=== PATIENT | female | born 1950 | race Caucasian/White ===

== ENCOUNTER 2020-05-21 09:11 | Outpatient (CLI) | payer MEDICARE, OTHER, SELFPAY ==
--- NOTE | ~2020-05-21 | MM_ITS ---
EXAMINATION: MM diagnostic garcía BI w butch HISTORY: Breast pain TECHNIQUE: Additional 3-D tomosynthesis images of the breasts were performed and synthetic 2-D images were generated. CAD analysis was submitted and interpreted. COMPARISON: None FINDINGS: Breast composed of scattered areas of fibroglandular density. There are no suspicious zoila s, calcifications or architectural distortion in either breast to suggest malignancy. IMPRESSION: 1. No mammographic evidence for malignancy in either breast. 2. Routine yearly screening mammogram and regular clinical breast examination are recommended. BI-RADS Category 1: Negative Reviewed, dictated and finalized at location A. IMPRESSION: 1. No mammographic evidence for malignancy in either breast. 2. Routine yearly screening mammogram and regular clinical breast examination a re recommended. BI-RADS Category 1: Negative
== END 2020-05-21 09:12 | disposition home or self-care (01) ==
LOC: CHSIMG 09:14
PROVIDERS: PCP Internal Medicine; Visit Provider Internal Medicine
DX: N64.4 Mastodynia (principal); N63.0 Unspecified lump in unspecified breast
CPT/HCPCS: 77062; 77066; G0279

== ENCOUNTER 2020-09-04 08:55 | Outpatient (CLI) | payer MEDICARE, OTHER, SELFPAY ==
[2020-09-04 09:08] VITALS: BP 123/70; PULSE 68; RESP 16; TEMP 36.2; O2SAT 96
[2020-09-04] MEDS: ZOLEDRONIC ACID 5 MG/100 ML 100 ML 400 MG IVPB (09:24)
--- NOTE | 2020-09-04 09:55 | PC.NURSE ---
Patient here for yearly IV Reclast infusion. Information on Reclast given. Patient has no concerns. Reclast infusion administered. Tolerated well. Safe exit of hospital.
== END 2020-09-04 08:56 | disposition home or self-care (01) ==
LOC: CHSTREATRM 08:57
PROVIDERS: PCP Internal Medicine; Visit Provider Internal Medicine
DX: M81.0 Age-related osteoporosis without current pathological fracture (principal)
CPT/HCPCS: 96365; J3489

== ENCOUNTER 2021-04-09 12:54 | Outpatient (CLI) | payer MEDICARE, OTHER, SELFPAY ==
--- NOTE | ~2021-04-09 | DEXA_ITS ---
Bone Density Report Name: Laurent Wall Age: 70 Sex: Female Ethnicity: White Date of : 1950 Indication: postmenopausal; screening for osteoporosis; height loss; prior fracture; cancer; hysterectomy; Referring Provider: Olivier Diaz Study: Bone densitometry was performed. Exam Date: April 09, 2021 Accession number: [id number] Bone Density: Region BMD T-score Z-score Classification AP Spine(L1-L4) 0.848 -1.8 0.4 Osteopenia Femoral Neck (Left) 0.677 -1.5 0.4 Osteopenia Total Hip (Left) 0.748 -1.6 0.0 Osteopenia Femoral Neck (Right) 0.650 -1.8 0.1 Osteopenia Total Hip (Right) 0.756 -1.5 0.1 Osteopenia Femoral Neck Mean 0.664 -1.7 0.3 Osteopenia Total Hip Mean 0.752 -1.6 0.1 Osteopenia World Health Organization criteria for BMD impression classify patients as: Normal (T-score at or above -1.0), Osteopenia (T-score between -1.0 and -2.5), or Osteoporosis (T-score at or below -2.5). 10-year Fracture Risk: FRAX not reported because: Treated for osteoporosis Clinical Information Provided by Patient: Has had a low trauma fracture Is being treated for osteoporosis Has used the following medications: Reclast (i.e. zoledronate), Vitamin D Has the following medical conditions: Cancer, Hysterectomy, COPD Patient maximum height was 64 Menopause Age: 37 No regular weight bearing exercise Does not regularly consume dairy products Drinks caffeinated beverages Onset of menses at age 10 Number of children 2 Impression: The patient has low bone mass, based on the Total Spine T-score. The patient has risk factors, including: previous fracture. Discussion: It is important to ask patients whether they are taking their medications and to encourage continued and appropriate compliance with their osteoporosis therapies to reduce fracture risk. It is also important to review their risk factors and encourage appropriate calcium and vitamin D intakes, exercise, fall prevention and other lifestyle measures. Follow-Up: Consider a repeat BMD and Vertebral Fracture Assessment (VFA) exam in 2 years or sooner if medically necessary, to reassess this patient's status. Reported by: Dr. Jesus Anna on 04/18/2021 5:02:00 PM. Reviewed, dictated and finalized at location Melvin RIVERA
== END 2021-04-09 12:55 | disposition home or self-care (01) ==
LOC: CHSIMG 12:55
PROVIDERS: PCP Internal Medicine; Visit Provider Internal Medicine
DX: M81.0 Age-related osteoporosis without current pathological fracture (principal)
CPT/HCPCS: 77080

== ENCOUNTER 2021-05-22 08:15 | Outpatient (CLI) | payer MEDICARE, OTHER, SELFPAY ==
--- NOTE | ~2021-05-22 | MM_ITS ---
EXAMINATION: MM screening garcaí BI w butch HISTORY: Screening TECHNIQUE: Craniocaudal and mediolateral oblique 3-D tomosynthesis images were obtained and synthetic 2-D images were generated. CAD analysis was submitted and interpreted. COMPARISON: Comparison to multiple prior studies sequentially, with oldest reviewed study dated 05/21. BREAST PARENCHYMAL COMPOSITION: The breasts are almost entirely fatty. FINDINGS: There is no evidence of suspicious mass, calcification, or architectural distortion to sugg est malignancy in either breast. There has been no suspicious interval change. IMPRESSION: 1. No mammographic evidence of malignancy. 2. Recommend routine screening mammography in one year. BI-RADS Category 1: Negative Reviewed, dictated and finalized at location A.
== END 2021-05-22 08:16 | disposition home or self-care (01) ==
LOC: CHSIMG 08:16
PROVIDERS: PCP Internal Medicine; Visit Provider Internal Medicine
DX: Z12.31 Encounter for screening mammogram for malignant neoplasm of breast (principal)
CPT/HCPCS: 77063; 77067

== ENCOUNTER 2021-06-27 10:53 | Outpatient (CLI) | payer MEDICARE, OTHER, SELFPAY ==
--- NOTE | ~2021-06-27 | XR_ITS ---
XR ankle LT min 3V DATE: 06/27/2021 11:37 INDICATION: Fall. Left ankle injury, pain TECHNIQUE: 4 views COMPARISON: None FINDINGS: A linear oblique in particular fracture of the base of the fifth metatarsal bone is noted. There is mild lateral soft tissue swelling of the ankle. Mild distal Achilles tendon calcification. No fracture or dislocation of the ankle or disruption of the ankle mortise is detected. IMPRESSION: Fracture of the base of the fifth metatarsal bone Reviewed, dictated and finalized at location B.
--- NOTE | ~2021-06-27 | XR_ITS ---
EXAMINATION: XR hand RT min 3V DATE: 06/27/2021 11:37 INDICATION: Right hand pain TECHNIQUE: Posteroanterior, lateral, and oblique views of the right hand were obtained. COMPARISON: None. FINDINGS: There is no fracture, dislocation, or subluxation. Mild osteoarthritis is noted at the firs t carpometacarpal joint as well as in all interphalangeal joints. The soft tissues are unremarkable. IMPRESSION: 1. No acute osseous abnormality. Reviewed, dictated and finalized at location A.
--- NOTE | ~2021-06-27 | XR_ITS ---
EXAMINATION: XR wrist RT min 3V INDICATION: Right wrist pain TECHNIQUE: Four views of the right wrist are obtained. COMPARISON: None available FINDINGS: There is no fracture, dislocation, or subluxation. There is mild osteoarthritis at the firs t carpometacarpal joint. The soft tissues are unremarkable. IMPRESSION: 1. No acute osseous abnormality. Reviewed, dictated and finalized at location A.
--- NOTE | ~2021-06-27 | XR_ITS ---
XR foot LT min 3V DATE: 06/27/2021 11:38 INDICATION: Fall. Left foot pain. TECHNIQUE: 4 views COMPARISON: None FINDINGS: There is a nondisplaced linear intra-articular fracture of the base of the fifth metatarsal bone. There is hallux valgus and bunion deformity. There is osteoarthritis at the first metatarsophalangeal joint. Mild distal Achilles tendon calcification. IMPRESSION: Acute linear nondisplaced intra-articular fracture of the base of the fifth metatarsal alec ne Hallux valgus and bunion deformity Mild osteoarthritis at the first metatarsophalangeal joint Distal Achilles tendon calcification Reviewed, dictated and finalized at location B. IMPRESSION: Acute linear nondisplaced intra-articular fracture of the base of t he fifth metatarsal bone Hallux valgus and bunion deformity Mild osteoarthritis at the first metatarsophalangeal joint Distal Achilles tendon calcification
== END 2021-06-27 10:54 | disposition home or self-care (01) ==
PROVIDERS: PCP Internal Medicine; Visit Provider Internal Medicine
DX: S69.91XA Unspecified injury of right wrist, hand and finger(s), initial encounter (principal); S99.922A Unspecified injury of left foot, initial encounter
CPT/HCPCS: 73110; 73130; 73610; 73630

== ENCOUNTER 2021-07-07 15:53 | Outpatient (CLI) | payer MEDICARE, OTHER, SELFPAY ==
--- NOTE | ~2021-07-07 | XR_ITS ---
XR ribs RT 2V DATE: 07/07/2021 16:32 INDICATION: Right rib pain after fall one week ago. History of lung cancer. TECHNIQUE: 3 views of right ribs COMPARISON: 02/09/2019 PA and lateral chest FINDINGS: There is an approximately 2 cortical width displaced fracture of the posterior right fifth rib which appears recent. No other rib fracture is evident. There is right apical capping but no apparent right pulmonary infil trate or consolidation, pleural effusion or pneumothorax. There is suggestion of several mild fracture deformities of uncertain age of the thoracic spine. Diffuse osteopenia. IMPRESSION: Mildly displaced posterior right fifth recent rib fracture Several fracture deformities of undetermined age of the thoracic spine are suggested Reviewed, dictated and finalized at location A. IMPRESSION: Mildly displaced posterior right fifth recent rib fracture Several fracture deformities of undetermined age of the thoracic spine are sugg rosario
== END 2021-07-07 15:54 | disposition home or self-care (01) ==
LOC: CHSIMG 15:56
PROVIDERS: PCP Internal Medicine; Visit Provider Nurse Practitioner Family
DX: R07.81 Pleurodynia (principal); S22.39XA Fracture of one rib, unspecified side, initial encounter for closed fracture
CPT/HCPCS: 71100

== ENCOUNTER 2021-07-08 14:31 | Outpatient (CLI) | payer MEDICARE, OTHER, SELFPAY ==
--- NOTE | ~2021-07-08 | XR_ITS ---
XR thoracic spine 3V DATE: 07/08/2021 14:57 INDICATION: Thoracic spine fracture TECHNIQUE: AP, lateral, swimmer views COMPARISON: thoracic spine and CT thorax FINDINGS: There is diffuse osteopenia. There are mild to moderate anterior wedge compression fracture deformities at T4-5, T5, T6 and T8, no t present on 02/25/2016. The thoracic pedicles appear intact. No paraspinal soft tissue thickening. Diminished right apical soft tissue density compared to 02/25/2016. IMPRESSION: Mild to moderate anterior wedge compression fracture deformities of T5, T6 and T8, new si nce 02/25/2016 Reviewed, dictated and finalized at location A. IMPRESSION: Mild to moderate anterior wedge compression fracture deformities of T5, T6 and T8, new since 02/25/2016
== END 2021-07-08 14:32 | disposition home or self-care (01) ==
LOC: CHSIMG 14:34
PROVIDERS: PCP Internal Medicine; Visit Provider Internal Medicine
DX: S22.009D Unspecified fracture of unspecified thoracic vertebra, subsequent encounter for fracture with routine healing (principal)
CPT/HCPCS: 72072

== ENCOUNTER 2021-07-30 12:37 | Outpatient (CLI) | payer MEDICARE, OTHER, SELFPAY ==
--- NOTE | ~2021-07-30 | XR_ITS ---
EXAMINATION: XR foot LT min 3V DATE: 07/30/2021 12:56 INDICATION: Fifth metatarsal fracture follow-up TECHNIQUE: Dorsoplantar, lateral, and 2 oblique views of the left foot were obtained. COMPARISON: 06/27/2021 FINDINGS: Again seen is an oblique intra-articular fracture at the lateral base of the fifth metatars al. Alignment is unchanged. Minimal calcified callus has developed at the fracture site. No additiona l fracture is identified. There is mild to moderate osteoarthritis of multiple interphalangeal joints . Hallux valgus is noted. IMPRESSION: 1. Fracture at the lateral base of the fifth metatarsal with some early healing. Reviewed, dictated and finalized at location B. IMPRESSION: 1. Fracture at the lateral base of the fifth metatarsal with some early healing .
== END 2021-07-30 12:38 | disposition home or self-care (01) ==
LOC: CHSIMG 12:39
PROVIDERS: PCP Internal Medicine; Visit Provider Internal Medicine
DX: S92.352D Displaced fracture of fifth metatarsal bone, left foot, subsequent encounter for fracture with routine healing (principal)
CPT/HCPCS: 73630

== ENCOUNTER 2021-10-21 12:46 | Outpatient (CLI) | payer MEDICARE, OTHER, SELFPAY ==
[2021-10-21 12:59] VITALS: BP 130/70; PULSE 78; RESP 14; TEMP 36.5; O2SAT 97; BMI 29.9
[2021-10-21] MEDS: ZOLEDRONIC ACID 5 MG/100 ML 100 ML 400 MG IVPB (13:00)
--- NOTE | 2021-10-21 13:11 | PC.NURSE ---
Patient here for yearly IV Reclast infusion. Education on medication given. No concerns voiced. IV Reclast administered. SEE MAR. Tolerated well. Safe exit of hospital.
== END 2021-10-21 12:47 | disposition home or self-care (01) ==
LOC: CHSTREATRM 12:48
PROVIDERS: PCP Internal Medicine; Visit Provider Internal Medicine
DX: M81.0 Age-related osteoporosis without current pathological fracture (principal)
CPT/HCPCS: 96365; J3489

== ENCOUNTER 2021-11-25 09:19 | Outpatient (CLI) | payer MEDICARE, SELFPAY ==
[2021-11-25 12:40] LABS: SARS-CoV-2 Ag Negative (Negative)
[2021-11-25 12:41] LABS: Influenza Control Valid (Valid)
== END 2021-11-25 09:20 | disposition home or self-care (01) ==
LOC: CHSLAB 09:23
PROVIDERS: PCP Internal Medicine; Visit Provider Internal Medicine
DX: J06.9 Acute upper respiratory infection, unspecified (principal); Z20.822 Contact with and (suspected) exposure to COVID-19
CPT/HCPCS: 87081; 87426; 87804; 87880; C9803

== ENCOUNTER 2022-01-02 20:34 | Emergency (ER) | payer MEDICARE, OTHER, SELFPAY ==
[2022-01-02 21:23] VITALS: BP 152/98; PULSE 64; RESP 18; TEMP 36.6; O2SAT 96
--- NOTE | 2022-01-02 22:01 | ED.GENADULT ---
HPI - General Adult General Chief complaint: Unspecified Stated complaint: gi tube is coming out Time Seen by Provider: 01/02/22 22:02 History of Present Illness HPI narrative: 71-year-old female patient is here with the G-tube coming out this evening. Patient has had G-tube for 8 months on account of Having narrowing of the esophagus from his radiation for lung cancer.. She seems to use it only for medications at this time however she states that she is going to start taking the medications crushed in liquids and is able to swallow. She denies any abdominal pain. she states that she does take liquids and the pureed food. She has had no difficulty swallowing. Patient offers no other Related Data Home Medications Medication Instructions Recorded Confirmed cholecalciferol (vitamin D3) 25 1,000 unit PO DAILY 09/25/19 10/21/21 mcg (1,000 unit) capsule escitalopram oxalate 10 mg tablet 10 mg PO DAILY 09/25/19 10/21/21 famotidine 40 mg tablet 40 mg PO DAILY 09/25/19 10/21/21 inhalational spacing device #1 each 09/25/19 10/21/21 levothyroxine 88 mcg tablet 88 mcg PO DAILY 09/25/19 10/21/21 lorazepam 1 mg tablet 1 mg PO DAILY PRN 09/25/19 10/21/21 ondansetron HCl 8 mg tablet 8 mg PO Q12H 09/25/19 10/21/21 tramadol 50 mg tablet 50 mg PO Q6H PRN 09/25/19 10/21/21 acetaminophen 500 mg tablet 500 mg PO Q4H PRN 09/26/19 10/21/21 cetirizine 10 mg capsule 10 mg PO DAILY cap 09/25/20 10/21/21 Allergies Allergy/AdvReac Type Severity Reaction Status Date / Time Penicillins Allergy Unknown rash Verified 03/25/21 09:16 Review of Systems Review of Systems: All systems reviewed & are unremarkable except as noted in HPI and below PMFSH Past Medical History Medical History Cholecystectomy planned History of lung cancer Surgical History Surgical History H/O: hysterectomy Family History Family History Father Hypertension Cerebrovascular accident Malignant neoplasm of prostate, Onset Age: 84 Family history of congestive heart failure Mother Family history of osteoarthritis Family history of coronary artery disease Social History Social History Smoking packs per day: 1 Smoking cigarettes per day: 20.0 Years smoked: 35 Smoking pack-years: 35.00 Smoking status: Former smoker Exam Const: General: cooperative, healthy appearing, comfortable, no acute distress, well developed, alert, awake and Physically active HENMT: Head: normal to inspection Ears: hearing grossly normal bilaterally General nose exam: Normal external nose present Face and sinus: normal facial exam Mouth: Yes Normal oral and palatal mucosa present Eyes: General: appearance normal, both eyes and all related structures Neck: Neck: normal visual inspection and full ROM Chest: Chest palpation & inspection: normal inspection of the chest Resp: Effort & Inspection: normal respiratory effort and able to speak in complete sentences Cardio: Rate: regular rate GI: Inspection: normal to inspection GI Palp: No abdominal tenderness Other: Patient has a G-tube in the left upper quadrant area which is partially out. Skin: General skin exam: normal color and no rashes or lesions noted Neuro: General: patient oriented x3, gait normal and moves all extremities Speech: normal speech Extrem: General: normal to inspection Psych: Appearance: grossly normal Mental Status: mental status grossly normal Course Course Emergency Course: The G-tube was pulled out and the balloon is completely torn. It the patient does not want the G-tube back in. She states that she is about to have it removed and she is going to try take the medications crushed and juice. The wound has been closed with a dressing. The patient is advised to follow-up with her pr
== END 2022-01-02 22:40 | disposition home or self-care (01) ==
PROVIDERS: Emergency Provider Emergency Medicine; PCP Internal Medicine
DX: Z93.4 Other artificial openings of gastrointestinal tract status (principal); Z85.118 Personal history of other malignant neoplasm of bronchus and lung; Z87.891 Personal history of nicotine dependence
CPT/HCPCS: 99283

== ENCOUNTER 2022-05-10 18:10 | Emergency (ER) | payer MEDICARE, OTHER, SELFPAY ==
--- NOTE | ~2022-05-10 | CT_ITS ---
EXAMINATION: CT diagnostic chest wo con DATE: 05/10/2022 19:19 INDICATION: FB esophagus. HX of Lung cancer TECHNIQUE: Computed tomography (CT) of the chest was performed without intravenous contrast. Automate d exposure control and iterative reconstruction technique were employed. The dose-length product was 271.80 mGy-cm. COMPARISON: CT soft tissue neck, same date. FINDINGS: CHEST: Thoracic aorta: Mild ectasia with arch calcifications.. Lung parenchyma and airways: 3 mm left upper lobe pulmonary nodule. Multiple calcified granulomas. Em physematous change. Mixed density posterior right apical mass, possibly pleural based, with both calc ific and fluid density. Right apical volume loss and scarring. Thoracic inlet, axillae and chest wall: No thyroid or soft tissue mass. No axillary lymphadenopathy. Mediastinum: No mass or lymphadenopathy. The upper esophageal foreign bodies in the prior study are n o longer seen. Small hiatal hernia. Heart and pericardium: Normal heart size. No pericardial effusion. Coronary artery calcifications: Moderate. Pleura: No effusion or mass, except as noted above. Upper abdomen: No significant finding. Thoracic bones: Multifocal lytic areas of potential erosions along the right side of T1-T5 with simil ar changes in the corresponding posterior medial ribs. Mild anterior wedge deformity and endplate def ormities at T3-T6. IMPRESSION: The upper esophageal foreign bodies described in the prior report are no longer present. 3 mm left up per lobe pulmonary nodule, if the patient is low risk for lung cancer, no follow-up is needed. If the patient is high risk (i.e., history of smoking or asbestos or radiation exposure), follow-up noncont rast low-dose chest CT is recommended at 12 months. Right posterior apical pleural mass and fluid co llection with adjacent lytic osseous changes and pulmonary parenchymal scarring/volume loss, possibly representing posttherapeutic and or post radiation changes. Recurrent disease not excluded. Reviewed, dictated and finalized at location K. IMPRESSION: The upper esophageal foreign bodies described in the prior report are no longer present. 3 mm left upper lobe pulmonary nodule, if the patient is low risk for lung cancer, no follow-up is needed. If the patient is high risk (i.e., histor y of smoking or asbestos or radiation exposure), follow-up noncontrast low-dose chest CT is recommended at 12 months. Right posterior apical pleural mass and fluid collection with adjacent lytic osseous changes and pulmonary parenchymal scarring/volume loss, possibly representing posttherapeutic and or post radiat ion changes. Recurrent disease not excluded.
--- NOTE | ~2022-05-10 | CT_ITS ---
CORRECTED REPORT order change 05/11/22 [facility] [place] EXAMINATION: CT soft tissue neck wo con DATE: 05/10/2022 19:09 INDICATION: Esophageal foreign body. TECHNIQUE: Computed tomography (CT) of the neck was performed without intravenous contrast. Automated exposure control and iterative reconstruction technique were employed. The dose-length product was 470.74 mGy-cm. COMPARISON: None FINDINGS: Motion limited examination. The thyroid gland is poorly visualized. The submandibular are poorly visualized, parotid glands are symmetric. The mid anterior neck is obscured by motion artifact, no definite lymphadenopathy in the visualized soft tissues. Aortic arch calcifications. Irregular areas of soft tissue debris within the patulous upper esophagus. Heparin airways appear by motion. Bilateral lens replacements. Visualized sinuses and mastoid air cells are well aerated. Mixed density right apical mass, with erosion into adjacent upper ribs and thoracic vertebral bodies. There is cervical spondylosis. IMPRESSION: Esophageal foreign body, likely representing ingested food. Right apical lung or pleural mass with adjacent rib and thoracic vertebral body erosion. Please refer to the report on the concurrent CT chest for additional detail. Reviewed, dictated and finalized at location K. MTDD IMPRESSION: Esophageal foreign body, likely representing ingested food. Right apical lung o r pleural mass with adjacent rib and thoracic vertebral body erosion. Please re maureen to the report on the concurrent CT chest for additional detail.
--- NOTE | ~2022-05-10 | CT_ITS ---
EXAMINATION: CT diagnostic chest wo con DATE: 05/10/2022 21:32 INDICATION: FB esophagus, resolved? Patient reportedly still feels something stuck in her throat. TECHNIQUE: Computed tomography (CT) of the chest was performed without intravenous contrast. Automate d exposure control and iterative reconstruction technique were employed. The dose-length product was 180.66 mGy-cm. COMPARISON: CT chest, same date. FINDINGS: Esophagus remains free of foreign bodies. No significant wall thickening. No mediastinal air. Small h iatal hernia. Stable right apical mass and adjacent lytic osseous changes. Stable left pulmonary nodu le. IMPRESSION: No esophageal foreign body. No significant interval change. Prior recommendation for pulmonary nodule follow-up is unchanged. Reviewed, dictated and finalized at location K. IMPRESSION: No esophageal foreign body. No significant interval change. Prior recommendatio n for pulmonary nodule follow-up is unchanged.
[2022-05-10 18:15] VITALS: BP 167/89; PULSE 91; RESP 20; TEMP 36.6; O2SAT 97
--- NOTE | 2022-05-10 18:22 | ECG_ITS ---
Measurements Intervals [place] Rate: 83 P: 72 NH: 164 QRS: 44 QRSD: 89 T: 138 QT: 381 QTc: 449 Interpretive Statements SINUS RHYTHM WITH OCCASIONAL SUPRAVENTRICULAR PREMATURE COMPLEXES BASELINE ARTIFACT POSSIBLE LEFT ATRIAL ENLARGEMENT [-0.1mV P-WAVE IN V1/V2] LEFT VENTRICULAR HYPERTROPHY AND ST-T CHANGE [VOLTAGE CRITERIA PLUS ST/T ABNORMALITY] ABNORMAL ECG NO PREVIOUS ECG AVAILABLE FOR COMPARISON Electronically Signed On 05-11-2022 14:27:04 CDT by Lisandro Blanton M.D.
[2022-05-10] MEDS: SODIUM CHLORIDE 0.9% IV 500 ML 999 ML IV CONT (19:23)
[2022-05-10 19:27] LABS: Basophils Absolute Auto 0.08 K/mm3 (0.00-0.10); Basophils Percent Auto 1.2 % (0.0-1.0); Eosinophils Percent Auto 1.4 % (1.0-6.0); Hematocrit 44.8 % (35.0-42.0); Hemoglobin 15.5 g/dL (11.7-13.8); Immature Granulocyte Absolute 0.02 K/mm3 (0.00-0.00); Immature Granulocyte Percent A 0.3 % (0.0-0.0); Lymphocytes Absolute Auto 1.43 K/mm3 (1.10-4.50); Lymphocytes Percent Auto 20.7 % (18.0-42.0); Mean Corpuscular HGB Conc 34.6 g/dL (32.0-36.0); Mean Corpuscular Hemoglobin 30.6 pg (27.0-31.0); Mean Corpuscular Volume 88.5 fL (78.0-102.0); Mean Platelet Volume 10.5 fl (9.2-11.8); Monocytes Absolute Auto 0.71 K/mm3 (0.10-0.90); Monocytes Percent Auto 10.3 % (2.0-11.0); Neutrophils Absolute Auto 4.6 K/mm3 (1.7-7.2); Neutrophils Percent Auto 66.1 % (50.0-70.0); Platelet Count Result 313 K/mm3 (150-420); Red Blood Count 5.06 M/mm3 (4.20-5.40); Red Cell Distribution Width 12.9 % (11.6-14.4); White Blood Count 6.9 K/mm3 (4.8-10.8)
[2022-05-10] MEDS: GLUCAGON FOR INJ 1 MG VIAL IV PUSH ×2 (19:29→20:43)
[2022-05-10] MEDS: ONDANSETRON INJ 4 MG/2 ML VIAL IV PUSH ×2 (19:31→20:45)
[2022-05-10] MEDS: PANTOPRAZOLE SODIUM IV 40 MG VIAL IV PUSH (19:32)
[2022-05-10 19:39] LABS: Glucose Point of Care 97 mg/dl (65-105)
[2022-05-10 19:46] LABS: Alanine Aminotransferase 23 U/L (14-59); Albumin Level 4.2 g/dL (3.4-5.0); Alkaline Phosphatase 53 U/L (46-116); Anion Gap 10 mmol/L (8-16); Aspartate Amino Transferase 23 U/L (15-37); Bilirubin,Total 0.7 mg/dL (0.00-1.00); Blood Urea Nitrogen 11 mg/dL (7-18); Calcium 9.4 mg/dL (8.5-10.1); Carbon Dioxide 24 mmol/L (21-32); Chloride 103 mmol/L (98-108); Estimated CRCL calculation 32 ml/min; Estimated Glomerular Filt Rate 36; Glucose 112 mg/dL (70-99); Osmolality Calculated 284 mOsm/kg (285-295); Potassium 3.7 mmol/L (3.5-5.1); Sodium 137 mmol/L (136-145); Total Protein 7.2 g/dL (6.4-8.2); Troponin I 55.6 ng/L (0.00-60.4)
--- NOTE | 2022-05-10 19:56 | PC.NURSE ---
ERP asked RN to speak to GI for possible transfer. Pt requested [facility]. 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 Pt states she has had an incident in the past with a nut stuck in her esophagus. Pt states she was seen and treated at [facility]. RN called [facility] transfer line.
[2022-05-10 20:16] VITALS: BP 153/72; PULSE 83; RESP 16; O2SAT 94
[2022-05-10 21:45] VITALS: BP 145/80; PULSE 76; RESP 18; O2SAT 97
--- NOTE | 2022-05-10 22:21 | ED.GENADULT ---
HPI - General Adult General Chief complaint: Unspecified Stated complaint: choking Time Seen by Provider: 05/10/22 18:14 Source: patient, family and RN notes reviewed Mode of arrival: ambulatory Limitations: no limitations History of Present Illness MD complaint: unable to swallow food x this PM. Onset (ago): hour(s) (1) Location: chest Severity: mild Relieving factors: none Exacerbating factors: none Associated symptoms: cough Treatments prior to arrival: none Related Data Home Medications Medication Instructions Recorded Confirmed cholecalciferol (vitamin D3) 25 1,000 unit PO DAILY 09/25/19 05/10/22 mcg (1,000 unit) capsule escitalopram oxalate 10 mg tablet 10 mg PO DAILY 09/25/19 05/10/22 famotidine 40 mg tablet 40 mg PO DAILY 09/25/19 05/10/22 inhalational spacing device #1 ea 09/25/19 05/10/22 ([employer]amber [facility] spacer) levothyroxine 88 mcg tablet 88 mcg PO DAILY 09/25/19 05/10/22 (Synthroid) lorazepam 1 mg tablet 1 mg PO DAILY PRN Anxiety 09/25/19 05/10/22 ondansetron HCl 8 mg tablet 8 mg PO Q12H 09/25/19 05/10/22 tramadol 50 mg tablet 50 mg PO Q6H PRN Pain 09/25/19 05/10/22 acetaminophen 500 mg tablet 500 mg PO Q4H PRN Pain 09/26/19 05/10/22 (Tylenol Extra Strength) cetirizine 10 mg capsule (Zyrtec) 10 mg PO DAILY 09/25/20 05/10/22 Allergies Allergy/AdvReac Type Severity Reaction Status Date / Time Penicillins Allergy Unknown rash Verified 05/10/22 18:44 Review of Systems Review of Systems: All systems reviewed & are unremarkable except as noted in HPI and below Constitutional: Constitutional: Reports no additional constitutional complaints Eyes: Eyes: Reports no additional eye complaints ENT: Reports system reviewed and no additional complaints, except as documented Cardiovascular: Cardiovascular: Reports no additional cardiovascular complaints Respiratory: Respiratory: Reports no additional respiratory complaints Gastrointestinal: Gastrointestinal: Reports no additional gastrointestinal complaints Genitourinary: Genitourinary: Reports no additional female genitourinary complaints Musculoskeletal: Musculoskeletal: Reports no additional musculoskeletal complaints Integumentary/Breasts: Skin/Breast: Reports system reviewed and no additional complaints, except as docu Neurologic: Reports system reviewed and no additional complaints, except as documented Psychiatric: Psychiatric: Reports no additional psychiatric complaints Endocrine: Endocrine: Reports no additional endocrine complaints Hematologic/Lymphatic: Hematologic/Lymphatic: Reports no additional hematologic/lymphatic complaints Allergic/Immunologic: Allergic/Immunologic: Reports no additional allergic/immunologic complaints PMFSH Past Medical History Medical History Cholecystectomy planned FB esophagus History of lung cancer Surgical History Surgical History H/O: hysterectomy Family History Family History Father Hypertension Cerebrovascular accident Malignant neoplasm of prostate, Onset Age: 84 Family history of congestive heart failure Mother Family history of osteoarthritis Family history of coronary artery disease Social History Social History Smoking packs per day: 1 Smoking cigarettes per day: 20.0 Years smoked: 35 Smoking pack-years: 35.00 Smoking status: Former smoker Exam Const: General: healthy appearing and no acute distress Nutritional Appearance: well nourished Orientation/consciousness: patient oriented x3 Limitations: no limitations HENMT: Head: normal to inspection Ears: external ears normal, TM's normal bilaterally and EAC's normal General nose exam: Normal external nose present and Normal nares present Face and sinus: normal facial exam and sin
[2022-05-10 22:36] VITALS: BP 157/73; PULSE 76; RESP 16; O2SAT 97
== END 2022-05-10 22:42 | disposition home or self-care (01) ==
PROVIDERS: Emergency Provider Emergency Medicine; PCP Internal Medicine
DX: K22.9 Disease of esophagus, unspecified (principal); Z85.118 Personal history of other malignant neoplasm of bronchus and lung; Z87.891 Personal history of nicotine dependence; Z79.899 Other long term (current) drug therapy
CPT/HCPCS: 36415; 70490; 71250; 80053; 82948; 84484; 85025; 93005; 96374; 96375; 96376; 99284; C9113; J1610; J2405; J7040

== ENCOUNTER 2022-05-26 11:47 | Outpatient (CLI) | payer MEDICARE, OTHER, SELFPAY | END 2022-05-26 11:48 | disposition home or self-care (01) | LOC: CHSIMG 11:52 | PROVIDERS: PCP Internal Medicine; Visit Provider Internal Medicine | DX: G45.9 Transient cerebral ischemic attack, unspecified (principal); C34.90 Malignant neoplasm of unspecified part of unspecified bronchus or lung | CPT/HCPCS: 93005 ==

== ENCOUNTER 2022-05-27 08:49 | Outpatient (CLI) | payer MEDICARE, OTHER, SELFPAY ==
--- NOTE | ~2022-05-27 | US_ITS ---
EXAMINATION: US carotid duplex BI DATE: 05/27/2022 09:29 INDICATION: TIA. Garbled speech. TECHNIQUE: Grayscale, color Doppler, and pulsed Doppler images of the cervical carotid arteries were obtained. The degree of vessel stenosis is placed in one of the following categories: normal, <50%, 5 0-69%, >=70% but less than near-occlusion, near-occlusion, or total occlusion. Note that percent sten osis relative to normal distal artery lumen diameter is indirectly measured from velocity measurement s as described by Raheel, et al. Radiology 2003; 229:340-346. Notes: Normal: Peak systolic velocity <125 centimeters/sec and no plaque <50%. Peak systolic velocity <125 ( EDV <40; ICA/CCA PSV ratio <2.0; used these factors only a tandem lesions or low cardiac output or co ntralateral disease) 50-69 %: PSV 125-230 (EDV 40-100; ratio 2-4) >= 70% but less than near occlusion: PSV greater than 230 (EDV > 100; ratio> 4.0) Near Occlusion: PSV that is variable; markedly narrowed lumen Occlusion: Absent flow on color/spectral Doppler and no lumen on hicks scale. COMPARISON: None. FINDINGS: RIGHT: The right common carotid artery (CCA) peak systolic velocity (PSV) is 50 cm/s. The right internal car otid artery (ICA) PSV is 40 cm/s. The right ICA end-diastolic velocity (EDV) is 9 cm/s. The right ICA /CCA PSV ratio is 0.8. The external carotid artery (ECA) PSV is 67 cm/s. No demonstrable flow in the right vertebral artery. LEFT: The left CCA PSV is 50 cm/s. The left ICA PSV is 92 cm/s. The left ICA EDV is 17 cm/s. The left ICA/C CA PSV ratio is 1.9. The ECA PSV is 76 cm/s. There is antegrade flow in the left vertebral artery. IMPRESSION: 1. Less than 50% stenosis in the right internal carotid artery by sonographic criteria. 2. Less than 50% stenosis in the left internal carotid artery by sonographic criteria. 3: No flow identified in the right vertebral artery, possibly occluded. Reviewed, dictated and finalized at location A. IMPRESSION: 1. Less than 50% stenosis in the right internal carotid artery by sonographic c riteria. 2. Less than 50% stenosis in the left internal carotid artery by sonographic cr iteria. 3: No flow identified in the right vertebral artery, possibly occluded.
== END 2022-05-27 08:50 | disposition home or self-care (01) ==
LOC: CHSIMG 08:51
PROVIDERS: PCP Internal Medicine; Visit Provider Internal Medicine
DX: G45.9 Transient cerebral ischemic attack, unspecified (principal); C34.90 Malignant neoplasm of unspecified part of unspecified bronchus or lung
CPT/HCPCS: 93880

== ENCOUNTER 2022-06-02 09:00 | Outpatient (CLI) | payer MEDICARE, OTHER, SELFPAY ==
--- NOTE | ~2022-06-02 | MR_ITS ---
EXAMINATION: MR brain/brain stem w con DATE: 06/02/2022 11:07 INDICATION: Transient ischemic episode. Lung cancer. TECHNIQUE: Magnetic resonance imaging (MRI) of the brain and brainstem was performed without and with 17 mL Multihance intravenous contrast. Sequences included sagittal and axial T1-weighted SE, axial d iffusion-weighted FS SE, axial T2*-weighted GRE, axial 3D SWAN, axial T2-weighted FLAIR, and axial T2 -weighted FSE. Postcontrast axial and coronal T1-weighted SE was obtained. Apparent diffusion coeffic ient (ADC) maps were created. COMPARISON: None. FINDINGS: There are no areas of restricted diffusion to suggest acute infarction. No intracranial hemorrhage or abnormal intracranial mass lesion. Prominent scattered of nonspecific increased T2-weighted signal i ntensity in the cerebral white matter, predominantly involving the deep and periventricular white mat ter. There are no intraparenchymal signal abnormalities seen on the other pulse sequences. The ventri cles are symmetric and normal in size. There are no abnormal extra-axial fluid collections. Flow void s are seen in the cerebral arteries on the T2-weighted sequences consistent with their expected paten cy. Changes of bilateral intraocular lens replacement. Mild mucoperiosteal thickening the bilateral e thmoid sinuses. Visualized orbits and soft tissues are unremarkable. There are no areas of abnormal e nhancement on the post contrast images. IMPRESSION: 1. No acute intracranial process or abnormally enhancing brain lesions. 2. Extensive nonspecific periventricular predominant white matter T2 hyperintensity likely sequela of chronic small vessel ischemic disease. Reviewed, dictated and finalized at location B. IMPRESSION: 1. No acute intracranial process or abnormally enhancing brain lesions. 2. Extensive nonspecific periventricular predominant white matter T2 hyperinten sity likely sequela of chronic small vessel ischemic disease.
== END 2022-06-02 09:01 | disposition home or self-care (01) ==
LOC: CHSIMG 09:02
PROVIDERS: PCP Internal Medicine; Visit Provider Internal Medicine
DX: G45.9 Transient cerebral ischemic attack, unspecified (principal); C34.90 Malignant neoplasm of unspecified part of unspecified bronchus or lung
CPT/HCPCS: 99199; 70552; A9577

== ENCOUNTER 2022-06-09 18:15 | Emergency (ER) | payer MEDICARE, OTHER, SELFPAY ==
--- NOTE | ~2022-06-09 | CT_ITS ---
EXAMINATION: CT brain wo con DATE: 06/09/2022 18:37 INDICATION: slurred speech . TECHNIQUE: Computed tomography (CT) of the head was performed without intravenous contrast. The mA wa s adjusted according to patient size. Iterative reconstruction technique was employed. The dose-lengt h product was 605.33 mGy-cm. COMPARISON: None FINDINGS: No acute intracranial hemorrhage or extra-axial fluid collection. No hydrocephalus, mass, or herniation. No acute ischemic infarct. Unremarkable dural venous sinus attenuation. No acute osseous abnormality. The aerated spaces are clear. Moderate atrophy and severe chronic white matter change. Atherosclerotic intracranial calcification. Bilateral lens replacements. IMPRESSION: No acute intracranial process. Reviewed, dictated and finalized at location K.
[2022-06-09 18:26] VITALS: BP 164/83; PULSE 76; RESP 18; TEMP 36.7; O2SAT 100
--- NOTE | 2022-06-09 18:26 | ECG_ITS ---
Measurements Intervals [place] Rate: 74 P: 77 CO: 152 QRS: 47 QRSD: 86 T: 136 QT: 390 QTc: 433 Interpretive Statements SINUS RHYTHM EARLY PRECORDIAL R/S TRANSITION LEFT VENTRICULAR HYPERTROPHY AND ST-T CHANGE ST-T WAVE ABNORMALITY IN ANTEROLAT/HIGH LAT LEADS- CONSIDER ISCHEMIA BASELINE ARTIFACT- I, II, III, AVR, AVL, AVF, V1-V6 ABNORMAL ECG Electronically Signed On 06-09-2022 19:35:31 CDT by Joe Holt D.O.
--- NOTE | 2022-06-09 18:27 | ED.NEUROSD ---
HPI - Neuro Symptoms/Deficit General Chief Complaint: Neuro Symptoms/Deficit Stated Complaint: facial drooping, slurred speech History of Present Illness HPI Narrative: Pt presents today with episode of slurred speech and left sided facial droop which started at 1800 and now has resolved (1815). Pt denies MORILLO or any other deficits and feels fine now. Pt has apparently had several similar episodes in past and has had an extensive work up for TIA's including carotid dopplers and a recent MRI of her brain. Pt is on daily aspirin and has a follow up with her PCP tomorrow. Related Data Home Medications Medication Instructions Recorded Confirmed cholecalciferol (vitamin D3) 25 1,000 unit PO DAILY 09/25/19 05/10/22 mcg (1,000 unit) capsule escitalopram oxalate 10 mg tablet 10 mg PO DAILY 09/25/19 05/10/22 famotidine 40 mg tablet 40 mg PO DAILY 09/25/19 05/10/22 inhalational spacing device #1 ea 09/25/19 05/10/22 (OptiChamber Suzanne [facility] spacer) levothyroxine 88 mcg tablet 88 mcg PO DAILY 09/25/19 05/10/22 (Synthroid) lorazepam 1 mg tablet 1 mg PO DAILY PRN Anxiety 09/25/19 05/10/22 ondansetron HCl 8 mg tablet 8 mg PO Q12H 09/25/19 05/10/22 tramadol 50 mg tablet 50 mg PO Q6H PRN Pain 09/25/19 05/10/22 acetaminophen 500 mg tablet 500 mg PO Q4H PRN Pain 09/26/19 05/10/22 (Tylenol Extra Strength) cetirizine 10 mg capsule (Zyrtec) 10 mg PO DAILY 09/25/20 05/10/22 Allergies Allergy/AdvReac Type Severity Reaction Status Date / Time Penicillins Allergy Unknown rash Verified 06/09/22 18:44 Review of Systems Review of Systems: All systems reviewed & are unremarkable except as noted in HPI and below PMFSH Past Medical History Medical History Cholecystectomy planned FB esophagus History of lung cancer Surgical History Surgical History H/O: hysterectomy Family History Family History Father Hypertension Cerebrovascular accident Malignant neoplasm of prostate, Onset Age: 84 Family history of congestive heart failure Mother Family history of osteoarthritis Family history of coronary artery disease Social History Social History Smoking packs per day: 1 Smoking cigarettes per day: 20.0 Years smoked: 35 Smoking pack-years: 35.00 Smoking status: Former smoker Exam Const: General: healthy appearing Nutritional Appearance: well nourished Orientation/consciousness: patient oriented x3 Limitations: no limitations HENMT: Head: normal to inspection Mouth: Yes Normal oral and palatal mucosa present Teeth and gingiva: abnormal tooth and associated gingiva (edentulous) Eyes: Conjunctivae: conjunctivae normal Pupils: Equal, round and reactive pupils present EOM: EOMs intact bilaterally Direct Ophthalmoscopy: no photophobia Neck: Neck: normal visual inspection Resp: Effort & Inspection: normal respiratory effort Auscultation: clear to auscultation bilaterally Cardio: Rate: regular rate Rhythm: regular rhythm GI: GI Palp: Yes Soft to palpation Auscultation: normal bowel sounds Skin: General skin exam: normal color Rashes: no rashes Wounds: no wounds Neuro: General: patient oriented x3, moves all extremities, no focal motor deficits and CN's II-XI intact bilaterally Cranial nerves: Yes Nystagmus not present Speech: normal speech Extrem: General: normal to inspection and no clubbing, cyanosis or edema Psych: Mental Status: mental status grossly normal Affect: normal affect Attitude: cooperative Course Course Emergency Course: pt remained asymptomatic throught the rest of her stay. d/w dr cabrera who will see her tomorrow to continue the work up. Pt already had MRI and carotid dopplers which were not conclusive. Pt on daily asa so already being treated Vital Signs Princess
[2022-06-09 18:32] LABS: Basophils Absolute Auto 0.07 K/mm3 (0.00-0.10); Eosinophils Absolute Auto 0.15 K/mm3 (0.02-0.50); Eosinophils Percent Auto 2.2 % (1.0-6.0); Hematocrit 44.5 % (35.0-42.0); Hemoglobin 14.8 g/dL (11.7-13.8); Immature Granulocyte Absolute 0.01 K/mm3 (0.00-0.00); Immature Granulocyte Percent A 0.1 % (0.0-0.0); Lymphocytes Absolute Auto 1.55 K/mm3 (1.10-4.50); Lymphocytes Percent Auto 22.8 % (18.0-42.0); Mean Corpuscular HGB Conc 33.3 g/dL (32.0-36.0); Mean Corpuscular Hemoglobin 30.6 pg (27.0-31.0); Mean Corpuscular Volume 91.9 fL (78.0-102.0); Mean Platelet Volume 10.5 fl (9.2-11.8); Monocytes Absolute Auto 0.42 K/mm3 (0.10-0.90); Monocytes Percent Auto 6.2 % (2.0-11.0); Neutrophils Absolute Auto 4.6 K/mm3 (1.7-7.2); Neutrophils Percent Auto 67.7 % (50.0-70.0); Platelet Count Result 309 K/mm3 (150-420); Red Blood Count 4.84 M/mm3 (4.20-5.40); Red Cell Distribution Width 13.2 % (11.6-14.4); White Blood Count 6.8 K/mm3 (4.8-10.8)
[2022-06-09 18:42] LABS: Partial Thromboplastin Time 27.5 SEC (23.90-30.70); Prothrombin Time 11.2 Seconds (9.50-12.10)
[2022-06-09 18:46] LABS: Alanine Aminotransferase 23 U/L (14-59); Albumin Level 3.9 g/dL (3.4-5.0); Alkaline Phosphatase 57 U/L (46-116); Anion Gap 9 mmol/L (8-16); Aspartate Amino Transferase 16 U/L (15-37); Bilirubin,Total 0.3 mg/dL (0.00-1.00); Blood Urea Nitrogen 10 mg/dL (7-18); Calcium 9.2 mg/dL (8.5-10.1); Carbon Dioxide 28 mmol/L (21-32); Chloride 106 mmol/L (98-108); Estimated Glomerular Filt Rate 37; Glucose 123 mg/dL (70-99); Osmolality Calculated 296 mOsm/kg (285-295); Potassium 3.9 mmol/L (3.5-5.1); Sodium 143 mmol/L (136-145); Total Protein 6.9 g/dL (6.4-8.2); Troponin I 21.6 ng/L (0.00-60.4)
[2022-06-09 19:17] VITALS: BP 126/97; PULSE 89; RESP 18; O2SAT 97
== END 2022-06-09 19:25 | disposition home or self-care (01) ==
PROVIDERS: Emergency Provider Emergency Medicine; PCP Internal Medicine
DX: G45.9 Transient cerebral ischemic attack, unspecified (principal); Z85.118 Personal history of other malignant neoplasm of bronchus and lung; Z87.891 Personal history of nicotine dependence; Z79.899 Other long term (current) drug therapy
CPT/HCPCS: 36415; 70450; 80053; 82948; 84484; 85025; 85610; 85730; 93005; 96374; 96375; 99284; J1200; J1885; J2765; J2930; J7040

== ENCOUNTER 2022-06-09 23:12 | Emergency (ER) | payer MEDICARE, OTHER, SELFPAY ==
[2022-06-09 23:12] VITALS: BP 123/81; PULSE 77; RESP 18; TEMP 36.6; O2SAT 95
--- NOTE | 2022-06-09 23:24 | ED.HA ---
HPI - Headache General Chief Complaint: Headache Stated Complaint: head ache History of Present Illness HPI Narrative: Pt seen here earlier today after having 15 minute episode of slurred speech and left sided facial droop which resolved. Head CT and work up; negative. Pt had another episode of slurred speech which lasted 5 minutes tonight and resolved and then she developed a right frontal MORILLO. Pt had not had a MORILLO with prior episodes. The neuro symptoms are resolved but the mild MORILLO remains with some nausea. Related Data Home Medications Medication Instructions Recorded Confirmed cholecalciferol (vitamin D3) 25 1,000 unit PO DAILY 09/25/19 06/09/22 mcg (1,000 unit) capsule escitalopram oxalate 10 mg tablet 10 mg PO DAILY 09/25/19 06/09/22 famotidine 40 mg tablet 40 mg PO DAILY 09/25/19 06/09/22 inhalational spacing device #1 ea 09/25/19 06/09/22 (OptiChamber Suzanne [facility] spacer) levothyroxine 88 mcg tablet 88 mcg PO DAILY 09/25/19 06/09/22 (Synthroid) lorazepam 1 mg tablet 1 mg PO DAILY PRN Anxiety 09/25/19 06/09/22 ondansetron HCl 8 mg tablet 8 mg PO Q12H 09/25/19 06/09/22 tramadol 50 mg tablet 50 mg PO Q6H PRN Pain 09/25/19 06/09/22 acetaminophen 500 mg tablet 500 mg PO Q4H PRN Pain 09/26/19 06/09/22 (Tylenol Extra Strength) cetirizine 10 mg capsule (Zyrtec) 10 mg PO DAILY 09/25/20 06/09/22 Adult Low Dose Aspirin 81 mg PO DIRECTED 06/09/22 06/09/22 Allergies Allergy/AdvReac Type Severity Reaction Status Date / Time Penicillins Allergy Unknown rash Verified 06/09/22 23:14 Review of Systems Review of Systems: All systems reviewed & are unremarkable except as noted in HPI and below PMFSH Past Medical History Medical History Cholecystectomy planned FB esophagus History of lung cancer Surgical History Surgical History H/O: hysterectomy Family History Family History Father Hypertension Cerebrovascular accident Malignant neoplasm of prostate, Onset Age: 84 Family history of congestive heart failure Mother Family history of osteoarthritis Family history of coronary artery disease Social History Social History Smoking packs per day: 1 Smoking cigarettes per day: 20.0 Years smoked: 35 Smoking pack-years: 35.00 Smoking status: Former smoker Exam Const: General: healthy appearing Nutritional Appearance: well nourished Orientation/consciousness: patient oriented x3 Limitations: no limitations HENMT: Head: normal to inspection Eyes: Pupils: Equal, round and reactive pupils present EOM: EOMs intact bilaterally Neck: Neck: no meningeal signs Resp: Effort & Inspection: normal respiratory effort Auscultation: clear to auscultation bilaterally Cardio: Rate: regular rate Rhythm: regular rhythm GI: GI Palp: Yes Soft to palpation Auscultation: normal bowel sounds Skin: General skin exam: normal color Rashes: no rashes Neuro: General: patient oriented x3, moves all extremities, no focal motor deficits and CN's II-XI intact bilaterally Cranial nerves: Yes Nystagmus not present Speech: normal speech Extrem: General: normal to inspection and no clubbing, cyanosis or edema Psych: Mental Status: mental status grossly normal Affect: normal affect Attitude: cooperative Course Course Emergency Course: headache resolving and pt feels better wants to go home and sleep Vital Signs Vital signs: Vital Signs Temperature 98 F 06/09/22 23:12 Pulse Rate 77 06/09/22 23:12 Respiratory Rate 18 06/09/22 23:12 Blood Pressure 123/81 06/09/22 23:12 Pulse Oximetry 95 06/09/22 23:12 Oxygen Delivery Room Air 06/09/22 23:12 Temperature 98 F 06/09/22 23:12 Pulse Rate 77 06/09/22 23:12 Respiratory Rate 18 06/09/22 23:12 Blood Pressure
[2022-06-09] MEDS: SODIUM CHLORIDE 0.9% IV 500 ML 999 ML IV CONT (23:38)
[2022-06-09] MEDS: diphenhydrAMINE HCl INJ 50 MG/ML VIAL 25 MG IV PUSH (23:39)
[2022-06-09] MEDS: KETOROLAC 15 MG/ML VIAL (*BKC) IV PUSH (23:42)
[2022-06-09] MEDS: METOCLOPRAMIDE HCL INJ 10 MG/2 ML VIAL IV PUSH (23:45)
[2022-06-09] MEDS: methylPREDNISolone SOD SUCC 125 MG VIAL IV PUSH (23:47)
[2022-06-10 00:15] VITALS: BP 124/87; PULSE 73; RESP 14; O2SAT 98
== END 2022-06-10 00:20 | disposition home or self-care (01) ==
PROVIDERS: Emergency Provider Emergency Medicine; PCP Internal Medicine
DX: G43.109 Migraine with aura, not intractable, without status migrainosus (principal); F17.200 Nicotine dependence, unspecified, uncomplicated
CPT/HCPCS: 96374; 96375; 99284; J1200; J1885; J2765; J2930; J7040

== ENCOUNTER 2022-06-15 07:36 | Outpatient (CLI) | payer MEDICARE, OTHER, SELFPAY ==
--- NOTE | ~2022-06-15 | MM_ITS ---
EXAMINATION: MM screening garcía BI w butch HISTORY: Screening TECHNIQUE: Craniocaudal and mediolateral oblique 3-D tomosynthesis images were obtained and synthetic 2-D images were generated. CAD analysis was submitted and interpreted. COMPARISON: 05/22/2021, 05/21/2020 bilateral mammogram examinations BREAST PARENCHYMAL COMPOSITION: There are scattered areas of fibroglandular density. FINDINGS: Right breast: New 7 mm circumscribed low-density opacity with halo sign situated anteriorly in the outer mid right breast, likely benign. Diagnostic right mammogram with compression views and right breast ultrasound examination are recommended.. New microcalcifications are noted over a wide area in the posterior mid to lower outer right breast o n outer most images, possibly on the skin.. Diagnostic right mammographic magnification views are rec ommended following thorough cleansing of the skin.. Left breast: Similar but fewer and less widely distributed microcalcifications are noted at the lower outer left b reast. Diagnostic left mammogram with magnification views after thorough cleansing the skin is recomm ended. IMPRESSION: 1. Bilateral microcalcifications, possibly at the skin; bilateral magnification views are recommended after thorough cleansing the skin 2. New 7 mm circumscribed opacity with halo sign in anterior outer mid right breast, likely benign. T argeted ultrasound is recommended. BI-RADS Category 0: Incomplete: Needs additional imaging evaluation. Reviewed, dictated and finalized at location A. IMPRESSION: 1. Bilateral microcalcifications, possibly at the skin; bilateral magnification views are recommended after thorough cleansing the skin 2. New 7 mm circumscribed opacity with halo sign in anterior outer mid right br east, likely benign. Targeted ultrasound is recommended. BI-RADS Category 0: Incomplete: Needs additional imaging evaluation.
== END 2022-06-15 07:37 | disposition home or self-care (01) ==
LOC: CHSIMG 07:39
PROVIDERS: PCP Internal Medicine; Visit Provider Internal Medicine
DX: Z12.31 Encounter for screening mammogram for malignant neoplasm of breast (principal)
CPT/HCPCS: 77063; 77067

== ENCOUNTER 2022-06-25 08:34 | Outpatient (CLI) | payer MEDICARE, OTHER, SELFPAY | END 2022-06-25 08:35 | disposition home or self-care (01) | LOC: CHSIMG 08:37 | PROVIDERS: PCP Internal Medicine; Visit Provider Internal Medicine | DX: R92.8 Other abnormal and inconclusive findings on diagnostic imaging of breast (principal); Z53.8 Procedure and treatment not carried out for other reasons | CPT/HCPCS: 99199 ==

== ENCOUNTER 2022-10-23 19:35 | Emergency (ER) | payer MEDICARE, OTHER, SELFPAY ==
--- NOTE | ~2022-10-23 | CT_ITS ---
EXAMINATION: CT soft tissue neck chest wo DATE: 10/23/2022 22:39 INDICATION: Foreign body in the esophagus. Follow-up from previous examination the same day. TECHNIQUE: Computed tomography (CT) of the neck and chest was performed without intravenous contrast. The dose-length product was 807.69 mGy-cm. Automated exposure control and iterative reconstruction t echnique were employed. COMPARISON: CT dated 10/23/2022 at 8:06 PM. FINDINGS: The soft tissue material in the upper esophagus is not identified on the current study. The re is mild thickening of this region of the esophagus which may relate to localized esophagitis. No e vidence for perforation. No peristaltic fluid or air. The remainder of the study of the neck an d chest are unchanged. IMPRESSION: 1. Interval passage of soft tissue material in the upper esophagus. Residual mild thickening of the e sophagus in this region, suspicious for focal esophagitis. No evidence for perforation. Otherwise, un changed CT neck and chest compared with recent examination dated 10/23/2022 at 8:06 PM. Reviewed, dictated and finalized at location A. EL CENTERER IMPRESSION: 1. Interval passage of soft tissue material in the upper esophagus. Residual mi ld thickening of the esophagus in this region, suspicious for focal esophagitis . No evidence for perforation. Otherwise, unchanged CT neck and chest compared with recent examination dated 10/23/2022 at 8:06 PM.
--- NOTE | ~2022-10-23 | CT_ITS ---
EXAMINATION: CT soft tissue neck chest wo DATE: 10/23/2022 20:12 INDICATION: Foreign body in the esophagus TECHNIQUE: Computed tomography (CT) of the neck and chest was performed without intravenous contrast. The dose-length product was 725.95 mGy-cm. Automated exposure control and iterative reconstruction technique were employed. COMPARISON: None FINDINGS: There is soft tissue material in the upper esophagus, suspicious for impacted food bolus. A irway is intact. Epiglottis and trachea are unremarkable. No retropharyngeal fluid. Parapharyngeal sp aces are symmetric. No significant esophageal wall thickening. No cervical lymphadenopathy. There is right apical mass with associated coarse calcifications. The trachea is displaced to the rig ht, consistent with volume loss on the right. These findings are not significantly changed compared w ith 05/10/2022. There are emphysematous changes. There is an 8 mm nodule in the right lower lobe just above the diaphragm. There is right lower lobe atelectasis/scarring. There is atherosclerosis of the aorta and coronary arteries. Calcified granuloma of the spleen. No si gnificant pleural or pericardial effusion. There are multiple wedge compression fractures of the thor acic spine which appear stable. No acute bone or joint abnormality. There is atherosclerosis. Small h iatal hernia. IMPRESSION: 1. Abnormal soft tissue material in the upper esophagus, suspicious for impacted food bolus. 2: Abnormal right apical pleural based soft tissue containing coarse associated internal calcificatio ns and air bronchograms. This may represent treated malignancy post radiation therapy. Clinically cor relate. No significant change to appearance of the soft tissues since prior examination. 3: Right lower lobe nodule just above the diaphragm measuring 8 mm. This does not appear significantl y changed from prior examination. Recommend follow-up CT chest in 6 months. 4.: Chronic wedge compression deformities of T4-T6, unchanged from prior examination. Reviewed, dictated and finalized at location A. FACTURING TECHNICIAN IMPRESSION: 1. Abnormal soft tissue material in the upper esophagus, suspicious for impacte d food bolus. 2: Abnormal right apical pleural based soft tissue containing coarse associated internal calcifications and air bronchograms. This may represent treated malig kisha post radiation therapy. Clinically correlate. No significant change to ap pearance of the soft tissues since prior examination. 3: Right lower lobe nodule just above the diaphragm measuring 8 mm. This does n ot appear significantly changed from prior examination. Recommend follow-up CT chest in 6 months. 4.: Chronic wedge compression deformities of T4-T6, unchanged from prior examin ation.
[2022-10-23 19:43] VITALS: BP 126/90; PULSE 100; RESP 16; TEMP 37; O2SAT 95
[2022-10-23 20:01] LABS: Basophils Absolute Auto 0.09 K/mm3 (0.00-0.10); Basophils Percent Auto 1.3 % (0.0-1.0); Eosinophils Absolute Auto 0.26 K/mm3 (0.02-0.50); Eosinophils Percent Auto 3.6 % (1.0-6.0); Hemoglobin 14.4 g/dL (11.7-13.8); Immature Granulocyte Absolute 0.03 K/mm3 (0.00-0.00); Immature Granulocyte Percent A 0.4 % (0.0-0.0); Lymphocytes Absolute Auto 1.44 K/mm3 (1.10-4.50); Mean Corpuscular HGB Conc 33.5 g/dL (32.0-36.0); Mean Corpuscular Hemoglobin 30.5 pg (27.0-31.0); Mean Corpuscular Volume 91.1 fL (78.0-102.0); Mean Platelet Volume 9.7 fl (9.2-11.8); Monocytes Percent Auto 8.3 % (2.0-11.0); Neutrophils Absolute Auto 4.8 K/mm3 (1.7-7.2); Neutrophils Percent Auto 66.4 % (50.0-70.0); Platelet Count Result 317 K/mm3 (150-420); Red Blood Count 4.72 M/mm3 (4.20-5.40); Red Cell Distribution Width 12.9 % (11.6-14.4); White Blood Count 7.2 K/mm3 (4.8-10.8)
[2022-10-23 20:16] LABS: Alanine Aminotransferase 17 U/L (14-59); Albumin Level 3.7 g/dL (3.4-5.0); Alkaline Phosphatase 60 U/L (46-116); Anion Gap 8 mmol/L (8-16); Aspartate Amino Transferase 17 U/L (15-37); Bilirubin,Total 0.3 mg/dL (0.00-1.00); Blood Urea Nitrogen 12 mg/dL (7-18); Carbon Dioxide 30 mmol/L (21-32); Chloride 103 mmol/L (98-108); Estimated CRCL calculation 28 ml/min; Estimated Glomerular Filt Rate 30; Glucose 100 mg/dL (70-99); Osmolality Calculated 291 mOsm/kg (285-295); Potassium 4.3 mmol/L (3.5-5.1); Sodium 141 mmol/L (136-145); Total Protein 7.3 g/dL (6.4-8.2)
[2022-10-23] MEDS: SODIUM CHLORIDE 0.9% IV 500 ML 999 ML IV CONT (20:25)
[2022-10-23] MEDS: GLUCAGON FOR INJ 1 MG VIAL IV PUSH (20:26)
[2022-10-23] MEDS: PANTOPRAZOLE SODIUM IV 40 MG VIAL IV PUSH (20:26)
[2022-10-23] MEDS: ONDANSETRON INJ 4 MG/2 ML VIAL IV PUSH (20:26)
[2022-10-23] MEDS: GLUCAGON FOR INJ 1 MG VIAL (21:26)
[2022-10-23 22:13] LABS: Influenza A QL RT-PCR Negative (Negative); Influenza B QL RT-PCR Negative (Negative); SARS-CoV-2 RNA PCR Negative (Negative)
--- NOTE | 2022-10-23 23:06 | ED.GENADULT ---
HPI - General Adult General Chief complaint: Unspecified Stated complaint: possibly something stuck in esophagus Time Seen by Provider: 10/23/22 19:39 Source: patient, family and RN notes reviewed Limitations: no limitations History of Present Illness MD complaint: food bolus in esophagus. prior similar episodes which usually resolve wi Onset (ago): hour(s) (2) Location: neck and chest Radiation: non-radiation Severity: mild Pain Consistency: other (pain-free) Relieving factors: none Exacerbating factors: none Associated symptoms: denies other symptoms Treatments prior to arrival: none Related Data Home Medications Medication Instructions Recorded Confirmed cholecalciferol (vitamin D3) 25 1,000 unit PO DAILY 09/25/19 10/23/22 mcg (1,000 unit) capsule escitalopram oxalate 10 mg tablet 10 mg PO DAILY 09/25/19 10/23/22 famotidine 40 mg tablet 40 mg PO DAILY 09/25/19 10/23/22 inhalational spacing device #1 ea 09/25/19 10/23/22 (Staceypaladin [employer] Suzanne [facility] spacer) levothyroxine 88 mcg tablet 88 mcg PO DAILY 09/25/19 10/23/22 (Synthroid) lorazepam 1 mg tablet 1 mg PO DAILY PRN Anxiety 09/25/19 10/23/22 ondansetron HCl 8 mg tablet 8 mg PO Q12H 09/25/19 10/23/22 tramadol 50 mg tablet 50 mg PO Q6H PRN Pain 09/25/19 10/23/22 acetaminophen 500 mg tablet 500 mg PO Q4H PRN Pain 09/26/19 10/23/22 (Tylenol Extra Strength) cetirizine 10 mg capsule (Zyrtec) 10 mg PO DAILY 09/25/20 10/23/22 Adult Low Dose Aspirin 81 mg PO DIRECTED 06/09/22 10/23/22 Allergies Allergy/AdvReac Type Severity Reaction Status Date / Time Penicillins Allergy Unknown rash Verified 06/09/22 23:14 Review of Systems Review of Systems: All systems reviewed & are unremarkable except as noted in HPI and below Constitutional: Constitutional: Reports no additional constitutional complaints Eyes: Eyes: Reports no additional eye complaints ENT: Reports system reviewed and no additional complaints, except as documented Cardiovascular: Cardiovascular: Reports no additional cardiovascular complaints Respiratory: Respiratory: Reports no additional respiratory complaints Gastrointestinal: Gastrointestinal: Reports no additional gastrointestinal complaints Genitourinary: Genitourinary: Reports no additional female genitourinary complaints Musculoskeletal: Musculoskeletal: Reports no additional musculoskeletal complaints Integumentary/Breasts: Skin/Breast: Reports system reviewed and no additional complaints, except as docu Neurologic: Reports system reviewed and no additional complaints, except as documented Psychiatric: Psychiatric: Reports no additional psychiatric complaints Endocrine: Endocrine: Reports no additional endocrine complaints Hematologic/Lymphatic: Hematologic/Lymphatic: Reports no additional hematologic/lymphatic complaints Allergic/Immunologic: Allergic/Immunologic: Reports no additional allergic/immunologic complaints PMFSH Past Medical History Medical History Cholecystectomy planned FB esophagus History of lung cancer Surgical History Surgical History H/O: hysterectomy Family History Family History Father Hypertension Cerebrovascular accident Malignant neoplasm of prostate, Onset Age: 84 Family history of congestive heart failure Mother Family history of osteoarthritis Family history of coronary artery disease Social History Social History Smoking packs per day: 1 Smoking cigarettes per day: 20.0 Years smoked: 35 Smoking pack-years: 35.00 Smoking status: Former smoker Exam Const: General: healthy appearing, no acute distress and well nourished Nutritional Appearance: well nourished Orientation/consciousness: patient oriented x3 Limitations: no limitations HENMT: Head
[2022-10-23 23:16] VITALS: BP 128/90; PULSE 88; RESP 20; TEMP 37.2; O2SAT 100
== END 2022-10-23 23:21 | disposition home or self-care (01) ==
PROVIDERS: Emergency Provider Emergency Medicine; PCP Internal Medicine
DX: T18.108A Unspecified foreign body in esophagus causing other injury, initial encounter (principal); Z20.822 Contact with and (suspected) exposure to COVID-19; Z85.118 Personal history of other malignant neoplasm of bronchus and lung; Z87.891 Personal history of nicotine dependence
CPT/HCPCS: 36415; 70490; 71250; 80053; 85025; 87636; 96361; 96374; 96375; 99284; C9113; J1610; J2405; J7040

== ENCOUNTER 2023-01-12 08:50 | Outpatient (CLI) | payer MEDICARE, OTHER, SELFPAY ==
--- NOTE | ~2023-01-12 | MM_ITS ---
EXAMINATION: MM diagnostic garcía BI w butch HISTORY: Abnormal 06/15/2022 screening mammogram with microcalcifications overlying both breasts (poss ible artifacts on the skin) and new 7 mm circumscribed low-density opacity with halo sign in anterior outer mid right breast TECHNIQUE: Additional 3-D tomosynthesis images of both breasts were performed and synthetic 2-D image s were generated. CAD analysis was submitted and interpreted. COMPARISON: 06/15/2022 bilateral screening mammogram BREAST PARENCHYMAL COMPOSITION: There are scattered areas of fibroglandular density. FINDINGS: The great majority of the previously reported microcalcifications overlying the breasts are no longer present, consistent with suspected foreign bodies on the skin; the patient reportedly had used Desitin. The previously reported 7 mm circumscribed low density opacity with halo sign anteriorly in the outer mid right breast is due to benign fat necrosis. IMPRESSION: 1. Benign findings 2. Routine mammographic screening is recommended BI-RADS Category 2: Benign finding(s). Reviewed, dictated and finalized at location A. LLETIZER OPERATOR
== END 2023-01-12 08:51 | disposition home or self-care (01) ==
LOC: CHSIMG 08:53
PROVIDERS: PCP Internal Medicine; Visit Provider Internal Medicine
DX: R92.8 Other abnormal and inconclusive findings on diagnostic imaging of breast (principal)
CPT/HCPCS: 77062; 77066; G0279

== ENCOUNTER 2023-03-03 15:46 | Emergency (ER) | payer MEDICARE, OTHER, SELFPAY ==
--- NOTE | ~2023-03-03 | CT_ITS ---
EXAMINATION: CT soft tissue neck chest wo DATE: 03/03/2023 17:17 INDICATION: Foreign body sensation TECHNIQUE: Computed tomography (CT) of the neck and chest was performed without intravenous contrast. Automated exposure control and iterative reconstruction technique were employed. The dose-length pro duct was 1531.61 mGy-cm. COMPARISON: 10/23/2022 FINDINGS: NECK: The thyroid gland is atrophied or possibly surgically absent. The submandibular and parotid glands are symmetric. There is no cervical lymphadenopathy. There are no soft tissue masses identified. 15 mm irregular density in the cervical esophagus. The airway is unremarkable. Parapharyngeal and p re-glottic fat planes are preserved. Bilateral lens replacements. Visualized sinuses and mastoid a ir cells are well aerated. There is cervical spondylosis. CHEST: Thoracic aorta: No significant dilation. Moderate arch calcification. Lung parenchyma and airways: Chronic right upper lobe mass/scarring and calcification. Emphysematous change. Stable 8mm right lower lobe nodule. Thoracic inlet, axillae and chest wall: No thyroid or soft tissue mass. No axillary lymphadenopathy. Mediastinum: Small hiatal hernia. No mass or lymphadenopathy. Heart and pericardium: Normal heart size. Mitral calcification. No pericardial effusion. Coronary artery calcifications: Moderate. Pleura: No effusion or mass. Upper abdomen: No significant finding. Thoracic bones: No acute osseous finding in the chest. Chronic right upper rib fractures IMPRESSION: 15 mm impacted food bolus in the cervical esophagus, roughly at the level of T1. Stable right apical mass/postradiation change. Stable right lower lobe pulmonary nodule. Prior recommendation for six-mon th follow-up is unchanged. Reviewed, dictated and finalized at location K. IMPRESSION: 15 mm impacted food bolus in the cervical esophagus, roughly at the level of T1 . Stable right apical mass/postradiation change. Stable right lower lobe pulmon patricia nodule. Prior recommendation for six-month follow-up is unchanged.
[2023-03-03 15:55] VITALS: BP 117/66; PULSE 786; RESP 18; TEMP 36.2; O2SAT 97
--- NOTE | 2023-03-03 16:01 | ED.GENADULT ---
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 She was seen here twice last year, 2021, on May 10, 2022 and October 23, 2022 for foreign body in the esophagus, both times resolved after 2 doses of glucagon 1 mg each, as well as Zofran Protonix and fluid. She had a CT scan most recently in October 2022 that revealed the foreign body bolus impaction in the esophagus. This resolved spontaneously. She was able to drink following that. Usually, the fluid is chopped finely for her so that she can swallow it without much difficulty. She ate rib meat last night. She thought she had sliced it in fine pieces but she suddenly felt a food impaction in the upper esophagus/lower neck region since last night. She is able to swallow her own saliva. She is unable to swallow much water because most of that will come back up. Unable to eat solids since that time. No abdominal pain. No pain in the chest. No fevers or chills. No URI symptoms. No sore throat. No UTI symptoms. No other complaints. No nausea vomiting. Related Data Home Medications Medication Instructions Recorded Confirmed cholecalciferol (vitamin D3) 25 1,000 unit PO DAILY 09/25/19 03/03/23 mcg (1,000 unit) capsule escitalopram oxalate 10 mg tablet 10 mg PO DAILY 09/25/19 03/03/23 famotidine 40 mg tablet 40 mg PO BID 09/25/19 03/03/23 inhalational spacing device #1 ea 09/25/19 10/23/22 ([place] Suzanne [facility] spacer) levothyroxine 88 mcg tablet 88 mcg PO DAILY 09/25/19 03/03/23 (Synthroid) lorazepam 1 mg tablet 1 mg PO BID PRN Anxiety 09/25/19 03/03/23 ondansetron HCl 8 mg tablet 4 mg PO TID 09/25/19 03/03/23 tramadol 50 mg tablet 50 mg PO Q6H PRN Pain 09/25/19 03/03/23 acetaminophen 500 mg tablet 500 mg PO TID PRN Pain 09/26/19 03/03/23 (Tylenol Extra Strength) cetirizine 10 mg capsule (Zyrtec) 10 mg PO DAILY 09/25/20 03/03/23 Adult Low Dose Aspirin 81 mg PO DIRECTED 06/09/22 03/03/23 nadolol 20 mg tablet 20 mg PO DAILY 03/03/23 03/03/23 pantoprazole 40 mg tablet,delayed 40 mg PO DAILY 03/03/23 03/03/23 release Allergies Allergy/AdvReac Type Severity Reaction Status Date / Time Penicillins Allergy Unknown rash Verified 03/03/23 16:09 Review of Systems Review of Systems: All systems reviewed & are unremarkable except as noted in HPI and below Constitutional: Constitutional: Reports as per HPI, Reports no additional constitutional complaints, Denies chills, Denies excessive sweating, Denies fatigue, Denies fever(s), Denies headache(s) and Denies weakness Eyes: Eyes: Reports as per HPI, Reports no additional eye complaints, Denies change in vision and Denies photophobia ENT: Reports system reviewed and no additional complaints, except as documented, Reports as per HPI, Reports dysphagia, Denies vertigo, Denies dizziness, Denies headache(s), Denies lip swelling, Denies nasal congestion, Denies sore throat, Denies throat swelling and Denies tongue swelling Cardiovascular: Cardiovascular: Reports as per HPI, Reports no additional cardiovascular complaints, Denies chest pain, Denies syncope, Denies rapid heart rate and Denies dyspnea Respiratory: Respiratory: Reports as per HPI, Reports no additional respiratory complaints, Denies chest congestion, Denies cough, Denies dyspnea and Denies wheezing Gastrointestinal: Gastrointestinal: Reports as per HPI, Reports no additional gastrointestinal complaints, Denies abdominal pain, Denies constipation, Denies dysphagia, Denies diarrhea, Denies nausea and Denies vomiting Genitourinary: Genitourinary: Reports as per HPI, Denies hematuria, Denies urinary frequency,
[2023-03-03 16:37] LABS: Basophils Absolute Auto 0.09 K/mm3 (0.00-0.10); Basophils Percent Auto 1.3 % (0.0-1.0); Eosinophils Absolute Auto 0.25 K/mm3 (0.02-0.50); Eosinophils Percent Auto 3.7 % (1.0-6.0); Hematocrit 43.9 % (35.0-42.0); Hemoglobin 14.8 g/dL (11.7-13.8); Immature Granulocyte Absolute 0.01 K/mm3 (0.00-0.00); Immature Granulocyte Percent A 0.1 % (0.0-0.0); Lymphocytes Absolute Auto 1.73 K/mm3 (1.10-4.50); Lymphocytes Percent Auto 25.5 % (18.0-42.0); Mean Corpuscular HGB Conc 33.7 g/dL (32.0-36.0); Mean Corpuscular Hemoglobin 30.8 pg (27.0-31.0); Mean Corpuscular Volume 91.5 fL (78.0-102.0); Mean Platelet Volume 10.1 fl (9.2-11.8); Monocytes Absolute Auto 0.48 K/mm3 (0.10-0.90); Monocytes Percent Auto 7.1 % (2.0-11.0); Neutrophils Absolute Auto 4.2 K/mm3 (1.7-7.2); Neutrophils Percent Auto 62.3 % (50.0-70.0); Platelet Count Result 313 K/mm3 (150-420); Red Cell Distribution Width 12.8 % (11.6-14.4); White Blood Count 6.8 K/mm3 (4.8-10.8)
[2023-03-03] MEDS: SODIUM CHLORIDE 0.9% IV 1,000 ML 999 ML IV CONT (16:39)
[2023-03-03] MEDS: GLUCAGON FOR INJ 1 MG VIAL 2 MG IV PUSH ×2 (16:41→19:03)
[2023-03-03] MEDS: ONDANSETRON INJ 4 MG/2 ML VIAL IV PUSH ×2 (16:43→19:11)
[2023-03-03] MEDS: PANTOPRAZOLE SODIUM IV 40 MG VIAL IV PUSH (16:44)
[2023-03-03 16:52] LABS: Alanine Aminotransferase 25 U/L (14-59); Albumin Level 3.7 g/dL (3.4-5.0); Alkaline Phosphatase 57 U/L (46-116); Anion Gap 9 mmol/L (8-16); Aspartate Amino Transferase 20 U/L (15-37); Bilirubin,Total 0.5 mg/dL (0.00-1.00); Blood Urea Nitrogen 13 mg/dL (7-18); Calcium 9.2 mg/dL (8.5-10.1); Carbon Dioxide 29 mmol/L (21-32); Chloride 104 mmol/L (98-108); Estimated Glomerular Filt Rate 33; Glucose 137 mg/dL (70-99); Osmolality Calculated 296 mOsm/kg (285-295); Potassium 3.9 mmol/L (3.5-5.1); Sodium 142 mmol/L (136-145); Total Protein 7.1 g/dL (6.4-8.2)
[2023-03-03 17:01] LABS: Strep Group A RT-PCR NOT DETECTED (Negative)
[2023-03-03 18:25] VITALS: BP 133/82; PULSE 65; RESP 16; TEMP 36.3; O2SAT 99
--- NOTE | 2023-03-03 18:56 | PC.NURSE ---
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 PT REPORTS SHE HAS HAD ALL OF HER GI PROCEDURES COMPLETED AT [facility]. [facility] CALL CENTER NOTIFIED AT THIS TIME.
[2023-03-03 19:41] LABS: Influenza A QL RT-PCR Negative (Negative); Influenza B QL RT-PCR Negative (Negative); RSV RNA, RT-PCR Negative (Negative); SARS-CoV-2 RNA PCR Negative (Negative)
--- NOTE | 2023-03-03 20:08 | PC.NURSE ---
Pt speaking with Dr. Barnett at the doctor's station regarding her plan of care tonight. Pt stating that it is her 's birthday and they are ready to be discharged home. Pt stating that she is feeling okay to be discharged home and plans to follow up with GI at [facility] tomorrow morning. Dr. Barnett offering to repeat her CT scan here tonight to see if the bolus has moved at all. After discussing pros and cons of second CT, pt declines to have the second CT done and states that she will just follow up with GI tomorrow and request that they repeat the scan for her then. Pt able to handle her secretions well and small sips of water without difficulty. CT report and disc provided to patient at time of discharge.
[2023-03-03 20:20] VITALS: BP 113/74; PULSE 75; RESP 18; TEMP 37; O2SAT 100
--- NOTE | 2023-03-03 20:38 | PC.NURSE ---
Dr. Ferrell called back to speak with Dr. Barnett. He states that they would be able to admit the patient tonight for a scope at 0730 in the AM. Pt has already been discharged at the time of his return call. This RN called the patient back to inform her of her options, but pt did not answer. Message left on her voicemail to let her know about Dr. Barnett's discussion with GI as well as her options at this time. Call back number provided. MD jean
--- NOTE | 2023-03-03 21:13 | PC.NURSE ---
Follow up call to pt. Spoke with Jose E, pt who states that they received our message regarding transfer to [facility] for admission and procedure in the AM. Pt still declining at this time and states that she will go to their ED in the AM if needed.
== END 2023-03-03 20:31 | disposition home or self-care (01) ==
PROVIDERS: Emergency Provider Emergency Medicine; PCP Internal Medicine
DX: K22.2 Esophageal obstruction (principal); Z79.82 Long term (current) use of aspirin; Z87.891 Personal history of nicotine dependence; Z85.118 Personal history of other malignant neoplasm of bronchus and lung; Z20.822 Contact with and (suspected) exposure to COVID-19
CPT/HCPCS: 36415; 70490; 71250; 80053; 85025; 87637; 87651; 96361; 96374; 96375; 96376; 99284; C9113; J1610; J2405; J7030

== ENCOUNTER 2023-05-24 12:10 | Outpatient (CLI) | payer MEDICARE, OTHER, SELFPAY ==
--- NOTE | ~2023-05-24 | XR_ITS ---
Cervical Spine: AP, lateral, open-mouth views Clinical History: Pain Findings: The normal lordotic curve is maintained. The vertebral bodies and posterior elements appea r intact. There is mild degenerative disc change at C5-C6 and C6-C7. There is moderate facet arthropa thy at C3-C4 and C4-C5.. Pre-vertebral soft tissues are unremarkable. Impression: Mild degenerative spondylosis, as above. Reviewed, dictated and finalized at location M. Impression: Mild degenerative spondylosis, as above.
--- NOTE | ~2023-05-24 | XR_ITS ---
Thoracic spine: Clinical Indication: Back pain AP and lateral views were performed. COMPARISON: 07/08/2021 There are mild compression deformities of T6, T7, and T9. Possible additional mild compression deform ity of T11. There is normal alignment of the vertebrae. The intervertebral disc spaces appear normal . Paravertebral soft tissues appear normal. Impression: Multiple chronic appearing compression deformities of the thoracic spine, as detailed above Reviewed, dictated and finalized at location M. Impression: Multiple chronic appearing compression deformities of the thoracic spine, as de tailed above
== END 2023-05-24 12:11 | disposition home or self-care (01) ==
LOC: CHSIMG 12:12
PROVIDERS: PCP Internal Medicine; Visit Provider Nurse Practitioner Family
DX: M54.2 Cervicalgia (principal); M54.50 Low back pain, unspecified; M43.06 Spondylolysis, lumbar region; M53.84 Other specified dorsopathies, thoracic region
CPT/HCPCS: 72040; 72072

== ENCOUNTER 2023-05-26 12:20 | Outpatient (CLI) | payer MEDICARE, OTHER, SELFPAY ==
--- NOTE | ~2023-05-26 | US_ITS ---
EXAMINATION: US thyroid DATE: 05/26/2023 12:39 INDICATION: Neck swelling. TECHNIQUE: Multiple ultrasound images of the thyroid were obtained. COMPARISON: Neck CT 03/03/2023 FINDINGS: The right thyroid lobe measures 1.0 x 1.0 x 0.7 cm. The left thyroid lobe measures 2.0 x 1.0 x 1.0 c m. There is normal echotexture and echogenicity throughout the thyroid gland. No discrete nodules id entified. Normal vascular flow is present. IMPRESSION: 1. Small thyroid. Reviewed, dictated and finalized at location A. IMPRESSION: 1. Small thyroid.
== END 2023-05-26 12:21 | disposition home or self-care (01) ==
LOC: CHSIMG 12:21
PROVIDERS: PCP Internal Medicine; Visit Provider Nurse Practitioner Family
DX: M54.2 Cervicalgia (principal); M54.50 Low back pain, unspecified
CPT/HCPCS: 76536

== ENCOUNTER 2023-06-23 21:41 | Emergency (ER) | payer MEDICARE, OTHER, SELFPAY ==
--- NOTE | ~2023-06-23 | CT_ITS ---
Clinical Indication: Foreign body in esophagus CT Scan of the Neck and Chest without Contrast: Technique: Contiguous sections were acquired throughout the chest, abdomen, and pelvis without IV con trast administration. Dose reduction technique was used on this scan by utilizing automated exposure control and iterative reconstruction technique. The dose-length product (DLP) was 1217.22 mGy-cm. COMPARISON: 03/03/2023 and 10/23/2022 Findings: Paranasal sinuses and mastoid air cells are clear. No orbital abnormality seen. Parapharyng eal fat preserved bilaterally. Parotid and submandibular glands are symmetric, though relatively atro phic bilaterally. No cervical lymphadenopathy or soft tissue mass identified. No abnormal fluid colle ction seen in the neck. There is no evidence of any significant mediastinal, hilar or axillary lymphadenopathy. Calcified med iastinal and hilar lymph nodes are present. There are atherosclerotic calcifications of the aorta and coronary arteries. No pericardial effusion. There is stable right apical bronchiectatic change and consolidation, likely representing a combinati on of chronic atelectasis and postradiation change. Moderate emphysema present. Scattered calcified p ulmonary granulomas are present. There is possible focal impacted food bolus in the esophagus at the level of T3-T4, with fluid within the esophagus just superior to this level (series 6 images [id number]). Visualized upper abdomen is unremarkable. Stable mild loss of height of T4, T5, and T6. Stable chroni c fractures of the right first and fifth ribs. Impression: Suspected small food bolus in the upper thoracic esophagus, approximately the level of T3-T4, with fl uid focally distending the esophagus just above this level. Prior exams show apparent repeated impact ion of fluid boluses in this region, suggesting possible underlying esophageal stricture, possibly re lated to prior radiation therapy. Stable postradiation changes in the right lung apex region. Moderate emphysema. Stable mild loss of height of T4, T5, and T6. Reviewed, dictated and finalized at location M. Impression: Suspected small food bolus in the upper thoracic esophagus, approximately the l evel of T3-T4, with fluid focally distending the esophagus just above this leve l. Prior exams show apparent repeated impaction of fluid boluses in this region , suggesting possible underlying esophageal stricture, possibly related to prio r radiation therapy. Stable postradiation changes in the right lung apex region. Moderate emphysema. Stable mild loss of height of T4, T5, and T6.
--- NOTE | 2023-06-23 21:48 | ED.GENADULT ---
HPI - General Adult General Chief complaint: Unspecified Stated complaint: Something stuck in her throat Source: patient Mode of arrival: ambulatory Limitations: no limitations History of Present Illness HPI narrative: 72-year-old female, ex-smoker with a history of anxiety /depression, GERD, seizure disorder, lung cancer status post chemo and RT in 2017, nonhealing G-tube site, hypothyroidism, COPD, right upper lobe and right lower lobe nodule with diastolic dysfunction, recurrent foreign body obstruction secondary to esophageal stricture secondary to RT with a history of esophageal dilatation presents to the ER with -- food stuck in her esophagus. Unable to swallow solids or liquids. In the past he was treated with IV glucagon. Patient was eating meat and pickle when this happened at 6 PM. No change in voice. Onset (ago): hour(s) ( Symptoms started 2 hours ago) Severity: moderate Relieving factors: none Exacerbating factors: none Associated symptoms: denies other symptoms Treatments prior to arrival: none Related Data Home Medications Medication Instructions Recorded Confirmed cholecalciferol (vitamin D3) 25 1,000 unit PO DAILY 09/25/19 06/23/23 mcg (1,000 unit) capsule escitalopram oxalate 10 mg tablet 10 mg PO DAILY 09/25/19 06/23/23 famotidine 40 mg tablet 40 mg PO BID 09/25/19 06/23/23 inhalational spacing device #1 ea 09/25/19 06/23/23 ([place] Suzanne [facility] spacer) levothyroxine 88 mcg tablet 88 mcg PO DAILY 09/25/19 06/23/23 (Synthroid) lorazepam 1 mg tablet 1 mg PO BID PRN Anxiety 09/25/19 06/23/23 ondansetron HCl 8 mg tablet 4 mg PO TID 09/25/19 06/23/23 acetaminophen 500 mg tablet 500 mg PO TID PRN Pain 09/26/19 06/23/23 (Tylenol Extra Strength) cetirizine 10 mg capsule (Zyrtec) 10 mg PO DAILY 09/25/20 06/23/23 Adult Low Dose Aspirin 81 mg PO DIRECTED 06/09/22 06/23/23 nadolol 20 mg tablet 20 mg PO DAILY 03/03/23 06/23/23 pantoprazole 40 mg tablet,delayed 40 mg PO DAILY 03/03/23 06/23/23 release Allergies Allergy/AdvReac Type Severity Reaction Status Date / Time Penicillins Allergy Unknown rash Verified 04/16/23 10:13 Review of Systems Constitutional: Constitutional: Reports as per HPI and Reports no additional constitutional complaints Eyes: Eyes: Reports as per HPI and Reports no additional eye complaints ENT: Reports system reviewed and no additional complaints, except as documented and Reports as per HPI Cardiovascular: Cardiovascular: Reports as per HPI and Reports no additional cardiovascular complaints Respiratory: Respiratory: Reports as per HPI and Reports no additional respiratory complaints Gastrointestinal: Gastrointestinal: Reports as per HPI and Reports no additional gastrointestinal complaints Comments: foreign body in the esophagus with inability to swallow solids and liquids. Genitourinary: Genitourinary: Reports no additional female genitourinary complaints and Reports as per HPI Musculoskeletal: Musculoskeletal: Reports no additional musculoskeletal complaints and Reports as per HPI Integumentary/Breasts: Skin/Breast: Reports system reviewed and no additional complaints, except as docu and Reports as per HPI Comments: Nonhealing epigastric gastric cutaneous fistula Neurologic: Reports system reviewed and no additional complaints, except as documented and Reports as per HPI Psychiatric: Psychiatric: Reports no additional psychiatric complaints and Reports as per HPI Endocrine: Endocrine: Reports no additional endocrine complaints and Reports as per HPI Hematologic/Lymphatic: Hematologic/Lymphatic: Reports no additional hematologic/lymphatic complaints and Reports as per HPI Allergic/Immunologic: Allergic/Immunologic: Reports no additional allergic/immunologic complaints and Reports as per HPI [facility] Past Medical History Medical History Anxiety Depression FB esophagus GERD (gastroesopha
[2023-06-23 21:49] VITALS: BP 140/90; PULSE 80; RESP 20; TEMP 36.6; O2SAT 96
[2023-06-23] MEDS: GLUCAGON FOR INJ 1 MG VIAL IV PUSH (22:04)
[2023-06-23] MEDS: GLUCAGON FOR INJ 1 MG VIAL IM (22:48)
[2023-06-23 22:50] VITALS: PULSE 85
[2023-06-23] MEDS: NITROGLYCERIN SL 0.4 MG TABLET SUBLINGUAL (22:50)
[2023-06-23 23:15] VITALS: BP 136/80; PULSE 78; RESP 20; O2SAT 96
[2023-06-23 23:36] VITALS: BP 132/66; PULSE 82; RESP 20; O2SAT 96
[2023-06-23 23:37] VITALS: PULSE 78
[2023-06-24] MEDS: HYOSCYAMINE SULFATE 0.125 MG TABLET SUBLINGUAL (00:04)
[2023-06-24 00:24] VITALS: BP 132/80; PULSE 70; RESP 20; O2SAT 98
[2023-06-24] MEDS: LACTATED RINGERS 500 ML 999 ML IV CONT (01:16)
[2023-06-24 01:24] VITALS: BP 128/80; PULSE 78; RESP 18; O2SAT 98
[2023-06-24 02:24] VITALS: BP 135/85; PULSE 80; RESP 20; TEMP 36.6; O2SAT 95
[2023-06-24 03:08] LABS: Basophils Percent Auto 0.8 % (0.0-1.0); Eosinophils Percent Auto 0.8 % (1.0-6.0); Hematocrit 44.1 % (35.0-42.0); Hemoglobin 14.7 g/dL (11.7-13.8); Immature Granulocyte Absolute 0.05 K/mm3 (0.00-0.00); Immature Granulocyte Percent A 0.4 % (0.0-0.0); Lymphocytes Absolute Auto 1.99 K/mm3 (1.10-4.50); Mean Corpuscular HGB Conc 33.3 g/dL (32.0-36.0); Mean Corpuscular Hemoglobin 31.1 pg (27.0-31.0); Mean Corpuscular Volume 93.2 fL (78.0-102.0); Mean Platelet Volume 10.1 fl (9.2-11.8); Monocytes Absolute Auto 0.81 K/mm3 (0.10-0.90); Monocytes Percent Auto 6.5 % (2.0-11.0); Neutrophils Absolute Auto 9.4 K/mm3 (1.7-7.2); Neutrophils Percent Auto 75.5 % (50.0-70.0); Platelet Count Result 311 K/mm3 (150-420); Red Blood Count 4.73 M/mm3 (4.20-5.40); Red Cell Distribution Width 12.5 % (11.6-14.4); White Blood Count 12.4 K/mm3 (4.8-10.8)
[2023-06-24 03:22] LABS: Partial Thromboplastin Time 26.8 SEC (23.90-30.70); Prothrombin Time 11.4 Seconds (9.50-12.10)
[2023-06-24 03:25] LABS: Alanine Aminotransferase 33 U/L (14-59); Albumin Level 3.9 g/dL (3.4-5.0); Alkaline Phosphatase 52 U/L (46-116); Anion Gap 10 mmol/L (8-16); Aspartate Amino Transferase 22 U/L (15-37); Bilirubin,Total 0.5 mg/dL (0.00-1.00); Blood Urea Nitrogen 21 mg/dL (7-18); Calcium 9.7 mg/dL (8.5-10.1); Carbon Dioxide 29 mmol/L (21-32); Chloride 104 mmol/L (98-108); Estimated CRCL calculation 37 ml/min; Estimated Glomerular Filt Rate 42; Glucose 99 mg/dL (70-99); Osmolality Calculated 299 mOsm/kg (285-295); Potassium 4.1 mmol/L (3.5-5.1); Sodium 143 mmol/L (136-145); Total Protein 7.2 g/dL (6.4-8.2); Troponin I 15.1 ng/L (0.00-60.4)
[2023-06-24 03:34] VITALS: BP 128/88; PULSE 88; RESP 18; O2SAT 95
[2023-06-24] MEDS: ONDANSETRON INJ 4 MG/2 ML VIAL IV PUSH (03:55)
[2023-06-24] MEDS: LACTATED RINGERS 500 ML 50 ML IV CONT (03:55)
[2023-06-24] MEDS: MORPHINE SULFATE (*CRX) 2 MG/ML INJ 1 MG IV PUSH (03:56)
[2023-06-24 04:31] VITALS: BP 132/89; PULSE 78; RESP 18; TEMP 37; O2SAT 96
== END 2023-06-24 04:34 | disposition short-term general hospital (02) ==
PROVIDERS: Emergency Provider Internal Medicine Critical Care Medicine; PCP Internal Medicine
DX: T18.128A Food in esophagus causing other injury, initial encounter (principal); K22.2 Esophageal obstruction; F41.9 Anxiety disorder, unspecified; F32.A Depression, unspecified; E03.9 Hypothyroidism, unspecified; J44.9 Chronic obstructive pulmonary disease, unspecified; Z87.891 Personal history of nicotine dependence; Z90.49 Acquired absence of other specified parts of digestive tract; Z79.899 Other long term (current) drug therapy; Z86.73 Personal history of transient ischemic attack (TIA), and cerebral infarction without residual deficits; Z85.118 Personal history of other malignant neoplasm of bronchus and lung
CPT/HCPCS: 36415; 70490; 71250; 80053; 84484; 85025; 85610; 85730; 96361; 96372; 96374; 96375; 99285; A9270; J1610; J2270; J2405; J7120

== ENCOUNTER 2023-07-01 09:33 | Outpatient (CLI) | payer MEDICARE, OTHER, SELFPAY ==
[2023-07-01] MEDS: ZOLEDRONIC ACID 5 MG/100 ML 100 ML 400 MG IVPB (09:40)
[2023-07-01 09:48] VITALS: BMI 27.0
[2023-07-01 09:49] VITALS: BP 146/80; PULSE 72; RESP 16; TEMP 36.3; O2SAT 97
--- NOTE | 2023-07-01 09:55 | PC.NURSE ---
Here for yearly IV Reclast infusion. Education given. No concerns voiced. IV Reclast administered. SEE MAR. Tolerated well. Safe exit of hospital with /ambulatory.
== END 2023-07-01 09:34 | disposition home or self-care (01) ==
LOC: CHSTREATRM 09:37
PROVIDERS: PCP Internal Medicine; Visit Provider Internal Medicine
DX: M81.0 Age-related osteoporosis without current pathological fracture (principal)
CPT/HCPCS: 96374; J3489

== ENCOUNTER 2023-08-25 15:05 | Outpatient (CLI) | payer MEDICARE, OTHER, SELFPAY ==
--- NOTE | ~2023-08-25 | XR_ITS ---
XR shoulder RT min 2V DATE: 08/25/2023 15:41 INDICATION: Right shoulder and neck pain after a fall TECHNIQUE: 4 views COMPARISON: None FINDINGS: Diffuse osteopenia. Mild upper thoracic levoscoliosis and fracture deformity of T5, undetermined age. Mild degenerative change of the right acromioclavicular joint. No fracture or dislocation, periosteal reaction or bone destruction or abnormal soft tissue calcifica tion of the right shoulder. Apparently recent minimally displaced posterior right second rib fracture. Probable old posterolateral right fifth rib fracture deformity. IMPRESSION: No fracture or dislocation of right shoulder Apparently recent posterior right second rib minimally displaced fracture Likely old posterolateral right fifth rib fracture deformity T5 fracture of uncertain age Osteopenia Reviewed, dictated and finalized at location B.
--- NOTE | ~2023-08-25 | XR_ITS ---
XR_[id number]_CR DATE: 08/25/2023 15:41 INDICATION: Neck and right shoulder pain following a fall TECHNIQUE: AP, open-mouth, lateral, swimmer views COMPARISON: 05/24/2023 cervical spine FINDINGS: Diffuse osteopenia. There is straightening of the cervical spine. C1 and C2 are normally aligned and the odontoid process is intact. There is slight anterolisthesis at C2-3, stable since 05/24/2023. There is mild loss of interspace heig ht at C2-3, also stable. There is mild loss of interspace height at C5-6. No cervical spine fracture or dislocation or locked facet or prevertebral soft tissue swelling is det ected. Mild levoscoliosis of the upper thoracic spine. Moderate loss of height and anterior wedging at T5 vertebral body; there is limited evaluation of the upper thoracic spine on this cervical spine examination.. IMPRESSION: Osteopenia Straightening of the cervical spine. Mild to moderate cervical spondylosis Mild levoscoliosis of upper thoracic spine Compression fracture deformity involving at least T5 Reviewed, dictated and finalized at Location A. Reviewed, dictated and finalized at location B.
== END 2023-08-25 15:06 | disposition home or self-care (01) ==
LOC: CHSIMG 15:08
PROVIDERS: PCP Internal Medicine; Visit Provider Internal Medicine
DX: S49.91XA Unspecified injury of right shoulder and upper arm, initial encounter (principal); S22.31XA Fracture of one rib, right side, initial encounter for closed fracture; M85.89 Other specified disorders of bone density and structure, multiple sites; S22.059A Unspecified fracture of T5-T6 vertebra, initial encounter for closed fracture; M53.82 Other specified dorsopathies, cervical region; M43.02 Spondylolysis, cervical region; M41.84 Other forms of scoliosis, thoracic region
CPT/HCPCS: 72040; 73030

== ENCOUNTER 2023-09-01 02:52 | Day surgery (SDC) | payer MEDICARE, OTHER, SELFPAY ==
[2023-08-20 15:49] VITALS: BMI 29.9
--- NOTE | 2023-08-31 16:56 | PM.HPGS ---
History of Present Illness History of Present Illness Consent: Risks, benefits, and alternatives have been discussed and questions answered. Patient agrees to proceed with procedure. Chief complaint: neoplasm screening Narrative: Laurent Wall is a 72 year old female who was referred for colon cancer screening. She had several polyps removed about 17 years ago Review of Systems Review of Systems: All systems reviewed & are unremarkable except as noted in HPI and below PMFSH Past Medical History Medical History Anxiety Depression FB esophagus GERD (gastroesophageal reflux disease) History of lung cancer Seizure Stroke Thyroid disease Surgical History Surgical History Cholecystectomy planned H/O: hysterectomy History of carpal tunnel surgery Hx of tubal ligation Family History Family History Father Hypertension Cerebrovascular accident Malignant neoplasm of prostate, Onset Age: 84 Family history of congestive heart failure Mother Family history of osteoarthritis Family history of coronary artery disease Social History Social History Smoking packs per day: 1 Smoking cigarettes per day: 20.0 Years smoked: 35 Smoking pack-years: 35.00 Smoking status: Former smoker Tobacco type: cigarettes Second hand tobacco smoke exposure: Yes Smoking end date: 11/22/15 Alcohol intake: current Alcohol use details: rare occasional Substance use: never Substance use type: does not use Living arrangements: with family Spiritual care concerns: No Meds Home Medications and Allergies Home Medications Medication Instructions Recorded Confirmed Type cholecalciferol (vitamin D3) 25 1,000 unit PO DAILY 09/25/19 09/01/23 History mcg (1,000 unit) capsule escitalopram oxalate 10 mg tablet 10 mg PO DAILY 09/25/19 09/01/23 History famotidine 40 mg tablet 40 mg PO BID 09/25/19 09/01/23 History inhalational spacing device #1 ea 09/25/19 09/01/23 History (Jany Palacios [facility] spacer) levothyroxine 88 mcg tablet 88 mcg PO DAILY 09/25/19 09/01/23 History (Synthroid) lorazepam 1 mg tablet 1 mg PO BID PRN Anxiety 09/25/19 09/01/23 History ondansetron HCl 8 mg tablet 4 mg PO TID 09/25/19 09/01/23 History acetaminophen 500 mg tablet 500 mg PO TID PRN Pain 09/26/19 09/01/23 History (Tylenol Extra Strength) cetirizine 10 mg capsule (Zyrtec) 10 mg PO DAILY 09/25/20 09/01/23 History Adult Low Dose Aspirin 81 mg PO DIRECTED 06/09/22 09/01/23 History nadolol 20 mg tablet 20 mg PO DAILY 03/03/23 09/01/23 History pantoprazole 40 mg tablet,delayed 40 mg PO DAILY 03/03/23 09/01/23 History release umeclidinium 62.5 mcg-vilanterol 1 inh inhalation DAILY 1 month #60 05/20/23 09/01/23 Rx 25 mcg/actuation powdr for ea inhalation (Anoro Ellipta) tramadol 50 mg tablet 50 mg PO Q6H PRN Pain 06/30/23 09/01/23 History albuterol sulfate 90 mcg/actuation See Rx Instructions .Route 08/13/23 09/01/23 Rx aerosol inhaler .COMPLEX ##8.5 Allergies Allergy/AdvReac Type Severity Reaction Status Date / Time Penicillins Allergy Unknown rash Verified 09/01/23 10:47 Exam Resp: Auscultation: clear to auscultation bilaterally Cardio: Rate: regular rate Rhythm: regular rhythm GI: GI Palp: Yes Soft to palpation and No Tenderness to palpation present (GI) Assessment and Plan Assessment and plan (1) Colon cancer screening: Code(s): Z12.11 - Encounter for screening for malignant neoplasm of colon Status: Acute Assessment and Plan: who is referred for colon cancer screening.
[2023-09-01 10:50] VITALS: BP 125/56; PULSE 66; RESP 16; TEMP 36.4; O2SAT 97; BMI 29.3
[2023-09-01] MEDS: LACTATED RINGERS 1,000 ML 150 ML IV CONT (11:08)
--- NOTE | 2023-09-01 11:40 | WPDANESEPPF ---
Anes - Initial Pre Proc Eval Procedure: Operation Date: 09/01/23 12:30 Proposed Procedures p Screening Colonoscopy - Jae Bennett MD Date/Time: 09/01/23 11:40 Surgeon: Jae Bennett MD Pre Op Diagnosis: neoplasm screening Patient Data Age: 72 Gender: F Height: 1.63 m Weight: 77.5 kg Last Vital Signs Temp 97.6 F 09/01/23 10:50 Pulse 66 09/01/23 10:50 Resp 16 09/01/23 10:50 BP 125/56 L 09/01/23 10:50 Pulse Ox 97 09/01/23 10:50 O2 Del Method Room Air 09/01/23 10:50 Allergies Allergy/AdvReac Type Severity Reaction Status Date / Time Penicillins Allergy Unknown rash Verified 09/01/23 10:47 Home Medications Medication Instructions Recorded Confirmed Type cholecalciferol (vitamin D3) 25 1,000 unit PO DAILY 09/25/19 09/01/23 History mcg (1,000 unit) capsule escitalopram oxalate 10 mg tablet 10 mg PO DAILY 09/25/19 09/01/23 History famotidine 40 mg tablet 40 mg PO BID 09/25/19 09/01/23 History inhalational spacing device #1 ea 09/25/19 09/01/23 History (Jany Palacios [facility] spacer) levothyroxine 88 mcg tablet 88 mcg PO DAILY 09/25/19 09/01/23 History (Synthroid) lorazepam 1 mg tablet 1 mg PO BID PRN Anxiety 09/25/19 09/01/23 History ondansetron HCl 8 mg tablet 4 mg PO TID 09/25/19 09/01/23 History acetaminophen 500 mg tablet 500 mg PO TID PRN Pain 09/26/19 09/01/23 History (Tylenol Extra Strength) cetirizine 10 mg capsule (Zyrtec) 10 mg PO DAILY 09/25/20 09/01/23 History Adult Low Dose Aspirin 81 mg PO DIRECTED 06/09/22 09/01/23 History nadolol 20 mg tablet 20 mg PO DAILY 03/03/23 09/01/23 History pantoprazole 40 mg tablet,delayed 40 mg PO DAILY 03/03/23 09/01/23 History release umeclidinium 62.5 mcg-vilanterol 1 inh inhalation DAILY 1 month #60 06/29/23 10/11/23 Rx 25 mcg/actuation powdr for ea inhalation (Anoro Ellipta) tramadol 50 mg tablet 50 mg PO Q6H PRN Pain 06/30/23 09/01/23 History albuterol sulfate 90 mcg/actuation See Rx Instructions .Route 08/13/23 09/01/23 Rx aerosol inhaler .COMPLEX ##8.5 Patient hx anesthesia problems: none Family hx anesthesia problems: none Results Review: All pre-operative results and documents have been reviewed as part of the pre-operative evaluation. [facility] Past Medical History Medical History Anxiety Depression FB esophagus GERD (gastroesophageal reflux disease) History of lung cancer Seizure Stroke Thyroid disease Surgical History Surgical History Cholecystectomy planned H/O: hysterectomy History of carpal tunnel surgery Hx of tubal ligation Family History Family History Father Hypertension Cerebrovascular accident Malignant neoplasm of prostate, Onset Age: 84 Family history of congestive heart failure Mother Family history of osteoarthritis Family history of coronary artery disease Social History Social History Smoking packs per day: 1 Smoking cigarettes per day: 20.0 Years smoked: 35 Smoking pack-years: 35.00 Smoking status: Former smoker Tobacco type: cigarettes Second hand tobacco smoke exposure: Yes Smoking end date: 11/22/15 Alcohol intake: current Alcohol use details: rare occasional Substance use: never Substance use type: does not use Living arrangements: with family Spiritual care concerns: No Anes - Eval Final PreProcedure Day of Procedure 09/01/23 11:40 Patient weight: obese Heart: regular rate and rhythm Lungs: clear to auscultation Airway: Mallampati scale class II Neurological: alert and oriented Last oral intake: >/= 8 hours ASA classification: III Emergent: no Anesthetic plan: proceed Anesthesia type and monitoring: general GIVS and standard monitoring Results Review: All pre-operative results and documents
[2023-09-01 12:50] VITALS: BP 130/66; PULSE 75; RESP 16; O2SAT 100
[2023-09-01 13:00] VITALS: BP 135/70; PULSE 75; RESP 16; O2SAT 100
[2023-09-01 13:10] VITALS: BP 156/68; PULSE 72; RESP 18; O2SAT 100
== END 2023-09-01 13:29 | disposition home or self-care (01) ==
PROVIDERS: PCP Internal Medicine; Visit Provider Internal Medicine Gastroenterology
PROC: 0DJD8ZZ Inspection of Lower Intestinal Tract, Via Natural or Artificial Opening Endoscopic (ICD-10-PCS; CPT 45378; principal; 2023-09-01 12:30)
DX: Z12.11 Encounter for screening for malignant neoplasm of colon (principal); K57.30 Diverticulosis of large intestine without perforation or abscess without bleeding; K64.8 Other hemorrhoids; K21.9 Gastro-esophageal reflux disease without esophagitis; F41.9 Anxiety disorder, unspecified; F32.A Depression, unspecified; E07.9 Disorder of thyroid, unspecified; Z85.118 Personal history of other malignant neoplasm of bronchus and lung; Z86.73 Personal history of transient ischemic attack (TIA), and cerebral infarction without residual deficits; Z80.42 Family history of malignant neoplasm of prostate; Z87.891 Personal history of nicotine dependence; Z79.891 Long term (current) use of opiate analgesic; Z79.51 Long term (current) use of inhaled steroids; Z79.82 Long term (current) use of aspirin; E66.9 Obesity, unspecified; Z68.29 Body mass index [BMI] 29.0-29.9, adult
CPT/HCPCS: G0121; J2704; J7120

== ENCOUNTER 2023-09-09 08:48 | Outpatient (CLI) | payer MEDICARE, OTHER, SELFPAY ==
--- NOTE | ~2023-09-09 | MR_ITS ---
MRI of the thoracic spine Clinical History: T5 fracture Technique: Axial T2-weighted and gradient images, and sagittal T1-weighted, T2-weighted, and STIR diana ges were acquired. Findings: There is moderate compression deformity of T5, mild compression deformities of T4, T6, and T8. Possible minimal marrow edema at T5 versus inhomogeneous fat saturation. No other significant bon e marrow signal abnormality identified. No significant disc bulge or herniation evident at any thoracic level. No spinal canal stenosis or co rd compression evident in the thoracic spine. No abnormal signal seen in the spinal cord. Paravertebral soft tissues are unremarkable. Impression: Compression fractures of T4, T5, T6, and T8, as detailed above. T5 fracture may be subacute. Remainin g fractures are probably chronic. Reviewed, dictated and finalized at [facility]. Impression: Compression fractures of T4, T5, T6, and T8, as detailed above. T5 fracture may be subacute. Remaining fractures are probably chronic.
== END 2023-09-09 08:49 | disposition home or self-care (01) ==
LOC: CHSIMG 08:49
PROVIDERS: PCP Internal Medicine; Visit Provider Internal Medicine
DX: M48.54XA Collapsed vertebra, not elsewhere classified, thoracic region, initial encounter for fracture (principal)
CPT/HCPCS: 72146

== ENCOUNTER 2024-02-03 13:52 | Outpatient (CLI) | payer MEDICARE, OTHER, SELFPAY ==
--- NOTE | ~2024-02-03 | MM_ITS ---
EXAMINATION: MM screening garcía BI w butch HISTORY: Screening mammogram TECHNIQUE: Craniocaudal and mediolateral oblique 3-D tomosynthesis images were obtained and synthetic 2-D images were generated. CAD analysis was submitted and interpreted. COMPARISON: January 12, 2023 diagnostic bilateral mammogram 06/15/2022, 05/22/2021 bilateral screening mammogram examinations BREAST PARENCHYMAL COMPOSITION: There are scattered areas of fibroglandular density. FINDINGS: There is an area of fat necrosis in the anterior outer mid to upper right breast. Occasiona l bilateral benign calcifications. There is no evidence of suspicious mass, calcification, or archite ctural distortion to suggest malignancy in either breast. There has been no suspicious interval pope e. IMPRESSION: 1. No mammographic evidence of malignancy. 2. Recommend routine screening mammography in one year. BI-RADS Category 2: Benign finding(s). Reviewed, dictated and finalized at location A.
== END 2024-02-03 13:53 | disposition home or self-care (01) ==
LOC: CHSIMG 13:55
PROVIDERS: PCP Internal Medicine; Visit Provider Internal Medicine
DX: Z12.31 Encounter for screening mammogram for malignant neoplasm of breast (principal)
CPT/HCPCS: 77063; 77067

== ENCOUNTER 2024-02-04 09:18 | Outpatient (CLI) | payer MEDICARE, OTHER, SELFPAY ==
--- NOTE | ~2024-02-04 | XR_ITS ---
NAME: Laurent Wall DATE OF : 46 EXAMINATION: XR chest 2V DATE: 02/04/2024 at 9:38 AM INDICATION: Lung cancer. TECHNIQUE: Frontal and lateral views of the chest were obtained. COMPARISON: Chest 2 views 02/09/2019 FINDINGS: There is chronic scarring at right lung apex with volume loss. There are airspace opacities in anterior segment right upper lobe. Calcified right lung nodules and calcified right hilar lymph n odes are consistent with old granulomatous disease. No pleural effusion or pneumothorax. The heart si ze is normal. IMPRESSION: 1. New airspace opacities in anterior segment right upper lobe, consistent with atelectasis/scarring versus pneumonia. 2. Chronic scarring at right lung apex. Reviewed, dictated and finalized at location A.
== END 2024-02-04 09:19 | disposition home or self-care (01) ==
PROVIDERS: PCP Internal Medicine; Visit Provider Internal Medicine
DX: R91.8 Other nonspecific abnormal finding of lung field (principal); R07.9 Chest pain, unspecified; Z85.118 Personal history of other malignant neoplasm of bronchus and lung
CPT/HCPCS: 71046

== ENCOUNTER 2024-03-02 09:08 | Outpatient (CLI) | payer MEDICARE, OTHER, SELFPAY ==
--- NOTE | ~2024-03-02 | CT_ITS ---
EXAMINATION:CT diagnostic chest w con DATE: 03/02/2024 10:38 INDICATION: Right lung squamous cell carcinoma. Cough. TECHNIQUE: Computed tomography (CT) of the chest was performed with 75 mL Omnipaque 350 intravenous c ontrast. Automated exposure control and iterative reconstruction technique were employed. The dose-le ngth product (DLP) was 195.72 mGy-cm. COMPARISON: None currently available. FINDINGS: There is moderate emphysema. There is mild atelectasis bilaterally. Calcified bilateral diego g nodules and calcified hilar lymph nodes are consistent with old granulomatous disease. There are ai rspace opacities with volume loss, bronchiectasis, and air bronchograms involving right upper lobe an d superior segment right lower lobe, consistent with radiation fibrosis. There is a 10 mm nodule in r ight lower lobe. There are a few right upper lobe nodules measuring up to 6 mm. There is a 3 mm nodul e in right lower lobe. No pleural effusion. The heart size is normal. No pericardial effusion. There is a small sliding hiatal hernia. Calcifications in the spleen are consistent with old granulomatous disease. There are is volume loss of multiple right-sided ribs, consistent with radiation osteitis. T here are old pathologic fractures of right first and fifth ribs and right T3 and T4 transverse proces ses. There are chronic compression fractures of T4, T5, T6, and T8. IMPRESSION: 1. Radiation fibrosis involving right upper lobe and superior segment right lower lobe. 2. Pulmonary nodules measuring up to 10 mm suspicious for metastatic disease. Comparison with prior C Ts is not currently possible due to failure of the PACS. 3. Moderate emphysema. Reviewed, dictated and finalized at location A. IMPRESSION: 1. Radiation fibrosis involving right upper lobe and superior segment right low er lobe. 2. Pulmonary nodules measuring up to 10 mm suspicious for metastatic disease. C omparison with prior CTs is not currently possible due to failure of the PACS. 3. Moderate emphysema.
[2024-03-02 10:03] LABS: Estimated Glomerular Filt Rate 50
== END 2024-03-02 09:09 | disposition home or self-care (01) ==
LOC: CHSIMG 09:11
PROVIDERS: PCP Internal Medicine; Visit Provider Internal Medicine
DX: C34.91 Malignant neoplasm of unspecified part of right bronchus or lung (principal); R91.8 Other nonspecific abnormal finding of lung field; J43.9 Emphysema, unspecified; Z92.21 Personal history of antineoplastic chemotherapy
CPT/HCPCS: 71260; Q9967

== ENCOUNTER 2024-06-19 07:29 | Emergency (ER) | payer MEDICARE, OTHER, SELFPAY ==
[2024-06-19] VITALS (8 sets, daily range): BP systolic 120–172; BP diastolic 62–72; PULSE 61–74; RESP 16; TEMP 37.1; O2SAT 96–100
--- NOTE | 2024-06-19 08:16 | ED.GENADULT ---
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 This is having her quite frequently. She was eating and struck the left side she now has foreign body sensation. She she does not have any nausea vomiting chest pain or difficulty breathing. Related Data Home Medications Medication Instructions Recorded Confirmed cholecalciferol (vitamin D3) 25 1,000 unit PO DAILY 09/25/19 09/01/23 mcg (1,000 unit) capsule escitalopram oxalate 10 mg tablet 10 mg PO DAILY 09/25/19 09/01/23 famotidine 40 mg tablet 40 mg PO BID 09/25/19 09/01/23 inhalational spacing device #1 ea 09/25/19 09/01/23 ([employer] [facility] spacer) levothyroxine 88 mcg tablet 88 mcg PO DAILY 09/25/19 09/01/23 (Synthroid) lorazepam 1 mg tablet 1 mg PO BID PRN Anxiety 09/25/19 09/01/23 ondansetron HCl 8 mg tablet 4 mg PO TID 09/25/19 09/01/23 acetaminophen 500 mg tablet 500 mg PO TID PRN Pain 09/26/19 09/01/23 (Tylenol Extra Strength) cetirizine 10 mg capsule (Zyrtec) 10 mg PO DAILY 09/25/20 09/01/23 Adult Low Dose Aspirin 81 mg PO DIRECTED 06/09/22 09/01/23 nadolol 20 mg tablet 20 mg PO DAILY 03/03/23 09/01/23 pantoprazole 40 mg tablet,delayed 40 mg PO DAILY 03/03/23 09/01/23 release tramadol 50 mg tablet 50 mg PO Q6H PRN Pain 06/30/23 09/01/23 Allergies Allergy/AdvReac Type Severity Reaction Status Date / Time Penicillins Allergy Unknown rash Verified 09/01/23 10:47 [facility] Past Medical History Medical History Anxiety Depression FB esophagus GERD (gastroesophageal reflux disease) History of lung cancer Seizure Stroke Thyroid disease Surgical History Surgical History Cholecystectomy planned H/O: hysterectomy History of carpal tunnel surgery Hx of tubal ligation Family History Family History Father Hypertension Cerebrovascular accident Malignant neoplasm of prostate, Onset Age: 84 Family history of congestive heart failure Mother Family history of osteoarthritis Family history of coronary artery disease Social History Social History Smoking packs per day: 1 Smoking cigarettes per day: 20.0 Years smoked: 35 Smoking pack-years: 35.00 Smoking status: Former smoker Tobacco type: cigarettes Second hand tobacco smoke exposure: Yes Smoking end date: 11/22/15 Alcohol intake: current Alcohol use details: rare occasional Substance use: never Substance use type: does not use Living arrangements: with family Spiritual care concerns: No Exam Narrative: APPEARANCE: No apparent distress. Head: atraumatic. EYES: EOMI, NOSE: Atraumatic NECK: Trachea midline RESPIRATORY: No increased rate of breathing CARDIOVASCULAR: RRR, ABDOMINAL: Non-distended MUSCULOSKELETAl: No obvious deformities NEURO: Alert. Moving 4/4 extremities SKIN:: Warm, dry. Normal color PSYCHIATRIC: Normal affect Course Vital Signs Vital signs: Vital Signs Temperature 98.8 F 06/19/24 07:35 Pulse Rate 61 06/19/24 07:35 Respiratory Rate 16 06/19/24 07:35 Blood Pressure 172/72 H 06/19/24 07:35 Pulse Oximetry 100 06/19/24 07:35 Oxygen Delivery Room Air 06/19/24 07:35 Temperature 98.8 F 06/19/24 07:35 Pulse Rate 61 06/19/24 07:35 Respiratory Rate 16 06/19/24 07:35 Blood Pressure 172/72 H 06/19/24 07:35 Pulse Oximetry 100 06/19/24 07:35 Oxygen Delivery Room Air 06/19/24 07:35 Medical Decision Making MDM Narrative Medical decision making narrative: -Course: 73-year-old female with known esophageal stenosis and probable food impactio
== END 2024-06-19 08:30 | disposition home or self-care (01) ==
PROVIDERS: Emergency Provider Emergency Medicine; PCP Internal Medicine
DX: T18.128A Food in esophagus causing other injury, initial encounter (principal); F41.9 Anxiety disorder, unspecified; F32.A Depression, unspecified; K21.9 Gastro-esophageal reflux disease without esophagitis; Z85.118 Personal history of other malignant neoplasm of bronchus and lung; G40.909 Epilepsy, unspecified, not intractable, without status epilepticus; Z86.73 Personal history of transient ischemic attack (TIA), and cerebral infarction without residual deficits; W44.F3XA Food entering into or through a natural orifice, initial encounter
CPT/HCPCS: 99281

== ENCOUNTER 2024-06-20 09:39 | Outpatient (CLI) | payer MEDICARE, OTHER, SELFPAY ==
--- NOTE | ~2024-06-20 | CT_ITS ---
CT Scan of the Chest without Contrast: Clinical Indication: Lung cancer Technique: Contiguous sections were acquired throughout the chest without intravenous contrast. Dose reduction technique was used on this scan by utilizing automated exposure control and iterative recon struction technique. The dose-length product (DLP) was 156.91 mGy-cm. COMPARISON: 03/02/2024 Findings: There is no evidence of any significant mediastinal, hilar or axillary lymphadenopathy. Coronary josr ry calcifications are present. Calcified mediastinal lymph nodes are present. There is no evidence of pleural or pericardial effusion. Stable posterior right apical consolidation with calcifications and traction bronchiectasis is stable in appearance from prior exam. Mild to moderate emphysema noted. Stable 9 mm right basilar pulmonary nodule (axial image 89) disease. Focal subcentimeter peripheral left upper lobe nodules are present, likely infectious/inflammatory (axial image 58). Images through the upper abdomen reveal no abnormalities. Stable compression fractures of T5, T6, T7, and T9 are present. Chronic right rib fracture deformities are present. Impression: Stable posterior right upper lobe consolidation with calcifications and traction bronchiectasis, like ly post radiation change and/or treated disease. Stable 9 mm right basilar pulmonary nodule. New focal peripheral left upper lobe subcentimeter nodules, likely infectious/inflammatory. Stable compression fractures in the thoracic spine, as above. Reviewed, dictated and finalized at location . Impression: Stable posterior right upper lobe consolidation with calcifications and tractio n bronchiectasis, likely post radiation change and/or treated disease. Stable 9 mm right basilar pulmonary nodule. New focal peripheral left upper lobe subcentimeter nodules, likely infectious/i nflammatory. Stable compression fractures in the thoracic spine, as above.
== END 2024-06-20 09:40 | disposition home or self-care (01) ==
LOC: CHSIMG 09:41
PROVIDERS: PCP Internal Medicine; Visit Provider Nurse Practitioner Family
DX: R91.8 Other nonspecific abnormal finding of lung field (principal); M48.54XA Collapsed vertebra, not elsewhere classified, thoracic region, initial encounter for fracture
CPT/HCPCS: 71250

== ENCOUNTER 2024-06-30 14:28 | Outpatient (CLI) | payer MEDICARE, OTHER, SELFPAY ==
--- NOTE | ~2024-06-30 | CT_ITS ---
EXAMINATION: CT soft tissue neck w con DATE: 06/30/2024 15:15 INDICATION: Thyroid nodule. Foreign body sensation. TECHNIQUE: Computed tomography (CT) of the neck was performed with 75 mL Omnipaque-350 intravenous co ntrast. Automated exposure control and iterative reconstruction technique were employed. The dose-tommy gth product was 414.07 mGy-cm. COMPARISON: Neck CT 06/24/2023 FINDINGS: There are airspace opacities in right lung upper lobe with volume loss and varicose bronchi ectasis, consistent with radiation fibrosis. Calcified right lung nodules and calcified right hilar a nd mediastinal lymph nodes are consistent with old granulomatous disease. There is mild emphysema. Th e thyroid is small. There are no pathologically enlarged lymph nodes. There is plaque in the proximal internal carotid arteries with less than 50% stenosis relative to normal distal artery lumen diamete rs. The mastoid air cells are normal. There is chronic periosteal reaction of the right first-fifth r ibs, consistent with radiation osteitis. There are chronic pathologic fractures of right first, secon d, and fourth ribs. There is mild cervical spondylosis. IMPRESSION: 1. No abnormal neck mass or lymphadenopathy. 2. Radiation fibrosis in right lung upper lobe. Reviewed, dictated and finalized at location A.
[2024-06-30 14:58] LABS: Estimated Glomerular Filt Rate 46
== END 2024-06-30 14:29 | disposition home or self-care (01) ==
LOC: CHSIMG 14:31
PROVIDERS: PCP Internal Medicine; Visit Provider Nurse Practitioner Family
DX: R09.A2 Foreign body sensation, throat (principal); J70.1 Chronic and other pulmonary manifestations due to radiation
CPT/HCPCS: 70491; Q9967

== ENCOUNTER 2024-07-13 14:35 | Outpatient (CLI) | payer MEDICARE, OTHER, SELFPAY ==
--- NOTE | ~2024-07-13 | DEXA_ITS ---
Bone Density Report Name: ALVAREZ PATHAK Age: 73 Sex: Female Ethnicity: White Date of : 1950 Indication: osteopenia; monitoring treatment; prior fracture; cancer; hysterectomy; Referring Provider: Olivier Diaz Study: Bone densitometry was performed. Exam Date: July 13, 2024 Accession number: [id number] Bone Density: Region BMD T-score Z-score Classification AP Spine(L1-L4) 0.886 -1.5 1.0 Osteopenia Femoral Neck (Left) 0.705 -1.3 0.8 Osteopenia Total Hip (Left) 0.802 -1.1 0.7 Osteopenia Femoral Neck (Right) 0.664 -1.7 0.4 Osteopenia Total Hip (Right) 0.762 -1.5 0.3 Osteopenia Femoral Neck Mean 0.684 -1.5 0.6 Osteopenia Total Hip Mean 0.782 -1.3 0.5 Osteopenia World Health Organization criteria for BMD impression classify patients as: Normal (T-score at or above -1.0), Osteopenia (T-score between -1.0 and -2.5), or Osteoporosis (T-score at or below -2.5). 10-year Fracture Risk: FRAX not reported because: Treated for osteoporosis Previous Exams: Region Exam Age BMD T-score BMD Change BMD Change Date g/cm2 vs Baseline vs Previous AP Spine (L1-L4) 07/13/2024 73 0.886 -1.5 0.038 (4.5%)# 0.038 (4.5%)# 04/09/2021 70 0.848 -1.8 Total Hip(Left) 07/13/2024 73 0.802 -1.1 0.054 (7.2%)# 0.054 (7.2%)# 04/09/2021 70 0.748 -1.6 Total Hip(Right) 07/13/2024 73 0.762 -1.5 0.006 (0.8%)# 0.006 (0.8%)# 04/09/2021 70 0.756 -1.5 *Denotes significance at 95% confidence level, LSC for AP Spine = 0.022 g/cm2, LSC for Total Hip = 0.027 g/cm2 # Denotes dissimilar scan types or analysis methods Clinical Information Provided by Patient: Has had a low trauma fracture Is being treated for osteoporosis Has used the following medications: Reclast (i.e. zoledronate), Vitamin D Has the following medical conditions: Cancer, Hysterectomy, COPD Patient maximum height was 65 Menopause Age: 37 No regular weight bearing exercise Does not regularly consume dairy products Drinks caffeinated beverages Onset of menses at age 10 Number of children 2 Impression: The patient has low bone mass, based on the Right Femoral Neck T-score. The patient has risk factors, including: previous fracture. No significant bone loss was observed. Discussion: PATIENT UNDER TREATMENT WITH NO SIGNIFICANT BMD LOSS SINCE LAST EXAM. In an untreated patient, BMD typically declines with age. A lack of decline or gain is usually a sign that emily
--- NOTE | ~2024-07-13 | XR_ITS ---
EXAMINATION: XR hip BI wo pelvis DATE: 07/13/2024 14:57 INDICATION: Bilateral hip pain. TECHNIQUE: 2 views of right hip and 2 views of left hip were obtained. COMPARISON: None. FINDINGS: Bone alignment is normal. No fracture. There is mild right hip osteoarthritis. Left hip elieser nt space is normal. IMPRESSION: 1. Mild right hip osteoarthritis. Reviewed, dictated and finalized at location A.
--- NOTE | ~2024-07-13 | XR_ITS ---
XR lumbar spine 2-3V 07/13/2024 14:57 Indication: Bilateral hip and low back pain Procedure: 2 views lumbar spine Comparison: No prior studies for comparison. Findings: There is disc narrowing at L3-4 through L5-S1. There is grade 1 degenerative spondylolisthe sis at L3-4. There is multilevel facet hypertrophy. No acute fracture or traumatic malalignment. There is atherosc lerosis of the aorta. Impression: 1: Moderate lumbar spondylosis. Reviewed, dictated and finalized at location B. Impression: 1: Moderate lumbar spondylosis.
== END 2024-07-13 14:36 | disposition home or self-care (01) ==
LOC: CHSIMG 14:38
PROVIDERS: PCP Internal Medicine; Visit Provider Internal Medicine
DX: M54.50 Low back pain, unspecified (principal); M25.552 Pain in left hip; M25.551 Pain in right hip; M16.11 Unilateral primary osteoarthritis, right hip; M43.06 Spondylolysis, lumbar region; Z78.0 Asymptomatic menopausal state; M85.89 Other specified disorders of bone density and structure, multiple sites
CPT/HCPCS: 72100; 73521; 77080

== ENCOUNTER 2024-10-28 17:06 | Emergency (ER) | payer MEDICARE, OTHER, SELFPAY ==
--- NOTE | ~2024-10-28 | CT_ITS ---
EXAMINATION: CT brain wo con DATE: 10/28/2024 17:32 INDICATION: Headache. TECHNIQUE: Computed tomography (CT) of the head was performed without intravenous contrast. The mA wa s adjusted according to patient size. Iterative reconstruction technique was employed. The dose-lengt h product was 529.67 mGy-cm. COMPARISON: Head CT 06/09/2022 FINDINGS: There are scattered areas of low attenuation in the cerebral white matter. There is no intr acranial hemorrhage, acute infarction, or abnormal intracranial mass lesion. The ventricles are michael l in size. There are likely changes of ocular lens replacement surgeries. There is mucosal thickening in the paranasal sinuses. The mastoid air cells are normal. IMPRESSION: 1. Stable extensive nonspecific cerebral white matter disease, which likely represents chronic small vessel ischemic disease. Reviewed, dictated and finalized at location A. T IRONWORKER IMPRESSION: 1. Stable extensive nonspecific cerebral white matter disease, which likely rep resents chronic small vessel ischemic disease.
[2024-10-28 17:09] VITALS: BP 153/60; PULSE 103; RESP 21; TEMP 37.2; O2SAT 100
[2024-10-28 17:44] LABS: Basophils Absolute Auto 0.04 K/mm3 (0.00-0.10); Basophils Percent Auto 0.3 % (0.0-1.0); Hematocrit 43.9 % (35.0-42.0); Hemoglobin 14.9 g/dL (11.7-13.8); Immature Granulocyte Absolute 0.06 K/mm3 (0.00-0.00); Immature Granulocyte Percent A 0.5 % (0.0-0.0); Lymphocytes Absolute Auto 1.42 K/mm3 (1.10-4.50); Lymphocytes Percent Auto 11.8 % (18.0-42.0); Mean Corpuscular HGB Conc 33.9 g/dL (32-36); Mean Corpuscular Hemoglobin 31.6 pg (27.0-31.0); Mean Platelet Volume 9.5 fl (9.2-11.8); Monocytes Absolute Auto 0.47 K/mm3 (0.10-0.90); Monocytes Percent Auto 3.9 % (2.0-11.0); Neutrophils Absolute Auto 10.03 K/mm3 (1.70-7.20); Neutrophils Percent Auto 83.5 % (50.0-70.0); Platelet Count Result 424 K/mm3 (150-420); Red Blood Count 4.72 M/mm3 (4.20-5.40); Red Cell Distribution Width 13.1 % (11.6-14.4)
[2024-10-28 17:45] LABS: Add Urine Microscopic? YES; Appearance Urine Clear (Clear); Bilirubin Urine Negative (Negative); Blood Urine Negative (Negative); Color Urine Light Yellow (Yellow); Glucose Urine UA Negative (Negative); Ketones Urine Negative (Negative); Leukocyte Esterase Ur Trace LEU/UL (Negative); Nitrate Urine Negative (Negative); Protein Urine Negative (Negative); Urobilinogen Urine 0.2 mg/dL (0.2-1.0)
[2024-10-28 17:54] LABS: Amorphous Sediment Urine Few; Squamous Epithelial Cell Urine Occasional /hpf (Few)
[2024-10-28 18:07] LABS: Alanine Aminotransferase 20 U/L (14-59); Alkaline Phosphatase 49 U/L (46-116); Anion Gap 9 mmol/L (4-12); Aspartate Amino Transferase 18 U/L (15-37); Bilirubin,Total 0.5 mg/dL (0.00-1.00); Blood Urea Nitrogen 23 mg/dL (7-18); Calcium 9.6 mg/dL (8.5-10.1); Carbon Dioxide 29 mmol/L (21-32); Chloride 101 mmol/L (98-108); Estimated CRCL calculation 36 ml/min; Estimated Glomerular Filt Rate 43; Glucose 125 mg/dL (70-99); Osmolality Calculated 292 mOsm/kg (285-295); Potassium 4.5 mmol/L (3.5-5.1); Sodium 139 mmol/L (136-145); Thyroid Stimulating Hormone 0.51 uIU/mL (0.36-3.74); Total Protein 7.7 g/dL (6.4-8.2)
[2024-10-28 18:43] VITALS: BP 148/77; PULSE 89; RESP 20; TEMP 36.7; O2SAT 97
--- NOTE | 2024-10-28 18:51 | ED.HA ---
HPI - Headache General Chief Complaint: Headache Stated Complaint: ALTERED MENTAL STATUS CHANGES Source: patient and family Mode of arrival: ambulatory Limitations: no limitations History of Present Illness HPI Narrative: This is a 73-year-old female who presents with some headache frontal location with no history of migraines does have some sinus tenderness with palpation in the frontal sinus and maxillary sinus with palpation, with a postnasal drip, patient's family was concerned about some mild confusion patient appears to be alert oriented answers questions appropriately with no neurological deficits. There is no fever chills no chest pain no shortness of breath no nausea or vomiting. MD elicited complaint: headache Onset (ago): day(s) Onset description: gradually Location: frontal Severity: mild Quality & Timing: aching and dull Related Data Home Medications Medication Instructions Recorded Confirmed cholecalciferol (vitamin D3) 25 1,000 unit PO DAILY 09/25/19 10/28/24 mcg (1,000 unit) capsule escitalopram oxalate 10 mg tablet 10 mg PO DAILY 09/25/19 10/28/24 inhalational spacing device #1 ea 09/25/19 10/28/24 ([facility] spacer) lorazepam 1 mg tablet 1 mg PO BID PRN Anxiety 09/25/19 10/28/24 ondansetron HCl 8 mg tablet 4 mg PO TID 09/25/19 10/28/24 acetaminophen 500 mg tablet 500 mg PO TID PRN Pain 09/26/19 10/28/24 (Tylenol Extra Strength) Adult Low Dose Aspirin 81 mg PO HS 06/09/22 10/28/24 nadolol 20 mg tablet 20 mg PO DAILY 03/03/23 10/28/24 pantoprazole 40 mg tablet,delayed 40 mg PO DAILY 03/03/23 10/28/24 release tramadol 50 mg tablet 50 mg PO Q6H PRN Pain 06/30/23 10/28/24 amitriptyline 25 mg tablet 25 mg PO QHS 06/26/24 10/28/24 melatonin 10 mg capsule 10 mg PO QHS 06/26/24 10/28/24 montelukast 10 mg tablet 10 mg PO DAILY 06/26/24 10/28/24 duloxetine 20 mg capsule,delayed 20 mg PO DAILY 07/07/24 10/28/24 release levothyroxine 100 mcg tablet 100 mcg PO DAILY 07/07/24 10/28/24 mecobalamin (vitamin B12) 500 mcg 5,000 mcg PO DAILY 07/07/24 10/28/24 chewable tablet Prevagen 1 tab-cap PO DAILY 10/28/24 10/28/24 Stool Softner 1 tab-cap PO DAILY 10/28/24 10/28/24 Allergies Allergy/AdvReac Type Severity Reaction Status Date / Time Penicillins Allergy Unknown rash Verified 07/07/24 09:49 Review of Systems Review of Systems: All systems reviewed & are unremarkable except as noted in HPI and below PMFSH Past Medical History Medical History Anxiety Depression FB esophagus GERD (gastroesophageal reflux disease) History of lung cancer Seizure Stroke Thyroid disease Surgical History Surgical History Cholecystectomy planned H/O: hysterectomy History of carpal tunnel surgery Hx of tubal ligation Family History Family History Father Hypertension Cerebrovascular accident Malignant neoplasm of prostate, Onset Age: 84 Family history of congestive heart failure Mother Family history of osteoarthritis Family history of coronary artery disease Social History Social History Smoking packs per day: 1 Smoking cigarettes per day: 20.0 Years smoked: 35 Smoking pack-years: 35.00 Smoking status: Former smoker Tobacco type: cigarettes Second hand tobacco smoke exposure: Yes Smoking end date: 11/22/15 Alcohol intake: current Alcohol use details: rare occasional Substance use: never Substance use type: does not use Living arrangements: with family Spiritual care concerns: No Exam Const: General: healthy appearing and no acute distress Nutritional Appearance: well nourished Orientation/consciousness: patient oriented x3 HENMT: Other: Frontal and maxillary sinus tenderness with palpation Eyes: Conjunctivae: conjunctivae normal Neck: Neck: normal visual inspection, no lymphadenopathy and no meningeal signs Chest: Chest palpation & inspection: normal inspection of the chest Resp: Effort & Inspection: normal respiratory effort Auscultation: clear to auscultation bilaterally Cardio: Rate: regular rate Rhythm: regular rhythm GI: GI Palp: Yes Soft to palpation Auscultation: normal bowel sounds : General: Yes bladder normal to palpation Back/Spine/Pelvis: Back: no CVA tenderness Skin: General skin exam: normal color Rashes: no rashes Neuro: General: patient oriented x3 and moves all extremities Extrem: General: normal to inspection and no clubbing, cyanosis or edema Course Course Emergency Course: patient with mildly elevated white blood cell count and UA positive for urinary tract infection, with a headache, CT scan performed and reviewed. Vital Signs Vital signs: Vital Signs Temperature 37.2 C 10/28/24 17:09 Pulse Rate 103 H 10/28/24 17:09 Respiratory Rate 21 H 10/28/24 17:09 Blood Pressure 153/60 H 10/28/24 17:09 Pulse Oximetry 100 10/28/24 17:09 Oxygen Delivery Room Air 10/28/24 17:09 Temperature 36.7 C 10/28/24 20:02 Pulse Rate 79 10/28/24 20:02 Respiratory Rate 16 10/28/24 20:02 Blood Pressure 137/60 10/28/24 20:02 Pulse Oximetry 97 10/28/24 20:02 Oxygen Delivery Room Air 10/28/24 20:02 MDM - Headache Lab Data 10/28/24 17:36 10/28/24 17:36 Labs: Lab Results 10/28/24 Range/Units 17:36 WBC 12.0 H (4.8-10.8) K/mm3 RBC 4.72 (4.20-5.40) M/mm3 Hgb 14.9 H (11.7-13.8) g/dL Hct 43.9 H (35.0-42.0) % MCV 93.0 (78.0-102.0) fL MCH 31.6 H (27.0-31.0) pg MCHC 33.9 (32-36) g/dL RDW 13.1 (11.6-14.4) % Plt Count 424 H (150-420) K/mm3 MPV 9.5 (9.2-11.8) fl Immature Gran % (Auto) 0.5 H (0.0-0.0) % Neut % (Auto) 83.5 H (50.0-70.0) % Lymph % (Auto) 11.8 L (18.0-42.0) % [place] % (Auto) 3.9 (2.0-11.0) % Eos % (Auto) 0.0 L (1.0-6.0) % Baso % (Auto) 0.3 (0.0-1.0) % Lymph # (Auto) 1.42 (1.10-4.50) K/mm3 [place] # (Auto) 0.47 (0.10-0.90) K/mm3 Eos # (Auto) 0.00 L (0.02-0.50) K/mm3 Baso # (Auto) 0.04 (0.00-0.10) K/mm3 Abs Immat Gran (auto) 0.06 H (0.00-0.00) K/mm3 Absolute Neuts (auto) 10.03 H (1.70-7.20) K/mm3 Absolute Nucleated RBC 0.00 (0.00-0.00) K/mm3 Nucleated RBC % 0.0 (0-0.0) % Sodium 139 (136-145) mmol/L Potassium 4.5 (3.5-5.1) mmol/L Chloride 101 (98-108) mmol/L Carbon Dioxide 29 (21-32) mmol/L Anion Gap 9 (4-12) mmol/L BUN 23 H (7-18) mg/dL Creatinine 1.23 H (0.55-1.02) mg/dL Estim Creat Clear Calc 36 ml/min Estimated GFR 43 L (59 - ) Glucose 125 H (70-99) mg/dL Calculated Osmolality 292 (285-295) mOsm/kg Calcium 9.6 (8.5-10.1) mg/dL Total Bilirubin 0.5 (0.00-1.00) mg/dL AST 18 (15-37) U/L ALT 20 (14-59) U/L Alkaline Phosphatase 49 (46-116) U/L Total Protein 7.7 (6.4-8.2) g/dL Albumin 4.0 (3.4-5.0) g/dL TSH 0.51 (0.36-3.74) uIU/mL Urine Color Light yellow (Yellow) Urine Appearance Clear (Clear) Urine pH 6.0 (5.0-8.0) Ur Specific Bloomer 1.010 (1.010-1.020) Urine Protein Negative (Negative) Urine Glucose (UA) Negative (Negative) Urine Ketones Negative (Negative) Ur Blood (Man) Negative (Negative) Urine Nitrate Negative (Negative) Urine Bilirubin Negative (Negative) Urine Urobilinogen 0.2 (0.2-1.0) mg/dL Leukocyte Esterase Rfl Trace H (Negative) TASHI/UL Ur Squamous Epith Cells Occasional (Few) /hpf Amorphous Sediment Few H (None) Critical Care Time Critical Care Time Critical Care Time: No Discharge Plan Discharge Clinical Impression: UTI (urinary tract infection), Sinusitis Patient Disposition: Home, Self-Care Condition: Stable Instructions: Antibiotic Form, Urinary Tract Infection in Women (ED), Sinusitis (ED), Acute Headache (ED) Additional Instructions: advised to take medication as prescribed and follow up with primary within a week further evaluation and treatment. Prescriptions: New nitrofurantoin monohyd/m-cryst [Macrobid] 100 mg capsule 100 mg PO Q12H 7 Days Qty: 14 0RF Rx Instructions: must administer with a meal/food naproxen 500 mg tablet 500 mg PO BID PRN (Reason: pain) Qty: 14 0RF Flonase Sensimist 27.5 mcg/actuation spray,suspension 2 spray intranasal DAILY 7 Days Qty: 5.9 0RF Rx Instructions: into each nostril No Action nadolol 20 mg tablet 20 mg PO DAILY pantoprazole 40 mg tablet,delayed release (DR/EC) 40 mg PO DAILY Prevagen 1 tab-cap PO DAILY Stool Softner 1 tab-cap PO DAILY Adult Low Dose Aspirin 81 mg PO HS levothyroxine 100 mcg tablet 100 mcg PO DAILY duloxetine 20 mg capsule,delayed release(DR/EC) 20 mg PO DAILY mecobalamin (vitamin B12) 500 mcg tablet,chewable 5,000 mcg PO DAILY tramadol 50 mg tablet 50 mg PO Q6H PRN (Reason: Pain) amitriptyline 25 mg tablet 25 mg PO QHS montelukast 10 mg tablet 10 mg PO DAILY melatonin 10 mg capsule 10 mg PO QHS (DME) Jany Palacios [facility] Spacer See Rx Instructions .ROUTE .MEDSUPPLY Qty: 1 Rx Instructions: As directed cholecalciferol (vitamin D3) 1,000 unit capsule 1,000 unit PO DAILY ondansetron HCl 8 mg tablet 4 mg PO TID lorazepam 1 mg tablet 1 mg PO BID PRN (Reason: Anxiety) escitalopram oxalate 10 mg tablet 10 mg PO DAILY acetaminophen [Tylenol Extra Strength] 500 mg tablet 500 mg PO TID PRN (Reason: Pain) Anoro Ellipta 62.5-25 mcg/actuation blister with device 1 inh INHALATION DAILY 30 Days Qty: 60 11RF Follow-up/Referrals: Olivier Diaz MD [Primary Care Provider] - Time of Disposition: 19:58
[2024-10-28] MEDS: KETOROLAC 30 MG/ML VIAL (*BKC) IM (18:52)
[2024-10-28] MEDS: cefTRIAXone 1 GM, LIDOCAINE HCL 1% LOCAL INJ 2.1 ML IM (19:13)
[2024-10-28 20:02] VITALS: BP 137/60; PULSE 79; RESP 16; TEMP 36.7; O2SAT 97
== END 2024-10-28 20:02 | disposition home or self-care (01) ==
PROVIDERS: Emergency Provider Emergency Medicine; PCP Internal Medicine
DX: N39.0 Urinary tract infection, site not specified (principal); J32.9 Chronic sinusitis, unspecified; Z79.899 Other long term (current) drug therapy; Z85.118 Personal history of other malignant neoplasm of bronchus and lung; Z87.891 Personal history of nicotine dependence
CPT/HCPCS: 36415; 70450; 80053; 81001; 84443; 85025; 96372; 99284; J0696; J1885; J2003

== ENCOUNTER 2024-12-05 13:16 | Outpatient (CLI) | payer MEDICARE, OTHER, SELFPAY ==
--- NOTE | ~2024-12-05 | CT_ITS ---
Clinical indication:Personal history of lung cancer. COMPARISON:Examination was compared with multiple prior studies, performed most recently on 06/30/2024 and dating back to 05/10/2022 TECHNIQUE: Multiple contiguous axial images of the chest were performed without the administration of intravenous contrast. FINDINGS: LUNG: Redemonstration of right apical (likely) a scar with multiple calcifications oriented parallel to the mediastinum, suggesting radiation change. This appearance is morphologically similar to previous examinations. Redemonstration of a right lower lobe spiculated nodule measuring 7.5 x 10 mm, axial series, image 89 (compared with 7.3 x 9.2 mm, axial series, image 89). Given changes in positioning and technique, th is nodule is unchanged. Redemonstration of a 3 mm nodule within the superior segment of the left lower lobe, unchanged from p rior (axial series, image 50 versus image 43 on most recent examination). No additional pulmonary nodules are identified. Multiple calcified nodules are noted, consistent with prior granulomatous disease. MEDIASTINUM:No morphologically suspicious or pathologically enlarged lymph nodes within the mediastin um or bilateral axilla. HEART:The heart is of normal size, without pericardial effusion. SOFT TISSUES OF THE CHEST: Unremarkable. BONES OF THE CHEST: No acute fracture. No lytic or blastic lesions. Degenerative disease is noted, unchanged. VISUALIZED PORTION OF THE UPPER ABDOMEN: Small hiatal hernia. Punctate calcifications identified within the splenic parenchyma, suggesting prior granulomatous dise ase. IMPRESSION: Stable CT examination of the chest, demonstrating posttreatment change in the right upper lobe, as we ll as multiple stable pulmonary nodules, as detailed above. Reviewed, dictated and finalized at location A. A SALES CONSULTANT IMPRESSION: Stable CT examination of the chest, demonstrating posttreatment change in the r ight upper lobe, as well as multiple stable pulmonary nodules, as detailed abov kahlil.
== END 2024-12-05 13:17 | disposition home or self-care (01) ==
LOC: CHSIMG 13:18
PROVIDERS: PCP Internal Medicine; Visit Provider Nurse Practitioner Family
DX: R91.8 Other nonspecific abnormal finding of lung field (principal)
CPT/HCPCS: 71250

== ENCOUNTER 2025-02-03 13:00 | Emergency (ER) | payer MEDICARE, OTHER, SELFPAY ==
--- NOTE | ~2025-02-03 | XR_ITS ---
EXAMINATION: XR chest 1V Exam Date/Time: 02/03/2025 14:12 CDT HISTORY: food stuck on the esophagus Comparison: 02/04/2024 at 9:38 AM. RESULT: Lines, tubes, and devices: None. Lungs and pleura: No focal consolidation, pleural effusion, or pneumothorax. Chronic opacification a nd volume loss in the right upper lobe with right hilar retraction. Cardiomediastinal silhouette: Stable. Granulomatous calcifications. Other: No acute osseous or upper abdominal finding. IMPRESSION: No acute cardiopulmonary process. Reviewed, dictated and finalized at location K.
--- OUTSIDE RECORDS SUMMARY | 2025-02-03 13:03 | XMS_ITS | Referral Summary ---
Author Organization [facility] Address [address] [place] [address] Care Team Providers Care Shipping Clerk Crating Name Role Phone Olivier Diaz MD Primary Care Provider [phone] David White MD Unavailable [phone] Aury Bach MD Unavailable [phone] Jessica Tobias MD Unavailable [phone] Dayne Stoddard MD Unavailable [phone] Allergies Active Allergy Reactions Criticality Noted Date Comments Penicillins Hives,Itching Medium 03/30/2016 Medications levothyroxine (SYNTHROID, LEVOTHROID) 88 mcg tablet Take 1 tablet (88 mcg total) by mouth clinical trial leader before breakfast Active ondansetron ODT (ZOFRAN-ODT) 4 mg disintegrating tablet Take 1 tablet (4 mg total) by mouth 3 (three) times a day 5 9 Active albuterol HFA (PROVENTIL HFA,VENTOLIN HFA,PROAIR HFA) 90 mcg/actuation inhaler Inhale 1-2 puffs every 4 (four) hours as needed for wheezing Active umeclidinium-vilan terol (ANORO ELLIPTA) 62.5-25 mcg/actuation blister with device Inhale 1 puff daily Active LORazepam (ATIVAN) 1 mg tablet Take 1 tablet (1 mg total) by mouth daily as needed for anxiety Active acetaminophen (TYLENOL) 500 mg tablet Take 1 tablet (500 mg total) by mouth 3 (three) times a day Active cholecalciferol (VITAMIN D-3) 1000 unit tablet Take 1 tablet (1,000 Units total) by mouth daily Active cetirizine (ZyrTEC) 10 mg tablet Take 1 tablet (10 mg total) by mouth daily Active pantoprazole DR (PROTONIX) 40 mg EC tablet Take 1 tablet (40 mg total) by mouth daily 0 Active amitriptyline (ELAVIL) 25 mg tablet Take 1 tablet (25 mg total) by mouth nightly at bedtime. 3 Active aspirin 81 mg enteric coated tablet Take 1 tablet (81 mg total) by mouth daily Active escitalopram (LEXAPRO) 10 mg tablet Take 1 tablet (10 mg total) by mouth daily Active famotidine (PEPCID) 20 mg tablet Take 1 tablet (20 mg total) by mouth 2 (two) times a day Active fluticasone propionate (FLONASE) 50 mcg/actuation nasal spray Administer 1 spray into each nostril daily as needed for rhinitis or allergies Active traMADoL (ULTRAM) 50 mg tablet Take 1 tablet (50 mg total) by mouth every 8 (eight) hours as needed for pain Active nadoloL (CORGARD) 20 mg tablet Take 1 tablet (20 mg total) by mouth daily Active Active Problems Problem Noted Date Diagnosed Date Esophageal obstruction due to food impaction Impacted foreign body in esophagus 05/31/2024 Stenosis of esophagus 06/24/2023 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 Foreign body in esophagus 11/30/2019 Overview (11/30/2019): Added automatically from request for surgery [id number] Age-related osteoporosis wit hout current pathological fracture 12/12/2018 Right shoulder pain 12/12/2018 Squamous cell carcinoma of right lung 03/26/2016 Hypothyroidism 02/20/2014 Overview (02/26/2017): HYPOTHYROIDISM NOS Non-toxic multinodular goiter 08/26/2011 Overview (02/24/2017): NONTOX MULTINODUL GOITER 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 Overview (02/26/2017): CHR LYMPHOCYT THYROIDIT Gastrostomy tube obstruction Immunizations Immunization Administration Dates Next Due Influenza, Quadrivalent, Hig h Dose, Preservative Free, Intrr 08/29/2020 Pfizer SARS-CoV-2 Monovalent Vaccination (12+ Yrs) PURPLE 07/31/2021,01/17/2021,12/27/2020 Pneumococcal Conjugate PCV 13 08/22/2019 Pneumococcal Polysaccharide PPV23 08/29/2020 Social History Tobacco Use Types Packs/Day Years Used Date Smoking Tobacco: Former Cigarettes Smokeless Tobacco: Never Tobacco Cessation:Counseling Given: Not Answered Alcohol Use Standard Drinks/Week Comments No 0 (1 standard drink = 0.6 oz pur e alcohol) AUDIT-C Answer Date Recorded Q1: How often do you have a drink containing alcohol? Never 06/19/2024 Q2: How many drinks containi ng alcohol do you have on a typical day when you are drinking? Patient does not drink Q3: How often do you have si x or more drinks on one occasion? Never 06/19/2024 Personal Safety Answer Date Recorded Have you ever been in or are you currently in a harmful physical or emotional relationship or is someone making you feel afraid or unsafe? 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 Gender Identity Not on file Sexual Orientation Not on file Last Filed Vital Signs Vital Sign Reading Time Taken Comments Blood Pressure 134/75 06/19/2024 12:50 PM CDT Pulse 74 06/19/2024 12:50 PM CDT Temperature 36.6 C (97.8 F) 06/19/2024 11:38 AM CDT Respiratory Rate 25 06/19/2024 12:50 PM CDT Oxygen Saturation 95% 06/19/2024 12:50 PM CDT Inhaled Oxygen Concentration - - Weight 78.9 kg (174 lb) 06/19/2024 9:20 AM CDT Height 162.6 cm (5' 4 ) 05/31/2024 10:46 AM CDT Body Mass Index 29.87 05/31/2024 10:46 AM CDT Plan of Treatment Not on file Insurance [employer] MEDICARE MEDICARE [employer] MEDICARE COMMERCIAL GENERIC PHYSICIANS [facility] [place] Advance Directives For more information, please contact: [phone] * Full Code (Latest Code Status on File) Date Activated Date Inactivated Comments 06/24/2023 10:54 AM 06/24/2023 7:17 PM * Full Code Date Activated Date Inactivated Comments 01/18/2020 8:08 AM 01/18/2020 1:18 PM * Full Code Date Activated Date Inactivated Comments 12/22/2019 8:28 AM 12/22/2019 2:51 PM * Full Code Date Activated Date Inactivated Comments 02/08/2018 11:19 PM 02/09/2018 2:40 PM Care Teams Shipping Clerk Crating Relationship Specialty Start Date End Date Olivier Diaz MD PCP - General 01/11/17 David White MD [address] [place] [address] Medical Oncologist/Mirror Polisher Medical Oncology 01/10/21 Aury Bach MD [address] [facility] [address] [place], [place] [id number] Referring Physician Critical Care Med 03/23/22 Jessica Tobias MD [address] [place] [address] Consulting Physician Surgery 04/22/23 Dayne Stoddard MD [address] [facility] [place] [phone] [place] [address] Surgeon Colon and Rectal Surgery 06/15/23
--- OUTSIDE RECORDS SUMMARY | 2025-02-03 13:03 | XMS_ITS | Clinical Summary ---
Author Organization [facility] Address [address] [place] [address] Care Team Providers Care Jv Baseball Coach Name Role Phone Olivier Diaz MD Primary Care Provider [phone] David White MD Unavailable [phone] Aury Bach MD Unavailable [phone] Jessica Tobias MD Unavailable [phone] Dayne Stoddard MD Unavailable [phone] Allergies Active Allergy Reactions Criticality Noted Date Comments Penicillins Hives,Itching Medium 03/30/2016 Medications levothyroxine (SYNTHROID, LEVOTHROID) 88 mcg tablet Take 1 tablet (88 mcg total) by mouth dredge deckhand before breakfast Active ondansetron ODT (ZOFRAN-ODT) 4 [...] (11/30/2019): Added automatically from request for surgery [id number] Age-related osteoporosis wit hout current pathological fracture [...] PCV 13 08/22/2019 Pneumococcal Polysaccharide PPV23 08/29/2020 Surgical History Surgery Date Site/Laterality Comments CHOLECYSTECTOMY 11/22/1977 - 11/21/1978 Cholecystectomy HYSTERECTOMY 11/22/2006 - 11/21/2007 Hysterectomy OTHER SURGICAL HISTORY 11/22/2010 - 11/21/2011 right hand carpal tunnel surgery US GUIDED LUNG BIOPSY 03/18/2016 N/A US GUIDED LUNG BIOPSY 02/28/2016 N/A PORT PLACEMENT CHEST >5 YEARS 10/27/2016 N/A PORT REMOVAL 10/16/2016 N/A NG TUBE PLACEMENT 09/24/2016 N/A IR G TUBE PLACEMENT PERCUTANEOUS 09/16/2016 N/A ENTERIC TUBE INJECTION 02/09/2018 N/A CHANGE G TUBE 08/11/2018 N/A CHANGE G TUBE 04/25/2019 N/A CHANGE G TUBE 09/14/2019 N/A TONSILLECTOMY APPENDECTOMY PORT REMOVAL 01/18/2020 N/A CHANGE G TUBE 04/17/2020 N/A CHANGE G TUBE 01/15/2021 N/A Medical History Medical History Date Comments Anxiety disorder Anxiety Hyperlipidemia Hyperlipidemia Hx Other Medical osteopenia Esophageal stricture Lung cancer (HCC) Lung cancer (HCC) COPD (chronic obstructive pulmonary disease) (HC C) Thyroid disease Arthritis Seizures (HCC) Depression PONV (postoperative nausea and vomiting) Family History Medical History Relation Name Comments Other Daughter thyroid; Relation Name Status Comments Daughter Social History Tobacco Use Types Packs/Day Years [...] on file 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 Gender Identity Not on file Sexual Orientation Not on file Obstetrics History Last Filed Vital Signs Vital Sign Reading [...] 05/31/2024 10:46 AM CDT Plan of Treatment Health Maintenance Due Date Last Done Comments Depression Screening 1950 Hepatitis C Screening 1950 Osteoporosis Screening-Bone Density Scan 1948 DTaP/Tdap/Td Vaccine (1 - Tdap) 1959 Hepatitis B Screening 1966 Zoster Vaccine (1 of 2) 1998 Well Visit 65+ 2013 Covid-19 Vaccine (4 - 2023-2 5 season) 2024 07/31/2021, 01/17/2021, 12/27/2020 Influenza Vaccine (#1) 2024 08/29/2020 Fall Risk Assessment 06/19/2025 06/19/2024 Breast Cancer Screening-Mammogram Discontinued 019 Pneumococcal vaccine 65+ Completed 08/29/2020, 1011/2018 Insurance [employer] MEDICARE MEDICARE [employer] MEDICARE COMMERCIAL GENER[employer] Advance Directives For more information, please contact: [phone] * Full Code (Latest Code Status on File) Date Activated Date Inactivated Comments 06/24/2023 10:54 AM 06/24/2023 7:17 PM * Full Code Date Activated Date Inactivated Comments 01/18/2020 8:08 AM 01/18/2020 1:18 PM * Full Code Date Activated Date Inactivated Comments 12/22/2019 8:28 AM 12/22/2019 2:51 PM * Full Code Date Activated Date Inactivated Comments 02/08/2018 11:19 PM 02/09/2018 2:40 PM Care Teams Jv Baseball Coach Relationship Specialty Start Date End Date Olivier Diaz MD PCP - General 01/11/17 David White MD [address] [place] [address] Medical Oncologist/Wholesale Account Manager Medical Oncology 01/10/21 Aury Bach MD [address] [place] [address] Referring Physician Critical Care Med 03/23/22 Jessica Tobias MD [address] [place], [place] [id number] Consulting Physician Surgery 04/22/23 Dayne Stoddard MD [address] [facility] [phone] [place] [address] Surgeon Colon and Rectal Surgery 06/15/23
--- OUTSIDE RECORDS SUMMARY | 2025-02-03 13:03 | XMS_ITS | Encounter Summary ---
Author Organization [facility] Healthcare Address [address] [place] [address] Care Team Providers Care Farm Reporter Name Role Phone Olivier Diaz MD Primary Care Provider [phone] David White MD Unavailable [phone] Aury Bach MD Unavailable [phone] Jessica Tobias MD Unavailable [phone] Dayne Stoddard MD Unavailable [phone] Encounter Details Date Type Department Care Team (Late st Contact Info) Description 01/15/2021 Telephone [facility] - Interventional Radiology [address] [place] [address] Ines Rose RN Social History Tobacco Use Types Packs/Day Years Used Date Smoking Tobacco: Former Cigarettes Smokeless Tobacco: Never Alcohol Use Standard Drinks/Week Comments No 0 (1 standard drink = 0.6 oz pur e alcohol) Comments No Sex and Gender Information Value Date Recorded Sex Assigned at Not on file Legal Sex Female 12:42 AM L D RN Gender Identity Not on file Sexual Orientation Not on file documented as of this encounter Plan of Treatment Not on file documented as of this encounter Visit Diagnoses Not on filedocumented in this encounter Care Teams Farm Reporter Relationship Specialty Start Date End Date Olivier Diaz MD PCP - General 01/11/17 David White MD [address] [place] [address] Medical Oncologist/Loan Examiner Medical Oncology 01/10/21 Aury Bach MD [address] [place], [place] [address] Referring Physician Critical Care Med 03/23/22 Jessica Tobias MD [address] [place] [address] Consulting Physician Surgery 04/22/23 Dayne Stoddard MD [address] [facility] [phone] [place] [address] Surgeon Colon and Rectal Surgery 06/15/23 documented as of this encounter
--- OUTSIDE RECORDS SUMMARY | 2025-02-03 13:04 | XMS_ITS | Clinical Summary ---
Author Organization [facility] Address [address] [place] [address] Care Team Providers Care Tailman Name Role Phone Olivier Diaz MD Primary Care Provider [phone] Allergies Active Allergy Reactions Criticality Noted Date Comments Penicillins Hives,Itching Medium 03/30/2016 Medications albuterol sulfate HFA 108 (90 Base) MCG/ACT inhaler Inhale 1-2 puffs into the lungs. Active cetirizine (ZYRTEC) 10 MG tablet Take 10 mg by mouth daily. Active vitamin D3, cholecalciferol, 1000 UNIT Tab tablet Take 1,000 Units by mouth daily. Active escitalopram (LEXAPRO) 10 MG tablet Take 10 mg by mouth daily. 2 Active famotidine (PEPCID) 20 MG tablet Take 20 mg by mouth 2 (two) times daily. 2 Active levothyroxine (SYNTHROID) 88 MCG tablet Take 88 mcg by mouth daily. Active LORazepam (ATIVAN) 1 MG tablet Take 1 mg by mouth 2 (two) times a day. 2 Active ondansetron (ZOFRAN-ODT) 4 MG disintegrating tablet Take 4 mg by mouth 3 (three) times a day. 1 Active pantoprazole EC (PROTONIX) 40 MG tablet Take 40 mg by mouth daily. 2 Active traMADol (ULTRAM) 50 MG tablet Take 50 mg by mouth 2 (two) times daily as needed. 2 Active verapamil (CALAN) 40 MG tablet Take 40 mg by mouth 3 (three) times a day. 2 Active umeclidinium-vilan terol (ANORO ELLIPTA) 62.5-25 MCG/INH inhaler Inhale 1 puff into the lungs daily. Active acetaminophen (TYLENOL) 500 MG tablet Take 500 mg by mouth 3 (three) times daily. Active prochlorperazine (COMPAZINE) 10 MG tablet Take 10 mg by mouth every 6 (six) hours as needed. Active ketoconazole (NIZORAL) 2 % cream Apply 1 Tube topically 2 (two) times daily. APPLY TO AFFECTED AREA 2 Active ondansetron (ZOFRAN) 4 MG tablet Take 4 mg by mouth 3 (three) times daily as needed. 2 Active Social History Tobacco Use Types Packs/Day Years Used Date Smoking Tobacco: Former Smokeless Tobacco: Never Tobacco Cessation:Counseling Given: No Alcohol Use Standard Drinks/Week Comments Not Currently 0 (1 standard drink = 0.6 oz pur e alcohol) PHQ-2 Answer Date Recorded PHQ-2 Score - If the patient scores above 3, please move on to questions 3-9 0 07/08/2022 Comments Unknown Sex and Gender Information Value Date Recorded Sex Assigned at Not on file Legal Sex Female 7:09 PM CDT Gender Identity Not on file Sexual Orientation Not on file Last Filed Vital Signs Vital Sign Reading Time Taken Comments Blood Pressure 118/72 07/08/2022 2:33 PM CDT Pulse 73 07/08/2022 2:33 PM CDT Temperature - - Respiratory Rate - - Oxygen Saturation 95% 07/08/2022 2:33 PM CDT Inhaled Oxygen Concentration - - Weight 78 kg (172 lb) 07/08/2022 2:33 PM CDT Height 162.6 cm (5' 4 ) 07/08/2022 2:33 PM CDT Body Mass Index 29.52 07/08/2022 2:33 PM CDT Plan of Treatment Health Maintenance Due Date Last Done Comments Hepatitis C 1966 DTaP, Tdap and Td Vaccines ( 1 - Tdap) 1967 Zoster Vaccines (1 of 2) 1998 Annual Medicare Wellness Visit 2013 Dexa Scan (General) 2013 RSV Immunization or 60+ Years (1 - 1-dose 75+ series) 2023 COVID-19 Vaccine (2023-2 5 season) 2024 07/31/2021, 01/17/2021, 12/27/2020 Influenza Adult (#1) 2024 Pneumococcal Vaccine: 65+ Years Completed 08/29/2020, 08/22/2019 Meningococcal B Vaccine Aged Out No l onger eligible based on patient's age to complete this topic Meningococcal Vaccine Aged Out No judith dorita eligible based on patient's age to complete this topic RSV Immunizations Under 20 Months Aged Out No longer eligible b ased on patient's age to complete this topic Insurance MEDICARE [employer] Care Teams Tailman Relationship Specialty Start Date End Date Olivier Diaz MD [address] [place] [id number] PCP - General INTERNAL MEDICINE 05/11/19
--- OUTSIDE RECORDS SUMMARY | 2025-02-03 13:04 | XMS_ITS ---
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 Foreign body in esophagus 11/30/2019 Overview (11/30/2019): Added automatically from request for surgery [id number] Age-related osteoporosis wit hout current pathological fracture 12/12/2018 Right shoulder pain 12/12/2018 Squamous cell carcinoma of right lung 03/26/2016 Hypothyroidism 02/20/2014 Overview (02/26/2017): HYPOTHYROIDISM NOS Non-toxic multinodular goiter 08/26/2011 Overview (02/24/2017): NONTOX MULTINODUL GOITER 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 Past Treatment and Therapy Plans No past plan information found. Lifetime Dose Tracking * Chemical Lifetime Dose Automatic Entry Manual Entr y Fluoro Time 8.6 minutes 8.6 minutes 0 minutes Air kerma at the reference point (Ka,r) 42 mGy 4 2 mGy 0 mGy DLP 8,758 mGycm 8,758 mGycm 0 mGycm
--- OUTSIDE RECORDS SUMMARY | 2025-02-03 13:04 | XMS_ITS | Continuity of Care Document ---
Author Organization [facility] Address [address] [place] [address] Phone Care Team Providers Care Devops Consultant Name Role Phone Angel Sow MD Unavailable Unavailable Advance Directives Directive Yes / No Effective Date File Name No Information Encounters Encounter Description Practice Location Reason(s) For Visit Diagnoses Date Provider Providers Copied on Encounter [facility], [address], [place], [place], [id number], [place] tel:[phone] [facility] Dysphagia, unspecified type Magi Ortiz. [address], [address], [place], [address], [place]. tel:[phone] Family History Family Member Type Diagnosis Age At Onset No Information Payers Payer name Insurance type Covered libertarian ID Authoriza tion(s) No Information Social History Type Description Quantity Date Captured Comments Sex Female Smoking Status No Information Chief Complaint And Reason For Visit No Information Reason For Referral Reason For Referral No Information History Of Present Illness Encounter Date Complaint History Of Prese nt Illness No Information Functional Status Date Functional Assessmen t No Information Instructions Date Instruction Additional Infor mation No Information Assessments Type Assessment Date No Information Patient Care Teams Name Effective Dates (start - stop) Status Members No Information
--- OUTSIDE RECORDS SUMMARY | 2025-02-03 13:04 | XMS_ITS | Encounter Summary ---
Author Organization [facility] Healthcare Address [address] [place] [address] Care Team Providers Care Shipfitters Supervisor Name Role Phone Olivier Diaz MD Primary Care Provider [phone] David White MD Unavailable [phone] Aury Bach MD Unavailable [phone] Jessica Tobias MD Unavailable [phone] Dayne Stoddard MD Unavailable [phone] Encounter Details Date Type Department Care Team (Late st Contact Info) Description 09/13/2019 Telephone [facility] - Interventional Radiology [address] [place] [address] Danielle Ferguson RN Social History Tobacco Use Types Packs/Day Years Used Date Smoking Tobacco: Former Cigarettes Smokeless Tobacco: Never Alcohol Use Standard Drinks/Week Comments No 0 (1 standard drink = 0.6 oz pur e alcohol) Comments Unknown Sex and Gender Information Value Date Recorded Sex Assigned at Not on file 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 Female 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 Gender Identity Not on file Sexual Orientation Not on file documented as of this encounter Plan of Treatment Not on file documented as of this encounter Visit Diagnoses Not on filedocumented in this encounter Care Teams Shipfitters Supervisor Relationship Specialty Start Date End Date Olivier Diaz MD PCP - General 01/11/17 David White MD [address] [place] [address] Medical Oncologist/Pododermatologist Medical Oncology 01/10/21 Aury Bach MD [address] [place] [address] Referring Physician Critical Care Med 03/23/22 Jessica Tobias MD [address] [place] [address] Consulting Physician Surgery 04/22/23 Dayne Stoddard MD [address] [facility] [phone] [place] [address] Surgeon Colon and Rectal Surgery 06/15/23 documented as of this encounter
[2025-02-03 13:21] VITALS: BP 146/69; PULSE 66; RESP 20; TEMP 36.6; O2SAT 96
[2025-02-03 15:17] VITALS: BP 130/74; PULSE 64; RESP 16; O2SAT 100
--- OUTSIDE RECORDS SUMMARY | 2025-02-03 16:09 | XMS_ITS | Continuity of Care Document ---
Author Organization [facility] Address [address] [place] [address] Phone Care Team Providers Care Compound Specialist Name Role Phone Angel Sow MD Unavailable Unavailable Advance Directives Directive Yes / No Effective Date File Name No Information Encounters Encounter Description Practice Location Reason(s) For Visit Diagnoses Date Provider Providers Copied on Encounter [facility], [address], [place], [place], [id number], [place] tel:[phone] [facility] Dysphagia, unspecified type Magi Ortiz. [address], [address], [place], [address], [place]. tel:[phone] Family History Family Member Type Diagnosis Age At Onset No Information Payers Payer name Insurance type Covered constitution party ID Authoriza tion(s) No Information Social History [...]
--- OUTSIDE RECORDS SUMMARY | 2025-02-03 16:09 | XMS_ITS ---
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
--- OUTSIDE RECORDS SUMMARY | 2025-02-03 16:09 | XMS_ITS | Encounter Summary ---
Author Organization [facility] Healthcare Address [address] [place] [address] Care Team Providers Care School Photographs Detailer Name Role Phone Olivier Diaz MD Primary Care Provider [phone] David White MD Unavailable [phone] Aury Bahc MD Unavailable [phone] Jessica Tobias MD Unavailable [phone] Dayne Stoddard MD Unavailable [phone] Encounter Details Date Type Department Care Team (Late st Contact Info) Description 09/13/2019 Telephone [facility] - Interventional Radiology [address] [place] [address] Danielle Ferguson RN Social History Tobacco Use Types Packs/Day Years Used Date Smoking Tobacco: Former Cigarettes Smokeless Tobacco: Never Alcohol Use Standard Drinks/Week Comments No 0 (1 standard drink = 0.6 oz pur e alcohol) Comments Unknown Sex and Gender Information Value Date Recorded Sex Assigned at Not on file Legal Sex Female 12:42 AM 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 Gender Identity Not on file Sexual Orientation Not on file documented as of this encounter Plan of Treatment Not on file documented as of this encounter Visit Diagnoses Not on filedocumented in this encounter Care Teams School Photographs Detailer Relationship Specialty Start Date End Date Olivier Diaz MD PCP - General 01/11/17 David White MD [address] [place] [address] Medical Oncologist/Vulcan Crewmember Medical Oncology 01/10/21 Aury Bach MD [address] [place] [address] Referring Physician Critical Care Med 03/23/22 Jessica Tobias MD [address] [place] [address] Consulting Physician Surgery 04/22/23 Dayne Stoddard MD [address] [facility] [phone] [place] [address] Surgeon Colon and Rectal Surgery 06/15/23 documented as of this encounter
--- OUTSIDE RECORDS SUMMARY | 2025-02-03 16:09 | XMS_ITS | Referral Summary ---
Author Organization [facility] Address [address] [place] [address] Care Team Providers Care Business Office Representative Name Role Phone Olivier Diaz MD Primary Care Provider [phone] David White MD Unavailable [phone] Aury Bach MD Unavailable [phone] Jessica Tobias MD Unavailable [phone] Dayne Stoddard MD Unavailable [phone] Allergies Active Allergy Reactions Criticality Noted Date Comments Penicillins Hives,Itching Medium 03/30/2016 Medications levothyroxine (SYNTHROID, LEVOTHROID) 88 mcg tablet Take 1 tablet (88 mcg total) by mouth director of strategic sourcing before breakfast Active ondansetron ODT (ZOFRAN-ODT) 4 [...] (11/30/2019): Added automatically from request for surgery [id number] Age-related osteoporosis wit hout current pathological fracture [...] on file Legal Sex Female 12:42 AM 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 ASBESTOS SHINGLE Gender Identity Not on file Sexual Orientation [...] LIFE INS [place] MEDICARE [employer] [facility] [place] Advance Directives For more information, please contact: [phone] * Full Code (Latest Code Status on File) Date Activated Date Inactivated Comments 06/24/2023 10:54 AM 06/24/2023 7:17 PM * Full Code Date Activated Date Inactivated Comments 01/18/2020 8:08 AM 01/18/2020 1:18 PM * Full Code Date Activated Date Inactivated Comments 12/22/2019 8:28 AM 12/22/2019 2:51 PM * Full Code Date Activated Date Inactivated Comments 02/08/2018 11:19 PM 02/09/2018 2:40 PM Care Teams Business Office Representative Relationship Specialty Start Date End Date Olivier Diaz MD PCP - General 01/11/17 David White MD [address] [place] [address] Medical Oncologist/Heat And Frost Insulator Medical Oncology 01/10/21 Aury Bach MD [address] [facility] [address] [place], [place] [address] Referring Physician Critical Care Med 03/23/22 Jessica Tobias MD [address] [place] [address] Consulting Physician Surgery 04/22/23 Dayne Stoddard MD [address] [facility] [phone] [place] [address] Surgeon Colon and Rectal Surgery 06/15/23
--- OUTSIDE RECORDS SUMMARY | 2025-02-03 16:09 | XMS_ITS | Encounter Summary ---
Author Organization [facility] Healthcare Address [address] [place] [address] Care Team Providers Care Salad Maker Name Role Phone Olivier Diaz MD Primary Care Provider [phone] David White MD Unavailable Aury Bach MD Unavailable [phone] Jessica Tobias MD Unavailable [phone] Dayne Stoddard MD Unavailable [phone] Encounter Details Date Type Department Care Team (Late st Contact Info) Description 01/15/2021 Telephone [facility] - Interventional Radiology [address] [place] [address] Ines Rose RN Social History Tobacco Use Types Packs/Day Years Used Date Smoking Tobacco: Former Cigarettes Smokeless Tobacco: Never Alcohol Use Standard Drinks/Week Comments No 0 (1 standard drink = 0.6 oz pur e alcohol) Comments No Sex and Gender Information Value Date Recorded Sex Assigned at Not on file Legal Sex Female 12:42 AM ASSESSMENT COUNSELOR Gender Identity Not on file Sexual Orientation Not on file documented as of this encounter Plan of Treatment Not on file documented as of this encounter Visit Diagnoses Not on filedocumented in this encounter Care Teams Salad Maker Relationship Specialty Start Date End Date Olivier Diaz MD PCP - General 01/11/17 David White MD [address] [place] [address] Medical Oncologist/Lace Roller Medical Oncology 01/10/21 Aury Bach MD [address] [place], [place] [address] Referring Physician Critical Care Med 03/23/22 Jessica Tobias MD [address] [place] [address] Consulting Physician Surgery 04/22/23 Dayne Stoddard MD [address] [facility] [phone] [place] [address] Surgeon Colon and Rectal Surgery 06/15/23 documented as of this encounter
--- OUTSIDE RECORDS SUMMARY | 2025-02-03 16:09 | XMS_ITS | Clinical Summary ---
Author Organization [facility] Address [address] [place] [address] Care Team Providers Care Tutor Name Role Phone Olivier Diaz MD Primary Care Provider [phone] David White MD Unavailable [phone] Aury Bach MD Unavailable [phone] Jessica Tobias MD Unavailable [phone] Dayne Stoddard MD Unavailable [phone] Allergies Active Allergy Reactions Criticality Noted Date Comments Penicillins Hives,Itching Medium 03/30/2016 Medications levothyroxine (SYNTHROID, LEVOTHROID) 88 mcg tablet Take 1 tablet (88 mcg total) by mouth pulmonary specialist before breakfast Active ondansetron ODT (ZOFRAN-ODT) 4 [...] (11/30/2019): Added automatically from request for surgery [id number] Age-related osteoporosis wit hout current pathological fracture [...] on file Legal Sex Female 12:42 AM 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 Gender Identity Not on file Sexual Orientation [...] Advance Directives For more information, please contact: [phone] * Full Code (Latest Code Status on File) Date Activated Date Inactivated Comments 06/24/2023 10:54 AM 06/24/2023 7:17 PM * Full Code Date Activated Date Inactivated Comments 01/18/2020 8:08 AM 01/18/2020 1:18 PM * Full Code Date Activated Date Inactivated Comments 12/22/2019 8:28 AM 12/22/2019 2:51 PM * Full Code Date Activated Date Inactivated Comments 02/08/2018 11:19 PM 02/09/2018 2:40 PM Care Teams Tutor Relationship Specialty Start Date End Date Olivier Diaz MD PCP - General 01/11/17 David White MD [address] [place] [address] Medical Oncologist/Post Exchange Manager Medical Oncology 01/10/21 Aury Bach MD [address] [place] [address] Referring Physician Critical Care Med 03/23/22 Jessica Tobias MD [address] [place], [place] [address] Consulting Physician Surgery 04/22/23 Dayne Stoddard MD [address] [facility] [phone] [place] [address] Surgeon Colon and Rectal Surgery 06/15/23
--- OUTSIDE RECORDS SUMMARY | 2025-02-03 16:09 | XMS_ITS | Clinical Summary ---
Author Organization [facility] Address [address] [place] [address] Care Team Providers Care Machine Specialist Name Role Phone Olivier Diaz MD Primary Care Provider [phone] Allergies Active Allergy Reactions Criticality Noted Date [...] topic Insurance [employer] Care Teams Machine Specialist Relationship Specialty Start Date End Date Olivier Diaz MD [address] [place] [id number] PCP - General INTERNAL MEDICINE 05/11/19
--- NOTE | 2025-02-03 16:36 | ED.GENADULT ---
HPI - General Adult General Chief complaint: Recheck/Abnormal Lab/Rx Stated complaint: ?CHICKEN IN THROAT. ABLE TO SWALLOW LIQUIDS HX CA Time Seen by Provider: 02/03/25 15:59 History of Present Illness HPI narrative: 74-year-old female presents to emergency department for evaluation for concern for esophageal obstruction. Patient does have history esophageal cancer and has had issues with strictures and food obstructions previously patient's most recent food of traction was September of 2024. Patient did go to [facility] and was scoped at that time. Patient typically follows with Dr. Garcia, last night patient was eating a piece of chicken and felt that she got obstructed, patient was able to vomit up some of the food but patient still has a globus sensation in her throat. Patient is able to swallow her secretions, drink liquids and is able to take her medications. Related Data Home Medications ?Medication ?Instructions ?Recorded ?Confirmed ?Last Taken ?Type cholecalciferol (vitamin D3) 25 1,000 unit PO DAILY 09/25/19 12/28/24 Unknown History mcg (1,000 unit) capsule escitalopram oxalate 10 mg tablet 10 mg PO DAILY 09/25/19 12/28/24 Unknown History inhalational spacing device #1 ea 09/25/19 12/28/24 Unknown History (Jany Palacios [facility] spacer) lorazepam 1 mg tablet 1 mg PO BID PRN Anxiety 09/25/19 12/28/24 08/31/23 09:00 History ondansetron HCl 8 mg tablet 4 mg PO TID 09/25/19 12/28/24 Unknown History acetaminophen 500 mg tablet 500 mg PO TID PRN Pain 09/26/19 12/28/24 Unknown History (Tylenol Extra Strength) Adult Low Dose Aspirin 81 mg PO HS 06/09/22 12/28/24 Unknown History nadolol 20 mg tablet 20 mg PO DAILY 03/03/23 12/28/24 09/01/23 09:00 History pantoprazole 40 mg tablet,delayed 40 mg PO DAILY 03/03/23 12/28/24 Unknown History release tramadol 50 mg tablet 50 mg PO Q6H PRN Pain 06/30/23 12/28/24 09/01/23 09:00 History amitriptyline 25 mg tablet 25 mg PO QHS 06/26/24 12/28/24 Unknown History melatonin 10 mg capsule 10 mg PO QHS 06/26/24 12/28/24 Unknown History montelukast 10 mg tablet 10 mg PO DAILY 06/26/24 12/28/24 Unknown History duloxetine 20 mg capsule,delayed 20 mg PO DAILY 07/07/24 12/28/24 Unknown History release levothyroxine 100 mcg tablet 100 mcg PO DAILY 07/07/24 12/28/24 Unknown History mecobalamin (vitamin B12) 500 mcg 5,000 mcg PO DAILY 07/07/24 12/28/24 Unknown History chewable tablet Prevagen 1 tab-cap PO DAILY 10/28/24 12/28/24 Unknown History Stool Softner 1 tab-cap PO DAILY 10/28/24 12/28/24 Unknown History Allergies Allergy/AdvReac Type Severity Reaction Status Date / Time Penicillins Allergy Unknown rash Verified 02/03/25 13:02 Review of Systems Review of Systems: All systems reviewed & are unremarkable except as noted in HPI and below PMFSH Past Medical History Medical History GERD (gastroesophageal reflux disease) Seizure Stroke Thyroid disease Anxiety Depression FB esophagus History of lung cancer Surgical History Surgical History History of carpal tunnel surgery Hx of tubal ligation Cholecystectomy planned H/O: hysterectomy Family History Family History Father Hypertension Cerebrovascular accident Malignant neoplasm of prostate, Onset Age: 84 Family history of congestive heart failure Mother Family history of osteoarthritis Family history of coronary artery disease Social History Social History Smoking packs per day: 1 Smoking cigarettes per day: 20.0 Years smoked: 35 Smoking pack-years: 35.00 Smoking status: Former smoker Tobacco type: cigarettes Second hand tobacco smoke exposure: Yes Smoking end date: 11/22/15 Alcohol intake: current Alcohol use details: rare occasional Substance use: never Substance use type: does not use Living arrangements: with family Spiritual care concerns: No Exam Narrative: APPEARANCE: Well appearing, no pain, no distress, well-nourished. HEAD: normocephalic, atraumatic. EYES: PERRLA/EOMI, conjunctivae clear. NOSE: Normal no drainage EARS:TMS clear with good light reflex. THROAT: Pharynx clear, no exudate. NECK: Supple. No adenopathy, no masses. RESPIRATORY: Airway patent, respirations nonlabored. Clear to auscultation bilaterally, no rales, rhonchi, wheezing. CARDIOVASCULAR: Regular rate and rhythm without murmurs rubs or gallops. ABDOMINAL: Soft, nontender, nondistended, normal bowel sounds MUSCULOSKELETAL: Moves all extremities. Strength/ROM intact, No edema, No calf tenderness. NEURO: Alert. Cranial nerves II through XII intact. Good gait. Good coordination SKIN: Warm, dry. Normal Color Course Vital Signs Vital signs: Vital Signs Temperature 97.9 F 02/03/25 13:21 Pulse Rate 66 02/03/25 13:21 Respiratory Rate 20 02/03/25 13:21 Blood Pressure 146/69 H 02/03/25 13:21 Pulse Oximetry 96 02/03/25 13:21 Temperature 97.9 F 02/03/25 13:21 Pulse Rate 64 02/03/25 15:17 Respiratory Rate 16 02/03/25 15:17 Blood Pressure 130/74 02/03/25 15:17 Pulse Oximetry 100 02/03/25 15:17 Medical Decision Making MDM Narrative Medical decision making narrative: 74-year-old female presents emergency department for evaluation for some difficulty swallowing. Patient was able to swallow her own secretions and was able to drink water without difficulty. Patient was eager for discharge home. Differential Diagnosis Differential Diagnosis: Fluid bolus, globus sensation, esophagitis, esophageal stricture Vital Signs Vital Signs: Vital Signs Temperature 97.9 F 02/03/25 13:21 Pulse Rate 66 02/03/25 13:21 Respiratory Rate 20 02/03/25 13:21 Blood Pressure 146/69 H 02/03/25 13:21 Pulse Oximetry 96 02/03/25 13:21 Temperature 97.9 F 02/03/25 13:21 Pulse Rate 64 02/03/25 15:17 Respiratory Rate 16 02/03/25 15:17 Blood Pressure 130/74 02/03/25 15:17 Pulse Oximetry 100 02/03/25 15:17 Discharge Plan Discharge Clinical Impression: Globus sensation Patient Disposition: Home, Self-Care Condition: Stable Instructions: Antibiotic Form Additional Instructions: Have close follow-up with GI. Follow a soft diet. If you are unable to handle your secretions, follow a soft diet or unable to take your medications then please call or return to the emergency department. Patient Language: Kazakh Prescriptions: No Action nadolol 20 mg tablet 20 mg PO DAILY pantoprazole 40 mg tablet,delayed release (DR/EC) 40 mg PO DAILY Prevagen 1 tab-cap PO DAILY Stool Softner 1 tab-cap PO DAILY naproxen 500 mg tablet 500 mg PO BID PRN (Reason: pain) Qty: 14 0RF Flonase Sensimist 27.5 mcg/actuation spray,suspension 2 spray intranasal DAILY 7 Days Qty: 5.9 0RF Rx Instructions: into each nostril Adult Low Dose Aspirin 81 mg PO HS levothyroxine 100 mcg tablet 100 mcg PO DAILY duloxetine 20 mg capsule,delayed release(DR/EC) 20 mg PO DAILY mecobalamin (vitamin B12) 500 mcg tablet,chewable 5,000 mcg PO DAILY tramadol 50 mg tablet 50 mg PO Q6H PRN (Reason: Pain) amitriptyline 25 mg tablet 25 mg PO QHS montelukast 10 mg tablet 10 mg PO DAILY melatonin 10 mg capsule 10 mg PO QHS (DME) [facility] Spacer See Rx Instructions .ROUTE .MEDSUPPLY Qty: 1 Rx Instructions: As directed cholecalciferol (vitamin D3) 1,000 unit capsule 1,000 unit PO DAILY ondansetron HCl 8 mg tablet 4 mg PO TID lorazepam 1 mg tablet 1 mg PO BID PRN (Reason: Anxiety) escitalopram oxalate 10 mg tablet 10 mg PO DAILY acetaminophen [Tylenol Extra Strength] 500 mg tablet 500 mg PO TID PRN (Reason: Pain) Anoro Ellipta 62.5-25 mcg/actuation blister with device 1 inh INHALATION DAILY 30 Days Qty: 60 11RF Follow-up/Referrals: Olivier Diaz MD [Primary Care Provider] -
--- NOTE | 2025-02-03 17:47 | PC.NURSE ---
Pt. states she is ready to leave and does not want another set of VS. She will follow up with pcp on wednesday.
== END 2025-02-03 17:49 | disposition home or self-care (01) ==
PROVIDERS: Emergency Provider Emergency Medicine; PCP Internal Medicine
DX: R09.A2 Foreign body sensation, throat (principal); K21.9 Gastro-esophageal reflux disease without esophagitis; E07.9 Disorder of thyroid, unspecified; F41.9 Anxiety disorder, unspecified; F32.A Depression, unspecified; Z85.118 Personal history of other malignant neoplasm of bronchus and lung; Z85.01 Personal history of malignant neoplasm of esophagus; Z86.73 Personal history of transient ischemic attack (TIA), and cerebral infarction without residual deficits; Z87.891 Personal history of nicotine dependence; Z90.710 Acquired absence of both cervix and uterus; Z90.49 Acquired absence of other specified parts of digestive tract; Z79.899 Other long term (current) drug therapy
CPT/HCPCS: 71045; 99283; A9270

== ENCOUNTER 2025-02-05 09:40 | Day surgery (SDC) | payer MEDICARE, OTHER, SELFPAY ==
[2025-02-05] VITALS (11 sets, daily range): BP systolic 107–170; BP diastolic 45–91; PULSE 62–80; RESP 16–24; TEMP 36.3–36.6; O2SAT 98–100
--- NOTE | ~2025-02-05 | CT_ITS ---
CT soft tissue neck w con Ordering provider: Carol Alcala APRN History: 74 years Female with . feel like something stuck in my throat x-ray don . Comparison: Technique: CT soft tissues neck was performed with contrast. . Automated exposure control and iterat klever reconstruction technique were employed. The dose-length product was 483.21 mGy-cm. 75 mL Omnipaqu e 350 was given IV. Findings: Artifacts are seen LOWER HEAD: The visualized brain parenchyma, optic globes/orbits and mastoids are normal. Left sphe noid sinus disease. SALIVARY GLANDS: Normal. THYROID: Normal. SUPRAHYOID DEEP SPACES: Normal. CAROTID ARTERIES: Normal. JUGULAR VEINS: Normal. TONSILS: Soft tissue density in the area of the left appendix is noted clinical evaluation advised. ORAL CAVITY: normal as visualized. PHARYNX, LARYNX AND TRACHEA: Patent and normal. No prevertebral soft tissue swelling. Distended dilated esophagus with fluid residual is about the lower esophagus with possible soft tissu e density in the lower esophagus. Further evaluation with esophagoscopy is advised. SUPERFICIAL SOFT TISSUES: Normal. No lymphadenopathy or neck mass. THORACIC INLET/VISUALIZED UPPER CHEST: Atelectasis versus pneumonia in the right upper lobe. Underlyi ng mass cannot be excluded. Further evaluation advised. Calcifications are seen in this soft tissue d ensity. SKELETAL: Healing fracture is seen in the right fifth rib. Age appropriate degenerative changes. IMPRESSION: 1. Dilated esophagus with possible soft tissue density in the lower esophagus. Further evaluation wi th endoscopy is advised. 2. Right upper lobe atelectasis versus pneumonia versus a mass. Pleural thickening also cannot be ex cluded. Further evaluation advised. 3. Possible soft tissue density in the area of the left tonsil measuring 1.5 x 2.8 cm.. Clinical debbie luation advised. 4. Healing fracture in the right fifth.. 5. Left sphenoid sinus disease. Reviewed, dictated and finalized at location A. IMPRESSION: 1. Dilated esophagus with possible soft tissue density in the lower esophagus. Further evaluation with endoscopy is advised. 2. Right upper lobe atelectasis versus pneumonia versus a mass. Pleural thicke fredo also cannot be excluded. Further evaluation advised. 3. Possible soft tissue density in the area of the left tonsil measuring 1.5 x 2.8 cm.. Clinical evaluation advised. 4. Healing fracture in the right fifth.. 5. Left sphenoid sinus disease.
--- OUTSIDE RECORDS SUMMARY | 2025-02-05 10:46 | XMS_ITS | Clinical Summary ---
Author Organization [facility] Address [address] [place] [address] Care Team Providers Care Embedded Case Manager Name Role Phone Olivier Diaz MD Primary Care Provider [phone] Allergies Active Allergy Reactions Criticality Noted Date [...] topic Insurance [employer] Care Teams Embedded Case Manager Relationship Specialty Start Date End Date Olivier Diaz MD [address] [place] [id number] PCP - General INTERNAL MEDICINE 05/11/19
--- OUTSIDE RECORDS SUMMARY | 2025-02-05 10:46 | XMS_ITS ---
Author Organization 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
--- OUTSIDE RECORDS SUMMARY | 2025-02-05 10:46 | XMS_ITS | Referral Summary ---
Author Organization [facility] Address [address] [place] [address] Care Team Providers Care Data Entry Email Processor Name Role Phone Olivier Diaz MD Primary Care Provider [phone] David White MD Unavailable [phone] Aury Bach MD Unavailable [phone] Jessica Tobias MD Unavailable [phone] Dayne Stoddard MD Unavailable [phone] Allergies Active Allergy Reactions Criticality Noted Date Comments Penicillins Hives,Itching Medium 03/30/2016 Medications levothyroxine (SYNTHROID, LEVOTHROID) 88 mcg tablet Take 1 tablet (88 mcg total) by mouth director social welfare before breakfast Active ondansetron ODT (ZOFRAN-ODT) 4 [...] (11/30/2019): Added automatically from request for surgery [id number] Age-related osteoporosis wit hout current pathological fracture [...] on file 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 Gender Identity Not on file Sexual Orientation [...] LIFE INS [employer] MEDICARE [employer] [facility] INS [place] Advance Directives For more information, please contact: [phone] * Full Code (Latest Code Status on File) Date Activated Date Inactivated Comments 06/24/2023 10:54 AM 06/24/2023 7:17 PM * Full Code Date Activated Date Inactivated Comments 01/18/2020 8:08 AM 01/18/2020 1:18 PM * Full Code Date Activated Date Inactivated Comments 12/22/2019 8:28 AM 12/22/2019 2:51 PM * Full Code Date Activated Date Inactivated Comments 02/08/2018 11:19 PM 02/09/2018 2:40 PM Care Teams Data Entry Email Processor Relationship Specialty Start Date End Date Olivier Diaz MD PCP - General 01/11/17 David White MD [address] [place] [address] Medical Oncologist/Property Officer Medical Oncology 01/10/21 Aury Bach MD [address] [facility] [address] [place], [place] [id number] Referring Physician Critical Care Med 03/23/22 Jessica Tobias MD [address] [place] [address] Consulting Physician Surgery 04/22/23 Dayne Stoddard MD [address] [facility] [place] [phone] [place] [address] Surgeon Colon and Rectal Surgery 06/15/23
--- OUTSIDE RECORDS SUMMARY | 2025-02-05 10:46 | XMS_ITS | Clinical Summary ---
Author Organization [facility] Address [address] [place] [address] Care Team Providers Care Bladder Changer Name Role Phone Olivier Diaz MD Primary Care Provider [phone] David White MD Unavailable [phone] Aury Bach MD Unavailable [phone] Jessica Tobias MD Unavailable [phone] Dayne Stoddard MD Unavailable [phone] Allergies Active Allergy Reactions Criticality Noted Date Comments Penicillins Hives,Itching Medium 03/30/2016 Medications levothyroxine (SYNTHROID, LEVOTHROID) 88 mcg tablet Take 1 tablet (88 mcg total) by mouth seat coverer before breakfast Active ondansetron ODT (ZOFRAN-ODT) 4 [...] (11/30/2019): Added automatically from request for surgery [id number] Age-related osteoporosis wit hout current pathological fracture [...] on file 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 Gender Identity Not on file Sexual Orientation [...] Advance Directives For more information, please contact: [phone] * Full Code (Latest Code Status on File) Date Activated Date Inactivated Comments 06/24/2023 10:54 AM 06/24/2023 7:17 PM * Full Code Date Activated Date Inactivated Comments 01/18/2020 8:08 AM 01/18/2020 1:18 PM * Full Code Date Activated Date Inactivated Comments 12/22/2019 8:28 AM 12/22/2019 2:51 PM * Full Code Date Activated Date Inactivated Comments 02/08/2018 11:19 PM 02/09/2018 2:40 PM Care Teams Bladder Changer Relationship Specialty Start Date End Date Olivier Diaz MD PCP - General 01/11/17 David White MD [address] [place] [address] Medical Oncologist/Neurological Surgeon Medical Oncology 01/10/21 Aury Bach MD [address] [place] [address] Referring Physician Critical Care Med 03/23/22 Jessica Tobias MD [address] [place], [place] [id number] Consulting Physician Surgery 04/22/23 Dayne Stoddard MD [address] [facility] [phone] [place] [address] Surgeon Colon and Rectal Surgery 06/15/23
--- OUTSIDE RECORDS SUMMARY | 2025-02-05 10:46 | XMS_ITS | Continuity of Care Document ---
Author Organization [facility] Address [address] [place] [address] Phone Care Team Providers Care Forge Heater Name Role Phone Angel Sow MD Unavailable Unavailable Advance Directives Directive Yes / No Effective Date File Name No Information Encounters Encounter Description Practice Location Reason(s) For Visit Diagnoses Date Provider Providers Copied on Encounter [facility], [address], [place], [place], [id number], [place] tel:[phone] [facility] Dysphagia, unspecified type Magi Ortiz. [address], [address], [place], [address], [place]. tel:[phone] Family History Family Member Type Diagnosis Age [...]
--- OUTSIDE RECORDS SUMMARY | 2025-02-05 10:46 | XMS_ITS | Encounter Summary ---
Author Organization [facility] Address [address] [place] [address] Care Team Providers Care Machine Grinder Name Role Phone Olivier Diaz MD Primary Care Provider [phone] David White MD Unavailable Aury Bach MD Unavailable [phone] Jessica Tobias MD Unavailable [phone] Dayne Stoddard MD Unavailable [phone] Encounter Details Date Type Department Care Team (Late st Contact Info) Description 09/13/2019 Telephone [facility] - Interventional Radiology [address] [place] [address] Danielle Ferguson RN Social History Tobacco Use Types Packs/Day Years Used Date Smoking Tobacco: Former Cigarettes Smokeless Tobacco: Never Alcohol Use Standard Drinks/Week Comments No 0 (1 standard drink = 0.6 oz pur e alcohol) Comments Unknown Sex and Gender Information Value Date Recorded Sex Assigned at Not on file 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 Gender Identity Not on file Sexual Orientation Not on file documented as of this encounter Plan of Treatment Not on file documented as of this encounter Visit Diagnoses Not on filedocumented in this encounter Care Teams Machine Grinder Relationship Specialty Start Date End Date Olivier Diaz MD PCP - General 01/11/17 David White MD [address] [place] [address] Medical Oncologist/Sweatband Maker Medical Oncology 01/10/21 Aury Bach MD [address] [place] [address] Referring Physician Critical Care Med 03/23/22 Jessica Tobias MD [address] [place] [address] Consulting Physician Surgery 04/22/23 Dayne Stoddard MD [address] [facility] [phone] [place] [address] Surgeon Colon and Rectal Surgery 06/15/23 documented as of this encounter
--- OUTSIDE RECORDS SUMMARY | 2025-02-05 10:46 | XMS_ITS | Encounter Summary ---
Author Organization [facility] Healthcare Address [address] [place] [address] Care Team Providers Care Facility Supervisor Name Role Phone Olivier Diaz MD Primary Care Provider [phone] David White MD Unavailable Aury Bach MD Unavailable [phone] Jessica Tobias MD Unavailable [phone] Dayne Stoddard MD Unavailable [phone] Encounter Details Date Type Department Care Team (Late st Contact Info) Description 01/15/2021 Telephone [facility] - Interventional Radiology [address] [place] [address] Ines Rose RN Social History Tobacco Use Types Packs/Day Years Used Date Smoking Tobacco: Former Cigarettes Smokeless Tobacco: Never Alcohol Use Standard Drinks/Week Comments No 0 (1 standard drink = 0.6 oz pur e alcohol) Comments No Sex and Gender Information Value Date Recorded Sex Assigned at Not on file 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 Gender Identity Not on file Sexual Orientation Not on file documented as of this encounter Plan of Treatment Not on file documented as of this encounter Visit Diagnoses Not on filedocumented in this encounter Care Teams Facility Supervisor Relationship Specialty Start Date End Date Olivier Diaz MD PCP - General 01/11/17 David White MD [address] [place] [address] Medical Oncologist/Director Blood Bank Medical Oncology 01/10/21 Aury Bach MD [address] [place], [place] [address] Referring Physician Critical Care Med 03/23/22 Jessica Tobias MD [address] [place] [address] Consulting Physician Surgery 04/22/23 Dayne Stoddard MD [address] [facility] [phone] [place] [address] Surgeon Colon and Rectal Surgery 06/15/23 documented as of this encounter
--- NOTE | 2025-02-05 13:20 | ED_ITS ---
HPI - General Adult General Chief complaint: Unspecified <Carol Alcala APRN - Last Filed: 02/05/25 13:23> Stated complaint: difficulty swallowing <Carol Alcala APRN - Last Filed: 02/05/25 13:23> Time Seen by Provider: 02/05/25 13:05 <Carol Alcala APRN - Last Filed: 02/05/25 13:23> Focused HPI: Patient is a 74-year-old female who presents to the ER with a food bolus. She reports this happened on Wednesday, 2 days ago. Patient came in to this ER for evaluation. She also reports she went to [facility] for evaluation where they performed an x-ray. Patient reports the pain in her throat has intensified since Wednesday. She believes a piece of chicken stuck in her throat. Patient denies any true melena, wheezing, stridor. She endorses a ?gurgling sound when she is drinking liquids. Patient verses a history of arthritis and lung cancer. GENERAL: Well-appearing, well-nourished, and in no acute distress. HEAD: Normocephalic, atraumatic. CHEST: Clear to auscultation. ?No respiratory distress. HEART: Regular rate and rhythm.? NEURO: ?Alert and oriented x3. Patient screened in triage and initial orders placed.? ?Additional care and disposition to be based upon?diagnostic testing and treatment. <Carol Alcala APRN - Last Filed: 02/05/25 13:23> History of Present Illness HPI narrative: 74-year-old female presents to the emergency department for concern of a food bolus. Patient states she did have an episode of chicken that she thinks was obstructing but patient was able to throw up some check in and has been able to handle her secretions pain <Freddy Arriaza MD - Last Filed: 02/05/25 21:52> Related Data Home medications: Home Medications ?Medication ?Instructions ?Recorded ?Confirmed ?Last Taken ?Type cholecalciferol (vitamin D3) 25 1,000 unit PO DAILY 09/25/19 12/28/24 Unknown History mcg (1,000 unit) capsule escitalopram oxalate 10 mg tablet 10 mg PO DAILY 09/25/19 12/28/24 Unknown History inhalational spacing device #1 ea 09/25/19 12/28/24 Unknown History (Staceyhamber Suzanne [facility] spacer) lorazepam 1 mg tablet 1 mg PO BID PRN Anxiety 09/25/19 12/28/24 08/31/23 09:00 History ondansetron HCl 8 mg tablet 4 mg PO TID 09/25/19 12/28/24 Unknown History acetaminophen 500 mg tablet 500 mg PO TID PRN Pain 09/26/19 12/28/24 Unknown History (Tylenol Extra Strength) Adult Low Dose Aspirin 81 mg PO HS 06/09/22 12/28/24 Unknown History nadolol 20 mg tablet 20 mg PO DAILY 03/03/23 12/28/24 09/01/23 09:00 History pantoprazole 40 mg tablet,delayed 40 mg PO DAILY 03/03/23 12/28/24 Unknown History release tramadol 50 mg tablet 50 mg PO Q6H PRN Pain 06/30/23 12/28/24 09/01/23 09:00 History amitriptyline 25 mg tablet 25 mg PO QHS 06/26/24 12/28/24 Unknown History melatonin 10 mg capsule 10 mg PO QHS 06/26/24 12/28/24 Unknown History montelukast 10 mg tablet 10 mg PO DAILY 06/26/24 12/28/24 Unknown History duloxetine 20 mg capsule,delayed 20 mg PO DAILY 07/07/24 12/28/24 Unknown History release levothyroxine 100 mcg tablet 100 mcg PO DAILY 07/07/24 12/28/24 Unknown History mecobalamin (vitamin B12) 500 mcg 5,000 mcg PO DAILY 07/07/24 12/28/24 Unknown History chewable tablet Prevagen 1 tab-cap PO DAILY 10/28/24 12/28/24 Unknown History Stool Softner 1 tab-cap PO DAILY 10/28/24 12/28/24 Unknown History <Carol Alcala APRN - Last Filed: 02/05/25 13:23> Allergies/adverse reactions: Allergies Allergy/AdvReac Type Severity Reaction Status Date / Time Penicillins Allergy Unknown rash Verified 02/05/25 17:43 <Carol Alcala APRN - Last Filed: 02/05/25 13:23> Review of Systems 2 Review of Systems: All systems reviewed & are unremarkable except as noted in HPI and below <Freddy Arriaza MD - Last Filed: 02/05/25 21:52> [facility] Past Medical History Medical History: Medical History GERD (gastroesophageal reflux disease) Seizure Stroke Thyroid disease Anxiety Depression FB esophagus History of lung cancer <Carol Alcala APRN - Last Filed: 02/05/25 13:23> Surgical History Surgical History: Surgical History History of carpal tunnel surgery Hx of tubal ligation Cholecystectomy planned H/O: hysterectomy <Carol Alcala APRN - Last Filed: 02/05/25 13:23> Family History Family History: Family History Father Hypertension Cerebrovascular accident Malignant neoplasm of prostate, Onset Age: 84 Family history of congestive heart failure Mother Family history of osteoarthritis Family history of coronary artery disease <Carol Alclaa APRN - Last Filed: 02/05/25 13:23> Social History Social History: Social History Smoking packs per day: 1 Smoking cigarettes per day: 20.0 Years smoked: 35 Smoking pack-years: 35.00 Smoking status: Former smoker Tobacco type: cigarettes Second hand tobacco smoke exposure: Yes Smoking end date: 11/22/15 Alcohol intake: current Alcohol use details: rare occasional Substance use: never Substance use type: does not use Living arrangements: with family Spiritual care concerns: No <Carol Alcala APRN - Last Filed: 02/05/25 13:23> Exam 2 Narrative: APPEARANCE: Difficulty swallowing HEAD: normocephalic, atraumatic. EYES: PERRLA/EOMI, conjunctivae clear. NOSE: Normal no drainage EARS:TMS clear with good light reflex. THROAT: Pharynx clear, no exudate. NECK: Supple. No adenopathy, no masses. RESPIRATORY: Airway patent, respirations nonlabored. Clear to auscultation bilaterally, no rales, rhonchi, wheezing. CARDIOVASCULAR: Regular rate and rhythm without murmurs rubs or gallops. ABDOMINAL: Soft, nontender, nondistended, normal bowel sounds MUSCULOSKELETAL: Moves all extremities. Strength/ROM intact, No edema, No calf tenderness. NEURO: Alert. Cranial nerves II through XII intact. Good gait. Good coordination SKIN: Warm, dry. Normal Color <Freddy Arriaza MD - Last Filed: 02/05/25 21:52> Course Vital Signs Vital signs: Vital Signs Temperature 97.9 F 02/05/25 10:11 Pulse Rate 73 02/05/25 10:11 Respiratory Rate 20 02/05/25 10:11 Blood Pressure 107/86 02/05/25 10:11 Pulse Oximetry 98 02/05/25 10:11 Temperature 97.6 F 02/05/25 18:18 Pulse Rate 62 02/05/25 19:08 Respiratory Rate 20 02/05/25 19:08 Blood Pressure 146/58 H 02/05/25 19:08 Pulse Oximetry 100 02/05/25 19:08 Oxygen Delivery Room Air 02/05/25 19:08 Oxygen Flow Rate 6 02/05/25 18:18 <Carol Alcala, FORTUNE TELLER - Last Filed: 02/05/25 13:23> Vital Signs Temperature 97.9 F 02/05/25 10:11 Pulse Rate 73 02/05/25 10:11 Respiratory Rate 20 02/05/25 10:11 Blood Pressure 107/86 02/05/25 10:11 Pulse Oximetry 98 02/05/25 10:11 Temperature 97.6 F 02/05/25 18:18 Pulse Rate 62 02/05/25 19:08 Respiratory Rate 20 02/05/25 19:08 Blood Pressure 146/58 H 02/05/25 19:08 Pulse Oximetry 100 02/05/25 19:08 Oxygen Delivery Room Air 02/05/25 19:08 Oxygen Flow Rate 6 02/05/25 18:18 <Freddy Arriaza MD - Last Filed: 02/05/25 21:52> Medical Decision Making MDM Narrative Medical decision making narrative: 74-year-old female history of esophageal stricture secondary to radiation therapy present to the emergency department for evaluation for worsening difficulty swallowing. Case was discussed with GI and patient will be scoped emergently. Patient was treated with 1 mg of IM glucagon. Patient family were updated on the plan for scoping. <Freddy Arriaza MD - Last Filed: 02/05/25 21:52> Differential Diagnosis Differential Diagnosis: Esophageal stricture, radiation stricture, tubal <Freddy Arriaza MD - Last Filed: 02/05/25 21:52> Vital Signs Vital Signs: Vital Signs Temperature 97.9 F 02/05/25 10:11 Pulse Rate 73 02/05/25 10:11 Respiratory Rate 20 02/05/25 10:11 Blood Pressure 107/86 02/05/25 10:11 Pulse Oximetry 98 02/05/25 10:11 Temperature 97.6 F 02/05/25 18:18 Pulse Rate 62 02/05/25 19:08 Respiratory Rate 20 02/05/25 19:08 Blood Pressure 146/58 H 02/05/25 19:08 Pulse Oximetry 100 02/05/25 19:08 Oxygen Delivery Room Air 02/05/25 19:08 Oxygen Flow Rate 6 02/05/25 18:18 <Carol Alcala FORTUNE TELLER - Last Filed: 02/05/25 13:23> Vital Signs Temperature 97.9 F 02/05/25 10:11 Pulse Rate 73 02/05/25 10:11 Respiratory Rate 20 02/05/25 10:11 Blood Pressure 107/86 02/05/25 10:11 Pulse Oximetry 98 02/05/25 10:11 Temperature 97.6 F 02/05/25 18:18 Pulse Rate 62 02/05/25 19:08 Respiratory Rate 20 02/05/25 19:08 Blood Pressure 146/58 H 02/05/25 19:08 Pulse Oximetry 100 02/05/25 19:08 Oxygen Delivery Room Air 02/05/25 19:08 Oxygen Flow Rate 6 02/05/25 18:18 <Freddy Arriaza MD - Last Filed: 02/05/25 21:52> Lab Data Result diagrams: 02/05/25 15:04 02/05/25 15:04 <Carol Alcala APRN - Last Filed: 02/05/25 13:23> Labs: Lab Results 02/05/25 Range/Units 15:04 WBC 9.0 (4.5-10.0) K/mm3 RBC 4.96 (4.2-5.4) M/mm3 Hgb 15.2 H (12.0-15.0) g/dL Hct 45.2 (37.0-47.0) % MCV 91.1 (80-100) fl MCH 30.6 (26-34) pg MCHC 33.6 (32-36) g/dl RDW 12.8 (11.5-14.5) % Plt Count 353 (150-375) k/mm3 MPV 10.1 (7.4-10.4) fl Immature Gran % (Auto) 0.2 (0-0.5) % Neut % (Auto) 67.2 (45.5-73.1) % Lymph % (Auto) 22.3 (18.3-44.2) % [place] % (Auto) 8.1 (2.6-8.5) % Eos % (Auto) 1.4 (0-4.4) % Baso % (Auto) 0.8 (0.2-1.2) % Lymph # (Auto) 2.01 (0.9-3.2) K/mm3 [place] # (Auto) 0.7 H (0.1-0.6) K/mm3 Eos # (Auto) 0.1 (0-0.3) K/mm3 Baso # (Auto) 0.1 (0.0-0.1) K/mm3 Abs Immat Gran (auto) 0.02 (0.00-0.031) K/mm3 Absolute Neuts (auto) 6.1 (1.3-6.7) K/mm3 Absolute Nucleated RBC 0.000 (0.0-0.012) K/mm3 Nucleated RBC % 0.0 (0.0-0.2) % Sodium 140 (137-145) mmol/L Potassium 4.5 (3.4-5.0) mmol/L Chloride 104 (98-107) mmol/L Carbon Dioxide 24 (22-30) mmol/L Anion Gap 12 (4-12) mmol/L BUN 22 H (7-17) mg/dL Creatinine 1.29 H (0.7-1.0) mg/dL Estim Creat Clear Calc 33 ml/min Estimated GFR 40 L (59 - ) Glucose 98 (65-110) mg/dL Calcium 9.8 (8.4-10.2) mg/dL Total Bilirubin 0.7 (0.2-1.3) mg/dL AST 35 (14-36) U/L ALT 22 (6-35) U/L Alkaline Phosphatase 50 (38-126) U/L Total Protein 8.0 (6.3-8.2) g/dL Albumin 4.9 (3.5-5.1) g/dL <Caroljennifer Alcala, FORTUNE TELLER - Last Filed: 02/05/25 13:23> Lab Results 02/05/25 Range/Units 15:04 WBC 9.0 (4.5-10.0) K/mm3 RBC 4.96 (4.2-5.4) M/mm3 Hgb 15.2 H (12.0-15.0) g/dL Hct 45.2 (37.0-47.0) % MCV 91.1 (80-100) fl MCH 30.6 (26-34) pg MCHC 33.6 (32-36) g/dl RDW 12.8 (11.5-14.5) % Plt Count 353 (150-375) k/mm3 MPV 10.1 (7.4-10.4) fl Immature Gran % (Auto) 0.2 (0-0.5) % Neut % (Auto) 67.2 (45.5-73.1) % Lymph % (Auto) 22.3 (18.3-44.2) % [place] % (Auto) 8.1 (2.6-8.5) % Eos % (Auto) 1.4 (0-4.4) % Baso % (Auto) 0.8 (0.2-1.2) % Lymph # (Auto) 2.01 (0.9-3.2) K/mm3 [place] # (Auto) 0.7 H (0.1-0.6) K/mm3 Eos # (Auto) 0.1 (0-0.3) K/mm3 Baso # (Auto) 0.1 (0.0-0.1) K/mm3 Abs Immat Gran (auto) 0.02 (0.00-0.031) K/mm3 Absolute Neuts (auto) 6.1 (1.3-6.7) K/mm3 Absolute Nucleated RBC 0.000 (0.0-0.012) K/mm3 Nucleated RBC % 0.0 (0.0-0.2) % Sodium 140 (137-145) mmol/L Potassium 4.5 (3.4-5.0) mmol/L Chloride 104 (98-107) mmol/L Carbon Dioxide 24 (22-30) mmol/L Anion Gap 12 (4-12) mmol/L BUN 22 H (7-17) mg/dL Creatinine 1.29 H (0.7-1.0) mg/dL Estim Creat Clear Calc 33 ml/min Estimated GFR 40 L (59 - ) Glucose 98 (65-110) mg/dL Calcium 9.8 (8.4-10.2) mg/dL Total Bilirubin 0.7 (0.2-1.3) mg/dL AST 35 (14-36) U/L ALT 22 (6-35) U/L Alkaline Phosphatase 50 (38-126) U/L Total Protein 8.0 (6.3-8.2) g/dL Albumin 4.9 (3.5-5.1) g/dL <Freddy Arriaza MD - Last Filed: 02/05/25 21:52> Discharge Plan Discharge Clinical Impression: Food impaction of esophagus <Carol Alcala APRN - Last Filed: 02/05/25 13:23> Patient Disposition: Still a Patient <Carol Alcala APRN - Last Filed: 02/05/25 13:23> Condition: Stable <Carol Alcala APRN - Last Filed: 02/05/25 13:23>
[2025-02-05 15:13] LABS: Basophils Absolute Auto 0.1 K/mm3 (0.0-0.1); Basophils Percent Auto 0.8 % (0.2-1.2); Eosinophils Absolute Auto 0.1 K/mm3 (0-0.3); Eosinophils Percent Auto 1.4 % (0-4.4); Hematocrit 45.2 % (37.0-47.0); Hemoglobin 15.2 g/dL (12.0-15.0); Immature Granulocyte Absolute 0.02 K/mm3 (0.00-0.031); Immature Granulocyte Percent A 0.2 % (0-0.5); Lymphocytes Absolute Auto 2.01 K/mm3 (0.9-3.2); Lymphocytes Percent Auto 22.3 % (18.3-44.2); Mean Corpuscular HGB Conc 33.6 g/dl (32-36); Mean Corpuscular Hemoglobin 30.6 pg (26-34); Mean Corpuscular Volume 91.1 fl (80-100); Mean Platelet Volume 10.1 fl (7.4-10.4); Monocytes Absolute Auto 0.7 K/mm3 (0.1-0.6); Monocytes Percent Auto 8.1 % (2.6-8.5); Neutrophils Absolute Auto 6.1 K/mm3 (1.3-6.7); Neutrophils Percent Auto 67.2 % (45.5-73.1); Platelet Count Result 353 k/mm3 (150-375); Red Blood Count 4.96 M/mm3 (4.2-5.4); Red Cell Distribution Width 12.8 % (11.5-14.5)
[2025-02-05 15:25] LABS: Alanine Aminotransferase 22 U/L (6-35); Albumin Level 4.9 g/dL (3.5-5.1); Alkaline Phosphatase 50 U/L (38-126); Anion Gap 12 mmol/L (4-12); Aspartate Amino Transferase 35 U/L (14-36); Bilirubin,Total 0.7 mg/dL (0.2-1.3); Blood Urea Nitrogen 22 mg/dL (7-17); Calcium 9.8 mg/dL (8.4-10.2); Carbon Dioxide 24 mmol/L (22-30); Chloride 104 mmol/L (98-107); Estimated CRCL calculation 33 ml/min; Estimated Glomerular Filt Rate 40; Glucose 98 mg/dL (65-110); Potassium 4.5 mmol/L (3.4-5.0); Sodium 140 mmol/L (137-145)
--- OUTSIDE RECORDS SUMMARY | 2025-02-05 15:57 | XMS_ITS | Clinical Summary ---
Author Organization [facility] Address [address] [place] [address] Care Team Providers Care Railroad Police Officer Name Role Phone Olivier Diaz MD Primary Care Provider [phone] David White MD Unavailable [phone] Aury Bach MD Unavailable [phone] Jessica Tobias MD Unavailable [phone] Dayne Stoddard MD Unavailable [phone] Allergies Active Allergy Reactions Criticality Noted Date Comments Penicillins Hives,Itching Medium 03/30/2016 Medications levothyroxine (SYNTHROID, LEVOTHROID) 88 mcg tablet Take 1 tablet (88 mcg total) by mouth plain clothes police officer before breakfast Active ondansetron ODT (ZOFRAN-ODT) 4 [...] (11/30/2019): Added automatically from request for surgery [id number] Age-related osteoporosis wit hout current pathological fracture [...] on file Legal Sex Female 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 Gender Identity Not on file Sexual Orientation [...] Advance Directives For more information, please contact: [phone] * Full Code (Latest Code Status on File) Date Activated Date Inactivated Comments 06/24/2023 10:54 AM 06/24/2023 7:17 PM * Full Code Date Activated Date Inactivated Comments 01/18/2020 8:08 AM 01/18/2020 1:18 PM * Full Code Date Activated Date Inactivated Comments 12/22/2019 8:28 AM 12/22/2019 2:51 PM * Full Code Date Activated Date Inactivated Comments 02/08/2018 11:19 PM 02/09/2018 2:40 PM Care Teams Railroad Police Officer Relationship Specialty Start Date End Date Olivier Diaz MD PCP - General 01/11/17 David White MD [address] [place] [address] Medical Oncologist/Adhesive Bandage Machine Operator Medical Oncology 01/10/21 Aury Bach MD [address] [place] [address] Referring Physician Critical Care Med 03/23/22 Jessica Tobias MD [address] [place], [place] [address] Consulting Physician Surgery 04/22/23 Dayne Stoddard MD [address] [facility] [id number] [place] [address] Surgeon Colon and Rectal Surgery 06/15/23
--- OUTSIDE RECORDS SUMMARY | 2025-02-05 15:57 | XMS_ITS | Referral Summary ---
Author Organization [facility] Address [address] [place] [address] Care Team Providers Care Supervisor Steel Division Name Role Phone Olivier Diaz MD Primary Care Provider [phone] David White MD Unavailable [phone] Aury Bach MD Unavailable [phone] Jessica Tobias MD Unavailable [phone] Dayne Stoddard MD Unavailable [phone] Allergies Active Allergy Reactions Criticality Noted Date Comments Penicillins Hives,Itching Medium 03/30/2016 Medications levothyroxine (SYNTHROID, LEVOTHROID) 88 mcg tablet Take 1 tablet (88 mcg total) by mouth financial risk manager before breakfast Active ondansetron ODT (ZOFRAN-ODT) 4 [...] (11/30/2019): Added automatically from request for surgery [id number] Age-related osteoporosis wit hout current pathological fracture [...] on file Legal Sex Female 12:42 AM K [employer] SCHO[employer] PRINCIPAL Gender Identity Not on file Sexual Orientation [...] [employer] MEDICARE [employer] [facility] [place] Advance Directives For more information, please contact: [phone] * Full Code (Latest Code Status on File) Date Activated Date Inactivated Comments 06/24/2023 10:54 AM 06/24/2023 7:17 PM * Full Code Date Activated Date Inactivated Comments 01/18/2020 8:08 AM 01/18/2020 1:18 PM * Full Code Date Activated Date Inactivated Comments 12/22/2019 8:28 AM 12/22/2019 2:51 PM * Full Code Date Activated Date Inactivated Comments 02/08/2018 11:19 PM 02/09/2018 2:40 PM Care Teams Supervisor Steel Division Relationship Specialty Start Date End Date Olivier Diaz MD PCP - General 01/11/17 David White MD [address] [place] [address] Medical Oncologist/Truck Body Builder Medical Oncology 01/10/21 Aury Bach MD [address] [facility] [address] [place], [place] [id number] Referring Physician Critical Care Med 03/23/22 Jessica Tobias MD [address] [place] [address] Consulting Physician Surgery 04/22/23 Dayne Stoddard MD [address] [facility] [id number] [place] [address] Surgeon Colon and Rectal Surgery 06/15/23
--- OUTSIDE RECORDS SUMMARY | 2025-02-05 15:57 | XMS_ITS ---
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
--- OUTSIDE RECORDS SUMMARY | 2025-02-05 15:57 | XMS_ITS | Encounter Summary ---
Author Organization [facility] Healthcare Address [address] [place] [address] Care Team Providers Care Fry Cook Name Role Phone Olivier Diaz MD Primary Care Provider [phone] David White MD Unavailable [phone] Aury Bach MD Unavailable [phone] Jessica Tobias MD Unavailable [phone] Dayne Stoddard MD Unavailable [phone] Encounter Details Date Type Department Care Team (Late st Contact Info) Description 01/15/2021 Telephone [facility] - Interventional Radiology [address] [place] [address] Ines Rose RN Social History Tobacco Use Types Packs/Day Years Used Date Smoking Tobacco: Former Cigarettes Smokeless Tobacco: Never Alcohol Use Standard Drinks/Week Comments No 0 (1 standard drink = 0.6 oz pur e alcohol) Comments No Sex and Gender Information Value Date Recorded Sex Assigned at Not on file Legal Sex Female 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 INTERVENTIONAL TECHNOLOGIST Gender Identity Not on file Sexual Orientation Not on file documented as of this encounter Plan of Treatment Not on file documented as of this encounter Visit Diagnoses Not on filedocumented in this encounter Care Teams Fry Cook Relationship Specialty Start Date End Date Olivier Diaz MD PCP - General 01/11/17 David White MD [address] [place] [address] Medical Oncologist/Deli/Bakery Associate Medical Oncology 01/10/21 Aury Bach MD [address] [place], [place] [address] Referring Physician Critical Care Med 03/23/22 Jessica Tobias MD [address] [place] [address] Consulting Physician Surgery 04/22/23 Dayne Stoddard MD [address] [facility] [place] [phone] [place] [address] Surgeon Colon and Rectal Surgery 06/15/23 documented as of this encounter
--- OUTSIDE RECORDS SUMMARY | 2025-02-05 15:57 | XMS_ITS | Continuity of Care Document ---
Author Organization [facility] Address [address] [place] [address] Phone Care Team Providers Care Condominium Association Manager Name Role Phone Angel Sow MD Unavailable Unavailable Advance Directives Directive Yes / No Effective Date File Name No Information Encounters Encounter Description Practice Location Reason(s) For Visit Diagnoses Date Provider Providers Copied on Encounter [facility], [address], [place], [place], [id number], [place] tel:[phone] [facility] Dysphagia, unspecified type Magi Ortiz. [address], [place], [address], [place]. tel:[phone] Family History Family Member Type Diagnosis Age At Onset No Information Payers Payer name Insurance type Covered republican ID Authoriza tion(s) No Information Social History [...]
--- OUTSIDE RECORDS SUMMARY | 2025-02-05 15:57 | XMS_ITS | Encounter Summary ---
Author Organization [facility] Healthcare Address [address] [place] [address] Care Team Providers Care Dean Of Chapel Name Role Phone Olivier Diaz MD Primary Care Provider [phone] David White MD Unavailable Aury Bach MD Unavailable [phone] Jessica Tobias MD Unavailable [phone] Dayne Stoddard MD Unavailable [phone] Encounter Details Date Type Department Care Team (Late st Contact Info) Description 09/13/2019 Telephone [facility] - Interventional Radiology [address] [place] [address] Danielle Ferguson RN Social History Tobacco Use Types Packs/Day Years Used Date Smoking Tobacco: Former Cigarettes Smokeless Tobacco: Never Alcohol Use Standard Drinks/Week Comments No 0 (1 standard drink = 0.6 oz pur e alcohol) Comments Unknown Sex and Gender Information Value Date Recorded Sex Assigned at Not on file Legal 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 Female 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 Gender Identity Not on file Sexual Orientation Not on file documented as of this encounter Plan of Treatment Not on file documented as of this encounter Visit Diagnoses Not on filedocumented in this encounter Care Teams Dean Of Chapel Relationship Specialty Start Date End Date Olivier Diaz MD PCP - General 01/11/17 David White MD [address] [place] [address] Medical Oncologist/Spa Host Medical Oncology 01/10/21 Aury Bach MD [address] [place] [address] Referring Physician Critical Care Med 03/23/22 Jessica Tobias MD [address] [place] [address] Consulting Physician Surgery 04/22/23 Dayne Stoddard MD [address] [facility] [id number] [place] [address] Surgeon Colon and Rectal Surgery 06/15/23 documented as of this encounter
--- OUTSIDE RECORDS SUMMARY | 2025-02-05 15:57 | XMS_ITS | Clinical Summary ---
Author Organization [facility] Address [address] [place] [address] Care Team Providers Care Microarray Operations Vice President Name Role Phone Olivier Diaz MD Primary Care Provider [phone] Allergies Active Allergy Reactions Criticality Noted Date [...] topic Insurance MEDICARE [employer] Care Teams Microarray Operations Vice President Relationship Specialty Start Date End Date Olivier Diaz MD [address] [place] [id number] PCP - General INTERNAL MEDICINE 05/11/19
[2025-02-05] MEDS: GLUCAGON FOR INJ 1 MG VIAL IV PUSH (16:42)
--- NOTE | 2025-02-05 17:07 | PC.NURSE ---
Patient ambulated to the restroom with steady gate
--- NOTE | 2025-02-05 17:27 | WPDANESEPPF ---
Anes - Initial Pre Proc Eval Procedure: Operation Date: 02/05/25 17:30 Proposed Procedures p Esophagogastroduodenoscopy - Levi Conti MD Date/Time: 02/05/25 17:27 Surgeon: Levi Conti MD Pre Op Diagnosis: difficulty swallowing Patient Data Age: 74 Gender: F Height: 1.63 m Weight: 77 kg Last Vital Signs Temp 36.6 C 02/05/25 12:19 Pulse 80 02/05/25 17:00 Resp 18 02/05/25 17:00 BP 170/70 H 02/05/25 17:00 Pulse Ox 100 02/05/25 17:00 Allergies Allergy/AdvReac Type Severity Reaction Status Date / Time Penicillins Allergy Unknown rash Verified 02/05/25 17:43 Home Medications ?Medication ?Instructions ?Recorded ?Confirmed ?Type cholecalciferol (vitamin D3) 25 1,000 unit PO DAILY 09/25/19 12/28/24 History mcg (1,000 unit) capsule escitalopram oxalate 10 mg tablet 10 mg PO DAILY 09/25/19 12/28/24 History inhalational spacing device #1 ea 09/25/19 12/28/24 History (OptiChamber [facility] spacer) lorazepam 1 mg tablet 1 mg PO BID PRN Anxiety 09/25/19 12/28/24 History ondansetron HCl 8 mg tablet 4 mg PO TID 09/25/19 12/28/24 History acetaminophen 500 mg tablet 500 mg PO TID PRN Pain 09/26/19 12/28/24 History (Tylenol Extra Strength) Adult Low Dose Aspirin 81 mg PO HS 06/09/22 12/28/24 History nadolol 20 mg tablet 20 mg PO DAILY 03/03/23 12/28/24 History pantoprazole 40 mg tablet,delayed 40 mg PO DAILY 03/03/23 12/28/24 History release tramadol 50 mg tablet 50 mg PO Q6H PRN Pain 06/30/23 12/28/24 History amitriptyline 25 mg tablet 25 mg PO QHS 06/26/24 12/28/24 History melatonin 10 mg capsule 10 mg PO QHS 06/26/24 12/28/24 History montelukast 10 mg tablet 10 mg PO DAILY 06/26/24 12/28/24 History duloxetine 20 mg capsule,delayed 20 mg PO DAILY 07/07/24 12/28/24 History release levothyroxine 100 mcg tablet 100 mcg PO DAILY 07/07/24 12/28/24 History mecobalamin (vitamin B12) 500 mcg 5,000 mcg PO DAILY 07/07/24 12/28/24 History chewable tablet umeclidinium 62.5 mcg-vilanterol 1 inh inhalation DAILY 1 month #60 08/28/24 12/28/24 Rx 25 mcg/actuation powdr for ea inhalation (Anoro Ellipta) Prevagen 1 tab-cap PO DAILY 10/28/24 12/28/24 History Stool Softner 1 tab-cap PO DAILY 10/28/24 12/28/24 History fluticasone furoate 27.5 2 spray intranasal DAILY 7 days 10/28/24 12/28/24 Rx mcg/actuation nasal #5.9 mL spray,suspension (Flonase Sensimist) naproxen 500 mg tablet 500 mg PO BID PRN pain #14 tabs 10/28/24 12/28/24 Rx Laboratory Tests 02/05/25 15:04 WBC 9.0 K/mm3 (4.5-10.0) RBC 4.96 M/mm3 (4.2-5.4) Hgb 15.2 H g/dL (12.0-15.0) Hct 45.2 % (37.0-47.0) MCV 91.1 fl (80-100) MCH 30.6 pg (26-34) MCHC 33.6 g/dl (32-36) RDW 12.8 % (11.5-14.5) Plt Count 353 k/mm3 (150-375) MPV 10.1 fl (7.4-10.4) Immature Gran % (Auto) 0.2 % (0-0.5) Neut % (Auto) 67.2 % (45.5-73.1) Lymph % (Auto) 22.3 % (18.3-44.2) [place] % (Auto) 8.1 % (2.6-8.5) Eos % (Auto) 1.4 % (0-4.4) Baso % (Auto) 0.8 % (0.2-1.2) Lymph # (Auto) 2.01 K/mm3 (0.9-3.2) [place] # (Auto) 0.7 H K/mm3 (0.1-0.6) Eos # (Auto) 0.1 K/mm3 (0-0.3) Baso # (Auto) 0.1 K/mm3 (0.0-0.1) Abs Immat Gran (auto) 0.02 K/mm3 (0.00-0.031) Absolute Neuts (auto) 6.1 K/mm3 (1.3-6.7) Absolute Nucleated RBC 0.000 K/mm3 (0.0-0.012) Nucleated RBC % 0.0 % (0.0-0.2) Sodium 140 mmol/L (137-145) Potassium 4.5 mmol/L (3.4-5.0) Chloride 104 mmol/L (98-107) Carbon Dioxide 24 mmol/L (22-30) Anion Gap 12 mmol/L (4-12) BUN 22 H mg/dL (7-17) Creatinine 1.29 H mg/dL (0.7-1.0) Estim Creat Clear Calc 33 ml/min Estimated GFR 40 L (59 - ) Glucose 98 mg/dL (65-110) Calcium 9.8 mg/dL (8.4-10.2) Total Bilirubin 0.7 mg/dL (0.2-1.3) AST 35 U/L (14-36) ALT 22 U/L (6-35) Alkaline Phosphatase 50 U/L (38-126) Total Protein 8.0 g/dL (6.3-8.2) Albumin 4.9 g/dL (3.5-5.1) Patient hx anesthesia problems: none Family hx anesthesia problems: none Results Review: All pre-operative results and documents have been reviewed as part of the pre-operative evaluation. [facility] Past Medical History Medical History GERD (gastroesophageal reflux disease) Seizure Stroke Thyroid disease Anxiety Depression FB esophagus History of lung cancer Surgical History Surgical History History of carpal tunnel surgery Hx of tubal ligation Cholecystectomy planned H/O: hysterectomy Family History Family History Father Hypertension Cerebrovascular accident Malignant neoplasm of prostate, Onset Age: 84 Family history of congestive heart failure Mother Family history of osteoarthritis Family history of coronary artery disease Social History Social History Smoking packs per day: 1 Smoking cigarettes per day: 20.0 Years smoked: 35 Smoking pack-years: 35.00 Smoking status: Former smoker Tobacco type: cigarettes Second hand tobacco smoke exposure: Yes Smoking end date: 11/22/15 Alcohol intake: current Alcohol use details: rare occasional Substance use: never Substance use type: does not use Living arrangements: with family Spiritual care concerns: No Anes - Eval Final PreProcedure Day of Procedure 02/05/25 17:27 Patient weight: overweight Heart: regular rate and rhythm Lungs: clear to auscultation Airway: Mallampati scale class 1 Neurological: alert and oriented Last oral intake: >/= 8 hours ASA classification: III Emergent: yes Anesthetic plan: proceed Anesthesia type and monitoring: general ETT and standard monitoring Results Review: All pre-operative results and documents have been reviewed as part of the pre-operative evaluation. Informed Consent: The patient's anesthetic plan and its attendant risks and benefits were discussed with the patient/family/POA. Questions were solicited and answers provided to the satisfaction of the patient/family/POA.
[2025-02-05] MEDS: LACTATED RINGERS 1,000 ML 150 ML IV CONT (17:50)
--- NOTE | 2025-02-05 17:56 | P.HP_ITS ---
History of Present Illness History of Present Illness Consent: Risks, benefits, and alternatives have been discussed and questions answered. Patient agrees to proceed with procedure. Chief complaint: difficulty swallowing Narrative: Laurent Wall is a 74 year old female here with unable to eat anymore after had chicken for dinner on Wednesday. she had XRT due to lung cancer and known history of food bolus. CT scan showed possible food bolus. Review of Systems Review of Systems: All systems reviewed & are unremarkable except as noted in HPI and below PMFSH Past Medical History Medical History GERD (gastroesophageal reflux disease) Seizure Stroke Thyroid disease Anxiety Depression FB esophagus History of lung cancer Surgical History Surgical History History of carpal tunnel surgery Hx of tubal ligation Cholecystectomy planned H/O: hysterectomy Family History Family History Father Hypertension Cerebrovascular accident Malignant neoplasm of prostate, Onset Age: 84 Family history of congestive heart failure Mother Family history of osteoarthritis Family history of coronary artery disease Social History Social History Smoking packs per day: 1 Smoking cigarettes per day: 20.0 Years smoked: 35 Smoking pack-years: 35.00 Smoking status: Former smoker Tobacco type: cigarettes Second hand tobacco smoke exposure: Yes Smoking end date: 11/22/15 Alcohol intake: current Alcohol use details: rare occasional Substance use: never Substance use type: does not use Living arrangements: with family Spiritual care concerns: No Meds Home Medications and Allergies Home Medications ?Medication ?Instructions ?Recorded ?Confirmed ?Type cholecalciferol (vitamin D3) 25 1,000 unit PO DAILY 09/25/19 12/28/24 History mcg (1,000 unit) capsule escitalopram oxalate 10 mg tablet 10 mg PO DAILY 09/25/19 12/28/24 History inhalational spacing device #1 ea 09/25/19 12/28/24 History ([facility] spacer) lorazepam 1 mg tablet 1 mg PO BID PRN Anxiety 09/25/19 12/28/24 History ondansetron HCl 8 mg tablet 4 mg PO TID 09/25/19 12/28/24 History acetaminophen 500 mg tablet 500 mg PO TID PRN Pain 09/26/19 12/28/24 History (Tylenol Extra Strength) Adult Low Dose Aspirin 81 mg PO HS 06/09/22 12/28/24 History nadolol 20 mg tablet 20 mg PO DAILY 03/03/23 12/28/24 History pantoprazole 40 mg tablet,delayed 40 mg PO DAILY 03/03/23 12/28/24 History release tramadol 50 mg tablet 50 mg PO Q6H PRN Pain 06/30/23 12/28/24 History amitriptyline 25 mg tablet 25 mg PO QHS 06/26/24 12/28/24 History melatonin 10 mg capsule 10 mg PO QHS 06/26/24 12/28/24 History montelukast 10 mg tablet 10 mg PO DAILY 06/26/24 12/28/24 History duloxetine 20 mg capsule,delayed 20 mg PO DAILY 07/07/24 12/28/24 History release levothyroxine 100 mcg tablet 100 mcg PO DAILY 07/07/24 12/28/24 History mecobalamin (vitamin B12) 500 mcg 5,000 mcg PO DAILY 07/07/24 12/28/24 History chewable tablet umeclidinium 62.5 mcg-vilanterol 1 inh inhalation DAILY 1 month #60 08/28/24 12/28/24 Rx 25 mcg/actuation powdr for ea inhalation (Anoro Ellipta) Prevagen 1 tab-cap PO DAILY 10/28/24 12/28/24 History Stool Softner 1 tab-cap PO DAILY 10/28/24 12/28/24 History fluticasone furoate 27.5 2 spray intranasal DAILY 7 days 10/28/24 12/28/24 Rx mcg/actuation nasal #5.9 mL spray,suspension (Flonase Sensimist) naproxen 500 mg tablet 500 mg PO BID PRN pain #14 tabs 10/28/24 12/28/24 Rx Allergies Allergy/AdvReac Type Severity Reaction Status Date / Time Penicillins Allergy Unknown rash Verified 02/05/25 17:43 Vital Signs Vital Signs - 24 hr 02/05/25 10:11 02/05/25 12:19 02/05/25 15:06 Temperature 97.9 F 97.8 F Pulse Rate 73 71 69 Respiratory Rate 20 18 17 Blood Pressure 107/86 135/62 145/67 H Pulse Oximetry 98 100 100 Oxygen Delivery 02/05/25 17:00 02/05/25 17:40 Temperature 97.3 F L Pulse Rate 80 74 Respiratory Rate 18 18 Blood Pressure 170/70 H 150/73 H Pulse Oximetry 100 100 Oxygen Delivery Room Air Exam Resp: Auscultation: clear to auscultation bilaterally Cardio: Rate: regular rate Rhythm: regular rhythm GI: GI Palp: Yes Soft to palpation and No Tenderness to palpation present (GI) Assessment and Plan Assessment and plan (1) Esophageal stricture: Code(s): K22.2 - Esophageal obstruction Status: Acute (2) FB esophagus: Code(s): T18.108A - Unspecified foreign body in esophagus causing other injury, initial encounter Status: Acute Assessment and Plan: will do urgent EGD
--- OUTSIDE RECORDS SUMMARY | 2025-02-05 18:56 | XMS_ITS | Clinical Summary ---
Author Organization [facility] Address [address] [place] [address] Care Team Providers Care Glue Mill Operator Name Role Phone Olivier Diaz MD Primary Care Provider [phone] Allergies Active Allergy Reactions Criticality Noted Date [...] topic Insurance MEDICARE [employer] Care Teams Glue Mill Operator Relationship Specialty Start Date End Date Olivier Diaz MD [address] [place] [id number] PCP - General INTERNAL MEDICINE 05/11/19
--- OUTSIDE RECORDS SUMMARY | 2025-02-05 18:56 | XMS_ITS ---
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
--- OUTSIDE RECORDS SUMMARY | 2025-02-05 18:56 | XMS_ITS | Encounter Summary ---
Author Organization [facility] Address [address] [place] [address] Care Team Providers Care Marine Equipment Test Engineer Name Role Phone Olivier Diaz MD Primary Care Provider [phone] David White MD Unavailable [phone] Aury Bach MD Unavailable [phone] Jessica Tobias MD Unavailable [phone] Dayne Stoddard MD Unavailable [phone] Encounter Details Date Type Department Care Team (Late st Contact Info) Description 01/15/2021 Telephone [facility] - Interventional Radiology [address] [place] [address] Ines Rose RN Social History Tobacco Use Types Packs/Day Years Used Date Smoking Tobacco: Former Cigarettes Smokeless Tobacco: Never Alcohol Use Standard Drinks/Week Comments No 0 (1 standard drink = 0.6 oz pur e alcohol) Comments No Sex and Gender Information Value Date Recorded Sex Assigned at Not on file 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 Gender Identity Not on file Sexual Orientation Not on file documented as of this encounter Plan of Treatment Not on file documented as of this encounter Visit Diagnoses Not on filedocumented in this encounter Care Teams Marine Equipment Test Engineer Relationship Specialty Start Date End Date Olivier Diaz MD PCP - General 01/11/17 David White MD [address] [place] [address] Medical Oncologist/Curtain Worker Medical Oncology 01/10/21 Aury Bach MD [address] [place], [place] [id number] Referring Physician Critical Care Med 03/23/22 Jessica Tobias MD [address] [place] [address] Consulting Physician Surgery 04/22/23 Dayne Stoddard MD [address] [facility] [phone] [place] [address] Surgeon Colon and Rectal Surgery 06/15/23 documented as of this encounter
--- OUTSIDE RECORDS SUMMARY | 2025-02-05 18:56 | XMS_ITS | Encounter Summary ---
Author Organization [facility] Address [address] [place] [address] Care Team Providers Care Camera Control Operator Name Role Phone Olivier Diaz MD Primary Care Provider [phone] David White MD Unavailable Aury Bach MD Unavailable [phone] Jessica Tobias MD Unavailable [phone] Dayne Stoddard MD Unavailable [phone] Encounter Details Date Type Department Care Team (Late st Contact Info) Description 09/13/2019 Telephone [facility] - Interventional Radiology [address] [place] [address] Danielle Ferguson RN Social History Tobacco Use Types Packs/Day Years Used Date Smoking Tobacco: Former Cigarettes Smokeless Tobacco: Never Alcohol Use Standard Drinks/Week Comments No 0 (1 standard drink = 0.6 oz pur e alcohol) Comments Unknown Sex and Gender Information Value Date Recorded Sex Assigned at Not on file 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 Gender Identity Not on file Sexual Orientation Not on file documented as of this encounter Plan of Treatment Not on file documented as of this encounter Visit Diagnoses Not on filedocumented in this encounter Care Teams Camera Control Operator Relationship Specialty Start Date End Date Olivier Diaz MD PCP - General 01/11/17 David White MD [address] [place] [address] Medical Oncologist/Policy Analyst Medical Oncology 01/10/21 Aury Bach MD [address] [place] [address] Referring Physician Critical Care Med 03/23/22 Jessica Tobias MD [address] [place] [address] Consulting Physician Surgery 04/22/23 Dayne Stoddard MD [address] [facility] [phone] [place] [address] Surgeon Colon and Rectal Surgery 06/15/23 documented as of this encounter
--- OUTSIDE RECORDS SUMMARY | 2025-02-05 18:56 | XMS_ITS | Continuity of Care Document ---
Author Organization [facility] Address [address] [place] [address] Phone Care Team Providers Care Lace Cutter Name Role Phone Angel Sow MD Unavailable Unavailable Advance Directives Directive Yes / No Effective Date File Name No Information Encounters Encounter Description Practice Location Reason(s) For Visit Diagnoses Date Provider Providers Copied on Encounter [facility], [address], [place], [place], [id number], [place] tel:[phone] [facility] Dysphagia, unspecified type Magi [place]. [address], [address], [place], [address], [place]. tel:[phone] Family History Family Member Type Diagnosis Age At Onset No Information Payers Payer name Insurance type Covered green party ID Authoriza tion(s) No Information Social [...]
--- OUTSIDE RECORDS SUMMARY | 2025-02-05 18:56 | XMS_ITS | Referral Summary ---
Author Organization [facility] Address [address] [place] [address] Care Team Providers Care Ground Defence Officer Name Role Phone Olivier Diaz MD Primary Care Provider [phone] David White MD Unavailable [phone] Aury Bach MD Unavailable [phone] Jessica Tobias MD Unavailable [phone] Dayne Stoddard MD Unavailable [phone] Allergies Active Allergy Reactions Criticality Noted Date Comments Penicillins Hives,Itching Medium 03/30/2016 Medications levothyroxine (SYNTHROID, LEVOTHROID) 88 mcg tablet Take 1 tablet (88 mcg total) by mouth carbonizer before breakfast Active ondansetron ODT (ZOFRAN-ODT) 4 [...] (11/30/2019): Added automatically from request for surgery [id number] Age-related osteoporosis wit hout current pathological fracture [...] on file 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 Gender Identity Not on file Sexual Orientation [...] LIFE INS [place] MEDICARE COMMERCIAL [facility] [facility] INS [place] Advance Directives For more information, please contact: [phone] * Full Code (Latest Code Status on File) Date Activated Date Inactivated Comments 06/24/2023 10:54 AM 06/24/2023 7:17 PM * Full Code Date Activated Date Inactivated Comments 01/18/2020 8:08 AM 01/18/2020 1:18 PM * Full Code Date Activated Date Inactivated Comments 12/22/2019 8:28 AM 12/22/2019 2:51 PM * Full Code Date Activated Date Inactivated Comments 02/08/2018 11:19 PM 02/09/2018 2:40 PM Care Teams Ground Defence Officer Relationship Specialty Start Date End Date Olivier Diaz MD PCP - General 01/11/17 David White MD [address] [place] [address] Medical Oncologist/Homoeopath Medical Oncology 01/10/21 Aury Bach MD [address] [facility] [address] [place], [place] [address] Referring Physician Critical Care Med 03/23/22 Jessica Tobias MD [address] [place] [address] Consulting Physician Surgery 04/22/23 Dayne Stoddard MD [address] [facility] [phone] [place] [address] Surgeon Colon and Rectal Surgery 06/15/23
--- OUTSIDE RECORDS SUMMARY | 2025-02-05 18:56 | XMS_ITS | Clinical Summary ---
Author Organization [facility] Address [address] [place] [address] Care Team Providers Care Contact Assembler Name Role Phone Olivier Diaz MD Primary Care Provider [phone] David White MD Unavailable [phone] Aury Bach MD Unavailable [phone] Jessica Tobias MD Unavailable [phone] Dayne Stoddard MD Unavailable [phone] Allergies Active Allergy Reactions Criticality Noted Date Comments Penicillins Hives,Itching Medium 03/30/2016 Medications levothyroxine (SYNTHROID, LEVOTHROID) 88 mcg tablet Take 1 tablet (88 mcg total) by mouth customer training specialist before breakfast Active ondansetron ODT (ZOFRAN-ODT) [...] (11/30/2019): Added automatically from request for surgery [id number] Age-related osteoporosis wit hout current pathological fracture [...] on file 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 Gender Identity Not on file Sexual Orientation [...] Advance Directives For more information, please contact: [phone] * Full Code (Latest Code Status on File) Date Activated Date Inactivated Comments 06/24/2023 10:54 AM 06/24/2023 7:17 PM * Full Code Date Activated Date Inactivated Comments 01/18/2020 8:08 AM 01/18/2020 1:18 PM * Full Code Date Activated Date Inactivated Comments 12/22/2019 8:28 AM 12/22/2019 2:51 PM * Full Code Date Activated Date Inactivated Comments 02/08/2018 11:19 PM 02/09/2018 2:40 PM Care Teams Contact Assembler Relationship Specialty Start Date End Date Olivier Diaz MD PCP - General 01/11/17 David White MD [address] [place] [address] Medical Oncologist/Cell Feed Department Supervisor Medical Oncology 01/10/21 Aury Bach MD [address] [place] [address] Referring Physician Critical Care Med 03/23/22 Jessica Tobias MD [address] [place], [place] [id number] Consulting Physician Surgery 04/22/23 Dayne Stoddard MD [address] [facility] [phone] [place] [address] Surgeon Colon and Rectal Surgery 06/15/23
== END 2025-02-05 19:16 | disposition home or self-care (01) ==
LOC: ANHED 16:37 → ANHENDO 16:56
PROVIDERS: Registered Nurse; Emergency Provider Emergency Medicine; PCP Internal Medicine; Visit Provider Internal Medicine Gastroenterology
PROC: 0DJ08ZZ Inspection of Upper Intestinal Tract, Via Natural or Artificial Opening Endoscopic (ICD-10-PCS; CPT 43247; principal; 2025-02-05 17:30)
DX: T18.108A Unspecified foreign body in esophagus causing other injury, initial encounter (principal); W44.8XXA Other foreign body entering into or through a natural orifice, initial encounter; K22.2 Esophageal obstruction; K44.9 Diaphragmatic hernia without obstruction or gangrene; K29.70 Gastritis, unspecified, without bleeding; K21.9 Gastro-esophageal reflux disease without esophagitis; R56.9 Unspecified convulsions; F41.9 Anxiety disorder, unspecified; F32.A Depression, unspecified; E07.9 Disorder of thyroid, unspecified; Z79.51 Long term (current) use of inhaled steroids; Z79.891 Long term (current) use of opiate analgesic; Z79.1 Long term (current) use of non-steroidal anti-inflammatories (NSAID); Z98.890 Other specified postprocedural states; Z98.51 Tubal ligation status; Z87.891 Personal history of nicotine dependence; Z85.118 Personal history of other malignant neoplasm of bronchus and lung; Z86.73 Personal history of transient ischemic attack (TIA), and cerebral infarction without residual deficits; Z80.42 Family history of malignant neoplasm of prostate; Z82.49 Family history of ischemic heart disease and other diseases of the circulatory system
CPT/HCPCS: 43247; 43249; 36415; 70491; 80053; 85025; 96374; 99285; C1726; J0330; J1610; J2003; J2405; J2704; J7120; Q9967

== ENCOUNTER 2025-02-07 08:26 | Outpatient (CLI) | payer MEDICARE, OTHER, SELFPAY ==
--- NOTE | ~2025-02-07 | MM_ITS ---
EXAMINATION: MM screening garcía BI w butch HISTORY: Screening TECHNIQUE: Craniocaudal and mediolateral oblique 3-D tomosynthesis images were obtained and synthetic 2-D images were generated. CAD analysis was submitted and interpreted. COMPARISON: Comparison to multiple prior studies sequentially, with oldest reviewed study dated 01/12. BREAST PARENCHYMAL COMPOSITION: Not dense: There are scattered areas of fibroglandular density. FINDINGS: There is a mass in the upper outer quadrant of the right breast anteriorly with similar siz e and increased density. There are are developing surrounding calcifications. The left breast is stab le without evidence for malignancy. IMPRESSION: 1. Altered morphology of mass in the upper outer quadrant of the right breast, anterior third. There are developing surrounding indeterminate calcifications. 2. Additional mammographic views and possible breast ultrasound are recommended. BI-RADS Category 0: Incomplete: Needs additional imaging evaluation. Reviewed, dictated and finalized at location [] IMPRESSION: 1. Altered morphology of mass in the upper outer quadrant of the right breast, anterior third. There are developing surrounding indeterminate calcifications. 2. Additional mammographic views and possible breast ultrasound are recommended . BI-RADS Category 0: Incomplete: Needs additional imaging evaluation.
--- OUTSIDE RECORDS SUMMARY | 2025-02-07 08:50 | XMS_ITS | Continuity of Care Document ---
Author Organization [facility] Address [address] [place] [address] Phone Care Team Providers Care Security Systems Specialist Name Role Phone Angel Sow MD Unavailable Unavailable Advance Directives Directive Yes / No Effective Date File Name No Information Encounters Encounter Description Practice Location Reason(s) For Visit Diagnoses Date Provider Providers Copied on Encounter [facility], [address], [place], [place], [id number], [place] tel:[phone] [facility] Dysphagia, unspecified type Magi Ortiz. [address], [place], [address], [place]. tel:[phone] Family History Family Member Type Diagnosis Age [...]
--- OUTSIDE RECORDS SUMMARY | 2025-02-07 08:51 | XMS_ITS | Clinical Summary ---
Author Organization [facility] Address [address] [place] [address] Care Team Providers Care Lawn Service Supervisor Name Role Phone Olivier Diaz MD Primary Care Provider [phone] Allergies Active Allergy Reactions Criticality Noted Date [...] topic Insurance [employer] Care Teams Lawn Service Supervisor Relationship Specialty Start Date End Date Olivier Diaz MD [address] [place] [id number] PCP - General INTERNAL MEDICINE 05/11/19
--- OUTSIDE RECORDS SUMMARY | 2025-02-07 08:51 | XMS_ITS ---
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
--- OUTSIDE RECORDS SUMMARY | 2025-02-07 08:51 | XMS_ITS | Referral Summary ---
Author Organization [facility] Address [address] [place] [address] Care Team Providers Care Steam Hand Name Role Phone Olivier Diaz MD Primary Care Provider [phone] David White MD Unavailable [phone] Aury Bach MD Unavailable [phone] Jessica Tobias MD Unavailable [phone] Dayne Stoddard MD Unavailable [phone] Allergies Active Allergy Reactions Criticality Noted Date Comments Penicillins Hives,Itching Medium 03/30/2016 Medications levothyroxine (SYNTHROID, LEVOTHROID) 88 mcg tablet Take 1 tablet (88 mcg total) by mouth printed forms proofreader before breakfast Active ondansetron ODT (ZOFRAN-ODT) 4 [...] (11/30/2019): Added automatically from request for surgery [id number] Age-related osteoporosis wit hout current pathological fracture [...] on file 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 Gender Identity Not on file Sexual Orientation [...] [place] MEDICARE COMMER[employer] [facility] [place] Advance Directives For more information, please contact: [phone] * Full Code (Latest Code Status on File) Date Activated Date Inactivated Comments 06/24/2023 10:54 AM 06/24/2023 7:17 PM * Full Code Date Activated Date Inactivated Comments 01/18/2020 8:08 AM 01/18/2020 1:18 PM * Full Code Date Activated Date Inactivated Comments 12/22/2019 8:28 AM 12/22/2019 2:51 PM * Full Code Date Activated Date Inactivated Comments 02/08/2018 11:19 PM 02/09/2018 2:40 PM Care Teams Steam Hand Relationship Specialty Start Date End Date Olivier Diaz MD PCP - General 01/11/17 David White MD [address] [place] [address] Medical Oncologist/Doll Maker Medical Oncology 01/10/21 Aury Bach MD [address] [facility] [address] [place], [place] [address] Referring Physician Critical Care Med 03/23/22 Jessica Tobias MD [address] [place] [address] Consulting Physician Surgery 04/22/23 Dayne Stoddard MD [address] [facility] [phone] [place] [address] Surgeon Colon and Rectal Surgery 06/15/23
--- OUTSIDE RECORDS SUMMARY | 2025-02-07 08:51 | XMS_ITS | Clinical Summary ---
Author Organization [facility] Address [address] [place] [address] Care Team Providers Care Retail Cashier Name Role Phone Olivier Diaz MD Primary Care Provider [phone] David White MD Unavailable [phone] Aury Bach MD Unavailable [phone] Jessica Tobias MD Unavailable [phone] Dayne Stoddard MD Unavailable [phone] Allergies Active Allergy Reactions Criticality Noted Date Comments Penicillins Hives,Itching Medium 03/30/2016 Medications levothyroxine (SYNTHROID, LEVOTHROID) 88 mcg tablet Take 1 tablet (88 mcg total) by mouth train clerk before breakfast Active ondansetron ODT (ZOFRAN-ODT) 4 [...] (11/30/2019): Added automatically from request for surgery [id number] Age-related osteoporosis wit hout current pathological fracture [...] on file 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 Gender Identity Not on file Sexual [...] Advance Directives For more information, please contact: [phone] * Full Code (Latest Code Status on File) Date Activated Date Inactivated Comments 06/24/2023 10:54 AM 06/24/2023 7:17 PM * Full Code Date Activated Date Inactivated Comments 01/18/2020 8:08 AM 01/18/2020 1:18 PM * Full Code Date Activated Date Inactivated Comments 12/22/2019 8:28 AM 12/22/2019 2:51 PM * Full Code Date Activated Date Inactivated Comments 02/08/2018 11:19 PM 02/09/2018 2:40 PM Care Teams Retail Cashier Relationship Specialty Start Date End Date Olivier Diaz MD PCP - General 01/11/17 David White MD [address] [place] [address] Medical Oncologist/Mobile Manager Medical Oncology 01/10/21 Aury Bach MD [address] [place] [address] Referring Physician Critical Care Med 03/23/22 Jessica Tobias MD [address] [place], [place] [address] Consulting Physician Surgery 04/22/23 Dayne Stoddard MD [address] [facility] [phone] [place] [address] Surgeon Colon and Rectal Surgery 06/15/23
--- OUTSIDE RECORDS SUMMARY | 2025-02-07 08:51 | XMS_ITS | Encounter Summary ---
Author Organization [facility] Address [address] [place] [address] Care Team Providers Care Carpenter Rough Name Role Phone Olivier Diaz MD Primary Care Provider [phone] David White MD Unavailable [phone] Aury Bach MD Unavailable [phone] Jessica Tobias MD Unavailable [phone] Dayne Stoddard MD Unavailable [phone] Encounter Details Date Type Department Care Team (Late st Contact Info) Description 09/13/2019 Telephone [facility] - Interventional Radiology [address] [place] [address] Danielle Ferguson RN Social History Tobacco Use Types Packs/Day Years Used Date Smoking Tobacco: Former Cigarettes Smokeless Tobacco: Never Alcohol Use Standard Drinks/Week Comments No 0 (1 standard drink = 0.6 oz pur e alcohol) Comments Unknown Sex and Gender Information Value Date Recorded Sex Assigned at Not on file 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 Gender Identity Not on file Sexual Orientation Not on file documented as of this encounter Plan of Treatment Not on file documented as of this encounter Visit Diagnoses Not on filedocumented in this encounter Care Teams Carpenter Rough Relationship Specialty Start Date End Date Olivier Diaz MD PCP - General 01/11/17 David White MD [address] [place] [address] Medical Oncologist/Lieutenant/Deputy Medical Oncology 01/10/21 Aury Bach MD [address] [place] [address] Referring Physician Critical Care Med 03/23/22 Jessica Tobias MD [address] [place] [address] Consulting Physician Surgery 04/22/23 Dayne Stoddard MD [address] [facility] [phone] [place] [address] Surgeon Colon and Rectal Surgery 06/15/23 documented as of this encounter
--- OUTSIDE RECORDS SUMMARY | 2025-02-07 08:51 | XMS_ITS | Encounter Summary ---
Author Organization [facility] Address [address] [place] [address] Care Team Providers Care Emergency Generator Mechanic Name Role Phone Olivier Diaz MD Primary Care Provider [phone] David White MD Unavailable Aury Bach MD Unavailable [phone] Jessica Tobias MD Unavailable [phone] Dayne Stoddard MD Unavailable [phone] Encounter Details Date Type Department Care Team (Late st Contact Info) Description 01/15/[address] 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 Gender Identity Not on file Sexual Orientation Not on file documented as of this encounter Plan of Treatment Not on file documented as of this encounter Visit Diagnoses Not on filedocumented in this encounter Care Teams Emergency Generator Mechanic Relationship Specialty Start Date End Date Olivier Diaz MD PCP - General 01/11/17 David White MD [address] [place] [address] Medical Oncologist/Line Leader Medical Oncology 01/10/21 Aury Bach MD [address] [place], [place] [address] Referring Physician Critical Care Med 03/23/22 Jessica Tobias MD [address] [place] [address] Consulting Physician Surgery 04/22/23 Dayne Stoddard MD [address] [facility] [phone] [place] [address] Surgeon Colon and Rectal Surgery 06/15/23 documented as of this encounter
== END 2025-02-07 08:27 | disposition home or self-care (01) ==
LOC: CHSIMG 08:28
PROVIDERS: PCP Internal Medicine; Visit Provider Internal Medicine
DX: Z12.31 Encounter for screening mammogram for malignant neoplasm of breast (principal); R92.8 Other abnormal and inconclusive findings on diagnostic imaging of breast
CPT/HCPCS: 77063; 77067

== ENCOUNTER 2025-02-12 09:29 | Outpatient (CLI) | payer MEDICARE, OTHER, SELFPAY ==
--- NOTE | ~2025-02-12 | MMUS_ITS ---
EXAMINATION: MM diagnostic garcía RT w butch, US breast RT limited HISTORY: 74-year-old woman with a personal history of right upper lobe lung cancer diagnosed in 2014 with subsequent chemotherapy and radiation presents for diagnostic evaluation of microcalcifications surrounding an asymmetry within the upper outer quadrant of the anterior third of the right breast se en on screening mammography dated 02/07/2025. TECHNIQUE: Additional 3-D tomosynthesis images of the right breast were performed and synthetic 2-D i mages were generated. Magnification views of the calcifications within the asymmetry within the upper outer quadrant of the right breast was also performed. CAD analysis was submitted and interpreted. High resolution limited right breast ultrasound was performed. COMPARISON: 02/07/2025 and dating back to 05/22/2021 BREAST PARENCHYMAL COMPOSITION: Not Dense. There are scattered areas of fibroglandular density. FINDINGS: MAMMOGRAPHIC FINDINGS: The microcalcifications are well circumscribed, round and benign in morphology. No suspicious microcalcifications are appreciated on magnification views. While mammographically/tomographically this focus appears to represent fat necrosis (likely from thalia ent's radiation treatment) there are multiple spiculations which have developed over the years, rende ring it somewhat suspicious. The remainder of the upper outer quadrant of the right breast demonstrates punctate and bulky calcifi cations, benign in morphology and otherwise stable in appearance. ULTRASOUND: At the 10:00 position of the right breast approximately 3 cm from the nipple is a mostly well-circums cribed focus of decreased echogenicity measuring 11 x 12 x 15 mm, consistent with the finding on mamm ography. This focus demonstrates posterior acoustic shadowing, and is without internal vascularity. Sonographic evaluation of the remainder of the upper outer quadrant of the right breast demonstrates benign fibroglandular elements without a cystic or solid lesion of concern. IMPRESSION: No suspicious microcalcifications detected on magnification view. However, the morphology of this focus has changed, developing multiple spiculations. While spiculatio ns may be present with fat necrosis, the ultrasound appearance is also somewhat suspicious for which ultrasound guided biopsy is suggested. Fat necrosis typically is a diagnosis of exclusion, for which tissue sampling is suggested. The alternative would be to obtain a contrast-enhanced MRI. The patient is significantly claustrophobic, and clinically would likely be unable to lay prone for t he MRI examination. After discussing the benefits and drawbacks of both possibilities with the patient, ultrasound-guided core biopsy is suggested. BI-RADS category 4a, low suspicion for malignancy (greater than 2% but less than 10%) for which tissu e diagnosis is recommended. Reviewed, dictated and finalized at location A. IMPRESSION: No suspicious microcalcifications detected on magnification view. However, the morphology of this focus has changed, developing multiple spiculat ions. While spiculations may be present with fat necrosis, the ultrasound appea josé luis is also somewhat suspicious for which ultrasound guided biopsy is suggest ed. Fat necrosis typically is a diagnosis of exclusion, for which tissue sampling i s suggested. The alternative would be to obtain a contrast-enhanced MRI. The patient is significantly claustrophobic, and clinically would likely be teresa ble to lay prone for the MRI examination. After discussing the benefits and drawbacks of both possibilities with the thalia ent, ultrasound-guided core biopsy is suggested. BI-RADS category 4a, low suspicion for malignancy (greater than 2% but less león n 10%) for which tissue diagnosis is recommended.
--- OUTSIDE RECORDS SUMMARY | 2025-02-12 10:36 | XMS_ITS | Referral Summary ---
Author Organization [facility] Address [address] [place] [address] Care Team Providers Care Quiller Runner Name Role Phone Olivier Diaz MD Primary Care Provider [phone] David White MD Unavailable [phone] Aury Bach MD Unavailable [phone] Jessica Tobias MD Unavailable [phone] Dayne Stoddard MD Unavailable [phone] Allergies Active Allergy Reactions Criticality Noted Date Comments Penicillins Hives,Itching Medium 03/30/2016 Medications levothyroxine (SYNTHROID, LEVOTHROID) 88 mcg tablet Take 1 tablet (88 mcg total) by mouth early head start teacher before breakfast Active ondansetron ODT (ZOFRAN-ODT) 4 [...] (11/30/2019): Added automatically from request for surgery [id number] Age-related osteoporosis wit hout current pathological fracture [...] on file Legal 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 Female 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 Gender Identity Not on file Sexual Orientation [...] LIFE INS [place] MEDICARE [employer]ERCIAL [employer] [facility] INS [place] Advance Directives For more information, please contact: [phone] * Full Code (Latest Code Status on File) Date Activated Date Inactivated Comments 06/24/2023 10:54 AM 06/24/2023 7:17 PM * Full Code Date Activated Date Inactivated Comments 01/18/2020 8:08 AM 01/18/2020 1:18 PM * Full Code Date Activated Date Inactivated Comments 12/22/2019 8:28 AM 12/22/2019 2:51 PM * Full Code Date Activated Date Inactivated Comments 02/08/2018 11:19 PM 02/09/2018 2:40 PM Care Teams Quiller Runner Relationship Specialty Start Date End Date Olivier Diaz MD PCP - General 01/11/17 David White MD [address] [place] [address] Medical Oncologist/Well Digger Medical Oncology 01/10/21 Aury Bach MD [address] [facility] [address] [place], [place] [address] Referring Physician Critical Care Med 03/23/22 Jessica Tobias MD [address] [place] [address] Consulting Physician Surgery 04/22/23 Dayne Stoddard MD [address] [facility] [phone] [place] [address] Surgeon Colon and Rectal Surgery 06/15/23
--- OUTSIDE RECORDS SUMMARY | 2025-02-12 10:36 | XMS_ITS | Encounter Summary ---
Author Organization [facility] Healthcare Address [address] [place] [address] Care Team Providers Care Monitoring Analyst Name Role Phone Olivier Diaz MD Primary Care Provider [phone] David White MD Unavailable Aury Bach MD Unavailable [phone] Jessica Tobias MD Unavailable [phone] Dayne Stoddard MD Unavailable [phone] Encounter Details Date Type Department Care Team (Late st Contact Info) Description 01/15/2021 Telephone [facility] - Interventional Radiology [address] [place] [address] Ines Rose RN Social History Tobacco Use Types Packs/Day Years Used Date Smoking Tobacco: Former Cigarettes Smokeless Tobacco: Never Alcohol Use Standard Drinks/Week Comments No 0 (1 standard drink = 0.6 oz pur e alcohol) Comments No Sex and Gender Information Value Date Recorded Sex Assigned at Not on file 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 Gender Identity Not on file Sexual Orientation Not on file documented as of this encounter Plan of Treatment Not on file documented as of this encounter Visit Diagnoses Not on filedocumented in this encounter Care Teams Monitoring Analyst Relationship Specialty Start Date End Date Olivier Diaz MD PCP - General 01/11/17 David White MD [address] [place] [address] Medical Oncologist/Rn Navigator Medical Oncology 01/10/21 Aury Bach MD [address] [place], [place] [address] Referring Physician Critical Care Med 03/23/22 Jessica Tobias MD [address] [place] [address] Consulting Physician Surgery 04/22/23 Dayne Stoddard MD [address] [facility] [phone] [place] [address] Surgeon Colon and Rectal Surgery 06/15/23 documented as of this encounter
--- OUTSIDE RECORDS SUMMARY | 2025-02-12 10:36 | XMS_ITS | Clinical Summary ---
Author Organization [facility] Address [address] [place] [address] Care Team Providers Care Sports Athletic Trainer Name Role Phone Olivier Diaz MD Primary Care Provider [phone] David White MD Unavailable [phone] Aury Bach MD Unavailable [phone] Jessica Tobias MD Unavailable [phone] Dayne Stoddard MD Unavailable [phone] Allergies Active Allergy Reactions Criticality Noted Date Comments Penicillins Hives,Itching Medium 03/30/2016 Medications levothyroxine (SYNTHROID, LEVOTHROID) 88 mcg tablet Take 1 tablet (88 mcg total) by mouth early childhood aide classroom before breakfast Active ondansetron ODT (ZOFRAN-ODT) 4 [...] (11/30/2019): Added automatically from request for surgery [id number] Age-related osteoporosis wit hout current pathological fracture [...] on file 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 Gender Identity Not on file Sexual Orientation [...] Advance Directives For more information, please contact: [phone] * Full Code (Latest Code Status on File) Date Activated Date Inactivated Comments 06/24/2023 10:54 AM 06/24/2023 7:17 PM * Full Code Date Activated Date Inactivated Comments 01/18/2020 8:08 AM 01/18/2020 1:18 PM * Full Code Date Activated Date Inactivated Comments 12/22/2019 8:28 AM 12/22/2019 2:51 PM * Full Code Date Activated Date Inactivated Comments 02/08/2018 11:19 PM 02/09/2018 2:40 PM Care Teams Sports Athletic Trainer Relationship Specialty Start Date End Date Olivier Diaz MD PCP - General 01/11/17 David White MD [address] [place] [address] Medical Oncologist/Clinical Support Manager Medical Oncology 01/10/21 Aury Bach MD [address] [place] [address] Referring Physician Critical Care Med 03/23/22 Jessica Tobias MD [address] [place], [place] [address] Consulting Physician Surgery 04/22/23 Dayne Stoddard MD [address] [facility] [phone] [place] [address] Surgeon Colon and Rectal Surgery 06/15/23
--- OUTSIDE RECORDS SUMMARY | 2025-02-12 10:36 | XMS_ITS ---
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
--- OUTSIDE RECORDS SUMMARY | 2025-02-12 10:37 | XMS_ITS | Clinical Summary ---
Author Organization [facility] Address [address] [place] [address] Care Team Providers Care Sieve Grader Tender Name Role Phone Olivier Diaz MD Primary Care Provider [phone] Allergies Active Allergy Reactions Criticality Noted Date [...] topic Insurance [employer] Care Teams Sieve Grader Tender Relationship Specialty Start Date End Date Olivier Diaz MD [address] [place] [id number] PCP - General INTERNAL MEDICINE 05/11/19
--- OUTSIDE RECORDS SUMMARY | 2025-02-12 10:37 | XMS_ITS | Encounter Summary ---
Author Organization [facility] Healthcare Address [address] [place] [address] Care Team Providers Care Rolling Machine Tender Name Role Phone Olivier Diaz MD Primary Care Provider [phone] David White MD Unavailable Aury Bach MD Unavailable [phone] Jessica Tobias MD Unavailable [phone] Dayne Stoddard MD Unavailable [phone] Encounter Details Date Type Department Care Team (Late st Contact Info) Description 09/13/2019 Telephone [facility] - Interventional Radiology [address] [place] [address] Danielle Ferguson RN Social History Tobacco Use Types Packs/Day Years Used Date Smoking Tobacco: Former Cigarettes Smokeless Tobacco: Never Alcohol Use Standard Drinks/Week Comments No 0 (1 standard drink = 0.6 oz pur e alcohol) Comments Unknown Sex and Gender Information Value Date Recorded Sex Assigned at Not on file 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 Gender Identity Not on file Sexual Orientation Not on file documented as of this encounter Plan of Treatment Not on file documented as of this encounter Visit Diagnoses Not on filedocumented in this encounter Care Teams Rolling Machine Tender Relationship Specialty Start Date End Date Olivier Diaz MD PCP - General 01/11/17 David White MD [address] [place] [address] Medical Oncologist/Staking Technician Medical Oncology 01/10/21 Aury Bach MD [address] [place] [address] Referring Physician Critical Care Med 03/23/22 Jessica Tobias MD [address] [place] [address] Consulting Physician Surgery 04/22/23 Dayne Stoddard MD [address] [facility] [phone] [place] [address] Surgeon Colon and Rectal Surgery 06/15/23 documented as of this encounter
== END 2025-02-12 09:30 | disposition home or self-care (01) ==
LOC: CHSIMG 09:31
PROVIDERS: PCP Internal Medicine; Visit Provider Internal Medicine
DX: R92.8 Other abnormal and inconclusive findings on diagnostic imaging of breast (principal)
CPT/HCPCS: 76642; 77061; 77065; G0279

== ENCOUNTER 2025-02-18 15:26 | Emergency (ER) | payer MEDICARE, OTHER, SELFPAY ==
--- NOTE | ~2025-02-18 | XR_ITS ---
EXAM: XR shoulder RT min 2V DATE: 02/18/2025 17:15 HISTORY: fall . COMPARISON: 08/25/2023. FINDINGS: Decreased mineralization. No fracture or dislocation. No lytic or blastic lesion. Mild deg enerative change at the AC joint. No erosion or periosteal change. Soft tissues within normal limits. Chronic right apical thickening. Old posterior rib fracture. IMPRESSION: No acute osseous finding in the right shoulder. Reviewed, dictated and finalized at location K.
--- NOTE | ~2025-02-18 | XR_ITS ---
EXAM: XR hip RT min 3V w AP pelvis DATE: 02/18/2025 17:15 HISTORY: fall . COMPARISON: 07/13/2024. FINDINGS: Decreased mineralization. No fracture or dislocation. 5 mm lytic lesion in the ischial tub erosity, the frontal view of the right hip is not available in the comparison study. Joint spaces are maintained. No erosion or periosteal change. Soft tissues within normal limits. IMPRESSION: No acute fracture or dislocation. 5 mm lytic lesion in the ischial tuberosity, correlate for history of multiple myeloma or metastatic disease. Reviewed, dictated and finalized at location K.
--- NOTE | ~2025-02-18 | CT_ITS ---
EXAMINATION: CT brain wo con DATE: 02/18/2025 17:09 INDICATION: CHI, fall . TECHNIQUE: Computed tomography (CT) of the head was performed without intravenous contrast. The mA wa s adjusted according to patient size. Iterative reconstruction technique was employed. The dose-lengt h product was 605.33 mGy-cm. COMPARISON: 10/28/2024. FINDINGS: No acute intracranial hemorrhage or extra-axial fluid collection. No hydrocephalus, mass, or herniation. No acute ischemic infarct. Unremarkable dural venous sinus attenuation. No acute osseous abnormality. Right frontal/orbital soft tissue swelling Partial opacification and expansion of the left sphenoid sinus, with surrounding sclerosis, mucosal t hickening and hyperdense intraluminal material, the remaining aerated spaces are clear. Mild atrophy and moderate chronic white matter change. Atherosclerotic intracranial calcification. Bi lateral lens replacements. IMPRESSION: No acute intracranial process. Chronic left sphenoid sinusitis. Reviewed, dictated and finalized at location K.
[2025-02-18 15:29] VITALS: BP 158/74; PULSE 79; RESP 14; TEMP 36.4; O2SAT 100
[2025-02-18 15:45] VITALS: BP 141/69; PULSE 76; RESP 22; O2SAT 100
[2025-02-18 16:15] VITALS: BP 115/92; PULSE 73; RESP 20; O2SAT 100
--- OUTSIDE RECORDS SUMMARY | 2025-02-18 16:54 | XMS_ITS ---
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
--- OUTSIDE RECORDS SUMMARY | 2025-02-18 16:54 | XMS_ITS | Referral Summary ---
Author Organization [facility] Address [address] [place] [address] Care Team Providers Care Retail Property Manager Name Role Phone Olivier Diaz MD Primary Care Provider [phone] David White MD Unavailable [phone] Aury Bach MD Unavailable [phone] Jessica Tobias MD Unavailable [phone] Dayne Stoddard MD Unavailable [phone] Allergies Active Allergy Reactions Criticality Noted Date Comments Penicillins Hives,Itching Medium 03/30/2016 Medications levothyroxine (SYNTHROID, LEVOTHROID) 88 mcg tablet Take 1 tablet (88 mcg total) by mouth stoneworking sander before breakfast Active ondansetron ODT (ZOFRAN-ODT) 4 [...] (11/30/2019): Added automatically from request for surgery [id number] Age-related osteoporosis wit hout current pathological fracture [...] on file 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 Gender Identity Not on file Sexual [...] LIFE INS [employer] MEDICARE [employer] [facility] INS [place] Advance Directives For more information, please contact: [phone] * Full Code (Latest Code Status on [...] PM 02/09/2018 2:40 PM Care Teams Retail Property Manager Relationship Specialty Start Date End Date Olivier Diaz MD PCP - General 01/11/17 David White MD [address] [place] [address] Medical Oncologist/Teamcenter Solution Architect Medical Oncology 01/10/21 Aury Bach MD [address] [facility] [address] [place], [place] [id number] Referring Physician Critical Care Med 03/23/22 Jessica Tobias MD [address] [place] [address] Consulting Physician Surgery 04/22/23 Dayne Stoddard MD [address] [facility] [place] [id number] [place] [address] Surgeon Colon and Rectal Surgery 06/15/23
--- OUTSIDE RECORDS SUMMARY | 2025-02-18 16:54 | XMS_ITS | Clinical Summary ---
Author Organization [facility] Address [address] [place] [address] Care Team Providers Care Promotional Demonstrator Name Role Phone Olivier Diaz MD Primary Care Provider [phone] David White MD Unavailable [phone] Aury Bach MD Unavailable [phone] Jessica Tobias MD Unavailable [phone] Dayne Stoddard MD Unavailable [phone] Allergies Active Allergy Reactions Criticality Noted Date Comments Penicillins Hives,Itching Medium 03/30/2016 Medications levothyroxine (SYNTHROID, LEVOTHROID) 88 mcg tablet Take 1 tablet (88 mcg total) by mouth precision honer before breakfast Active ondansetron ODT (ZOFRAN-ODT) 4 [...] (11/30/2019): Added automatically from request for surgery [id number] Age-related osteoporosis wit hout current pathological fracture [...] on file 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 Gender Identity Not on file Sexual Orientation [...] Advance Directives For more information, please contact: [phone] * Full Code (Latest Code Status on File) Date Activated Date Inactivated Comments 06/24/2023 10:54 AM 06/24/2023 7:17 PM * Full Code Date Activated Date Inactivated Comments 01/18/2020 8:08 AM 01/18/2020 1:18 PM * Full Code Date Activated Date Inactivated Comments 12/22/2019 8:28 AM 12/22/2019 2:51 PM * Full Code Date Activated Date Inactivated Comments 02/08/2018 11:19 PM 02/09/2018 2:40 PM Care Teams Promotional Demonstrator Relationship Specialty Start Date End Date Olivier Diaz MD PCP - General 01/11/17 David White MD [address] [place] [address] Medical Oncologist/Agronomist Medical Oncology 01/10/21 Aury Bach MD [address] [place] [address] Referring Physician Critical Care Med 03/23/22 Jessica Tobias MD [address] [place], [place] [id number] Consulting Physician Surgery 04/22/23 Dayne Stoddard MD [address] [facility] [place] [phone] [place] [address] Surgeon Colon and Rectal Surgery 06/15/23
--- OUTSIDE RECORDS SUMMARY | 2025-02-18 16:54 | XMS_ITS | Clinical Summary ---
Author Organization [facility] Address [address] [place] [address] Care Team Providers Care Councillor Aboriginal Land Council Name Role Phone Olivier Diaz MD Primary Care Provider [phone] Allergies Active Allergy Reactions Criticality Noted Date [...] topic Insurance MEDICARE [employer] Care Teams Councillor Aboriginal Land Council Relationship Specialty Start Date End Date Olivier Diaz MD [address] [place] [id number] PCP - General INTERNAL MEDICINE 05/11/19
--- OUTSIDE RECORDS SUMMARY | 2025-02-18 16:54 | XMS_ITS | Encounter Summary ---
Author Organization [facility] Healthcare Address [address] [place] [address] Care Team Providers Care Engagement Engineer Name Role Phone Oliveir Diaz MD Primary Care Provider [phone] David White MD Unavailable Aury Bach MD Unavailable [phone] Jessica Tobias MD Unavailable [phone] Dayne Stoddard MD Unavailable [phone] Encounter Details Date Type Department Care Team (Late st Contact Info) Description 09/13/2019 Telephone [facility] - Interventional Radiology [address] [place] [address] Danielle Ferguson RN Social History Tobacco Use Types Packs/Day Years Used Date Smoking Tobacco: Former Cigarettes Smokeless Tobacco: Never Alcohol Use Standard Drinks/Week Comments No 0 (1 standard drink = 0.6 oz pur e alcohol) Comments Unknown Sex and Gender Information Value Date Recorded Sex Assigned at Not on file 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 Gender Identity Not on file Sexual Orientation Not on file documented as of this encounter Plan of Treatment Not on file documented as of this encounter Visit Diagnoses Not on filedocumented in this encounter Care Teams Engagement Engineer Relationship Specialty Start Date End Date Olivier Diaz MD PCP - General 01/11/17 David White MD [address] [place] [address] Medical Oncologist/Python Django Developer Medical Oncology 01/10/21 Aury Bach MD [address] [place] [address] Referring Physician Critical Care Med 03/23/22 Jessica Tobias MD [address] [place] [address] Consulting Physician Surgery 04/22/23 Dayne Stoddard MD [address] [facility] [place] [phone] [place] [address] Surgeon Colon and Rectal Surgery 06/15/23 documented as of this encounter
--- OUTSIDE RECORDS SUMMARY | 2025-02-18 16:54 | XMS_ITS | Encounter Summary ---
Author Organization [facility] Healthcare Address [address] [place] [address] Care Team Providers Care Supervisor Pairing And Inspecting Name Role Phone Olivier Diaz MD Primary Care Provider [phone] David White MD Unavailable Aury Bach MD Unavailable [phone] Jessica Tobias MD Unavailable [phone] Dayne Stoddard MD Unavailable [phone] Encounter Details Date Type Department Care Team (Late st Contact Info) Description 01/15/2021 Telephone 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 Gender Identity Not on file Sexual Orientation Not on file documented as of this encounter Plan of Treatment Not on file documented as of this encounter Visit Diagnoses Not on filedocumented in this encounter Care Teams Supervisor Pairing And Inspecting Relationship Specialty Start Date End Date Olivier Diaz MD PCP - General 01/11/17 David White MD [address] [place] [address] Medical Oncologist/Softball Core Molder Medical Oncology 01/10/21 Aury Bach MD [address] [place], [place] [id number] Referring Physician Critical Care Med 03/23/22 Jessica Tobias MD [address] [place] [address] Consulting Physician Surgery 04/22/23 Dayne Stoddard MD [address] [facility] [place] [phone] [place] [address] Surgeon Colon and Rectal Surgery 06/15/23 documented as of this encounter
[2025-02-18] MEDS: MORPHINE SULFATE (*CRX) 2 MG/ML INJ IV PUSH (16:58)
--- NOTE | 2025-02-18 17:05 | ED_ITS ---
HPI - Fall General Chief Complaint: Fall Stated Complaint: fall Time Seen by Provider: 02/18/25 16:23 History of Present Illness HPI Narrative: 74-year-old female presenting to the emergency department after mechanical fall at home. She states she tripped over something on the ground and fell onto the right side of her body against the linoleum floor. Struck her head and right-sided forearm and hip. Did not lose consciousness. She was otherwise in her normal state of health prior to this. No prodromal symptoms. No loss consciousness, blood thinner use, seizure history. Denies any anticoagulants. She has a history of lung cancer currently in remission as well as globus s ensation with esophageal issues causing her not to tolerate oral intake very well. Denies any nausea vomiting. No chest pain shortness a breath. No abdominal pain, fever, chills. No vision changes or headache presently. She does have a small laceration to the right side of her scalp and a small abrasion to her right forearm. Was able to get up with some assistance and ambulate around the kitchen after the fall according to the family was present at bedside for collateral information. Related Data Home Medications ?Medication ?Instructions ?Recorded ?Confirmed ?Last Taken ?Type cholecalciferol (vitamin D3) 25 1,000 unit PO DAILY 09/25/19 12/28/24 Unknown History mcg (1,000 unit) capsule escitalopram oxalate 10 mg tablet 10 mg PO DAILY 09/25/19 12/28/24 Unknown History inhalational spacing device #1 ea 09/25/19 12/28/24 Unknown History (Jany Palacios [facility] spacer) lorazepam 1 mg tablet 1 mg PO BID PRN Anxiety 09/25/19 12/28/24 08/31/23 09:00 History ondansetron HCl 8 mg tablet 4 mg PO TID 09/25/19 12/28/24 Unknown History acetaminophen 500 mg tablet 500 mg PO TID PRN Pain 09/26/19 12/28/24 Unknown History (Tylenol Extra Strength) Adult Low Dose Aspirin 81 mg PO HS 06/09/22 12/28/24 Unknown History nadolol 20 mg tablet 20 mg PO DAILY 03/03/23 12/28/24 09/01/23 09:00 History pantoprazole 40 mg tablet,delayed 40 mg PO DAILY 03/03/23 12/28/24 Unknown History release tramadol 50 mg tablet 50 mg PO Q6H PRN Pain 06/30/23 12/28/24 09/01/23 09:00 History amitriptyline 25 mg tablet 25 mg PO QHS 06/26/24 12/28/24 Unknown History melatonin 10 mg capsule 10 mg PO QHS 06/26/24 12/28/24 Unknown History montelukast 10 mg tablet 10 mg PO DAILY 06/26/24 12/28/24 Unknown History duloxetine 20 mg capsule,delayed 20 mg PO DAILY 07/07/24 12/28/24 Unknown History release levothyroxine 100 mcg tablet 100 mcg PO DAILY 07/07/24 12/28/24 Unknown History mecobalamin (vitamin B12) 500 mcg 5,000 mcg PO DAILY 07/07/24 12/28/24 Unknown History chewable tablet Prevagen 1 tab-cap PO DAILY 10/28/24 12/28/24 Unknown History Stool Softner 1 tab-cap PO DAILY 10/28/24 12/28/24 Unknown History Allergies Allergy/AdvReac Type Severity Reaction Status Date / Time Penicillins Allergy Unknown rash Verified 02/18/25 15:36 Review of Systems Review of Systems: As reviewed above in [facility] Past Medical History Medical History GERD (gastroesophageal reflux disease) Seizure Stroke Thyroid disease Anxiety Depression FB esophagus History of lung cancer Surgical History Surgical History History of carpal tunnel surgery Hx of tubal ligation Cholecystectomy planned H/O: hysterectomy Family History Family History Father Hypertension Cerebrovascular accident Malignant neoplasm of prostate, Onset Age: 84 Family history of congestive heart failure Mother Family history of osteoarthritis Family history of coronary artery disease Social History Social History Smoking packs per day: 1 Smoking cigarettes per day: 20.0 Years smoked: 35 Smoking pack-years: 35.00 Smoking status: Former smoker Tobacco type: cigarettes Second hand tobacco smoke exposure: Yes Smoking end date: 11/22/15 Alcohol intake: current Alcohol use details: rare occasional Substance use: never Substance use type: does not use Living arrangements: with family Spiritual care concerns: No Exam Narrative: GENERAL: [Well-appearing, well-nourished, and in no acute distress.] HEAD: Normocephalic, right-sided periorbital hematoma, right-sided supraorbital laceration 1.5 cm with some superficial dehiscence. No active bleeding. EYES: [PERRLA and EOMI.] ENT: Nares clear, no rhinorrhea or epistaxis. Mucous membranes moist. NECK: Supple. CHEST: [Clear to auscultation. No respiratory distress.] HEART: [Regular rate and rhythm]. No murmur heard. [Normal peripheral pulses.] ABDOMEN: [Soft, nondistended], [nontender], [No rigidity or guarding] EXTREMITIES: Normal range of motion. [No edema.] Some mild tenderness to palpation around the right hip, no restricted range of motion. Negative straight leg raise. EHL and FHL 5/5, hip flexion extension and knee flexion and extension full range. No midline tenderness, no overlying skin changes to the flank, back or extremity. SKIN: Superficial laceration to the lateral aspect of the right forearm approximately 4 cm in length without any significant depth or bleeding. Superficial periorbital laceration as described above NEURO: [No focal deficits]. Alert and oriented [x3.] PSYCH: [Normal mood and affect.] Course Vital Signs Vital signs: Vital Signs Temperature 36.4 C L 02/18/25 15:29 Pulse Rate 79 02/18/25 15:29 Respiratory Rate 14 02/18/25 15:29 Blood Pressure 158/74 H 02/18/25 15:29 Pulse Oximetry 100 02/18/25 15:29 Oxygen Delivery Room Air 02/18/25 15:29 Temperature 36.4 C L 02/18/25 15:29 Pulse Rate 73 02/18/25 16:15 Respiratory Rate 20 02/18/25 16:15 Blood Pressure 115/92 H 02/18/25 16:15 Pulse Oximetry 100 02/18/25 16:15 Oxygen Delivery Room Air 02/18/25 15:29 Procedures Laceration Laceration 1: Date: 02/18/25 Time: 18:14 Site: face Side (If applicable): right Size (cm): 1.5 Description: linear Depth: simple, single layer Local Anesthetic: none Pre-repair: wound explored and irrigated ====== Skin Level ====== Skin layer closed with: dermabond and steri strips ====== Subcutaneous Layer ====== ====== Muscle Layer ====== ====== Tendon Layer ====== Dressing: good hemostasis was Steri-Strips and Dermabond. non adherent dressing applied Laceration 2: Date: 02/18/25 Time: 18:14 Site: upper extremity Side (If applicable): right Size (cm): 4.0 Description: linear Depth: simple, single layer Local Anesthetic: none Pre-repair: wound explored and irrigated ====== Skin Level ====== Skin layer closed with: dermabond and steri strips ====== Subcutaneous Layer ====== ====== Muscle Layer ====== ====== Tendon Layer ====== Dressing: non adherent dressing applied MDM - Fall MDM Narrative Medical decision making narrative: 74-year-old female past medical history including lung cancer in remission and esophageal issues. She presents to the emergency room with chief complaint of a mechanical fall. She had no prodromal symptoms and tripped over something on the ground. She landed on the right side of her face, elbow scratch something on the way down she landed on her hip as well. Able to ambulate and got up with some assistance. Denies any loss of consciousness or blood thinner use. She has a abrasion to the right lateral aspect of her forearm, supraorbital hematoma and laceration supraorbital E on the right side. Tenderness around the right hip but no shortening or rotation. 2+ dorsalis pedis pulses. Normal vital signs. No loss of consciousness. She is high risk given given her age and closed head injury. CT of the head was obtained as well as x-rays of the shoulder, hip. She was provided morphine for analgesia and re-evaluated frequently. Laceration and abrasions on the arm and forehead appear superficial and can be likely repaired with skin glue. Patient's tetanus is already up-to-date. hip x-ray shows no acute fractures dislocations, there is a 5 mm lytic lesion in the Issue tuberosity that correlates with patient's history of lung cancer with potential metastatic disease. I discussed this finding with the patient and the family and they will call their oncologist and informed of this for follow-up on a short-term basis. Remaining imaging studies showed no acute injuries or fractures. CT head unremarkable. Patient is safe for discharge at this time. Patient comfortable this plan, hemostasis achieved with Dermabond and Steri-Strips. Patient was given wound care instructions and return precautions as well. Medical Records Attestation: I reviewed the patient's medical records. Imaging Data Attestation: I personally reviewed and interpreted this imaging study as fol lows: My impression: Impressions Head CT 02/18/25 17:11 IMPRESSION: No acute intracranial process. Chronic left sphenoid sinusitis. Shoulder X-Ray 02/18/25 17:25 IMPRESSION: No acute osseous finding in the right shoulder. Hip/Pelvis X-Ray 02/18/25 17:27 IMPRESSION: No acute fracture or dislocation. 5 mm lytic lesion in the ischial tuberosity, correlate for history of multiple myeloma or metastatic disease. Discharge Plan Discharge Clinical Impression: Ground-level fall, Laceration of skin of forehead, Laceration of forearm, right, Abnormal x-ray of pelvis Patient Disposition: Home, Self-Care Condition: Stable Instructions: Antibiotic Form, Laceration (ED), Head Injury (ED), Skin Adhesive Care (ED) Additional Instructions: your x-rays do not show any bony injuries or fractures. CT scan without any findings. We have repaired your small lacerations with Dermabond and Steri- Strips as they were very superficial and not deep or bleeding. You do have a small 5 mm spot on your right pelvis/ hip that needs to be followed up with and likely related to your old lung cancer. Call your oncologist to comment upon this and provide recommendations further. No urgent or emergent concerns at this time. follow-up with your regular doctors. Keep the wounds clean and dry for the next 24 hours and then you can gently clean them with soap and water without any vigorous scrubbing. The skin glue will fall off naturally after several days. Patient Language: Honduran Prescriptions: No Action nadolol 20 mg tablet 20 mg PO DAILY pantoprazole 40 mg tablet,delayed release (DR/EC) 40 mg PO DAILY Prevagen 1 tab-cap PO DAILY Stool Softner 1 tab-cap PO DAILY naproxen 500 mg tablet 500 mg PO BID PRN (Reason: pain) Qty: 14 0RF Flonase Sensimist 27.5 mcg/actuation spray,suspension 2 spray intranasal DAILY 7 Days Qty: 5.9 0RF Rx Instructions: into each nostril Adult Low Dose Aspirin 81 mg PO HS levothyroxine 100 mcg tablet 100 mcg PO DAILY duloxetine 20 mg capsule,delayed release(DR/EC) 20 mg PO DAILY mecobalamin (vitamin B12) 500 mcg tablet,chewable 5,000 mcg PO DAILY tramadol 50 mg tablet 50 mg PO Q6H PRN (Reason: Pain) amitriptyline 25 mg tablet 25 mg PO QHS montelukast 10 mg tablet 10 mg PO DAILY melatonin 10 mg capsule 10 mg PO QHS (DME) [facility] Spacer See Rx Instructions .ROUTE .MEDSUPPLY Qty: 1 Rx Instructions: As directed cholecalciferol (vitamin D3) 1,000 unit capsule 1,000 unit PO DAILY ondansetron HCl 8 mg tablet 4 mg PO TID lorazepam 1 mg tablet 1 mg PO BID PRN (Reason: Anxiety) escitalopram oxalate 10 mg tablet 10 mg PO DAILY acetaminophen [Tylenol Extra Strength] 500 mg tablet 500 mg PO TID PRN (Reason: Pain) Anoro Ellipta 62.5-25 mcg/actuation blister with device 1 inh INHALATION DAILY 30 Days Qty: 60 11RF Follow-up/Referrals: Olivier Diaz MD [Primary Care Provider] - Time of Disposition: 18:21
== END 2025-02-18 18:25 | disposition home or self-care (01) ==
PROVIDERS: Emergency Provider Student in an Organized Health Care Education/Training Program; PCP Internal Medicine
DX: S01.81XA Laceration without foreign body of other part of head, initial encounter (principal); S51.811A Laceration without foreign body of right forearm, initial encounter; M89.9 Disorder of bone, unspecified; K21.9 Gastro-esophageal reflux disease without esophagitis; E07.9 Disorder of thyroid, unspecified; F41.9 Anxiety disorder, unspecified; F32.A Depression, unspecified; Z85.118 Personal history of other malignant neoplasm of bronchus and lung; Z86.73 Personal history of transient ischemic attack (TIA), and cerebral infarction without residual deficits; Z87.891 Personal history of nicotine dependence; Z90.710 Acquired absence of both cervix and uterus; Z90.49 Acquired absence of other specified parts of digestive tract; W18.09XA Striking against other object with subsequent fall, initial encounter
CPT/HCPCS: 12002; 12011; 70450; 73030; 73502; 96374; 99284; J2270

== ENCOUNTER 2025-03-07 08:08 | Outpatient (CLI) | payer MEDICARE, OTHER, SELFPAY ==
--- NOTE | ~2025-03-07 | MMUS_ITS ---
MM post biopsy diagnostic RT, US breast biopsy RT w image EXAMINATION: US GUIDED NEEDLE BIOPSY WITH V ALLEGRACOURTNEY ASSISTANCE DATE: 03/07/2025 10:04 CDT INDICATION: Right breast mass seen on prior examination. Ultrasound-guided core biopsy is requested to evaluate for malignancy. BREAST PARENCHYMAL COMPOSITION: Not dense: There are scattered areas of fibroglandular density. TECHNIQUE AND FINDINGS: The risks and potential benefits of the procedure were discussed with the patient, and written inform ed consent was obtained. After sterile preparation of the right breast, 1% lidocaine was utilized fo r local anesthesia. 1% lidocaine with epinephrine was used for deep anesthesia. A 10G vacuum-assisted biopsy gun needle was advanced through to the outer edge of the region of inter est from a lateral approach utilizing sonographic guidance. A total of 4 tissue core samples were ob tained through the lesion. An Inrad tissue marker clip was then placed at the biopsy site. Hemostasi s was achieved. The patient tolerated procedure well and there was no evidence of immediate complication. The patien t was given verbal instructions partly is from the department. Right breast mammograms to document t issue marker clip placement. The tissue samples were submitted to surgical pathology for histologic a nalysis. IMPRESSION: 1. Successful ultrasound-guided vacuum-assisted biopsy of right breast mass with post procedure mamm ogram for marker placement. Please refer to pathology report for histologic analysis. Reviewed, dictated and finalized at location B. IMPRESSION: 1. Successful ultrasound-guided vacuum-assisted biopsy of right breast mass wi th post procedure mammogram for marker placement. Please refer to pathology rep ort for histologic analysis.
--- OUTSIDE RECORDS SUMMARY | 2025-03-07 08:21 | XMS_ITS | Clinical Summary ---
Author Organization [facility] Address [address] [place] [address] Care Team Providers Care Alloy Weigher Name Role Phone Olivier Diaz MD Primary Care Provider [phone] David White MD Unavailable [phone] Aury Bach MD Unavailable [phone] Jessica Tobias MD Unavailable [phone] Dayne Stoddard MD Unavailable [phone] Allergies Active Allergy Reactions Criticality Noted Date Comments Penicillins Hives,Itching Medium 03/30/2016 Medications levothyroxine (SYNTHROID, LEVOTHROID) 88 mcg tablet Take 1 tablet (88 mcg total) by mouth early childhood associate before breakfast Active ondansetron ODT (ZOFRAN-ODT) 4 [...] (11/30/2019): Added automatically from request for surgery [id number] Age-related osteoporosis wit hout current pathological fracture 12/12/2018 Right shoulder pain 12/12/2018 Squamous cell carcinoma of right lung 03/26/2016 Hypothyroidism 02/20/2014 Overview (02/26/2017): HYPOTHYROIDISM NOS Non-toxic multinodular goiter 08/26/2011 Overview (02/24/2017): NONTOX MULTINODUL GOITER 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 Overview (02/26/2017): CHR LYMPHOCYT THYROIDIT Gastrostomy tube obstruction Encounters Date Type Department Care Team Description 02/26/2025 Telephone [facility] Oncology [address] [place] [address] Shauna Farley CMA 02/22/2025 11:25 AM CDT - 02/22/2025 11:59 PM CDT Hospital Encounter [facility] [address] [place] [address] Diagnosis unknown Discharge Disposition: Discharge to home or self care 02/22/2025 11:23 AM CDT - 02/22/2025 11:59 PM CDT Hospital Encounter [facility]) [address] [place] [address] Diagnosis unknown Discharge Disposition: Discharge to home or self care 02/22/2025 11:22 AM CDT - 02/22/2025 11:59 PM CDT Hospital Encounter [facility] [address] [place] [address] Diagnosis unknown Discharge Disposition: Discharge to home or self care 02/20/2025 Telephone [facility] [address] [place] [address] Libia Osuna 02/19/2025 Telephone [facility] [address] [place] [phone] Shauna Farley CMA 02/18/2025 Orders Only [facility] Scanning, Provider 02/05/2025 Orders Only [facility] Scanning, Provider from Last 3 Months Immunizations Immunization Administration Dates Next Due Influenza, [...] on file Legal 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 Gender Identity Not on file Sexual [...] 2023-2 5 season) 2024 07/31/2021, 01/17/2021, 12/27/2020 Fall Risk Assessment 06/19/2025 06/19/2024 Influenza Vaccine (Season Ended) 2025 08/29/20 Breast Cancer Screening-Mammogram Discontinued 019 Pneumococcal vaccine 65+ Completed 08/29/2020, 11/2018 Procedures Procedure Name Priority Date/Time Associated Diagnosis Comments NEURO CT OUTSIDE CONSULT Routine 02/22/2025 11:25 AM CDT Diagnosis unknown NEURO CT OUTSIDE CONSULT Routine 02/22/2025 11:24 AM CDT Diagnosis unknown CT BODY OUTSIDE CONSULT Routine 02/22/2025 11:22 AM CDT Diagnosis unknown SCAN - RADIOLOGY/IMAGING 02/18/2025 SCAN - RADIOLOGY/IMAGING 02/05/2025 from Last 3 Months Results * Neuro CT Outside Consult (02/22/2025 11:25 AM CDT) Anatomical Region Laterality Modality N/A Computed Tomogra phy 02/22/2025 1:00 PM CDT Impressions 02/22/2025 1:00 PM CDT Motion degraded study. Within this limitation, no visualized cervical lymphadenopathy is seen by CT size criteria. Patulous appearing esophagus with layering debris which places the patient at increased risk for aspiration events. The findings and impression are based on the available images, which may not be clearance representative of the entire organ or disease entity. Also note that ultrasound image acquisition is temper mill operator dependent, and that the study was performed outside our facility with no control over image acquisition. In addition, the provided images may or may not represent the [place] source data set and thus may contain changes that may lower the accuracy of this second-opinion interpretation. The findings, conclusions and recommendations within this report do not replace the initial findings, conclusions and recommendations made at the facility where the study was performed based upon the imaging and clinical condition at that time. Comparison with the prior report and clinical history is necessary. Electronically signed by: MD Otilia Alexander 02/22/2025 1:00 PM CDT EXAMINATION: RADIOLOGY CONSULTATION ON OUTSIDE IMAGING STUDY STUDY INITIALLY PERFORMED: 02/05/2025 at [facility]. TYPE OF STUDY: Multiple CT images with intravenous contrast of the neck are provided at the time of this interpretation. TYPE OF CONSULTATION: Consult on outside imaging study with images submitted through the outside imaging sharing service. The protocol was sufficient to address the clinical question. The outside report was not available at the time of the consultation. DATE OF CONSULTATION: 02/22/2025 12:55 PM HISTORY: assess for disease recurrence COMPARISON: 12/05/2024 FINDINGS: Motion degraded study. No abnormal postcontrast enhancement or mass lesion is identified. No cervical lymphadenopathy is seen by CT size criteria. The muscles of the neck are normal. The major arterial vessels of the neck demonstrate normal course and caliber. Fascial planes are preserved and the deep spaces of the neck are normal. The visualized airway is widely patent. The base of the skull and the temporal bones are normal. Limited views of the brain including the cerebellum and brainstem are normal. Bilateral cataract extractions. The visualized portions of the mastoids are normal. The visualized portions of the paranasal sinuses are normal. Unremarkable thyroid gland. Intervertebral disk heights are normal. The spinal canal is normal in caliber. No significant foraminal stenosis is appreciated. Limited examination of the upper thorax demonstrates extensive volume loss, architectural distortion and patchy areas of calcification within the right lung apex dorsally with partially visualized calcified right hilar lymph nodes and extensive bilateral centrilobular/paraseptal emphysema, overall not substantially changed compared to 12/05/[address] There is a markedly dilated, patulous appearing esophagus with layering debris, which places the patient at increased risk for aspiration events. Procedure Note Enrique Meza MD - 02/22/2025 EXAMINATION: RADIOLOGY CONSULTATION ON OUTSIDE IMAGING STUDY STUDY INITIALLY PERFORMED: 02/05/2025 at [facility]. TYPE OF STUDY: Multiple CT images with intravenous contrast of the neck are provided at the time of this interpretation. TYPE OF CONSULTATION: Consult on outside imaging study with images submitted through the outside imaging sharing service. The protocol was sufficient to address the clinical question. The outside report was not available at the time of the consultation. DATE OF CONSULTATION: 02/22/2025 12:55 PM HISTORY: assess for disease recurrence COMPARISON: 12/05/2024 FINDINGS: Motion degraded study. No abnormal postcontrast enhancement or mass lesion is identified. No cervical lymphadenopathy is seen by CT size criteria. The muscles of the neck are normal. The major arterial vessels of the neck demonstrate normal course and caliber. Fascial planes are preserved and the deep spaces of the neck are normal. The visualized airway is widely patent. The base of the skull and the temporal bones are normal. Limited views of the brain including the cerebellum and brainstem are normal. Bilateral cataract extractions. The visualized portions of the mastoids are normal. The visualized portions of the paranasal sinuses are normal. Unremarkable thyroid gland. Intervertebral disk heights are normal. The spinal canal is normal in caliber. No significant foraminal stenosis is appreciated. Limited examination of the upper thorax demonstrates extensive volume loss, architectural distortion and patchy areas of calcification within the right lung apex dorsally with partially visualized calcified right hilar lymph nodes and extensive bilateral centrilobular/paraseptal emphysema, overall not substantially changed compared to 12/05/[address] There is a markedly dilated, patulous appearing esophagus with layering debris, which places the patient at increased risk for aspiration events. IMPRESSION: Motion degraded study. Within this limitation, no visualized cervical lymphadenopathy is seen by CT size criteria. Patulous appearing esophagus with layering debris which places the patient at increased risk for aspiration events. The findings and impression are based on the available images, which may not be clearance representative of the entire organ or disease entity. Also note that ultrasound image acquisition is temper mill operator dependent, and that the study was performed outside our facility with no control over image acquisition. In addition, the provided images may or may not represent the [place] source data set and thus may contain changes that may lower the accuracy of this second-opinion interpretation. The findings, conclusions and recommendations within this report do not replace the initial findings, conclusions and recommendations made at the facility where the study was performed based upon the imaging and clinical condition at that time. Comparison with the prior report and clinical history is necessary. Electronically signed by: Enrique Meza MD us David White MD IMG CT PROCEDURES Final R esult * Neuro CT Outside Consult (02/22/2025 11:24 AM CDT) Anatomical Region Laterality Modality N/A Computed Tomogra phy 02/22/2025 12:4 5 PM CDT Impressions 02/22/2025 12:45 PM CDT No acute intracranial abnormality. No visualized intracranial metastatic disease within the limitations of a noncontrast CT. The findings and impression are based on the available images, which may not be clearance representative of the entire organ or disease entity. Also note that ultrasound image acquisition is temper mill operator dependent, and that the study was performed outside our facility with no control over image acquisition. In addition, the provided images may or may not represent the [place] source data set and thus may contain changes that may lower the accuracy of this second-opinion interpretation. The findings, conclusions and recommendations within this report do not replace the initial findings, conclusions and recommendations made at the facility where the study was performed based upon the imaging and clinical condition at that time. Comparison with the prior report and clinical history is necessary. Electronically signed by: Enrique Meza MD Narrative 02/22/2025 12:45 PM CDT EXAMINATION: RADIOLOGY CONSULTATION ON OUTSIDE IMAGING STUDY STUDY INITIALLY PERFORMED: 02/18/2025 at [facility]. TYPE OF STUDY: Multiple CT images without intravenous contrast of the head are provided at the time of this interpretation. TYPE OF CONSULTATION: Consult on outside imaging study with images submitted through the outside imaging sharing service. The protocol was sufficient to address the clinical question. The outside report was not available at the time of the consultation. DATE OF CONSULTATION: 02/22/2025 12:43 PM HISTORY: assess for disease recurrence COMPARISON: 02/05/2025, 08/04/2021 FINDINGS: There is no acute intracranial hemorrhage. Cerebral volume loss without hydrocephalus. No mass effect or midline shift is present. The hicks-white matter differentiation is normal. Periventricular white matter hypoattenuation may reflect underlying chronic small vessel ischemic changes. Carotid siphon atherosclerotic calcifications are noted. No acute calvarial fracture seen. The visualized portions of the orbits are normal. The visualized portions of the mastoids are normal. The visualized portions of the paranasal sinuses are normal. Procedure Note Enrique Meza MD - 02/22/2025 EXAMINATION: RADIOLOGY CONSULTATION ON OUTSIDE IMAGING STUDY STUDY INITIALLY PERFORMED: 02/18/2025 at [facility]. TYPE OF STUDY: Multiple CT images without intravenous contrast of the head are provided at the time of this interpretation. TYPE OF CONSULTATION: Consult on outside imaging study with images submitted through the outside imaging sharing service. The protocol was sufficient to address the clinical question. The outside report was not available at the time of the consultation. DATE OF CONSULTATION: 02/22/2025 12:43 PM HISTORY: assess for disease recurrence COMPARISON: 02/05/2025, 08/04/2021 FINDINGS: There is no acute intracranial hemorrhage. Cerebral volume loss without hydrocephalus. No mass effect or midline shift is present. The hicks-white matter differentiation is normal. Periventricular white matter hypoattenuation may reflect underlying chronic small vessel ischemic changes. Carotid siphon atherosclerotic calcifications are noted. No acute calvarial fracture seen. The visualized portions of the orbits are normal. The visualized portions of the mastoids are normal. The visualized portions of the paranasal sinuses are normal. IMPRESSION: No acute intracranial abnormality. No visualized intracranial metastatic disease within the limitations of a noncontrast CT. The findings and impression are based on the available images, which may not be clearance representative of the entire organ or disease entity. Also note that ultrasound image acquisition is temper mill operator dependent, and that the study was performed outside our facility with no control over image acquisition. In addition, the provided images may or may not represent the [place] source data set and thus may contain changes that may lower the accuracy of this second-opinion interpretation. The findings, conclusions and recommendations within this report do not replace the initial findings, conclusions and recommendations made at the facility where the study was performed based upon the imaging and clinical condition at that time. Comparison with the prior report and clinical history is necessary. Electronically signed by: Enrique Meza MD us David White MD IMG CT PROCEDURES Final R esult * CT Body Outside Consult (02/22/2025 11:22 AM CDT) Anatomical Region Laterality Modality Body N/A Computed Tomogra phy 02/22/2025 11:4 7 AM CDT Impressions 02/22/2025 11:48 AM CDT Stable posttreatment changes in the right upper lobe with multiple unchanged pulmonary nodules. No evidence of recurrent or metastatic disease in the chest. The findings, conclusions and recommendations within this report do not replace the initial findings, conclusions and recommendations made at the facility where the study was performed based upon the imaging and clinical condition at that time. Comparison with the prior report and clinical history is necessary. The provided images may or may not represent the [place] source data set and thus may contain changes that may lower the accuracy of this second-opinion interpretation. Dictated by: Chidi Stanley M.D. The radiology attending physician has personally reviewed this study, and had reviewed and/or edited this written report and agrees with it. Electronically signed by: Fabiano Espitia M.D. Narrative 02/22/2025 11:48 AM CDT EXAMINATION: RADIOLOGY CONSULTATION ON OUTSIDE IMAGING STUDY STUDY INITIALLY PERFORMED: 12/05/2024 at [facility]. TYPE OF STUDY: Multiple CT images of the chest without contrast are provided at the time of this interpretation. CONTRAST ROUTE: No contrast was administered. The protocol was adequate to address the clinical question. The outside final report was not available at the time of this second opinion interpretation. TYPE OF CONSULTATION: Consult on outside imaging study with images submitted through Outside Image Sharing Service DATE OF CONSULTATION: 02/22/2025 11:26 AM HISTORY: Lung cancer COMPARISON: 06/24/2023. FINDINGS: There is volume loss, architectural distortion, and calcification centered in the posterior apical right upper lobe as well as with calcified nodes in the right hilum, all of which is similar in appearance to 06/24/2023. There is severe centrilobular and paraseptal emphysema. 9 mm right basilar pulmonary nodule on series 2 image 89 is unchanged. A 3 mm right basilar pulmonary nodule on image 95 is unchanged. A 2 mm right middle lobe pulmonary nodule on image 63 is unchanged. A 2 mm left upper lobe pulmonary nodule on image 50 is unchanged. There is no new or enlarging pulmonary nodule. There is no pleural effusion or pneumothorax. Heart size is normal without pericardial effusion. Normal caliber thoracic aorta with moderate to severe calcific atherosclerosis. There are moderate coronary vascular calcifications. There is a small hiatal hernia. The esophagus is decompressed. There is no thoracic lymphadenopathy. Unchanged sclerosis of multiple right posterior ribs and upper thoracic vertebral bodies on the right with areas of ununited pathologic fractures including the 1st and 5th ribs in keeping with post radiation changes. There are unchanged compression fractures of the T4, T5, and T6 vertebral bodies. No new compression fracture. There is no suspicious osseous lesion. Procedure Note Fabiano Espitia MD PhD - 02/22/2025 EXAMINATION: RADIOLOGY CONSULTATION ON OUTSIDE IMAGING STUDY STUDY INITIALLY PERFORMED: 12/05/2024 at [facility]. TYPE OF STUDY: Multiple CT images of the chest without contrast are provided at the time of this interpretation. CONTRAST ROUTE: No contrast was administered. The protocol was adequate to address the clinical question. The outside final report was not available at the time of this second opinion interpretation. TYPE OF CONSULTATION: Consult on outside imaging study with images submitted through Outside Image Sharing Service DATE OF CONSULTATION: 02/22/2025 11:26 AM HISTORY: Lung cancer COMPARISON: 06/24/2023. FINDINGS: There is volume loss, architectural distortion, and calcification centered in the posterior apical right upper lobe as well as with calcified nodes in the right hilum, all of which is similar in appearance to 06/24/2023. There is severe centrilobular and paraseptal emphysema. 9 mm right basilar pulmonary nodule on series 2 image 89 is unchanged. A 3 mm right basilar pulmonary nodule on image 95 is unchanged. A 2 mm right middle lobe pulmonary nodule on image 63 is unchanged. A 2 mm left upper lobe pulmonary nodule on image 50 is unchanged. There is no new or enlarging pulmonary nodule. There is no pleural effusion or pneumothorax. Heart size is normal without pericardial effusion. Normal caliber thoracic aorta with moderate to severe calcific atherosclerosis. There are moderate coronary vascular calcifications. There is a small hiatal hernia. The esophagus is decompressed. There is no thoracic lymphadenopathy. Unchanged sclerosis of multiple right posterior ribs and upper thoracic vertebral bodies on the right with areas of ununited pathologic fractures including the 1st and 5th ribs in keeping with post radiation changes. There are unchanged compression fractures of the T4, T5, and T6 vertebral bodies. No new compression fracture. There is no suspicious osseous lesion. IMPRESSION: Stable posttreatment changes in the right upper lobe with multiple unchanged pulmonary nodules. No evidence of recurrent or metastatic disease in the chest. The findings, conclusions and recommendations within this report do not replace the initial findings, conclusions and recommendations made at the facility where the study was performed based upon the imaging and clinical condition at that time. Comparison with the prior report and clinical history is necessary. The provided images may or may not represent the [place] source data set and thus may contain changes that may lower the accuracy of this second-opinion interpretation. Dictated by: Chidi Stanley M.D. The radiology attending physician has personally reviewed this study, and had reviewed and/or edited this written report and agrees with it. Electronically signed by: Fabiano Espitia M.D. us David White MD IMG CT PROCEDURES Final R esult * SCAN - RADIOLOGY/IMAGING (02/18/2025) Anatomical Region Laterality Modality Other us Provider Scanning Final Result * SCAN - RADIOLOGY/IMAGING (02/05/2025) Anatomical Region Laterality Modality Other us Provider Scanning Final Result from Last 3 Months Insurance [facility] [employer] Member Subscriber Plan / Payer (Ef fective 2013-Present) Name:Laurent Wall Relation to Subscriber:Self Name:Laurent Wall Payer ID:[id number] Group ID:[id number] Type:COMMERCIAL Address: [facility] [address] [place] MEDICARE MEDICARE [facility] [place] Member Subscriber Plan / Payer (Ef fective 2013-Present) Name:LAURENT HANSON Relation to Subscriber:Self Name:Laurent Wall Payer ID:[id number] Group ID:[id number] Type:COMMERCIAL Address: [facility] [address] [place], [place] MEDICARE COMMERCIAL [facility] Advance Directives For more information, please contact: [phone] * Full Code (Latest Code Status on File) Date Activated Date Inactivated Comments 06/24/2023 10:54 AM 06/24/2023 7:17 PM * Full Code Date Activated Date Inactivated Comments 01/18/2020 8:08 AM 01/18/2020 1:18 PM * Full Code Date Activated Date Inactivated Comments 12/22/2019 8:28 AM 12/22/2019 2:51 PM * Full Code Date Activated Date Inactivated Comments 02/08/2018 11:19 PM 02/09/2018 2:40 PM Care Teams Alloy Weigher Relationship Specialty Start Date End Date Olivier Diaz MD PCP - General 01/11/17 David White MD [address] [place] [address] Medical Oncologist/Operations Chief Medical Oncology 01/10/21 Aury Bach MD [address] [place], [place] [id number] Referring Physician Critical Care Med 03/23/22 Jessica Tobias MD [address] [place] [address] Consulting Physician Surgery 04/22/23 Dayne Stoddard MD [address] [facility] [place] [id number] [place] [address] Surgeon Colon and Rectal Surgery 06/15/23
--- OUTSIDE RECORDS SUMMARY | 2025-03-07 08:21 | XMS_ITS | Referral Summary ---
Author Organization [facility] Address [address] [place] [address] Care Team Providers Care Home Health Billing Specialist Name Role Phone Olivier Diaz MD Primary Care Provider David White MD Unavailable [phone] Aury Bach MD Unavailable Jessica Tobias MD Unavailable Dayne Stoddard MD Unavailable [phone] Encounters Date Type Department Care Team Description 02/26/2025 Telephone [facility] [address] [place] [address] Shauna Farley CMA 02/22/2025 11:25 AM CDT - 02/22/2025 11:59 PM CDT Hospital Encounter [facility] [place] [address] Diagnosis unknown Discharge Disposition: Discharge to home or self care 02/22/2025 11:23 AM CDT - 02/22/2025 11:59 PM CDT Hospital Encounter [facility]) [address] [place] [address] Diagnosis unknown Discharge Disposition: Discharge to home or self care 02/22/2025 11:22 AM CDT - 02/22/2025 11:59 PM CDT Hospital Encounter [facility] [address] [place] [address] Diagnosis unknown Discharge Disposition: Discharge to home or self care 02/20/2025 Telephone [facility] [address] [place] [address] Libia Osuna 02/19/2025 Telephone [facility] [address] [place] [address] Shauna Farley CMA 02/18/2025 Orders Only [facility] Scanning, Provider 02/05/2025 Orders Only [facility] Scanning, Provider from Last 3 Months Allergies Active Allergy Reactions Criticality Noted Date Comments Penicillins Hives,Itching Medium 03/30/2016 Medications levothyroxine (SYNTHROID, LEVOTHROID) 88 mcg tablet Take 1 tablet (88 mcg total) by mouth mine utility operator before breakfast Active ondansetron ODT (ZOFRAN-ODT) 4 [...] (11/30/2019): Added automatically from request for surgery [id number] Age-related osteoporosis wit hout current pathological fracture [...] on file 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 Also note that ultrasound image acquisition is arc welding machine operator dependent, and that the study was performed outside our facility with no control over image acquisition. In addition, the provided images may or may not represent the [place] source data set and thus may contain [...] IMAGING STUDY STUDY INITIALLY PERFORMED: 02/05/2025 at [facility]. TYPE OF STUDY: Multiple CT images with [...] IMAGING STUDY STUDY INITIALLY PERFORMED: 02/05/2025 at [facility]. TYPE OF STUDY: Multiple CT images with [...] the available images, which may not be service center representative of the entire organ or disease entity. Also note that ultrasound image acquisition is arc welding machine operator dependent, and that the study was performed outside our facility with no control over image acquisition. In addition, the provided images may or may not represent the [place] source data set and thus may contain [...] the available images, which may not be service center representative of the entire organ or disease entity. Also note that ultrasound image acquisition is arc welding machine operator dependent, and that the study was performed outside our facility with no control over image acquisition. In addition, the provided images may or may not represent the [place] source data set and thus may contain [...] IMAGING STUDY STUDY INITIALLY PERFORMED: 02/18/2025 at [facility]. TYPE OF STUDY: Multiple CT images without [...] IMAGING STUDY STUDY INITIALLY PERFORMED: 02/18/2025 at [facility]. TYPE OF STUDY: Multiple CT images without [...] the available images, which may not be service center representative of the entire organ or disease entity. Also note that ultrasound image acquisition is arc welding machine operator dependent, and that the study was performed outside our facility with no control over image acquisition. In addition, the provided images may or may not represent the [place] source data set and thus may contain [...] images may or may not represent the [place] source data set and thus may contain [...] IMAGING STUDY STUDY INITIALLY PERFORMED: 12/05/2024 at [facility]. TYPE OF STUDY: Multiple CT images of [...] IMAGING STUDY STUDY INITIALLY PERFORMED: 12/05/2024 at [facility]. TYPE OF STUDY: Multiple CT images of [...] images may or may not represent the [place] source data set and thus may contain [...] Result from Last 3 Months Insurance [facility] MEDICARE MEDICARE [facility] MEDICARE COMMERCIAL [facility]IC [facility] [place] Advance Directives For more information, please contact: [phone] * Full Code (Latest Code Status on File) Date Activated Date Inactivated Comments 06/24/2023 10:54 AM 06/24/2023 7:17 PM * Full Code Date Activated Date Inactivated Comments 01/18/2020 8:08 AM 01/18/2020 1:18 PM * Full Code Date Activated Date Inactivated Comments 12/22/2019 8:28 AM 12/22/2019 2:51 PM * Full Code Date Activated Date Inactivated Comments 02/08/2018 11:19 PM 02/09/2018 2:40 PM Care Teams Home Health Billing Specialist Relationship Specialty Start Date End Date Olivier Diaz MD PCP - General 01/11/17 David White MD [address] [place] [address] Medical Oncologist/Spinner Open End Medical Oncology 01/10/21 Aury aBch MD [address] [place] [address] Referring Physician Critical Care Med 03/23/22 Jessica Tobias MD [address] [place] [address] Consulting Physician Surgery 04/22/23 Dayne Stoddard MD [address] [facility] [phone] [place] [address] Surgeon Colon and Rectal Surgery 06/15/23
--- OUTSIDE RECORDS SUMMARY | 2025-03-07 08:21 | XMS_ITS | Encounter Summary ---
Author Organization [facility] Address [address] [place] [address] Phone Care Team Providers Care Surgeon Assistant Name Role Phone Olivier Diaz MD Primary Care Provider [phone] David White MD Unavailable [phone] Aury Bach MD Unavailable [phone] Jessica Tobias MD Unavailable [phone] Dayne Stoddard MD Unavailable [phone] Encounter Details Date Type Department Care Team (Latest Contact Info) Description 02/18/2025 Orders Only [facility] Scanning, Provider Social History Tobacco Use Types Packs/Day Years [...] on file 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 Gender Identity Not on file Sexual Orientation Not on file documented as of this encounter Plan of Treatment Not on file documented as of this encounter Procedures Procedure Name Priority Date/Time Associated Diagnosis Comments SCAN - RADIOLOGY/IMAGING 02/18/2025 documented in this encounter Results * SCAN - RADIOLOGY/IMAGING (02/18/2025) Anatomical Region Laterality Modality Other us Provider Scanning Final Result documented in this encounter Visit Diagnoses Not on filedocumented in this encounter Care Teams Surgeon Assistant Relationship Specialty Start Date End Date Olivier Diaz MD PCP - General 01/11/17 David White MD [address] [place] [address] Medical Oncologist/Cattle Dealer Medical Oncology 01/10/21 Aury Bach MD [address] [place] [address] Referring Physician Critical Care Med 03/23/22 Jessica Tobias MD [address] [place], [place] [address] Consulting Physician Surgery 04/22/23 Dayne Stoddard MD [address] [facility] [phone] [place] [address] Surgeon Colon and Rectal Surgery 06/15/23 documented as of this encounter
--- OUTSIDE RECORDS SUMMARY | 2025-03-07 08:21 | XMS_ITS | Encounter Summary ---
Author Organization [facility] Healthcare Address [address] [place] [address] Care Team Providers Care Metal Riveter Name Role Phone Olivier Diaz MD Primary Care Provider David White MD Unavailable Aury Bach MD Unavailable [phone] Jessica Tobias MD Unavailable [phone] Dayne Stoddard MD Unavailable [phone] Encounter Details Date Type Department Care Team (Late st Contact Info) Description 01/15/2021 Telephone [facility] - Interventional Radiology [address] [place] [address] Ines Rose, EMANUEL Social History Tobacco Use Types Packs/Day Years Used Date Smoking Tobacco: Former Cigarettes Smokeless Tobacco: Never Alcohol Use Standard Drinks/Week Comments No 0 (1 standard drink = 0.6 oz pur e alcohol) Comments No Sex and Gender Information Value Date Recorded Sex Assigned at Not on file 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 Gender Identity Not on file Sexual Orientation Not on file documented as of this encounter Plan of Treatment Not on file documented as of this encounter Visit Diagnoses Not on filedocumented in this encounter Care Teams Metal Riveter Relationship Specialty Start Date End Date Olivier Diaz MD PCP - General 01/11/17 David White MD [address] [place] [address] Medical Oncologist/Miller Apprentice Medical Oncology 01/10/21 Aury Bach MD [address] [place] [address] Referring Physician Critical Care Med 03/23/22 Jessica Tobias MD [address] [place] [address] Consulting Physician Surgery 04/22/23 Dayne Stoddard MD [address] [facility] [phone] [place] [address] Surgeon Colon and Rectal Surgery 06/15/23 documented as of this encounter
--- OUTSIDE RECORDS SUMMARY | 2025-03-07 08:21 | XMS_ITS | Encounter Summary ---
Author Organization [facility] Address [address] [place] [address] Phone Care Team Providers Care Mixer Machine Feeder Name Role Phone Olivier Diaz MD Primary Care Provider [phone] David White MD Unavailable [phone] Aury Bach MD Unavailable [phone] Jessica Tobias MD Unavailable [phone] Dayne Stoddard MD Unavailable [phone] Encounter Details Date Type Department Care Team (Latest Contact Info) Description 12/05/2024 Orders Only [facility] Scanning, Provider [...] on file 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 Gender Identity Not on file Sexual Orientation Not on file documented as of this encounter Plan of Treatment Not on file documented as of this encounter Procedures Procedure Name Priority Date/Time Associated Diagnosis Comments SCAN - RADIOLOGY/IMAGING 12/05/2024 documented in this encounter Results * SCAN - RADIOLOGY/IMAGING (12/05/2024) Anatomical Region Laterality Modality Other us Provider Scanning Final Result documented in this encounter Visit Diagnoses Not on filedocumented in this encounter Care Teams Mixer Machine Feeder Relationship Specialty Start Date End Date Olivier Diaz MD PCP - General 01/11/17 David White MD [address] [place] [address] Medical Oncologist/Barrel Drainer Medical Oncology 01/10/21 Aury Bach MD [address] [place] [address] Referring Physician Critical Care Med 03/23/22 Jessica Tobias MD [address] [place], [place] [address] Consulting Physician Surgery 04/22/23 Dayne Stoddard MD [address] [facility] [phone] [place] [address] Surgeon Colon and Rectal Surgery 06/15/23 documented as of this encounter
--- OUTSIDE RECORDS SUMMARY | 2025-03-07 08:21 | XMS_ITS | Encounter Summary ---
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 Gender Identity Not on file Sexual Orientation Not on file documented as of this encounter Plan of Treatment Not on file documented as of this encounter Procedures Procedure Name Priority Date/Time Associated Diagnosis Comments SCAN - RADIOLOGY/IMAGING 02/05/2025 documented in this encounter Results * SCAN - RADIOLOGY/IMAGING (02/05/2025) Anatomical Region Laterality Modality Other us Provider Scanning Final Result documented in this encounter Visit Diagnoses Not on filedocumented in this encounter Care Teams Basin Cleaner Relationship Specialty Start Date End Date Olivier Diaz MD PCP - General 01/11/17 David White MD [address] [place] [address] Medical Oncologist/Computer Systems Auditor Medical Oncology 01/10/21 Aury Bach MD [address] [place] [address] Referring Physician Critical Care Med 03/23/22 Jessica Tobias MD [address] [place], [place] [address] Consulting Physician Surgery 04/22/23 Dayne Stoddard MD [address] [facility] [phone] [place] [address] Surgeon Colon and Rectal Surgery 06/15/23 documented as of this encounter
--- OUTSIDE RECORDS SUMMARY | 2025-03-07 08:21 | XMS_ITS ---
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
--- OUTSIDE RECORDS SUMMARY | 2025-03-07 08:21 | XMS_ITS | Encounter Summary ---
Author Organization [facility] Address [address] [place] [address] Phone Care Team Providers Care Crystal Slicer Name Role Phone Olivier Diaz MD Primary Care Provider [phone] David White MD Unavailable [phone] Aury Bach MD Unavailable [phone] Jessica Tobias MD Unavailable [phone] Dayne Stoddard MD Unavailable [phone] Encounter Details Date Type Department Care Team (Late st Contact Info) Description 02/20/2025 Telephone [facility] [address] [place] [address] Libia Osuna Social History Tobacco Use Types Packs/Day Years [...] on file 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 Gender Identity Not on file Sexual Orientation Not on file documented as of this encounter Plan of Treatment Not on file documented as of this encounter Visit Diagnoses Not on filedocumented in this encounter Care Teams Crystal Slicer Relationship Specialty Start Date End Date Olivier Diaz MD PCP - General 01/11/17 David White MD [address] [place] [address] Medical Oncologist/Machine Sewer Medical Oncology 01/10/21 Aury Bach MD [address] [place], [place] [address] Referring Physician Critical Care Med 03/23/22 Jessica Tobias MD [address] [place] [address] Consulting Physician Surgery 04/22/23 Dayne Stoddard MD [address] [facility] [phone] [place] [address] Surgeon Colon and Rectal Surgery 06/15/23 documented as of this encounter
--- OUTSIDE RECORDS SUMMARY | 2025-03-07 08:22 | XMS_ITS | Clinical Summary ---
Author Organization [facility] Address [address] [place] [address] Care Team Providers Care Flamer After Lasting Name Role Phone Olivier Diaz MD Primary Care Provider [phone] Allergies Active Allergy Reactions Criticality Noted Date [...] - 1-dose 75+ series) 2023 COVID-19 Vaccine (4 - 2023-2 5 season) 2024 07/31/2021, 01/17/2021, 12/27/2020 Pneumococcal Vaccine: 50+ Years Completed 08/29/2020, 08/22/2019 Meningococcal B Vaccine Aged Out No l onger eligible based on patient's age to complete this topic Meningococcal Vaccine Aged Out No judith dorita eligible based on patient's age to complete this topic RSV Immunizations Under 20 Months Aged Out No longer eligible b ased on patient's age to complete this topic Insurance [place] [address] [place] [id number] [employer] Care Teams Flamer After Lasting Relationship Specialty Start Date End Date Olivier Diaz MD [address] [place] [address] PCP - General INTERNAL MEDICINE 05/11/19
--- OUTSIDE RECORDS SUMMARY | 2025-03-07 08:22 | XMS_ITS | Encounter Summary ---
Author Organization [facility] Healthcare Address [address] [place] [address] Care Team Providers Care Batch Maker Name Role Phone Olivier Diaz MD Primary Care Provider David White MD Unavailable [phone] Aury Bach MD Unavailable [phone] Jessica Tobias MD Unavailable [phone] Dayne Stoddard MD Unavailable [phone] Encounter Details Date Type Department Care Team (Late st Contact Info) Description 09/13/2019 Telephone [facility] - Interventional Radiology [address] [place] [address] Danielle Ferguson RN Social History Tobacco Use Types Packs/Day Years Used Date Smoking Tobacco: Former Cigarettes Smokeless Tobacco: Never Alcohol Use Standard Drinks/Week Comments No 0 (1 standard drink = 0.6 oz pur e alcohol) Comments Unknown Sex and Gender Information Value Date Recorded Sex Assigned at Not on file 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 Gender Identity Not on file Sexual Orientation Not on file documented as of this encounter Plan of Treatment Not on file documented as of this encounter Visit Diagnoses Not on filedocumented in this encounter Care Teams Batch Maker Relationship Specialty Start Date End Date Olivier Diaz MD PCP - General 2/20/17 David White MD [address] [place] [address] Medical Oncologist/Dual Rate Dealer Medical Oncology 01/10/21 Aury Bach MD [address] [place], [place] [address] Referring Physician Critical Care Med 03/23/22 Jessica Tobias MD [address] [place], [place] [address] Consulting Physician Surgery 04/22/23 Dayne Stoddard MD [address] [facility] [phone] [place] [address] Surgeon Colon and Rectal Surgery 06/15/23 documented as of this encounter
== END 2025-03-07 08:09 | disposition home or self-care (01) ==
PROVIDERS: PCP Internal Medicine; Visit Provider Nurse Practitioner Family
DX: R92.8 Other abnormal and inconclusive findings on diagnostic imaging of breast (principal)
CPT/HCPCS: 19083; 77065; 88305; A4648

== ENCOUNTER 2025-03-29 10:37 | Outpatient (CLI) | payer MEDICARE, OTHER, SELFPAY ==
--- OUTSIDE RECORDS SUMMARY | 2025-03-15 11:44 | XMS_ITS | Encounter Summary ---
Author Organization [facility] Healthcare Address [address] [place] [address] Care Team Providers Care Senior Medical Transcriptionist Name Role Phone Olivier Diaz MD Primary Care Provider [phone] David White MD Unavailable [phone] Aury Bach MD Unavailable [phone] Jessica Tobias MD Unavailable [phone] Dayne Stoddard MD Unavailable [phone] Encounter Details Date Type Department Care Team (Late st Contact Info) Description 01/15/2021 Telephone [facility] - Interventional Radiology [address] [place] [address] Ines Rose, EMANUEL Social History Tobacco Use Types Packs/Day Years Used Date Smoking Tobacco: Former Cigarettes Smokeless Tobacco: Never Alcohol Use Standard Drinks/Week Comments No 0 (1 standard drink = 0.6 oz pur e alcohol) Comments No Sex and Gender Information Value Date Recorded Sex Assigned at Not on file 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 Gender Identity Not on file Sexual Orientation Not on file documented as of this encounter Plan of Treatment Not on file documented as of this encounter Visit Diagnoses Not on filedocumented in this encounter Care Teams Senior Medical Transcriptionist Relationship Specialty Start Date End Date Olivier Diaz MD PCP - General 01/11/17 David White MD [address] [place] [address] Medical Oncologist/Transformer Shop Supervisor Medical Oncology 01/10/21 Aury Bach MD [address] [place] [address] Referring Physician Critical Care Med 03/23/22 Jessica Tobias MD [address] [place] [address] Consulting Physician Surgery 04/22/23 Dayne Stoddard MD [address] [facility] [phone] [place] [address] Surgeon Colon and Rectal Surgery 06/15/23 documented as of this encounter
--- OUTSIDE RECORDS SUMMARY | 2025-03-15 11:44 | XMS_ITS ---
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
--- OUTSIDE RECORDS SUMMARY | 2025-03-15 11:44 | XMS_ITS | Encounter Summary ---
Author Organization [facility] Address [address] [place] [address] Care Team Providers Care Thiokol Operator Name Role Phone Olivier Diaz MD Primary Care Provider [phone] David White MD Unavailable Aury Bach MD Unavailable [phone] Jessica Tobias MD Unavailable [phone] Dayne Stoddard MD Unavailable [phone] Encounter Details Date Type Department Care Team (Late st Contact Info) Description 09/13/2019 Telephone [facility] - Interventional Radiology [address] [place] [address] Danielle Ferguson RN Social History Tobacco Use Types Packs/Day Years Used Date Smoking Tobacco: Former Cigarettes Smokeless Tobacco: Never Alcohol Use Standard Drinks/Week Comments No 0 (1 standard drink = 0.6 oz pur e alcohol) Comments Unknown Sex and Gender Information Value Date Recorded Sex Assigned at Not on file 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 Gender Identity Not on file Sexual Orientation Not on file documented as of this encounter Plan of Treatment Not on file documented as of this encounter Visit Diagnoses Not on filedocumented in this encounter Care Teams Thiokol Operator Relationship Specialty Start Date End Date Olivier Diaz MD PCP - General 2/20/17 David White MD [address] [place] [address] Medical Oncologist/Photo Finish Photographer Medical Oncology 01/10/21 Aury Bach MD [address] [place], [place] [id number] Referring Physician Critical Care Med 03/23/22 Jessica Tobias MD [address] [place], [place] [address] Consulting Physician Surgery 04/22/23 Dayne Stoddard MD [address] [facility] [phone] [place] [address] Surgeon Colon and Rectal Surgery 06/15/23 documented as of this encounter
--- OUTSIDE RECORDS SUMMARY | 2025-03-15 11:44 | XMS_ITS | Clinical Summary ---
Author Organization [facility] Address [address] [place] [address] Care Team Providers Care Sales And Service Representative Name Role Phone Olivier Diaz MD Primary Care Provider [phone] David White MD Unavailable [phone] Aury Bach MD Unavailable [phone] Jessica Tobias MD Unavailable [phone] Dayne Stoddard MD Unavailable [phone] Allergies Active Allergy Reactions Criticality Noted Date Comments Penicillins Hives,Itching Medium 03/30/2016 Medications levothyroxine (SYNTHROID, LEVOTHROID) 88 mcg tablet Take 1 tablet (88 mcg total) by mouth healthcare financial analyst before breakfast Active ondansetron ODT (ZOFRAN-ODT) 4 [...] (11/30/2019): Added automatically from request for surgery [id number] Age-related osteoporosis wit hout current pathological fracture 12/12/2018 Right shoulder pain 12/12/2018 Squamous cell carcinoma of right lung 03/26/2016 Hypothyroidism 02/20/2014 Overview (02/26/2017): HYPOTHYROIDISM NOS Non-toxic multinodular goiter 08/26/2011 Overview (02/24/2017): NONTOX MULTINODUL GOITER 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 Overview (02/26/2017): CHR LYMPHOCYT THYROIDIT Gastrostomy tube obstruction Encounters Date Type Department Care Team Description 02/26/2025 Telephone [facility] Oncology [address] [place] [address] Shauna Farley CMA 02/22/2025 11:25 AM CDT - 02/22/2025 11:59 PM CDT Hospital Encounter [facility] [address] [place] [address] Diagnosis unknown Discharge Disposition: Discharge to home or self care 02/22/2025 11:23 AM CDT - 02/22/2025 11:59 PM CDT Hospital Encounter [facility] ([facility]) [address] [place] [address] Diagnosis unknown Discharge Disposition: Discharge to home or self care 02/22/2025 11:22 AM CDT - 02/22/2025 11:59 PM CDT Hospital Encounter [facility] ([facility]) [address] [place] [address] Diagnosis unknown Discharge Disposition: Discharge to home or self care 02/20/2025 Telephone [facility] Oncology [address] [place] [address] Libia Osuna 02/19/2025 Telephone [facility] Oncology [address] [place] [address] Shauna Farley CMA 02/18/2025 Orders Only [facility] [...] on file 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 Also note that ultrasound image acquisition is drying equipment operator dependent, and that the study was performed outside our facility with no control over image acquisition. In addition, the provided images may or may not represent the [place] source data set and thus may contain [...] IMAGING STUDY STUDY INITIALLY PERFORMED: 02/05/2025 at [facility]. TYPE OF STUDY: Multiple CT images [...] IMAGING STUDY STUDY INITIALLY PERFORMED: 02/05/2025 at [facility]. TYPE OF STUDY: Multiple CT images [...] the available images, which may not be equal opportunity representative of the entire organ or disease entity. Also note that ultrasound image acquisition is drying equipment operator dependent, and that the study was performed outside our facility with no control over image acquisition. In addition, the provided images may or may not represent the [place] source data set and thus may contain [...] signed by: Enrique Meza MD us David hWite MD IMG CT PROCEDURES Final R esult [...] the available images, which may not be equal opportunity representative of the entire organ or disease entity. Also note that ultrasound image acquisition is drying equipment operator dependent, and that the study was performed outside our facility with no control over image acquisition. In addition, the provided images may or may not represent the [place] source data set and thus may contain [...] IMAGING STUDY STUDY INITIALLY PERFORMED: 02/18/2025 at [facility]. TYPE OF STUDY: Multiple CT images [...] IMAGING STUDY STUDY INITIALLY PERFORMED: 02/18/2025 at [facility]. TYPE OF STUDY: Multiple CT images [...] the available images, which may not be equal opportunity representative of the entire organ or disease entity. Also note that ultrasound image acquisition is drying equipment operator dependent, and that the study was performed outside our facility with no control over image acquisition. In addition, the provided images may or may not represent the [place] source data set and thus may contain [...] images may or may not represent the [place] source data set and thus may contain [...] IMAGING STUDY STUDY INITIALLY PERFORMED: 12/05/2024 at [facility]. TYPE OF STUDY: Multiple CT images of [...] IMAGING STUDY STUDY INITIALLY PERFORMED: 12/05/2024 at [facility]. TYPE OF STUDY: Multiple CT images of [...] images may or may not represent the [place] source data set and thus may contain [...] Result from Last 3 Months Insurance [facility] Member Subscriber Plan / Payer (Ef fective 2013-Present) Name:Laurent Wall Relation to Subscriber:Self Name:Laurent Wall Payer ID:[id number] Group ID:[id number] Type:COMMERCIAL Address: [facility] [address] [place] MEDICARE MEDICARE [facility] Member Subscriber Plan / Payer (Ef fective 2013-Present) Name:LAURENT HANSON Relation to Subscriber:Self Name:Laurent Wall Payer ID:[id number] Group ID:[id number] Type:COMMERCIAL Address: [facility] [address] [place], [place] MEDICARE COMMERCIAL [facility] Advance Directives For more information, please contact: [phone] * Full Code (Latest Code Status on File) Date Activated Date Inactivated Comments 06/24/2023 10:54 AM 06/24/2023 7:17 PM * Full Code Date Activated Date Inactivated Comments 01/18/2020 8:08 AM 01/18/2020 1:18 PM * Full Code Date Activated Date Inactivated Comments 12/22/2019 8:28 AM 12/22/2019 2:51 PM * Full Code Date Activated Date Inactivated Comments 02/08/2018 11:19 PM 02/09/2018 2:40 PM Care Teams Sales And Service Representative Relationship Specialty Start Date End Date Olivier Diaz MD PCP - General 01/11/17 David White MD [address] [place] [address] Medical Oncologist/E Marketing Specialist Medical Oncology 01/10/21 Aury Bach MD [address] [place], [place] [address] Referring Physician Critical Care Med 03/23/22 Jessica Tobias MD [address] [place] [address] Consulting Physician Surgery 04/22/23 Dayne Stoddard MD [address] [facility] [phone] [place] [address] Surgeon Colon and Rectal Surgery 06/15/23
--- OUTSIDE RECORDS SUMMARY | 2025-03-15 11:44 | XMS_ITS | Encounter Summary ---
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 Gender Identity Not on file Sexual Orientation [...] on filedocumented in this encounter Care Teams Eviction Specialist Relationship Specialty Start Date End Date Olivier Diaz MD PCP - General 01/11/17 David White MD [address] [place] [address] Medical Oncologist/Mattress Inspector Medical Oncology 01/10/21 Aury Bach MD [address] [place] [address] Referring Physician Critical Care Med 03/23/22 Jessica Tobias MD [address] [place], [place] [address] Consulting Physician Surgery 04/22/23 Dayne Stoddard MD [address] [facility] [place] [phone] [place] [address] Surgeon Colon and Rectal Surgery 06/15/23 documented as of this encounter
--- OUTSIDE RECORDS SUMMARY | 2025-03-15 11:44 | XMS_ITS | Encounter Summary ---
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 Gender Identity Not on file Sexual Orientation [...] on filedocumented in this encounter Care Teams Pharmacy Clinical Coordinator Relationship Specialty Start Date End Date Olivier Diaz MD PCP - General 01/11/17 David White MD [address] [place] [address] Medical Oncologist/Drum Plater Medical Oncology 01/10/21 Aury Bach MD [address] [place] [address] Referring Physician Critical Care Med 03/23/22 Jessica Tobias MD [address] [place], [place] [address] Consulting Physician Surgery 04/22/23 Dayne Stoddard MD [address] [facility] [place] [place] [phone] [place] [address] Surgeon Colon and Rectal Surgery 06/15/23 documented as of this encounter
--- OUTSIDE RECORDS SUMMARY | 2025-03-15 11:44 | XMS_ITS | Encounter Summary ---
Author Organization [facility] Address [address] [place] [address] Phone Care Team Providers Care Dry Heat Cabinet Attendant Name Role Phone Olivier Diaz MD Primary Care Provider [phone] David White MD Unavailable [phone] Aury Bach MD Unavailable [phone] Jessica Tobias MD Unavailable [phone] Dayne Stoddard MD Unavailable [phone] Encounter Details Date Type Department Care Team (Late st Contact Info) Description 02/20/2025 Telephone [facility] [address] [place] [address] Libia Osuna Social History Tobacco Use Types [...] on file 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 Gender Identity Not on file Sexual Orientation Not on file documented as of this encounter Plan of Treatment Not on file documented as of this encounter Visit Diagnoses Not on filedocumented in this encounter Care Teams Dry Heat Cabinet Attendant Relationship Specialty Start Date End Date Olivier Diaz MD PCP - General 01/11/17 David White MD [address] [place] [address] Medical Oncologist/Construction Operations Manager Medical Oncology 01/10/21 Aury Bach MD [address] [place], [place] [address] Referring Physician Critical Care Med 03/23/22 Jessica Tobias MD [address] [place] [address] Consulting Physician Surgery 04/22/23 Dayne Stoddard MD [address] [facility] [phone] [place] [address] Surgeon Colon and Rectal Surgery 06/15/23 documented as of this encounter
--- OUTSIDE RECORDS SUMMARY | 2025-03-15 11:44 | XMS_ITS | Encounter Summary ---
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 Gender Identity Not on file Sexual Orientation [...] on filedocumented in this encounter Care Teams Curb Hop Relationship Specialty Start Date End Date Olivier Diaz MD PCP - General 01/11/17 David White MD [address] [place] [address] Medical Oncologist/Tool Marker Medical Oncology 01/10/21 Aury Bach MD [address] [place] [address] Referring Physician Critical Care Med 03/23/22 Jessica Tobias MD [address] [place], [place] [address] Consulting Physician Surgery 04/22/23 Dayne Stoddard MD [address] [facility] [place] [facility] [place] [phone] [place] [address] Surgeon Colon and Rectal Surgery 06/15/23 documented as of this encounter
--- OUTSIDE RECORDS SUMMARY | 2025-03-15 11:44 | XMS_ITS | Clinical Summary ---
Author Organization [facility] Address [address] [place] [address] Care Team Providers Care Quote Clerk Name Role Phone Olivier Diaz MD Primary Care Provider [phone] Allergies Active Allergy Reactions Criticality Noted Date [...] age to complete this topic Insurance [place] [address] [place] [id number] [employer] Care Teams Quote Clerk Relationship Specialty Start Date End Date Olivier Diaz MD [address] [place] [phone] PCP - General INTERNAL MEDICINE 05/11/19
--- OUTSIDE RECORDS SUMMARY | 2025-03-15 11:44 | XMS_ITS | Referral Summary ---
Author Organization [facility] Address [address] [place] [address] Care Team Providers Care Optical Instrument Specialist Name Role Phone Olivier Diaz MD Primary Care Provider David White MD Unavailable [phone] Aury Bach MD Unavailable Jessica Tobias MD Unavailable [phone] Dayne Stoddard MD Unavailable [phone] Encounters Date Type Department Care Team Description 02/26/2025 Telephone [facility] [address] [place] [address] Shauna Farley CMA 02/22/2025 11:25 AM CDT - 02/22/2025 11:59 PM CDT Hospital Encounter [facility] [place] [address] Diagnosis unknown Discharge Disposition: Discharge to home or self care 02/22/2025 11:23 AM CDT - 02/22/2025 11:59 PM CDT Hospital Encounter [facility]) [address] [place] [address] Diagnosis unknown Discharge Disposition: Discharge to home or self care 02/22/2025 11:22 AM CDT - 02/22/2025 11:59 PM CDT Hospital Encounter [facility] [address] [place] [address] Diagnosis unknown Discharge Disposition: Discharge to home or self care 02/20/2025 Telephone [facility] Oncology [address] [place] [address] Libia Osuna 02/19/2025 Telephone [facility] Oncology [address] [place] [address] Shauna Farley CMA 02/18/2025 Orders Only [facility] Scanning, Provider 02/05/2025 Orders Only [facility] Scanning, Provider from Last 3 Months Allergies Active Allergy Reactions Criticality Noted Date Comments Penicillins Hives,Itching Medium 03/30/2016 Medications levothyroxine (SYNTHROID, LEVOTHROID) 88 mcg tablet Take 1 tablet (88 mcg total) by mouth medical csr before breakfast Active ondansetron ODT (ZOFRAN-ODT) 4 [...] (11/30/2019): Added automatically from request for surgery [id number] Age-related osteoporosis wit hout current pathological fracture [...] on file 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 Also note that ultrasound image acquisition is laser beam machine operator dependent, and that the study was performed outside our facility with no control over image acquisition. In addition, the provided images may or may not represent the [place] source data set and thus may contain [...] IMAGING STUDY STUDY INITIALLY PERFORMED: 02/05/2025 at [facility]. TYPE OF STUDY: Multiple CT images with [...] IMAGING STUDY STUDY INITIALLY PERFORMED: 02/05/2025 at [facility]. TYPE OF STUDY: Multiple CT images with [...] the available images, which may not be technical support representative of the entire organ or disease entity. Also note that ultrasound image acquisition is laser beam machine operator dependent, and that the study was performed outside our facility with no control over image acquisition. In addition, the provided images may or may not represent the [place] source data set and thus may contain [...] the available images, which may not be technical support representative of the entire organ or disease entity. Also note that ultrasound image acquisition is laser beam machine operator dependent, and that the study was performed outside our facility with no control over image acquisition. In addition, the provided images may or may not represent the [place] source data set and thus may contain [...] IMAGING STUDY STUDY INITIALLY PERFORMED: 02/18/2025 at [facility]. TYPE OF STUDY: Multiple CT images without [...] IMAGING STUDY STUDY INITIALLY PERFORMED: 02/18/2025 at [facility]. TYPE OF STUDY: Multiple CT images without [...] the available images, which may not be technical support representative of the entire organ or disease entity. Also note that ultrasound image acquisition is laser beam machine operator dependent, and that the study was performed outside our facility with no control over image acquisition. In addition, the provided images may or may not represent the [place] source data set and thus may contain [...] images may or may not represent the [place] source data set and thus may contain [...] IMAGING STUDY STUDY INITIALLY PERFORMED: 12/05/2024 at [facility]. TYPE OF STUDY: Multiple [...] IMAGING STUDY STUDY INITIALLY PERFORMED: 12/05/2024 at [facility]. TYPE OF STUDY: Multiple [...] images may or may not represent the [place] source data set and thus may contain [...] Result from Last 3 Months Insurance [facility] MEDICARE MEDICARE [facility] MEDICARE COMMERCIAL [facility]IC [facility] [place] Advance Directives For more information, please contact: [phone] * Full Code (Latest Code Status on File) Date Activated Date Inactivated Comments 06/24/2023 10:54 AM 06/24/2023 7:17 PM * Full Code Date Activated Date Inactivated Comments 01/18/2020 8:08 AM 01/18/2020 1:18 PM * Full Code Date Activated Date Inactivated Comments 12/22/2019 8:28 AM 12/22/2019 2:51 PM * Full Code Date Activated Date Inactivated Comments 02/08/2018 11:19 PM 02/09/2018 2:40 PM Care Teams Optical Instrument Specialist Relationship Specialty Start Date End Date Olivier Diaz MD PCP - General 01/11/17 David White MD [address] [place] [address] Medical Oncologist/Fruit Grower Medical Oncology 01/10/21 Aury Bach MD [address] [place] [address] Referring Physician Critical Care Med 03/23/22 Jessica Tobias MD [address] [place] [address] Consulting Physician Surgery 04/22/23 Dayne Stoddard MD [address] [facility] [phone] [place] [address] Surgeon Colon and Rectal Surgery 06/15/23
--- NOTE | ~2025-03-29 | PE_ITS ---
EXAMINATION: PET skull to mid thigh DATE: 03/29/2025 12:39 INDICATION: Solitary pulmonary nodule TECHNIQUE: Blood glucose level was 114 mg/dL. 10.562 mCi of 18-fluorodeoxyglucose (18-FDG) was admini stered i.v. Low dose computed tomography (CT) images were acquired from the base of the brain to the proximal thighs for attenuation correction and anatomic localization. Positron emission tomography (P ET) images were acquired in the same distribution beginning 70 minutes after injection. Images includ ing fused PET/CT images were reconstructed in axial, coronal, and sagittal planes. Automated exposure control technique was employed. The dose-length product was 1062.24mGy-cm. COMPARISON: Chest CT dated 12/05/2024 FINDINGS: Head/neck: There is symmetric increased activity in the oral cavity, palatine tonsils, laryngeal muscles and ocu lar muscles without CT correlate, likely physiologic. No pathologically enlarged cervical lymphadenop athy or suspicious foci of increased FDG uptake in the visualized head or neck. Chest: Moderate emphysema. Calcified bilateral pulmonary nodules along with calcified bilateral hilar and me diastinal lymph nodes consistent with old granulomatous disease. There is volume loss with consolidat ion, bronchiectasis and air bronchograms in the apical and posterior segments of the right upper lobe consistent with radiation fibrosis. No foci of abnormal increased uptake within the region of fibros is to suggest residual/locally recurrent disease. There is some respiratory motion at the lung bases which obscures the basilar right lower lobe nodule of concern on the CT imaging. There is no abnormal increased FDG activity at this location. No pleural effusion. Heart size is normal. Atherosclerotic coronary artery calcification. No pericardial effusion. Thoracic aorta is normal in caliber. No patho logically enlarged or FDG avid thoracic lymphadenopathy. There are chronic compression fractures at s everal levels in the thoracic spine without abnormal increased FDG uptake. There is decreased FDG act ivity at several levels in the upper thoracic spine likely representing marrow suppression related to prior radiation treatment. Abdomen/pelvis/proximal thighs: Physiologic renal accumulation and excretion of FDG activity in the kidneys, bladder and along portio ns of ureters. Normal degree and heterogenous pattern of increased uptake throughout the liver withou t radiologic correlate or dominant FDG avid lesion. The gallbladder, pancreas, spleen and bilateral a drenal glands are normal. Mild uptake scattered throughout the bowels without radiologic correlate, a lso likely physiologic. Small fat-containing umbilical hernia. No other abnormal foci of increased FD G uptake or pathologically enlarged lymphadenopathy in the abdomen, pelvis or proximal thighs. Mild l umbar spondylosis. No suspicious lytic, blastic or abnormally FDG avid bone lesions. There is likely physiologic increased muscular activity without CT correlate at the right gluteal musculature. Mild u ptake overlying the bilateral greater trochanters consistent with trochanteric bursitis. Additional l ikely physiologic muscular uptake at the bilateral hands and forearms. IMPRESSION: 1. No abnormal FDG activity identified in the region of the basilar right lower lobe pulmonary nodule which is partially obscured on the CT images due to respiratory motion. While reassuring would recom mend continued follow-up with six-month follow-up CT. 2. Moderate emphysema with no foci of abnormal increased activity within a region of likely radiation fibrosis in the right upper lobe consistent with treated lung cancer without evident residual or loc ally recurrent disease. No other lesions suspicious for metastatic disease. Reviewed, dictated and finalized at location A. IMPRESSION: 1. No abnormal FDG activity identified in the region of the basilar right lower lobe pulmonary nodule which is partially obscured on the CT images due to resp iratory motion. While reassuring would recommend continued follow-up with six-m onth follow-up CT. 2. Moderate emphysema with no foci of abnormal increased activity within a domenic on of likely radiation fibrosis in the right upper lobe consistent with treated lung cancer without evident residual or locally recurrent disease. No other le sions suspicious for metastatic disease.
--- OUTSIDE RECORDS SUMMARY | 2025-03-29 10:50 | XMS_ITS | Encounter Summary ---
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 Gender Identity Not on file Sexual Orientation [...] on filedocumented in this encounter Care Teams Block Making Machine Operator Relationship Specialty Start Date End Date Olivier Diaz MD PCP - General 01/11/17 David White MD [address] [place] [address] Medical Oncologist/Account Executive Agribusiness Medical Oncology 01/10/21 Aury Bach MD [address] [place] [address] Referring Physician Critical Care Med 03/23/22 Jessica Tobias MD [address] [place], [place] [address] Consulting Physician Surgery 04/22/23 Dayne Stoddard MD [address] [facility] [phone] [place] [address] Surgeon Colon and Rectal Surgery 06/15/23 documented as of this encounter
--- OUTSIDE RECORDS SUMMARY | 2025-03-29 10:50 | XMS_ITS | Encounter Summary ---
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 Gender Identity Not on file Sexual Orientation [...] on filedocumented in this encounter Care Teams Payment Rep Relationship Specialty Start Date End Date Olivier Diaz MD PCP - General 01/11/17 David White MD [address] [place] [address] Medical Oncologist/Driver Education Instructor Medical Oncology 01/10/21 Aury Bach MD [address] [place] [address] Referring Physician Critical Care Med 03/23/22 Jessica Tobias MD [address] [place], [place] [address] Consulting Physician Surgery 04/22/23 Dayne Stoddard MD [address] [facility] [phone] [place] [address] Surgeon Colon and Rectal Surgery 06/15/23 documented as of this encounter
--- OUTSIDE RECORDS SUMMARY | 2025-03-29 10:50 | XMS_ITS ---
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
--- OUTSIDE RECORDS SUMMARY | 2025-03-29 10:50 | XMS_ITS | Clinical Summary ---
Author Organization [facility] Address [address] [place] [address] Care Team Providers Care Drug Safety Associate Name Role Phone Olivier Diaz MD Primary Care Provider Allergies Active Allergy Reactions Criticality Noted Date [...] age to complete this topic Insurance [place] [address] [place] [id number] [employer] Care Teams Drug Safety Associate Relationship Specialty Start Date End Date Olivier Diaz MD [address] [place] [id number] PCP - General INTERNAL MEDICINE 05/11/19
--- OUTSIDE RECORDS SUMMARY | 2025-03-29 10:50 | XMS_ITS | Encounter Summary ---
Author Organization [facility] Address [address] [place] [address] Care Team Providers Care Shaker Operator Name Role Phone Olivier Diaz MD Primary Care Provider David White MD Unavailable Aury Bach MD Unavailable [phone] Jessica Tobias MD Unavailable [phone] Dayne Stoddard MD Unavailable [phone] Encounter Details Date Type Department Care Team (Late st Contact Info) Description 01/15/2021 Telephone [facility] - Interventional Radiology [address] [place] [address] Ines Rose, EMANUEL Social History Tobacco Use Types Packs/Day Years Used Date Smoking Tobacco: Former Cigarettes Smokeless Tobacco: Never Alcohol Use Standard Drinks/Week Comments No 0 (1 standard drink = 0.6 oz pur e alcohol) Comments No Sex and Gender Information Value Date Recorded Sex Assigned at Not on file 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 Gender Identity Not on file Sexual Orientation Not on file documented as of this encounter Plan of Treatment Not on file documented as of this encounter Visit Diagnoses Not on filedocumented in this encounter Care Teams Shaker Operator Relationship Specialty Start Date End Date Olivier Diaz MD PCP - General 01/11/17 David White MD [address] [place] [address] Medical Oncologist/Ammonia Nitrate Operator Medical Oncology 01/10/21 Aury Bach MD [address] [place] [address] Referring Physician Critical Care Med 03/23/22 Jessica Tobias MD [address] [place] [address] Consulting Physician Surgery 04/22/23 Dayne Stoddard MD [address] [facility] [phone] [place] [address] Surgeon Colon and Rectal Surgery 06/15/23 documented as of this encounter
--- OUTSIDE RECORDS SUMMARY | 2025-03-29 10:50 | XMS_ITS | Encounter Summary ---
Author Organization [facility] Healthcare Address [address] [place] [address] Care Team Providers Care Ceramic Engineer Name Role Phone Olivier Diaz MD Primary Care Provider David White MD Unavailable [phone] Aury Bach MD Unavailable [phone] Jessica Tobias MD Unavailable [phone] Dayne Stoddard MD Unavailable [phone] Encounter Details Date Type Department Care Team (Late st Contact Info) Description 09/13/2019 Telephone [facility] - Interventional Radiology [address] [place] [address] Danielle Ferguson RN Social History Tobacco Use Types Packs/Day Years Used Date Smoking Tobacco: Former Cigarettes Smokeless Tobacco: Never Alcohol Use Standard Drinks/Week Comments No 0 (1 standard drink = 0.6 oz pur e alcohol) Comments Unknown Sex and Gender Information Value Date Recorded Sex Assigned at Not on file 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 Gender Identity Not on file Sexual Orientation Not on file documented as of this encounter Plan of Treatment Not on file documented as of this encounter Visit Diagnoses Not on filedocumented in this encounter Care Teams Ceramic Engineer Relationship Specialty Start Date End Date Olivier Diaz MD PCP - General 2/20/17 David White MD [address] [place] [address] Medical Oncologist/Bead Machine Operator Medical Oncology 01/10/21 Aury Bach MD [address] [place], [place] [address] Referring Physician Critical Care Med 03/23/22 Jessica Tobias MD [address] [place], [place] [id number] Consulting Physician Surgery 04/22/23 Dayne Stoddard MD [address] [facility] [phone] [place] [address] Surgeon Colon and Rectal Surgery 06/15/23 documented as of this encounter
--- OUTSIDE RECORDS SUMMARY | 2025-03-29 10:50 | XMS_ITS | Encounter Summary ---
Author Organization [facility] Address [address] [place] [address] Phone Care Team Providers Care Show Operations Supervisor Name Role Phone Olivier Diaz MD Primary Care Provider [phone] David White MD Unavailable [phone] Aury Bach MD Unavailable [phone] Jessica Tobias MD Unavailable [phone] Dayne Stoddard MD Unavailable [phone] Encounter Details Date Type Department Care Team (Late st Contact Info) Description 02/20/2025 Telephone [facility] [address] [place] [phone] Libia Osuna Social History Tobacco Use Types [...] on file 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 Gender Identity Not on file Sexual Orientation Not on file documented as of this encounter Plan of Treatment Not on file documented as of this encounter Visit Diagnoses Not on filedocumented in this encounter Care Teams Show Operations Supervisor Relationship Specialty Start Date End Date Olivier Diaz MD PCP - General 01/11/17 David White MD [address] [place] [address] Medical Oncologist/Health Club Attendant Medical Oncology 01/10/21 Aury Bach MD [address] [place], [place] [address] Referring Physician Critical Care Med 03/23/22 Jessica Tobias MD [address] [place] [address] Consulting Physician Surgery 04/22/23 Dayne Stoddard MD [address] [facility] [phone] [place] [address] Surgeon Colon and Rectal Surgery 06/15/23 documented as of this encounter
--- OUTSIDE RECORDS SUMMARY | 2025-03-29 10:50 | XMS_ITS | Referral Summary ---
Author Organization [facility] Address [address] [place] [address] Care Team Providers Care Escalator Installer Name Role Phone Olivier Diaz MD Primary Care Provider [phone] David White MD Unavailable [phone] Aury Bach MD Unavailable Jessica Tobias MD Unavailable [phone] Dayne Stoddard MD Unavailable [phone] Encounters Date Type Department Care Team Description 02/26/2025 Telephone [facility] [address] [place] [address] Shauna Farley CMA 02/22/2025 11:25 AM CDT - 02/22/2025 11:59 PM CDT Hospital Encounter [facility]) [facility] [place] [address] Diagnosis unknown Discharge Disposition: Discharge to home or self care 02/22/2025 11:23 AM CDT - 02/22/2025 11:59 PM CDT Hospital Encounter [facility]) [address] [place] [address] Diagnosis unknown Discharge Disposition: Discharge to home or self care 02/22/2025 11:22 AM CDT - 02/22/2025 11:59 PM CDT Hospital Encounter [facility]) [address] [place] [address] Diagnosis unknown Discharge Disposition: Discharge to home or self care 02/20/2025 Telephone [facility] Oncology [address] [place] [address] Libia Osuna 02/19/2025 Telephone [facility] Oncology [address] [place] [address] Shauna Farley CMA 02/18/2025 Orders Only [facility] Scanning, Provider 02/05/2025 Orders Only [facility] Scanning, Provider from Last 3 Months Allergies Active Allergy Reactions Criticality Noted Date Comments Penicillins Hives,Itching Medium 03/30/2016 Medications levothyroxine (SYNTHROID, LEVOTHROID) 88 mcg tablet Take 1 tablet (88 mcg total) by mouth tacking machine operator before breakfast Active ondansetron ODT (ZOFRAN-ODT) [...] (11/30/2019): Added automatically from request for surgery [id number] Age-related osteoporosis wit hout current pathological fracture [...] file Legal 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 Also note that ultrasound image acquisition is ship self defense system mk1 operator dependent, and that the study was performed outside our facility with no control over image acquisition. In addition, the provided images may or may not represent the [place] source data set and thus may contain [...] IMAGING STUDY STUDY INITIALLY PERFORMED: 02/05/2025 at [facility]. TYPE OF STUDY: Multiple CT images with [...] IMAGING STUDY STUDY INITIALLY PERFORMED: 02/05/2025 at [facility]. TYPE OF STUDY: Multiple CT images with [...] the available images, which may not be automobile sales representative of the entire organ or disease entity. Also note that ultrasound image acquisition is ship self defense system mk1 operator dependent, and that the study was performed outside our facility with no control over image acquisition. In addition, the provided images may or may not represent the [place] source data set and thus may contain [...] the available images, which may not be automobile sales representative of the entire organ or disease entity. Also note that ultrasound image acquisition is ship self defense system mk1 operator dependent, and that the study was performed outside our facility with no control over image acquisition. In addition, the provided images may or may not represent the [place] source data set and thus may contain [...] IMAGING STUDY STUDY INITIALLY PERFORMED: 02/18/2025 at [facility]. TYPE OF STUDY: Multiple CT images without [...] IMAGING STUDY STUDY INITIALLY PERFORMED: 02/18/2025 at [facility]. TYPE OF STUDY: Multiple CT images without [...] the available images, which may not be automobile sales representative of the entire organ or disease entity. Also note that ultrasound image acquisition is ship self defense system mk1 operator dependent, and that the study was performed outside our facility with no control over image acquisition. In addition, the provided images may or may not represent the [place] source data set and thus may contain [...] images may or may not represent the [place] source data set and thus may contain [...] STUDY STUDY INITIALLY PERFORMED: 12/05/2024 at [facility]. TYPE OF STUDY: Multiple CT images of [...] STUDY STUDY INITIALLY PERFORMED: 12/05/2024 at [facility]. TYPE OF STUDY: Multiple CT images of [...] images may or may not represent the [place] source data set and thus may contain [...] Result from Last [address] [facility] MEDICARE MEDICARE [facility] MEDICARE COMMERCIAL GENERIC [facility] Advance Directives For more information, please contact: [phone] * Full Code (Latest Code Status on File) Date Activated Date Inactivated Comments 06/24/2023 10:54 AM 06/24/2023 7:17 PM * Full Code Date Activated Date Inactivated Comments 01/18/2020 8:08 AM 01/18/2020 1:18 PM * Full Code Date Activated Date Inactivated Comments 12/22/2019 8:28 AM 12/22/2019 2:51 PM * Full Code Date Activated Date Inactivated Comments 02/08/2018 11:19 PM 02/09/2018 2:40 PM Care Teams Escalator Installer Relationship Specialty Start Date End Date Olivier Diaz MD PCP - General 01/11/17 David White MD [address] [place] [address] Medical Oncologist/Pattern Gater Medical Oncology 01/10/21 Aury Bach MD [address] [place] [address] Referring Physician Critical Care Med 03/23/22 Jessica Tobias MD [address] [place] [address] Consulting Physician Surgery 04/22/23 Dayne Stoddard MD [address] [facility] [phone] [place] [address] Surgeon Colon and Rectal Surgery 06/15/23
--- OUTSIDE RECORDS SUMMARY | 2025-03-29 10:50 | XMS_ITS | Clinical Summary ---
Author Organization [facility] Address [address] [place] [address] Care Team Providers Care Motor Route Carrier Name Role Phone Olivier Diaz MD Primary Care Provider [phone] David White MD Unavailable [phone] Aury Bach MD Unavailable [phone] Jessica Tobias MD Unavailable [phone] Dayne Stoddard MD Unavailable [phone] Allergies Active Allergy Reactions Criticality Noted Date Comments Penicillins Hives,Itching Medium 03/30/2016 Medications levothyroxine (SYNTHROID, LEVOTHROID) 88 mcg tablet Take 1 tablet (88 mcg total) by mouth chisel worker before breakfast Active ondansetron ODT (ZOFRAN-ODT) 4 [...] (11/30/2019): Added automatically from request for surgery [id number] Age-related osteoporosis wit hout current pathological fracture 12/12/2018 Right shoulder pain 12/12/2018 Squamous cell carcinoma of right lung 03/26/2016 Hypothyroidism 02/20/2014 Overview (02/26/2017): HYPOTHYROIDISM NOS Non-toxic multinodular goiter 08/26/2011 Overview (02/24/2017): NONTOX MULTINODUL GOITER 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 Overview (02/26/2017): CHR LYMPHOCYT THYROIDIT Gastrostomy tube obstruction Encounters Date Type Department Care Team Description 02/26/2025 Telephone [facility] On[facility] [address] [place] [address] Shauna Farley CMA 02/22/2025 11:25 AM CDT - 02/22/2025 11:59 PM CDT Hospital Encounter [facility] [address] [place] [address] Diagnosis unknown Discharge Disposition: Discharge to home or self care 02/22/2025 11:23 AM CDT - 02/22/2025 11:59 PM CDT Hospital Encounter [facility]) [address] [place] [address] Diagnosis unknown Discharge Disposition: Discharge to home or self care 02/22/2025 11:22 AM CDT - 02/22/2025 11:59 PM CDT Hospital Encounter [facility] [address] [place] [address] Diagnosis unknown Discharge Disposition: Discharge to home or self care 02/20/2025 Telephone [facility] [address] [place] [address] Libia Osuna 02/19/2025 Telephone [facility] [address] [place] [address] Shauna Farley CMA 02/18/2025 Orders Only [facility] [...] on file 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 Also note that ultrasound image acquisition is bottling machine operator dependent, and that the study was performed outside our facility with no control over image acquisition. In addition, the provided images may or may not represent the [place] source data set and thus may contain [...] STUDY INITIALLY PERFORMED: 02/05/2025 at [facility]. TYPE OF STUDY: Multiple CT [...] STUDY INITIALLY PERFORMED: 02/05/2025 at [facility]. TYPE OF STUDY: Multiple CT [...] the available images, which may not be shipping services sales representative of the entire organ or disease entity. Also note that ultrasound image acquisition is bottling machine operator dependent, and that the study was performed outside our facility with no control over image acquisition. In addition, the provided images may or may not represent the [place] source data set and thus may contain [...] the available images, which may not be shipping services sales representative of the entire organ or disease entity. Also note that ultrasound image acquisition is bottling machine operator dependent, and that the study was performed outside our facility with no control over image acquisition. In addition, the provided images may or may not represent the [place] source data set and thus may contain [...] STUDY INITIALLY PERFORMED: 02/18/2025 at [facility]. TYPE OF STUDY: Multiple CT [...] STUDY INITIALLY PERFORMED: 02/18/2025 at [facility]. TYPE OF STUDY: Multiple CT [...] the available images, which may not be shipping services sales representative of the entire organ or disease entity. Also note that ultrasound image acquisition is bottling machine operator dependent, and that the study was performed outside our facility with no control over image acquisition. In addition, the provided images may or may not represent the [place] source data set and thus may contain [...] images may or may not represent the [place] source data set and thus may contain [...] IMAGING STUDY STUDY INITIALLY PERFORMED: 12/05/2024 at [facility]. TYPE OF STUDY: Multiple CT images of [...] IMAGING STUDY STUDY INITIALLY PERFORMED: 12/05/2024 at [facility]. TYPE OF STUDY: Multiple CT images of [...] images may or may not represent the [place] source data set and thus may contain [...] Result from Last 3 Months Insurance [facility] Member Subscriber Plan / Payer (Ef fective 2013-Present) Name:Laurent Wall Relation to Subscriber:Self Name:Laurent Wall Payer ID:[id number] Group ID:[id number] Type:COMMERCIAL Address: [facility] [address] [place] MEDICARE MEDICARE [facility] Member Subscriber Plan / Payer (Ef fective 2013-Present) Name:LAURENT HANSON Relation to Subscriber:Self Name:Laurent Wall Payer ID:[id number] Group ID:[id number] Type:COMMERCIAL Address: [facility] [address] [place], [place] MEDICARE COMMERCIAL [facility] [place] Advance Directives For more information, please contact: [phone] * Full Code (Latest Code Status on File) Date Activated Date Inactivated Comments 06/24/2023 10:54 AM 06/24/2023 7:17 PM * Full Code Date Activated Date Inactivated Comments 01/18/2020 8:08 AM 01/18/2020 1:18 PM * Full Code Date Activated Date Inactivated Comments 12/22/2019 8:28 AM 12/22/2019 2:51 PM * Full Code Date Activated Date Inactivated Comments 02/08/2018 11:19 PM 02/09/2018 2:40 PM Care Teams Motor Route Carrier Relationship Specialty Start Date End Date Olivier Diaz MD PCP - General 01/11/17 David White MD [address] [place] [address] Medical Oncologist/Exhibitions And Collections Manager Medical Oncology 01/10/21 Aury Bach MD [address] [place], [place] [address] Referring Physician Critical Care Med 03/23/22 Jessica Tobias MD [address] [place] [address] Consulting Physician Surgery 04/22/23 Dayne Stoddard MD [address] [facility] [phone] [place] [address] Surgeon Colon and Rectal Surgery 06/15/23
--- OUTSIDE RECORDS SUMMARY | 2025-03-29 10:50 | XMS_ITS | Encounter Summary ---
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 Gender Identity Not on file Sexual Orientation [...] on filedocumented in this encounter Care Teams Bulk Tank Car Unloader Relationship Specialty Start Date End Date Olivier Diaz MD PCP - General 01/11/17 David White MD [address] [place] [address] Medical Oncologist/Set Staff Fitter Medical Oncology 01/10/21 Aury Bach MD [address] [place] [address] Referring Physician Critical Care Med 03/23/22 Jessica Tobias MD [address] [place], [place] [address] Consulting Physician Surgery 04/22/23 Dayne Stoddard MD [address] [facility] [phone] [place] [address] Surgeon Colon and Rectal Surgery 06/15/23 documented as of this encounter
[2025-03-29 10:59] LABS: Glucose Point of Care 114 mg/dl (65-105)
== END 2025-03-29 10:38 | disposition home or self-care (01) ==
PROVIDERS: PCP Internal Medicine; Visit Provider Internal Medicine
DX: C34.90 Malignant neoplasm of unspecified part of unspecified bronchus or lung (principal); R91.1 Solitary pulmonary nodule
CPT/HCPCS: 78815; A9552

== ENCOUNTER 2025-08-07 10:14 | Day surgery (SDC) | payer MEDICARE, OTHER, SELFPAY ==
[2025-08-07] VITALS (11 sets, daily range): BP systolic 102–173; BP diastolic 59–82; PULSE 48–90; RESP 12–20; TEMP 35.7–36.6; O2SAT 97–100
--- NOTE | ~2025-08-07 | XR_ITS ---
Examination: XR chest 1V portable Clinical History: FB Comparison: X-ray 02/03/2025 Technique: Portable AP Findings: Heart size normal. Chronic collapse and scarring right upper lobe with volume loss and hilar retraction. Likely posttreatment change. Emphysema. Calcified granulomata. No acute bony abnormality. No radiopaque foreign body noted. IMPRESSION: 1. No acute cardiopulmonary findings given portable technique. Reviewed, dictated and finalized at location R.
--- OUTSIDE RECORDS SUMMARY | 2025-08-07 11:54 | XMS_ITS | Clinical Summary ---
Author Organization [facility] Address [address] [place] [address] Care Team Providers Care Wind Energy Mechanic Name Role Phone Olivier Diaz MD Primary Care Provider [phone] Allergies Active Allergy Reactions Criticality Noted Date [...] Information Value Date Recorded Sex Assigned at Female 07/11/2025 10:13 AM CDT Legal Sex Female 7:09 PM CDT Gender [...] 2:33 PM CDT Height 162.6 cm (5' 4) 07/08/2022 2:33 PM CDT Body Mass Index 29.52 07/08/2022 2:33 PM CDT Plan of Treatment Upcoming Encounters Date Type Department Care Team (Late st Contact Info) Description 08/10/2025 9:30 AM CDT Appointment [facility] Diagnostic Imaging [address] [place] [id number] Olga Vu, [facility] [address] [place] [address] Stacia Townsend, PLUG SHAPER HAND [address] [place] [address] Health Maintenance Due Date Last Done Comments Hepatitis C 1966 DTaP, Tdap and Td Vaccines ( 1 - Tdap) 1967 Zoster Vaccines (1 of 2) 1998 Annual Medicare Wellness Visit 2013 Dexa Scan (General) 2013 RSV Immunization or 60+ Years (1 - 1-dose 75+ series) 2023 COVID-19 Vaccine (2024-2 6 season) 2025 07/31/2021, 01/17/2021, 12/27/2020 Pneumococcal Vaccine: 50+ Years [...] to complete this topic Insurance MEDICARE [employer] [place] Care Teams Wind Energy Mechanic Relationship Specialty Start Date End Date Olivier Diaz MD [address] [place] [address] PCP - General INTERNAL MEDICINE 05/11/19
--- OUTSIDE RECORDS SUMMARY | 2025-08-07 11:54 | XMS_ITS | Encounter Summary ---
Author Organization [facility] Healthcare Address [address] [place] [address] Care Team Providers Care Home Care Physical Therapist Name Role Phone Olivier Diaz MD Primary Care Provider David White MD Unavailable Aury Bach MD Unavailable [phone] Jessica Tobias MD Unavailable [phone] Dayne Stoddard MD Unavailable [phone] Encounter Details Date Type Department Care Team (Late st Contact Info) Description 09/13/2019 Telephone [facility] - Interventional Radiology [address] [place] [address] Danielle Ferguson RN Social History Tobacco Use Types Packs/Day Years Used Date Smoking Tobacco: Former Cigarettes Smokeless Tobacco: Never Alcohol Use Standard Drinks/Week Comments No 0 (1 standard drink = 0.6 oz pur e alcohol) Comments Unknown Sex and Gender Information Value Date Recorded Sex Assigned at Not on file Legal Sex Female 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 Gender Identity Not on file Sexual Orientation Not on file documented as of this encounter Plan of Treatment Not on file documented as of this encounter Visit Diagnoses Not on filedocumented in this encounter Care Teams Home Care Physical Therapist Relationship Specialty Start Date End Date Olivier Diaz MD PCP - General 2/20/17 David White MD [address] [place] [address] Medical Oncologist/Livery Car Driver Medical Oncology 01/10/21 Aury Bach MD [address] [place], [place] [address] Referring Physician Critical Care Med 03/23/22 Jessica Tobias MD [address] [place], [place] [id number] Consulting Physician Surgery 04/22/23 Dayne Stoddard MD [address] [facility] [phone] [place] [address] Surgeon Colon and Rectal Surgery 06/15/23 documented as of this encounter
--- OUTSIDE RECORDS SUMMARY | 2025-08-07 11:54 | XMS_ITS | Encounter Summary ---
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 Gender Identity Not on file Sexual Orientation [...] on filedocumented in this encounter Care Teams Dredge Mate Relationship Specialty Start Date End Date Olivier Diaz MD PCP - General 01/11/17 David White MD [address] [place] [address] Medical Oncologist/Test Engineer Nuclear Equipment Medical Oncology 01/10/21 Aury Bach MD [address] [place] [address] Referring Physician Critical Care Med 03/23/22 Jessica Tobias MD [address] [place], [place] [address] Consulting Physician Surgery 04/22/23 Dayne Stoddard MD [address] [facility] [id number] [place] [address] Surgeon Colon and Rectal Surgery 06/15/23 documented as of this encounter
--- OUTSIDE RECORDS SUMMARY | 2025-08-07 11:54 | XMS_ITS | Encounter Summary ---
Author Organization [facility] Address [address] [place] [address] Phone Care Team Providers Care Talent Acquisition Manager Name Role Phone Olivier Diaz MD Primary Care Provider [phone] David White MD Unavailable [phone] Aury Bach MD Unavailable [phone] Jessica Tobias MD Unavailable [phone] Dayne Stoddard MD Unavailable [phone] Encounter Details Date Type Department Care Team (Late st Contact Info) Description 02/20/2025 Telephone [facility] Oncology [address] [place] [address] Libia Osuna Social History Tobacco Use Types [...] on file 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 Gender Identity Not on file Sexual Orientation Not on file documented as of this encounter Plan of Treatment Not on file documented as of this encounter Visit Diagnoses Not on filedocumented in this encounter Care Teams Talent Acquisition Manager Relationship Specialty Start Date End Date Olivier Diaz MD PCP - General 01/11/17 David White MD [address] [place] [address] Medical Oncologist/Shop Manager Medical Oncology 01/10/21 Aury Bach MD [address] [place], [place] [address] Referring Physician Critical Care Med 03/23/22 Jessica Tobias MD [address] [place], [place] [address] Consulting Physician Surgery 04/22/23 Dayne Stoddard MD [address] [facility] [phone] [place] [address] Surgeon Colon and Rectal Surgery 06/15/23 documented as of this encounter
--- OUTSIDE RECORDS SUMMARY | 2025-08-07 11:54 | XMS_ITS | Encounter Summary ---
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 Gender Identity Not on file Sexual [...] on filedocumented in this encounter Care Teams Forest Ranger Technician Relationship Specialty Start Date End Date Olivier Diaz MD PCP - General 01/11/17 David White MD [address] [place] [address] Medical Oncologist/Race Board Attendant Medical Oncology 01/10/21 uAry Bach MD [address] [place] [address] Referring Physician Critical Care Med 03/23/22 Jessica Tobias MD [address] [place], [place] [id number] Consulting Physician Surgery 04/22/23 Dayne Stoddard MD [address] [facility] [id number] [place] [address] Surgeon Colon and Rectal Surgery 06/15/23 documented as of this encounter
--- OUTSIDE RECORDS SUMMARY | 2025-08-07 11:54 | XMS_ITS | Encounter Summary ---
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 Gender Identity Not on file Sexual Orientation [...] on filedocumented in this encounter Care Teams Social Service Technician Relationship Specialty Start Date End Date Olivier Diaz MD PCP - General 01/11/17 David White MD [address] [place] [address] Medical Oncologist/Qc Tech Medical Oncology 01/10/21 Aury Bach MD [address] [place] [address] Referring Physician Critical Care Med 03/23/22 Jessica Tobias MD [address] [place], [place] [address] Consulting Physician Surgery 04/22/23 Dayne Stoddard MD [address] [facility] [phone] [place] [address] Surgeon Colon and Rectal Surgery 06/15/23 documented as of this encounter
--- OUTSIDE RECORDS SUMMARY | 2025-08-07 11:54 | XMS_ITS ---
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
--- OUTSIDE RECORDS SUMMARY | 2025-08-07 11:54 | XMS_ITS | Clinical Summary ---
Author Organization [facility] Address [address] [place] [address] Care Team Providers Care Bracelet Form Coverer Name Role Phone Olivier Diaz MD Primary Care Provider [phone] David White MD Unavailable [phone] Aury Bach MD Unavailable [phone] Jessica Tobias MD Unavailable [phone] Dayne Stoddard MD Unavailable [phone] Allergies Active Allergy Reactions Criticality Noted Date Comments Penicillins Hives,Itching Medium 03/30/2016 Medications levothyroxine (SYNTHROID, LEVOTHROID) 88 mcg tablet Take 1 tablet (88 mcg total) by mouth medical staff coordinator before breakfast Active ondansetron ODT (ZOFRAN-ODT) 4 [...] (11/30/2019): Added automatically from request for surgery [id number] Age-related osteoporosis wit hout current pathological fracture [...] cancer (HCC) COPD (chronic obstructive pulmonary disease) Thyroid disease Arthritis Seizures (HCC) Depression PONV [...] on file 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 Gender Identity Not on file Sexual Orientation [...] 9:20 AM CDT Height 162.6 cm (5' 4) 05/31/2024 10:46 AM CDT Body Mass Index 29.87 05/31/2024 10:46 AM CDT Plan of Treatment Health Maintenance Due Date Last Done Comments Depression Screening 1950 Hepatitis C Screening 1950 Osteoporosis Screening-Bone Density Scan 1948 DTaP/Tdap/Td Vaccine (1 - Tdap) 1959 Hepatitis B Screening 1966 Zoster Vaccine (1 of 2) 1998 Well Visit 65+ 2013 Fall Risk Assessment 06/19/2025 06/19/2024 Covid-19 Vaccine (2024-12 6 season) 2025 07/31/2021, 01/17/2021, 12/27/2020 Influenza Vaccine (#1) 2025 08/29/2020 Breast Cancer Screening-Mammogram Discontinued 019 Pneumococcal vaccine 65+ Completed 08/29/2020, 1011/2018 Insurance [employer] MED[place]ARE MED[employer]ARE [employer] MEDICARE COMMERCIAL GENERIC [employer] [facility] [place] Advance Directives For more information, please contact: [phone] * Full Code (Latest Code Status on File) Date Activated Date Inactivated Comments 06/24/2023 10:54 AM 06/24/2023 7:17 PM * Full Code Date Activated Date Inactivated Comments 01/18/2020 8:08 AM 01/18/2020 1:18 PM * Full Code Date Activated Date Inactivated Comments 12/22/2019 8:28 AM 12/22/2019 2:51 PM * Full Code Date Activated Date Inactivated Comments 02/08/2018 11:19 PM 02/09/2018 2:40 PM Care Teams Bracelet Form Coverer Relationship Specialty Start Date End Date Olivier Diaz MD PCP - General 01/11/17 David White MD [address] [place] [address] Medical Oncologist/Tentmaker Medical Oncology 01/10/21 Aury Bach MD [address] [place] [address] Referring Physician Critical Care Med 03/23/22 Jessica Tobias MD [address] [place], [place] [address] Consulting Physician Surgery 04/22/23 Dayne Stoddard MD [address] [facility] [phone] [place] [address] Surgeon Colon and Rectal Surgery 06/15/23
--- OUTSIDE RECORDS SUMMARY | 2025-08-07 11:54 | XMS_ITS | Encounter Summary ---
Author Organization [facility] Healthcare Address [address] [place] [address] Care Team Providers Care Batch Unit Treater Name Role Phone Olivier Diaz MD Primary Care Provider David White MD Unavailable Aury Bach MD Unavailable [phone] Jessica Tobias MD Unavailable [phone] Dayne Stoddard MD Unavailable [phone] Encounter Details Date Type Department Care Team (Late st Contact Info) Description 01/15/2021 Telephone [facility] - Interventional Radiology [address] [place] [address] Ines Rose, EMANUEL Social History Tobacco Use Types Packs/Day Years Used Date Smoking Tobacco: Former Cigarettes Smokeless Tobacco: Never Alcohol Use Standard Drinks/Week Comments No 0 (1 standard drink = 0.6 oz pur e alcohol) Comments No Sex and Gender Information Value Date Recorded Sex Assigned at Not on file 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 Gender Identity Not on file Sexual Orientation Not on file documented as of this encounter Plan of Treatment Not on file documented as of this encounter Visit Diagnoses Not on filedocumented in this encounter Care Teams Batch Unit Treater Relationship Specialty Start Date End Date Olivier Diaz MD PCP - General 01/11/17 David White MD [address] [place] [address] Medical Oncologist/Food Service Substitute Medical Oncology 01/10/21 Aury Bach MD [address] [place] [address] Referring Physician Critical Care Med 03/23/22 Jessica Tobias MD [address] [place] [address] Consulting Physician Surgery 04/22/23 Dayne Stoddard MD [address] [facility] [phone] [place] [address] Surgeon Colon and Rectal Surgery 06/15/23 documented as of this encounter
--- NOTE | 2025-08-07 12:32 | ED.GENADULT ---
HPI - General Adult General Chief complaint: Unspecified Stated complaint: something stuck in back of throat since last night Time Seen by Provider: 08/07/25 12:27 Source: patient Mode of arrival: ambulatory Limitations: no limitations History of Present Illness HPI narrative: 74-year-old with a history of lung CA status post radiation treatment 6 years ago presents to the ER with a complaint of foot stuck in the esophagus since last night. Patient states that she was eating a piece of sausage which she is unable to swallow it down. Patient states that periodically she has these issues but nothing like this. She is unable to keep any fluids down. Denies any shortness of breath or chest pain. Onset (ago): day(s) (1) Location: chest Radiation: non-radiation Severity: moderate Quality: aching Pain Consistency: constant Relieving factors: none Exacerbating factors: other (eating and drinking) Associated symptoms: denies other symptoms Treatments prior to arrival: none Related Data Home Medications ?Medication ?Instructions ?Recorded ?Confirmed ?Last Taken ?Type cholecalciferol (vitamin D3) 25 1,000 unit PO DAILY 09/25/19 06/28/25 Unknown History mcg (1,000 unit) capsule escitalopram oxalate 10 mg tablet 10 mg PO DAILY 09/25/19 06/28/25 Unknown History inhalational spacing device #1 ea 09/25/19 06/28/25 Unknown History (Jany Palacios [facility] spacer) lorazepam 1 mg tablet 1 mg PO BID PRN Anxiety 09/25/19 06/28/25 08/31/23 09:00 History ondansetron HCl 8 mg tablet 4 mg PO TID 09/25/19 06/28/25 Unknown History acetaminophen 500 mg tablet 500 mg PO TID PRN Pain 09/26/19 06/28/25 Unknown History (Tylenol Extra Strength) Adult Low Dose Aspirin 81 mg PO HS 06/09/22 06/28/25 Unknown History nadolol 20 mg tablet 20 mg PO DAILY 03/03/23 06/28/25 09/01/23 09:00 History pantoprazole 40 mg tablet,delayed 40 mg PO DAILY 03/03/23 06/28/25 Unknown History release tramadol 50 mg tablet 50 mg PO Q6H PRN Pain 06/30/23 06/28/25 09/01/23 09:00 History amitriptyline 25 mg tablet 25 mg PO QHS 06/26/24 06/28/25 Unknown History melatonin 10 mg capsule 10 mg PO QHS 06/26/24 06/28/25 Unknown History montelukast 10 mg tablet 10 mg PO DAILY 06/26/24 06/28/25 Unknown History duloxetine 20 mg capsule,delayed 20 mg PO DAILY 07/07/24 06/28/25 Unknown History release levothyroxine 100 mcg tablet 100 mcg PO DAILY 07/07/24 06/28/25 Unknown History mecobalamin (vitamin B12) 500 mcg 5,000 mcg PO DAILY 07/07/24 06/28/25 Unknown History chewable tablet Prevagen 1 tab-cap PO DAILY 10/28/24 06/28/25 Unknown History Stool Softner 1 tab-cap PO DAILY 10/28/24 06/28/25 Unknown History Allergies Allergy/AdvReac Type Severity Reaction Status Date / Time Penicillins Allergy Unknown rash Verified 08/07/25 16:04 Review of Systems Review of Systems: All systems reviewed & are unremarkable except as noted in HPI and below Constitutional: Constitutional: Reports no additional constitutional complaints Eyes: Eyes: Reports no additional eye complaints ENT: Reports system reviewed and no additional complaints, except as documented Cardiovascular: Cardiovascular: Reports no additional cardiovascular complaints Respiratory: Respiratory: Reports no additional respiratory complaints Gastrointestinal: Gastrointestinal: Reports as per HPI Genitourinary: Genitourinary: Reports no additional female genitourinary complaints Musculoskeletal: Musculoskeletal: Reports no additional musculoskeletal complaints [facility] Past Medical History Medical History GERD (gastroesophageal reflux disease) Seizure Stroke Thyroid disease Anxiety Depression FB esophagus History of lung cancer Surgical History Surgical History History of carpal tunnel surgery Hx of tubal ligation Cholecystectomy planned H/O: hysterectomy Family History Family History Father Hypertension Cerebrovascular accident Malignant neoplasm of prostate, Onset Age: 84 Family history of congestive heart failure Mother Family history of osteoarthritis Family history of coronary artery disease Social History Social History Smoking packs per day: 1 Smoking cigarettes per day: 20.0 Years smoked: 35 Smoking pack-years: 35.00 Smoking status: Former smoker Tobacco type: cigarettes Second hand tobacco smoke exposure: Yes Smoking end date: 11/22/15 Alcohol intake: current Alcohol use details: rare occasional Substance use: never Substance use type: does not use Living arrangements: with family Spiritual care concerns: No Exam Narrative: GENERAL: Well-appearing, well-nourished, and in no acute distress. HEAD: Normocephalic, atraumatic. EYES: PERRLA and EOMI. ENT: Nares clear, no rhinorrhea or epistaxis. Mucous membranes moist. NECK: Supple. CHEST: Clear to auscultation. No respiratory distress. HEART: Regular rate and rhythm. No murmur heard. Normal peripheral pulses. ABDOMEN: Soft, nontender, nondistended, normal active bowel sounds. EXTREMITIES: Normal range of motion. No edema. SKIN: Warm, dry, no rash. NEURO: No focal deficits. Alert and oriented x3. PSYCH: Normal mood and affect. Course Course Emergency Course: Discussed with Dr. Metz . will take her to GI lab. i did inform pt and her about her lab and CXR findings Vital Signs Vital signs: Vital Signs Temperature 36.6 C 08/07/25 10:28 Pulse Rate 77 08/07/25 10:28 Respiratory Rate 20 08/07/25 10:28 Blood Pressure 144/72 H 08/07/25 10:28 Pulse Oximetry 97 08/07/25 10:28 Oxygen Delivery Room Air 08/07/25 10:28 Temperature 35.7 C L 08/07/25 15:45 Pulse Rate 75 08/07/25 17:10 Respiratory Rate 13 08/07/25 17:10 Blood Pressure 165/79 H 08/07/25 17:10 Pulse Oximetry 99 08/07/25 17:10 Oxygen Delivery Room Air 08/07/25 17:10 Medical Decision Making Differential Diagnosis Differential Diagnosis: Esophageal stricture, food impaction Vital Signs Vital Signs: Vital Signs Temperature 36.6 C 08/07/25 10:28 Pulse Rate 77 08/07/25 10:28 Respiratory Rate 20 08/07/25 10:28 Blood Pressure 144/72 H 08/07/25 10:28 Pulse Oximetry 97 08/07/25 10:28 Oxygen Delivery Room Air 08/07/25 10:28 Temperature 35.7 C L 08/07/25 15:45 Pulse Rate 75 08/07/25 17:10 Respiratory Rate 13 08/07/25 17:10 Blood Pressure 165/79 H 08/07/25 17:10 Pulse Oximetry 99 08/07/25 17:10 Oxygen Delivery Room Air 08/07/25 17:10 Lab Data 08/07/25 12:47 08/07/25 12:47 Labs: Lab Results 08/07/25 08/07/25 Range/Units 12:47 12:48 WBC 7.1 (4.5-10.0) K/mm3 RBC 4.64 (4.2-5.4) M/mm3 Hgb 14.0 (12.0-15.0) g/dL Hct 42.0 (37.0-47.0) % MCV 90.5 (80-100) fl MCH 30.2 (26-34) pg MCHC 33.3 (32-36) g/dl RDW 12.9 (11.5-14.5) % Plt Count 341 (150-375) k/mm3 MPV 9.5 (7.4-10.4) fl Immature Gran % (Auto) 0.3 (0-0.5) % Neut % (Auto) 65.0 (45.5-73.1) % Lymph % (Auto) 21.1 (18.3-44.2) % [place] % (Auto) 9.4 H (2.6-8.5) % Eos % (Auto) 2.9 (0-4.4) % Baso % (Auto) 1.3 H (0.2-1.2) % Lymph # (Auto) 1.50 (0.9-3.2) K/mm3 [place] # (Auto) 0.7 H (0.1-0.6) K/mm3 Eos # (Auto) 0.2 (0-0.3) K/mm3 Baso # (Auto) 0.1 (0.0-0.1) K/mm3 Abs Immat Gran (auto) 0.02 (0.00-0.031) K/mm3 Absolute Neuts (auto) 4.6 (1.3-6.7) K/mm3 Absolute Nucleated RBC 0.000 (0.0-0.012) K/mm3 Nucleated RBC % 0.0 (0.0-0.2) % PT 16.4 H (11.1-14.7) Seconds INR 1.3 Sodium 139 (137-145) mmol/L Potassium 4.2 (3.4-5.0) mmol/L Chloride 103 (98-107) mmol/L Carbon Dioxide 27 (22-30) mmol/L Anion Gap 9 (4-12) mmol/L BUN 17 (7-17) mg/dL Creatinine 1.18 H (0.7-1.0) mg/dL Estim Creat Clear Calc 36 ml/min Estimated GFR 45 L (59 - ) Glucose 110 (65-110) mg/dL Calcium 9.5 (8.4-10.2) mg/dL Total Bilirubin 1.0 (0.2-1.3) mg/dL AST 39 H (14-36) U/L ALT 17 (6-35) U/L Alkaline Phosphatase 37 L (38-126) U/L Total Protein 7.6 (6.3-8.2) g/dL Albumin 4.4 (3.5-5.1) g/dL Imaging Data Radiologist's impression: ITS Impressions Chest X-Ray 08/07/25 13:06 IMPRESSION: 1. No acute cardiopulmonary findings given portable technique. ECG Data EKG #1: ECG completion date: 08/07/25 ECG completion time: 14:42 EKG Interpretation: normal rate (76), no ectopy, no ST changes, normal QRS and NL axis Discharge Plan Discharge Clinical Impression: Food impaction of esophagus Qualifiers: Encounter type: initial encounter Qualified Code(s): T18.128A - Food in esophagus causing other injury, initial encounter; W44.F3XA - Food entering into or through a natural orifice, initial encounter Patient Disposition: Still a Patient Condition: Stable
[2025-08-07] MEDS: SODIUM CHLORIDE 0.9% IV 1,000 ML 150 ML IV CONT (12:52)
[2025-08-07 12:54] LABS: Hematocrit 42.0 % (37.0-47.0); Hemoglobin 14.0 g/dL (12.0-15.0); Immature Granulocyte Percent A 0.3 % (0-0.5); Lymphocytes Absolute Auto 1.50 K/mm3 (0.9-3.2); Mean Corpuscular HGB Conc 33.3 g/dl (32-36); Mean Corpuscular Hemoglobin 30.2 pg (26-34); Mean Corpuscular Volume 90.5 fl (80-100); Nucleated Red Blood Cells Absolute Auto 0.000 K/mm3 (0.0-0.012); Nucleated Red Blood Cells Perc 0.0 % (0.0-0.2); Platelet Count Result 341 k/mm3 (150-375); Red Blood Count 4.64 M/mm3 (4.2-5.4); White Blood Count 7.1 K/mm3 (4.5-10.0)
[2025-08-07 13:04] LABS: INR 1.3; Prothrombin Time 16.4 Seconds (11.1-14.7)
[2025-08-07 13:19] LABS: Alanine Aminotransferase 17 U/L (6-35); Albumin Level 4.4 g/dL (3.5-5.1); Alkaline Phosphatase 37 U/L (38-126); Anion Gap 9 mmol/L (4-12); Aspartate Amino Transferase 39 U/L (14-36); Bilirubin,Total 1.0 mg/dL (0.2-1.3); Blood Urea Nitrogen 17 mg/dL (7-17); Calcium 9.5 mg/dL (8.4-10.2); Carbon Dioxide 27 mmol/L (22-30); Chloride 103 mmol/L (98-107); Estimated CRCL calculation 36 ml/min; Estimated Glomerular Filt Rate 45; Glucose 110 mg/dL (65-110); Potassium 4.2 mmol/L (3.4-5.0); Sodium 139 mmol/L (137-145); Total Protein 7.6 g/dL (6.3-8.2)
--- NOTE | 2025-08-07 13:24 | PC.NURSE ---
this RN spoke to Jcarlos in GI. this RN was informed that Dr. Metz is in [facility] until 1529 and probably wont be able to get to her until 1600/1630. informed that the they will come around 1530 to get the pt
--- NOTE | 2025-08-07 14:08 | ECG_ITS ---
Test Date: 2025-08-07 14:42:16 Measurements Intervals [place] Rate: 76 P: 97 TN: 173 QRS: 18 QRSD: 94 T: 144 QT: 411 QTc: 465 Interpretive Statements SINUS RHYTHM LEFT VENTRICULAR HYPERTROPHY AND ST-T CHANGE [VOLTAGE CRITERIA PLUS ST/T ABNORMALITY] ABNORMAL ECG No previous ECG available for comparison Electronically Signed On 08-07-2025 17:19:05 CDT by Johnny Harris M.D.
--- OUTSIDE RECORDS SUMMARY | 2025-08-07 14:08 | XMS_ITS | Encounter Summary ---
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 Gender Identity Not on file Sexual [...] on filedocumented in this encounter Care Teams Cigar Head Stringer Relationship Specialty Start Date End Date Olivier Diaz MD PCP - General 01/11/17 David White MD [address] [place] [address] Medical Oncologist/Art Installer Medical Oncology 01/10/21 Aury Bach MD [address] [place] [address] Referring Physician Critical Care Med 03/23/22 Jessica Tobias MD [address] [place], [place] [id number] Consulting Physician Surgery 04/22/23 Dayne Stoddard MD [address] [facility] [id number] [place] [address] Surgeon Colon and Rectal Surgery 06/15/23 documented as of this encounter
--- OUTSIDE RECORDS SUMMARY | 2025-08-07 14:08 | XMS_ITS ---
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
--- OUTSIDE RECORDS SUMMARY | 2025-08-07 14:08 | XMS_ITS | Encounter Summary ---
Author Organization [facility] Address [address] [place] [address] Phone Care Team Providers Care Waiter/Waitress Bar Name Role Phone Olivier Diaz MD Primary Care Provider [phone] David White MD Unavailable [phone] Aury Bach MD Unavailable [phone] Jessica Tobias MD Unavailable [phone] Dayne Stoddard MD Unavailable [phone] Encounter Details Date Type Department Care Team (Late st Contact Info) Description 02/20/2025 Telephone [facility] Oncology [address] [place] [address] Libia Osuna Social History Tobacco Use Types [...] on file 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 Gender Identity Not on file Sexual Orientation Not on file documented as of this encounter Plan of Treatment Not on file documented as of this encounter Visit Diagnoses Not on filedocumented in this encounter Care Teams Waiter/Waitress Bar Relationship Specialty Start Date End Date Olivier Diaz MD PCP - General 01/11/17 David White MD [address] [place] [address] Medical Oncologist/Swing Grinder Medical Oncology 01/10/21 Aury Bach MD [address] [place], [place] [address] Referring Physician Critical Care Med 03/23/22 Jessica Tobias MD [address] [place], [place] [address] Consulting Physician Surgery 04/22/23 Dayne Stoddard MD [address] [facility] [phone] [place] [address] Surgeon Colon and Rectal Surgery 06/15/23 documented as of this encounter
--- OUTSIDE RECORDS SUMMARY | 2025-08-07 14:08 | XMS_ITS | Clinical Summary ---
Author Organization [facility] Address [address] [place] [address] Care Team Providers Care Form Presser Name Role Phone Olivier Diaz MD Primary Care Provider [phone] David White MD Unavailable [phone] Aury Bach MD Unavailable [phone] Jessica Tobias MD Unavailable [phone] Dayne Stoddard MD Unavailable [phone] Allergies Active Allergy Reactions Criticality Noted Date Comments Penicillins Hives,Itching Medium 03/30/2016 Medications levothyroxine (SYNTHROID, LEVOTHROID) 88 mcg tablet Take 1 tablet (88 mcg total) by mouth home care aide before breakfast Active ondansetron ODT (ZOFRAN-ODT) 4 [...] (11/30/2019): Added automatically from request for surgery [id number] Age-related osteoporosis wit hout current pathological fracture [...] on file Legal Sex Female 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 Gender Identity Not on file Sexual Orientation [...] Advance Directives For more information, please contact: [phone] * Full Code (Latest Code Status on File) Date Activated Date Inactivated Comments 06/24/2023 10:54 AM 06/24/2023 7:17 PM * Full Code Date Activated Date Inactivated Comments 01/18/2020 8:08 AM 01/18/2020 1:18 PM * Full Code Date Activated Date Inactivated Comments 12/22/2019 8:28 AM 12/22/2019 2:51 PM * Full Code Date Activated Date Inactivated Comments 02/08/2018 11:19 PM 02/09/2018 2:40 PM Care Teams Form Presser Relationship Specialty Start Date End Date Olivier Diaz MD PCP - General 01/11/17 David White MD [address] [place] [address] Medical Oncologist/Delivery Supervisor Medical Oncology 01/10/21 Aury Bach MD [address] [place] [address] Referring Physician Critical Care Med 03/23/22 Jessica Tobias MD [address] [place], [place] [address] Consulting Physician Surgery 04/22/23 Dayne Stoddard MD [address] [facility] [id number] [place] [address] Surgeon Colon and Rectal Surgery 06/15/23
--- OUTSIDE RECORDS SUMMARY | 2025-08-07 14:08 | XMS_ITS | Encounter Summary ---
Author Organization [facility] Address [address] [place] [address] Care Team Providers Care Print Buyer Name Role Phone Olivier Diaz MD Primary Care Provider David White MD Unavailable Aury Bach MD Unavailable [phone] Jessica Tobias MD Unavailable [phone] Dayne Stoddard MD Unavailable [phone] Encounter Details Date Type Department Care Team (Late st Contact Info) Description 01/15/2021 Telephone [facility] - Interventional Radiology [address] [place] [address] Ines Rose, EMANUEL Social History Tobacco Use Types Packs/Day Years Used Date Smoking Tobacco: Former Cigarettes Smokeless Tobacco: Never Alcohol Use Standard Drinks/Week Comments No 0 (1 standard drink = 0.6 oz pur e alcohol) Comments No Sex and Gender Information Value Date Recorded Sex Assigned at Not on file 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 Gender Identity Not on file Sexual Orientation Not on file documented as of this encounter Plan of Treatment Not on file documented as of this encounter Visit Diagnoses Not on filedocumented in this encounter Care Teams Print Buyer Relationship Specialty Start Date End Date Olivier Diaz MD PCP - General 01/11/17 David White MD [address] [place] [address] Medical Oncologist/1St Pressman Medical Oncology 01/10/21 Aury Bach MD [address] [place] [address] Referring Physician Critical Care Med 03/23/22 Jessica Tobias MD [address] [place] [address] Consulting Physician Surgery 04/22/23 Dayne Stoddard MD [address] [facility] [phone] [place] [address] Surgeon Colon and Rectal Surgery 06/15/23 documented as of this encounter
--- OUTSIDE RECORDS SUMMARY | 2025-08-07 14:09 | XMS_ITS | Encounter Summary ---
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 Gender Identity Not on file Sexual Orientation [...] on filedocumented in this encounter Care Teams Welder Plastic Relationship Specialty Start Date End Date Olivier Diaz MD PCP - General 01/11/17 David White MD [address] [place] [address] Medical Oncologist/Packing And Final Assembly Supervisor Medical Oncology 01/10/21 Aury Bach MD [address] [place] [address] Referring Physician Critical Care Med 03/23/22 Jessica Tobias MD [address] [place], [place] [address] Consulting Physician Surgery 04/22/23 Dayne Stoddard MD [address] [facility] [place] [phone] [place] [address] Surgeon Colon and Rectal Surgery 06/15/23 documented as of this encounter
--- OUTSIDE RECORDS SUMMARY | 2025-08-07 14:09 | XMS_ITS | Encounter Summary ---
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 Gender Identity Not on file Sexual Orientation [...] on filedocumented in this encounter Care Teams Pulpwood Contractor Relationship Specialty Start Date End Date Olivier Diaz MD PCP - General 01/11/17 David White MD [address] [place] [address] Medical Oncologist/Load Dispatcher Local Medical Oncology 01/10/21 Aury Bach MD [address] [place] [address] Referring Physician Critical Care Med 03/23/22 Jessica Tobias MD [address] [place], [place] [address] Consulting Physician Surgery 04/22/23 Dayne Stoddard MD [address] [facility] [phone] [place] [address] Surgeon Colon and Rectal Surgery 06/15/23 documented as of this encounter
--- OUTSIDE RECORDS SUMMARY | 2025-08-07 14:09 | XMS_ITS | Encounter Summary ---
Author Organization [facility] Healthcare Address [address] [place] [address] Care Team Providers Care Community Pharmacist Name Role Phone Olivier Diaz MD Primary Care Provider David White MD Unavailable Aury Bach MD Unavailable [phone] Jessica Tobias MD Unavailable [phone] Dayne Stoddard MD Unavailable [phone] Encounter Details Date Type Department Care Team (Late st Contact Info) Description 09/13/2019 Telephone [facility] - Interventional Radiology [address] [place] [address] Danielle Ferguson RN Social History Tobacco Use Types Packs/Day Years Used Date Smoking Tobacco: Former Cigarettes Smokeless Tobacco: Never Alcohol Use Standard Drinks/Week Comments No 0 (1 standard drink = 0.6 oz pur e alcohol) Comments Unknown Sex and Gender Information Value Date Recorded Sex Assigned at Not on file Legal Sex Female 12:42 AM YOKER Gender Identity Not on file Sexual Orientation Not on file documented as of this encounter Plan of Treatment Not on file documented as of this encounter Visit Diagnoses Not on filedocumented in this encounter Care Teams Community Pharmacist Relationship Specialty Start Date End Date Olivier Diaz MD PCP - General 2/20/17 David White MD [address] [place] [address] Medical Oncologist/Vegetable Vendor Medical Oncology 01/10/21 Aury Bach MD [address] [place], [place] [address] Referring Physician Critical Care Med 03/23/22 Jessica Tobias MD [address] [place], [place] [address] Consulting Physician Surgery 04/22/23 Dayne Stoddard MD [address] [facility] [place] [phone] [place] [address] Surgeon Colon and Rectal Surgery 06/15/23 documented as of this encounter
--- OUTSIDE RECORDS SUMMARY | 2025-08-07 14:53 | XMS_ITS | Encounter Summary ---
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 Gender Identity Not on file Sexual [...] on filedocumented in this encounter Care Teams Telephone Exchange Operator Relationship Specialty Start Date End Date Olivier Diaz MD PCP - General 01/11/17 David White MD [address] [place] [address] Medical Oncologist/Building Services Coordinator Medical Oncology 01/10/21 Aury Bach MD [address] [place] [address] Referring Physician Critical Care Med 03/23/22 Jessica Tobias MD [address] [place], [place] [address] Consulting Physician Surgery 04/22/23 Dayne Stoddard MD [address] [facility] [place] [phone] [place] [address] Surgeon Colon and Rectal Surgery 06/15/23 documented as of this encounter
--- OUTSIDE RECORDS SUMMARY | 2025-08-07 14:53 | XMS_ITS | Encounter Summary ---
Author Organization [facility] Address [address] [place] [address] Care Team Providers Care Theoretical Physicist Name Role Phone Olivier Diaz MD Primary Care Provider David White MD Unavailable Aury Bach MD Unavailable [phone] Jessica Tobias MD Unavailable [phone] Dayne Stoddard MD Unavailable [phone] Encounter Details Date Type Department Care Team (Late st Contact Info) Description 01/15/2021 Telephone [facility] - Interventional Radiology [address] [place] [address] Ines Rose, EMANUEL Social History Tobacco Use Types Packs/Day Years Used Date Smoking Tobacco: Former Cigarettes Smokeless Tobacco: Never Alcohol Use Standard Drinks/Week Comments No 0 (1 standard drink = 0.6 oz pur e alcohol) Comments No Sex and Gender Information Value Date Recorded Sex Assigned at Not on file 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 Gender Identity Not on file Sexual Orientation Not on file documented as of this encounter Plan of Treatment Not on file documented as of this encounter Visit Diagnoses Not on filedocumented in this encounter Care Teams Theoretical Physicist Relationship Specialty Start Date End Date Olivier Diaz MD PCP - General 01/11/17 David White MD [address] [place] [address] Medical Oncologist/Taxicab Dispatcher Medical Oncology 01/10/21 Aury Bach MD [address] [place] [address] Referring Physician Critical Care Med 03/23/22 Jessica Tobias MD [address] [place] [address] Consulting Physician Surgery 04/22/23 Dayne Stoddard MD [address] [facility] [phone] [place] [address] Surgeon Colon and Rectal Surgery 06/15/23 documented as of this encounter
--- OUTSIDE RECORDS SUMMARY | 2025-08-07 14:53 | XMS_ITS | Encounter Summary ---
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 Gender Identity Not on file Sexual [...] on filedocumented in this encounter Care Teams Boat Wrapper Relationship Specialty Start Date End Date Olivier Diaz MD PCP - General 01/11/17 David White MD [address] [place] [address] Medical Oncologist/Machine Design Checker Medical Oncology 01/10/21 Aury Bach MD [address] [place] [address] Referring Physician Critical Care Med 03/23/22 Jessica Tobias MD [address] [place], [place] [address] Consulting Physician Surgery 04/22/23 Dayne Stoddard MD [address] [facility] [phone] [place] [address] Surgeon Colon and Rectal Surgery 06/15/23 documented as of this encounter
--- OUTSIDE RECORDS SUMMARY | 2025-08-07 14:53 | XMS_ITS | Encounter Summary ---
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 Gender Identity Not on file Sexual Orientation [...] on filedocumented in this encounter Care Teams Teacher Tutor Relationship Specialty Start Date End Date Olivier Diaz MD PCP - General 01/11/17 David White MD [address] [place] [address] Medical Oncologist/Diploma Dental Assistant Medical Oncology 01/10/21 Aury Bach MD [address] [place] [address] Referring Physician Critical Care Med 03/23/22 Jessica Tobias MD [address] [place], [place] [address] Consulting Physician Surgery 04/22/23 Dayne Stoddard MD [address] [facility] [place] [phone] [place] [address] Surgeon Colon and Rectal Surgery 06/15/23 documented as of this encounter
--- OUTSIDE RECORDS SUMMARY | 2025-08-07 14:53 | XMS_ITS ---
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
--- OUTSIDE RECORDS SUMMARY | 2025-08-07 14:53 | XMS_ITS | Clinical Summary ---
Author Organization [facility] Address [address] [place] [address] Care Team Providers Care Lockstitch Hemmer Name Role Phone Olivier Diaz MD Primary Care Provider [phone] David White MD Unavailable [phone] Aury Bach MD Unavailable [phone] Jessica Tobias MD Unavailable [phone] Dayne Stoddard MD Unavailable [phone] Allergies Active Allergy Reactions Criticality Noted Date Comments Penicillins Hives,Itching Medium 03/30/2016 Medications levothyroxine (SYNTHROID, LEVOTHROID) 88 mcg tablet Take 1 tablet (88 mcg total) by mouth wrist hemmer before breakfast Active ondansetron ODT (ZOFRAN-ODT) 4 [...] (11/30/2019): Added automatically from request for surgery [id number] Age-related osteoporosis wit hout current pathological fracture [...] on file Legal Sex Female 12:42 AM HAND ETCHER Gender Identity Not on file Sexual Orientation [...] LIFE INS [employer] MEDICARE COMMERCIAL GENERIC PHYSICIANS [facility] [place] INS [place] Advance Directives For more information, please contact: [phone] * Full Code (Latest Code Status on File) Date Activated Date Inactivated Comments 06/24/2023 10:54 AM 06/24/2023 7:17 PM * Full Code Date Activated Date Inactivated Comments 01/18/2020 8:08 AM 01/18/2020 1:18 PM * Full Code Date Activated Date Inactivated Comments 12/22/2019 8:28 AM 12/22/2019 2:51 PM * Full Code Date Activated Date Inactivated Comments 02/08/2018 11:19 PM 02/09/2018 2:40 PM Care Teams Lockstitch Hemmer Relationship Specialty Start Date End Date Olivier Diaz MD PCP - General 01/11/17 David White MD [address] [place] [address] Medical Oncologist/Public Aid Eligibility Assistant Medical Oncology 01/10/21 Aury Bach MD [address] [place] [address] Referring Physician Critical Care Med 03/23/22 Jessica Tobias MD [address] [place], [place] [id number] Consulting Physician Surgery 04/22/23 Dayne Stoddard MD [address] [facility] [phone] [place] [address] Surgeon Colon and Rectal Surgery 06/15/23
--- OUTSIDE RECORDS SUMMARY | 2025-08-07 14:53 | XMS_ITS | Encounter Summary ---
Author Organization [facility] Healthcare Address [address] [place] [address] Care Team Providers Care Meteorological Aide Name Role Phone Olivier Diaz MD Primary Care Provider [phone] David White MD Unavailable Aury Bach MD Unavailable [phone] Jessica Tobias MD Unavailable [phone] Dayne Stoddard MD Unavailable [phone] Encounter Details Date Type Department Care Team (Late st Contact Info) Description 09/13/2019 Telephone [facility] - Interventional Radiology [address] [place] [address] Danielle Ferguson RN Social History Tobacco Use Types Packs/Day Years Used Date Smoking Tobacco: Former Cigarettes Smokeless Tobacco: Never Alcohol Use Standard Drinks/Week Comments No 0 (1 standard drink = 0.6 oz pur e alcohol) Comments Unknown Sex and Gender Information Value Date Recorded Sex Assigned at Not on file 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 Gender Identity Not on file Sexual Orientation Not on file documented as of this encounter Plan of Treatment Not on file documented as of this encounter Visit Diagnoses Not on filedocumented in this encounter Care Teams Meteorological Aide Relationship Specialty Start Date End Date Olivier Diaz MD PCP - General 2/20/17 David White MD [address] [place] [address] Medical Oncologist/County Bailiff Medical Oncology 01/10/21 Aury Bach MD [address] [place], [place] [address] Referring Physician Critical Care Med 03/23/22 Jessica Tobias MD [address] [place], [place] [address] Consulting Physician Surgery 04/22/23 Dayne Stoddard MD [address] [facility] [phone] [place] [address] Surgeon Colon and Rectal Surgery 06/15/23 documented as of this encounter
--- OUTSIDE RECORDS SUMMARY | 2025-08-07 14:53 | XMS_ITS | Encounter Summary ---
Author Organization [facility] Address [address] [place] [address] Phone Care Team Providers Care Completion Supervisor Name Role Phone Olivier Diaz MD Primary Care Provider [phone] David White MD Unavailable [phone] Aury Bach MD Unavailable [phone] Jessica Tobias MD Unavailable [phone] Dayne Stoddard MD Unavailable [phone] Encounter Details Date Type Department Care Team (Late st Contact Info) Description 02/20/2025 Telephone [facility] Oncology [address] [place] [address] Libia Osuna Social History Tobacco Use Types [...] on file 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 Gender Identity Not on file Sexual Orientation Not on file documented as of this encounter Plan of Treatment Not on file documented as of this encounter Visit Diagnoses Not on filedocumented in this encounter Care Teams Completion Supervisor Relationship Specialty Start Date End Date Olivier Diaz MD PCP - General 01/11/17 David White MD [address] [place] [address] Medical Oncologist/Medical Housekeeper Medical Oncology 01/10/21 Aury Bach MD [address] [place], [place] [address] Referring Physician Critical Care Med 03/23/22 Jessica Tobias MD [address] [place], [place] [address] Consulting Physician Surgery 04/22/23 Dayne Stoddard MD [address] [facility] [place] [place] [phone] [place] [address] Surgeon Colon and Rectal Surgery 06/15/23 documented as of this encounter
[2025-08-07] MEDS: LACTATED RINGERS 1,000 ML 30 ML IV CONT (15:55)
--- NOTE | 2025-08-07 15:57 | WPDANESEPPF ---
Anes - Initial Pre Proc Eval Procedure: Operation Date: 08/07/25 13:15 Proposed Procedures p Esophagogastroduodenoscopy - Gene Metz MD Date/Time: 08/07/25 15:57 Surgeon: Gene Metz MD Pre Op Diagnosis: something stuck in back of throat since last night Patient Data Age: 74 Gender: F Height: 1.63 m Weight: 76.2 kg Last Vital Signs Temp 97.8 F 08/07/25 10:28 Pulse 48 L 08/07/25 13:27 Resp 12 08/07/25 13:27 BP 124/62 08/07/25 13:27 Pulse Ox 98 08/07/25 13:27 O2 Del Method Room Air 08/07/25 11:33 Allergies Allergy/AdvReac Type Severity Reaction Status Date / Time Penicillins Allergy Unknown rash Verified 08/07/25 11:42 Home Medications ?Medication ?Instructions ?Recorded ?Confirmed ?Type cholecalciferol (vitamin D3) 25 1,000 unit PO DAILY 09/25/19 06/28/25 History mcg (1,000 unit) capsule escitalopram oxalate 10 mg tablet 10 mg PO DAILY 09/25/19 06/28/25 History inhalational spacing device #1 ea 09/25/19 06/28/25 History (Jany Palacios [facility] spacer) lorazepam 1 mg tablet 1 mg PO BID PRN Anxiety 09/25/19 06/28/25 History ondansetron HCl 8 mg tablet 4 mg PO TID 09/25/19 06/28/25 History acetaminophen 500 mg tablet 500 mg PO TID PRN Pain 09/26/19 06/28/25 History (Tylenol Extra Strength) Adult Low Dose Aspirin 81 mg PO HS 06/09/22 06/28/25 History nadolol 20 mg tablet 20 mg PO DAILY 03/03/23 06/28/25 History pantoprazole 40 mg tablet,delayed 40 mg PO DAILY 03/03/23 06/28/25 History release tramadol 50 mg tablet 50 mg PO Q6H PRN Pain 06/30/23 06/28/25 History amitriptyline 25 mg tablet 25 mg PO QHS 06/26/24 06/28/25 History melatonin 10 mg capsule 10 mg PO QHS 06/26/24 06/28/25 History montelukast 10 mg tablet 10 mg PO DAILY 06/26/24 06/28/25 History duloxetine 20 mg capsule,delayed 20 mg PO DAILY 07/07/24 06/28/25 History release levothyroxine 100 mcg tablet 100 mcg PO DAILY 07/07/24 06/28/25 History mecobalamin (vitamin B12) 500 mcg 5,000 mcg PO DAILY 07/07/24 06/28/25 History chewable tablet umeclidinium 62.5 mcg-vilanterol 1 inh inhalation DAILY 1 month #60 08/28/24 06/28/25 Rx 25 mcg/actuation powdr for ea inhalation (Anoro Ellipta) Prevagen 1 tab-cap PO DAILY 10/28/24 06/28/25 History Stool Softner 1 tab-cap PO DAILY 10/28/24 06/28/25 History fluticasone furoate 27.5 2 spray intranasal DAILY 7 days 10/28/24 06/28/25 Rx mcg/actuation nasal #5.9 mL spray,suspension (Flonase Sensimist) naproxen 500 mg tablet 500 mg PO BID PRN pain #14 tabs 10/28/24 06/28/25 Rx albuterol sulfate 90 mcg/actuation 1 - 2 inh inhalation Q4-6H PRN 06/01/25 06/28/25 Rx aerosol inhaler (Ventolin HFA) shortness of breath or wheezing #8.5 grams Laboratory Tests 08/07/25 08/07/25 12:47 12:48 WBC 7.1 K/mm3 (4.5-10.0) RBC 4.64 M/mm3 (4.2-5.4) Hgb 14.0 g/dL (12.0-15.0) Hct 42.0 % (37.0-47.0) MCV 90.5 fl (80-100) MCH 30.2 pg (26-34) MCHC 33.3 g/dl (32-36) RDW 12.9 % (11.5-14.5) Plt Count 341 k/mm3 (150-375) MPV 9.5 fl (7.4-10.4) Immature Gran % (Auto) 0.3 % (0-0.5) Neut % (Auto) 65.0 % (45.5-73.1) Lymph % (Auto) 21.1 % (18.3-44.2) Fulton % (Auto) 9.4 H % (2.6-8.5) Eos % (Auto) 2.9 % (0-4.4) Baso % (Auto) 1.3 H % (0.2-1.2) Lymph # (Auto) 1.50 K/mm3 (0.9-3.2) Fulton # (Auto) 0.7 H K/mm3 (0.1-0.6) Eos # (Auto) 0.2 K/mm3 (0-0.3) Baso # (Auto) 0.1 K/mm3 (0.0-0.1) Abs Immat Gran (auto) 0.02 K/mm3 (0.00-0.031) Absolute Neuts (auto) 4.6 K/mm3 (1.3-6.7) Absolute Nucleated RBC 0.000 K/mm3 (0.0-0.012) Nucleated RBC % 0.0 % (0.0-0.2) PT 16.4 H Seconds (11.1-14.7) INR 1.3 Sodium 139 mmol/L (137-145) Potassium 4.2 mmol/L (3.4-5.0) Chloride 103 mmol/L (98-107) Carbon Dioxide 27 mmol/L (22-30) Anion Gap 9 mmol/L (4-12) BUN 17 mg/dL (7-17) Creatinine 1.18 H mg/dL (0.7-1.0) Estim Creat Clear Calc 36 ml/min Estimated GFR 45 L (59 - ) Glucose 110 mg/dL (65-110) Calcium 9.5 mg/dL (8.4-10.2) Total Bilirubin 1.0 mg/dL (0.2-1.3) AST 39 H U/L (14-36) ALT 17 U/L (6-35) Alkaline Phosphatase 37 L U/L (38-126) Total Protein 7.6 g/dL (6.3-8.2) Albumin 4.4 g/dL (3.5-5.1) Patient hx anesthesia problems: post op nausea/vomiting Family hx anesthesia problems: none Results Review: All pre-operative results and documents have been reviewed as part of the pre-operative evaluation. [facility] Past Medical History Medical History GERD (gastroesophageal reflux disease) Seizure Stroke Thyroid disease Anxiety Depression FB esophagus History of lung cancer Surgical History Surgical History History of carpal tunnel surgery Hx of tubal ligation Cholecystectomy planned H/O: hysterectomy Family History Family History Father Hypertension Cerebrovascular accident Malignant neoplasm of prostate, Onset Age: 84 Family history of congestive heart failure Mother Family history of osteoarthritis Family history of coronary artery disease Social History Social History Smoking packs per day: 1 Smoking cigarettes per day: 20.0 Years smoked: 35 Smoking pack-years: 35.00 Smoking status: Former smoker Tobacco type: cigarettes Second hand tobacco smoke exposure: Yes Smoking end date: 11/22/15 Alcohol intake: current Alcohol use details: rare occasional Substance use: never Substance use type: does not use Living arrangements: with family Spiritual care concerns: No Anes - Eval Final PreProcedure Day of Procedure 08/07/25 15:57 Patient weight: normal Lungs: normal air movement Airway: Mallampati scale class II and special considerations (Edentulous. ) Neurological: alert and oriented Last oral intake: >/= 8 hours ASA classification: III Emergent: yes Anesthetic plan: proceed Anesthesia type and monitoring: general ETT and standard monitoring Results Review: All pre-operative results and documents have been reviewed as part of the pre-operative evaluation. Hx reviewed, hx of COPD/lung ca s/p chemo radiation , hx of CVA without deficits. Now w food impaction due to hx of stricture. Informed Consent: The patient's anesthetic plan and its attendant risks and benefits were discussed with the patient/family/POA. Questions were solicited and answers provided to the satisfaction of the patient/family/POA.
--- NOTE | 2025-08-09 14:06 | PM.IMHP ---
H&P: HPI History of Present Illness Date/Time: 08/09/25 14:06 Chief Complaint: Food bolus impaction Narrative: Patient with a history of radiotherapy for lung cancer years ago. She has been experiencing the sensation of food bolus impaction in her esophagus for the past 12 hours. Service consulted for EGD. Review of Systems Review of Systems: All systems reviewed & are unremarkable except as noted in HPI and below PMFSH Past Medical History Medical History GERD (gastroesophageal reflux disease) Seizure Stroke Thyroid disease Anxiety Depression FB esophagus History of lung cancer Surgical History Surgical History History of carpal tunnel surgery Hx of tubal ligation Cholecystectomy planned H/O: hysterectomy Family History Family History Father Hypertension Cerebrovascular accident Malignant neoplasm of prostate, Onset Age: 84 Family history of congestive heart failure Mother Family history of osteoarthritis Family history of coronary artery disease Social History Social History Smoking packs per day: 1 Smoking cigarettes per day: 20.0 Years smoked: 35 Smoking pack-years: 35.00 Smoking status: Former smoker Tobacco type: cigarettes Second hand tobacco smoke exposure: Yes Smoking end date: 11/22/15 Alcohol intake: current Alcohol use details: rare occasional Substance use: never Substance use type: does not use Living arrangements: with family Spiritual care concerns: No Meds Home Medications and Allergies Home Medications ?Medication ?Instructions ?Recorded ?Confirmed ?Type cholecalciferol (vitamin D3) 25 1,000 unit PO DAILY 09/25/19 06/28/25 History mcg (1,000 unit) capsule escitalopram oxalate 10 mg tablet 10 mg PO DAILY 09/25/19 06/28/25 History inhalational spacing device #1 ea 09/25/19 06/28/25 History (Jany Palacios [facility] spacer) lorazepam 1 mg tablet 1 mg PO BID PRN Anxiety 09/25/19 06/28/25 History ondansetron HCl 8 mg tablet 4 mg PO TID 09/25/19 06/28/25 History acetaminophen 500 mg tablet 500 mg PO TID PRN Pain 09/26/19 06/28/25 History (Tylenol Extra Strength) Adult Low Dose Aspirin 81 mg PO HS 06/09/22 06/28/25 History nadolol 20 mg tablet 20 mg PO DAILY 03/03/23 06/28/25 History pantoprazole 40 mg tablet,delayed 40 mg PO DAILY 03/03/23 06/28/25 History release tramadol 50 mg tablet 50 mg PO Q6H PRN Pain 06/30/23 06/28/25 History amitriptyline 25 mg tablet 25 mg PO QHS 06/26/24 06/28/25 History melatonin 10 mg capsule 10 mg PO QHS 06/26/24 06/28/25 History montelukast 10 mg tablet 10 mg PO DAILY 06/26/24 06/28/25 History duloxetine 20 mg capsule,delayed 20 mg PO DAILY 07/07/24 06/28/25 History release levothyroxine 100 mcg tablet 100 mcg PO DAILY 07/07/24 06/28/25 History mecobalamin (vitamin B12) 500 mcg 5,000 mcg PO DAILY 07/07/24 06/28/25 History chewable tablet umeclidinium 62.5 mcg-vilanterol 1 inh inhalation DAILY 1 month #60 08/28/24 06/28/25 Rx 25 mcg/actuation powdr for ea inhalation (Anoro Ellipta) Prevagen 1 tab-cap PO DAILY 10/28/24 06/28/25 History Stool Softner 1 tab-cap PO DAILY 10/28/24 06/28/25 History fluticasone furoate 27.5 2 spray intranasal DAILY 7 days 10/28/24 06/28/25 Rx mcg/actuation nasal #5.9 mL spray,suspension (Flonase Sensimist) naproxen 500 mg tablet 500 mg PO BID PRN pain #14 tabs 10/28/24 06/28/25 Rx albuterol sulfate 90 mcg/actuation 1 - 2 inh inhalation Q4-6H PRN 06/01/25 06/28/25 Rx aerosol inhaler (Ventolin HFA) shortness of breath or wheezing #8.5 grams Allergies Allergy/AdvReac Type Severity Reaction Status Date / Time Penicillins Allergy Unknown rash Verified 08/07/25 16:04 Exam Const: General: cooperative and healthy appearing Resp: Effort & Inspection: normal respiratory effort and able to speak in complete sentences Auscultation: clear to auscultation bilaterally Cardio: Rate: regular rate Rhythm: regular rhythm GI: Inspection: normal to inspection GI Palp: No No hepatosplenomegaly present Auscultation: normal bowel sounds Rectal Exam: deferred Skin: General skin exam: normal color Psych: Appearance: grossly normal Mental Status: mental status grossly normal Assessment and Plan Assessment and plan (1) Food impaction of esophagus: Qualifiers: Encounter type: initial encounter Qualified Code(s): T18.128A - Food in esophagus causing other injury, initial encounter; W44.F3XA - Food entering into or through a natural orifice, initial encounter Code(s): T18.128A - Food in esophagus causing other injury, initial encounter; W44.F3XA - Food entering into or through a natural orifice, initial encounter Status: Acute Plan The patient is deemed a good candidate for the procedure. Consent signed. Will proceed.
== END 2025-08-07 17:12 | disposition home or self-care (01) ==
LOC: ANHED 13:17 → ANHSURGERY 13:18
PROVIDERS: Emergency Provider Family Medicine; PCP Internal Medicine; Visit Provider Internal Medicine Gastroenterology
PROC: 0DJ08ZZ Inspection of Upper Intestinal Tract, Via Natural or Artificial Opening Endoscopic (ICD-10-PCS; CPT 43247; principal; 2025-08-07 13:15)
DX: T18.128A Food in esophagus causing other injury, initial encounter (principal); K22.2 Esophageal obstruction; W44.F3XA Food entering into or through a natural orifice, initial encounter; K21.9 Gastro-esophageal reflux disease without esophagitis; J44.9 Chronic obstructive pulmonary disease, unspecified; E07.9 Disorder of thyroid, unspecified; F41.9 Anxiety disorder, unspecified; F32.A Depression, unspecified; R56.9 Unspecified convulsions; R94.31 Abnormal electrocardiogram [ECG] [EKG]; Z79.51 Long term (current) use of inhaled steroids; Z79.891 Long term (current) use of opiate analgesic; Z79.1 Long term (current) use of non-steroidal anti-inflammatories (NSAID); Z98.890 Other specified postprocedural states; Z98.51 Tubal ligation status; Z87.891 Personal history of nicotine dependence; Z92.3 Personal history of irradiation; Z86.79 Personal history of other diseases of the circulatory system; Z85.118 Personal history of other malignant neoplasm of bronchus and lung; Z80.42 Family history of malignant neoplasm of prostate; Z82.49 Family history of ischemic heart disease and other diseases of the circulatory system
CPT/HCPCS: 43247; 36415; 71045; 80053; 85025; 85610; 93005; 96360; 96361; 99285; J0330; J2003; J2405; J2704; J7030; J7120

== ENCOUNTER 2025-08-28 07:48 | Outpatient (CLI) | payer MEDICARE, OTHER, SELFPAY ==
--- NOTE | ~2025-08-28 | XR_ITS ---
EXAMINATION: XR barium swallow DATE: 08/28/2025 10:19 INDICATION: Esophageal obstruction with radiation-induced stenosis TECHNIQUE: The patient drank thick barium, gas-producing crystals, and thin barium. Fluoroscopic spot radiographs of the hypopharynx and esophagus were obtained. Fluoroscopy exposure time was 1.9 minutes. Total DAP was 6.675 Gycm^ 2. COMPARISON: None. FINDINGS: The pharynx is symmetric and without evidence of mass lesion or mucosal irregularity. Dose approximately 4 similar long mild stricture with smooth mucosal margins at the junction of the upper to midthoracic esophagus at the level of the aortic arch which measures no less than 10 x 7 mm in minimal diameter on AP and lateral projections respectively. There is mild smooth undulation to be mucosal surface along the posterior esophageal wall at the stricture. No abnormal masses or mucosal irregularities along the esophagus. Mild esophageal dysmotility likely related to presbyesophagus with weakening of the primary peristaltic wave in the mid esophagus with some mild pooling of contrast in the mid to distal esophagus. There is a small sliding-type hiatal hernia with gastroesophageal junction approximately 3 cm above level of the diaphragm. There was gastroesophageal reflux of a moderate amount of contrast from the intra-abdominal portion of the stomach into the hiatal hernia and more proximally to at least the mid esophagus. IMPRESSION: 1. Small sliding-type hiatal hernia with gastroesophageal reflux. 2. Mild stricture with smoothly undulating mucosal surface at the junction of the proximal to mid thoracic esophagus which measures no less than 10 x 7 mm in minimal diameter. Reviewed, dictated and finalized at location A. IMPRESSION: 1. Small sliding-type hiatal hernia with gastroesophageal reflux. 2. Mild stricture with smoothly undulating mucosal surface at the junction of t he proximal to mid thoracic esophagus which measures no less than 10 x 7 mm in minimal diameter.
--- OUTSIDE RECORDS SUMMARY | 2025-08-28 07:51 | XMS_ITS | Encounter Summary ---
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 Gender Identity Not on file Sexual [...] on filedocumented in this encounter Care Teams Office Machine Technician Relationship Specialty Start Date End Date Olivier Diaz MD PCP - General 01/11/17 David White MD [address] [place] [address] Medical Oncologist/Materials Planner/Production Planner Medical Oncology 01/10/21 Aury Bach MD [address] [place] [address] Referring Physician Critical Care Med 03/23/22 Jessica Tobias MD [address] [place], [place] [address] Consulting Physician Surgery 04/22/23 Dayne Stoddard MD [address] [facility] [phone] [place] [address] Surgeon Colon and Rectal Surgery 06/15/23 documented as of this encounter
--- OUTSIDE RECORDS SUMMARY | 2025-08-28 07:51 | XMS_ITS | Encounter Summary ---
Author Organization [facility] Address [address] [place] [address] Phone Care Team Providers Care Associate Professor Of Philosophy Name Role Phone Olivier Diaz MD Primary Care Provider [phone] David White MD Unavailable [phone] Aury Bach MD Unavailable [phone] Jessica Tobias MD Unavailable [phone] Dayne Stoddard MD Unavailable [phone] Encounter Details Date Type Department Care Team (Late st Contact Info) Description 02/20/2025 Telephone [facility] [place] [facility] [address] [place] [address] Libia Osuna Social History Tobacco Use Types [...] on file 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 Gender Identity Not on file Sexual Orientation Not on file documented as of this encounter Plan of Treatment Not on file documented as of this encounter Visit Diagnoses Not on filedocumented in this encounter Care Teams Associate Professor Of Philosophy Relationship Specialty Start Date End Date Olivier Diaz MD PCP - General 01/11/17 David White MD [address] [place] [address] Medical Oncologist/Broom Bundler Medical Oncology 01/10/21 Aury Bach MD [address] [place], [place] [address] Referring Physician Critical Care Med 03/23/22 Jessica Tobias MD [address] [place], [place] [address] Consulting Physician Surgery 04/22/23 Dayne Stoddard MD [address] [facility] [phone] [place] [address] Surgeon Colon and Rectal Surgery 06/15/23 documented as of this encounter
--- OUTSIDE RECORDS SUMMARY | 2025-08-28 07:52 | XMS_ITS | Encounter Summary ---
Author Organization [facility] Healthcare Address [address] [place] [address] Care Team Providers Care Audiovisual Equipment Operator Name Role Phone Olivier Diaz MD Primary Care Provider [phone] David White MD Unavailable Aury Bach MD Unavailable [phone] Jessica Tobias MD Unavailable [phone] Dayne Stoddard MD Unavailable [phone] Encounter Details Date Type Department Care Team (Late st Contact Info) Description 01/15/2021 Telephone [facility] - Interventional Radiology [address] [place] [address] Ines Rose, EMANUEL Social History Tobacco Use Types Packs/Day Years Used Date Smoking Tobacco: Former Cigarettes Smokeless Tobacco: Never Alcohol Use Standard Drinks/Week Comments No 0 (1 standard drink = 0.6 oz pur e alcohol) Comments No Sex and Gender Information Value Date Recorded Sex Assigned at Not on file Legal 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 UP 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 Gender Identity Not on file Sexual Orientation Not on file documented as of this encounter Plan of Treatment Not on file documented as of this encounter Visit Diagnoses Not on filedocumented in this encounter Care Teams Audiovisual Equipment Operator Relationship Specialty Start Date End Date Olivier Diaz MD PCP - General 01/11/17 David White MD [address] [place] [address] Medical Oncologist/Banjo Repair Person Medical Oncology 01/10/21 Aury Bach MD [address] [place] [address] Referring Physician Critical Care Med 03/23/22 Jessica Tobias MD [address] [place] [address] Consulting Physician Surgery 04/22/23 Dayne Stoddard MD [address] [facility] [phone] [place] [address] Surgeon Colon and Rectal Surgery 06/15/23 documented as of this encounter
--- OUTSIDE RECORDS SUMMARY | 2025-08-28 07:52 | XMS_ITS | Clinical Summary ---
Author Organization [facility] Address [address] [place] [address] Care Team Providers Care Heel Former Name Role Phone Olivier Diaz MD Primary Care Provider [phone] Allergies Active Allergy Reactions Criticality Noted Date [...] (three) times daily as needed. 2 Active Encounters Date Type Department Care Team Description 08/10/2025 8:56 AM CDT - 08/10/2025 11:59 PM CDT Hospital Encounter [facility] [address] [id number] Olga Vu, TRANSPORTATION MAINTENANCE OPERATOR-BC Stacia Townsend, AMPHIBIAN CREWMEMBER Discharge Disposition: Home or Self Care (Routine Discharge) 08/10/2025 Travel from Last 3 Months Social History Tobacco Use Types Packs/Day Years [...] Date Last Done Comments Hepatitis C 1966 Zoster Vaccines (1 of 2) 1998 Annual Medicare Wellness Visit 2013 Dexa Scan (General) 2013 COVID-19 Vaccine ( season) 2025 09/13/2022, 07/31/2021, 07/10/2021, Additional history exists Influenza Adult (#1) 2025 10/13/2024, 08/22/20 DTaP, Tdap and Td Vaccines (3 - Td or Tdap) 10/24/2034 10/24/2024, 10/11/2012 Pneumococcal Vaccine: 50+ Years Completed 06/04/2023, 08/29/2020, 08/22/2019 RSV Immunization or 60+ Years Completed 10/13/2024 Meningococcal B Vaccine Aged Out No l onger eligible based on patient's age to complete this topic Meningococcal Vaccine Aged Out No judith dorita eligible based on patient's age to complete this topic RSV Immunizations Under 20 Months Aged Out No longer eligible based on patient's age to complete this topic Procedures Procedure Name Priority Date/Time Associated Diagnosis Comments XR SPEECH SWALLOW [facility] ONLY Routine 08/10/2025 9:47 AM CDT Other dysphagia from Last 3 Months Results * [facility] - XR SPEECH SWALLOW (08/10/2025 9:47 AM CDT) Anatomical Region Laterality Modality NA Radiographic Jerrica ging, Radiographic Imaging 08/10/2025 11:5 6 AM CDT Impressions 08/10/2025 12:01 PM CDT IMPRESSION: 1. No evidence of tracheal aspiration or penetration. Ordered By: OLGA VU Interpreted By: Rodger Mirza, 08/10/2025 11:56 AM Narrative 08/10/2025 12:01 PM CDT [facility] [address] [place] [address] IMAGING STUDIES: XR SPEECH SWALLOW [facility] ONLY DATE: 08/10/2025 9:02 AM CLINICAL HISTORY: OTHER DYSPHAGIA . Prior radiation therapy for lung carcinoma.. Patient states impacted food removed from esophagus, 3 days prior to exam FINDINGS: 1.0 minutes of fluroscopic time used. 6 cine fluoroscopic loop films obtained. Multiple consistencies of barium were given to the patient with speech pathology present. No evidence of tracheal aspiration or penetration. . Mild pooling of pudding barium in the vallecula. Procedure Note Adair Mirza MD - 08/10/2025 [facility] [address] [address] IMAGING STUDIES: XR SPEECH SWALLOW [facility] ONLY DATE: 08/10/2025 9:02 AM CLINICAL HISTORY: OTHER DYSPHAGIA . Prior radiation therapy for lungcarcinoma.. Patient states impacted food removed from esophagus, 3 days prior toexam FINDINGS: 1.0 minutes of fluroscopic time used. 6 cine fluoroscopic loop filmsobtained. Multiple consistencies of barium were given to the patient with speechpathology present. No evidence of tracheal aspiration or penetration. . Mild pooling of pudding barium in the vallecula. IMPRESSION: 1. No evidence of tracheal aspiration or penetration. Ordered By: OLGA VU Interpreted By: Rodger Mirza, 08/10/2025 11:56 AM Olga Vu [facility]- FLUOROSCOPY Final R esult from Last 3 Months Insurance MEDICARE [employer] Care Teams Heel Former Relationship Specialty Start Date End Date Olivier Diaz MD [address] [place] [id number] PCP - General INTERNAL MEDICINE 05/11/19
--- OUTSIDE RECORDS SUMMARY | 2025-08-28 07:52 | XMS_ITS | Clinical Summary ---
Author Organization [facility] Address [address] [place] [address] Care Team Providers Care Train Master Name Role Phone Olivier Diaz MD Primary Care Provider [phone] David White MD Unavailable [phone] Aury Bach MD Unavailable [phone] Jessica Tobias MD Unavailable [phone] Dayne Stoddard MD Unavailable [phone] Allergies Active Allergy Reactions Criticality Noted Date Comments Penicillins Hives,Itching Medium 03/30/2016 Medications levothyroxine (SYNTHROID, LEVOTHROID) 88 mcg tablet Take 1 tablet (88 mcg total) by mouth youth ministry director before breakfast Active ondansetron ODT (ZOFRAN-ODT) 4 [...] (11/30/2019): Added automatically from request for surgery [id number] Age-related osteoporosis wit hout current pathological fracture [...] on file 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 Gender Identity Not on file Sexual Orientation [...] LIFE INS [employer] MEDICARE [facility] Advance Directives For more information, please contact: [phone] * Full Code (Latest Code Status on File) Date Activated Date Inactivated Comments 06/24/2023 10:54 AM 06/24/2023 7:17 PM * Full Code Date Activated Date Inactivated Comments 01/18/2020 8:08 AM 01/18/2020 1:18 PM * Full Code Date Activated Date Inactivated Comments 12/22/2019 8:28 AM 12/22/2019 2:51 PM * Full Code Date Activated Date Inactivated Comments 02/08/2018 11:19 PM 02/09/2018 2:40 PM Care Teams Train Master Relationship Specialty Start Date End Date Olivier Diaz MD PCP - General 01/11/17 David White MD [address] [place] [address] Medical Oncologist/Services Account Manager Medical Oncology 01/10/21 Aury Bach MD [address] [place] [address] Referring Physician Critical Care Med 03/23/22 Jessica Tobias MD [address] [place], [place] [address] Consulting Physician Surgery 04/22/23 Dayne Stoddard MD [address] [facility] [phone] [place] [address] Surgeon Colon and Rectal Surgery 06/15/23
--- OUTSIDE RECORDS SUMMARY | 2025-08-28 07:52 | XMS_ITS | Encounter Summary ---
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 Gender Identity Not on file [...] on filedocumented in this encounter Care Teams Addiction Specialist Relationship Specialty Start Date End Date Olivier Diaz MD PCP - General 01/11/17 David White MD [address] [place] [address] Medical Oncologist/Commercial Real Estate Agent Medical Oncology 01/10/21 Aury Bach MD [address] [place] [address] Referring Physician Critical Care Med 03/23/22 Jessica Tobias MD [address] [place], [place] [address] Consulting Physician Surgery 04/22/23 Dayne Stoddard MD [address] [facility] [phone] [place] [address] Surgeon Colon and Rectal Surgery 06/15/23 documented as of this encounter
--- OUTSIDE RECORDS SUMMARY | 2025-08-28 07:52 | XMS_ITS | Encounter Summary ---
Author Organization 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 [phone] [place] [address] Surgeon Colon and Rectal Surgery 06/15/23 documented as of this encounter
--- OUTSIDE RECORDS SUMMARY | 2025-08-28 07:52 | XMS_ITS | Encounter Summary ---
Author Organization [facility] Healthcare Address [address] [place] [address] Care Team Providers Care Metal Organ Pipe Maker Name Role Phone Olivier Diaz MD Primary Care Provider David White MD Unavailable [phone] Aury Bach MD Unavailable [phone] Jessica Tobias MD Unavailable [phone] Dayne Stoddard MD Unavailable [phone] Encounter Details Date Type Department Care Team (Late st Contact Info) Description 09/13/2019 Telephone [facility] - Interventional Radiology [address] [place] [address] Danielle Ferguson RN Social History Tobacco Use Types Packs/Day Years Used Date Smoking Tobacco: Former Cigarettes Smokeless Tobacco: Never Alcohol Use Standard Drinks/Week Comments No 0 (1 standard drink = 0.6 oz pur e alcohol) Comments Unknown Sex and Gender Information Value Date Recorded Sex Assigned at Not on file Legal Sex Female 12:42 AM UNCLAIMED PROPERTY OFFICER Gender Identity Not on file Sexual Orientation Not on file documented as of this encounter Plan of Treatment Not on file documented as of this encounter Visit Diagnoses Not on filedocumented in this encounter Care Teams Metal Organ Pipe Maker Relationship Specialty Start Date End Date Olivier Diaz MD PCP - General 2/20/17 David White MD [address] [place] [address] Medical Oncologist/Head Turning Machine Operator Medical Oncology 01/10/21 Aury Bach MD [address] [place], [place] [address] Referring Physician Critical Care Med 03/23/22 Jessica Tobias MD [address] [place], [place] [address] Consulting Physician Surgery 04/22/23 Dayne Stoddard MD [address] [facility] [phone] [place] [address] Surgeon Colon and Rectal Surgery 06/15/23 documented as of this encounter
--- OUTSIDE RECORDS SUMMARY | 2025-08-28 07:52 | XMS_ITS ---
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
== END 2025-08-28 07:49 | disposition home or self-care (01) ==
PROVIDERS: PCP Internal Medicine; Visit Provider Internal Medicine Gastroenterology
DX: K22.2 Esophageal obstruction (principal); K22.0 Achalasia of cardia; K44.9 Diaphragmatic hernia without obstruction or gangrene
CPT/HCPCS: 74220

== ENCOUNTER 2025-10-05 10:36 | Outpatient (CLI) | payer MEDICARE, OTHER, SELFPAY ==
--- NOTE | ~2025-10-05 | MM_ITS ---
EXAMINATION: MM diagnostic garcía RT w butch HISTORY: Follow-up right breast calcifications. Site of previous benign right breast biopsy. History of lung cancer. No family history of breast cancer. TECHNIQUE: Additional 3-D tomosynthesis images of the right breast were performed and synthetic 2-D images were generated. CAD analysis was submitted and interpreted. COMPARISON: Comparison to multiple prior studies sequentially, with oldest reviewed study dated 06/15/2022. BREAST PARENCHYMAL COMPOSITION: Not Dense: The breasts are almost entirely fatty. FINDINGS: There is a low-density mass in the upper outer quadrant of the right breast, anterior third. There are developing internal calcifications. Findings compatible with fat necrosis. IMPRESSION: 1. Benign-appearing low-density mass upper outer quadrant of the right breast with developing internal calcifications, consistent with fat necrosis. 2. Routine yearly screening mammogram and regular clinical breast examination are recommended. BI-RADS Category 2: Benign finding(s). Reviewed, dictated and finalized at location B. E PRODUCTS MAKER IMPRESSION: 1. Benign-appearing low-density mass upper outer quadrant of the right breast w ith developing internal calcifications, consistent with fat necrosis. 2. Routine yearly screening mammogram and regular clinical breast examination a re recommended. BI-RADS Category 2: Benign finding(s).
== END 2025-10-05 10:37 | disposition home or self-care (01) ==
LOC: ANHFOHIMG 10:37
PROVIDERS: PCP Internal Medicine; Visit Provider Nurse Practitioner Family
DX: R92.8 Other abnormal and inconclusive findings on diagnostic imaging of breast (principal)
CPT/HCPCS: 77061; 77065; G0279

== ENCOUNTER 2025-10-10 12:51 | Outpatient (CLI) | payer MEDICARE, OTHER, SELFPAY ==
--- NOTE | ~2025-10-10 | CT_ITS ---
EXAMINATION:CT diagnostic chest wo con DATE: 10/10/2025 13:07 INDICATION: Lung nodule TECHNIQUE: Computed tomography (CT) of the chest was performed without intravenous contrast. The dose-length product (DLP) was 151.96 mGy-cm. COMPARISON: None. FINDINGS: Posttreatment changes in the right upper lobe, as well as scattered lung nodules including the largest in the right lung base measuring 10 x 8 mm not significantly changed given variation in measurement. Heart and great vessels normal size. No significant pericardial effusion or bulky lymphadenopathy. Mitral annular calcification and moderately extensive coronary artery calcification. No acute process seen in the bony thorax, extrathoracic soft tissues or visualized portions of the upper abdomen. IMPRESSION: Posttreatment changes in the right upper lobe stable to the previous exam; scattered lung nodules including a 10 x 8 mm slightly spiculated-appearing nodule right lung base is also stable. Continued surveillance recommended. Reviewed, dictated and finalized at location A. ING PROGRAM COORDINATOR IMPRESSION: Posttreatment changes in the right upper lobe stable to the previou s exam; scattered lung nodules including a 10 x 8 mm slightly spiculated-appear ing nodule right lung base is also stable. Continued surveillance recommended.
--- OUTSIDE RECORDS SUMMARY | 2025-10-10 18:37 | XMS_ITS | Encounter Summary ---
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 Gender Identity Not on file Sexual [...] on filedocumented in this encounter Care Teams Administrative Services Specialist Relationship Specialty Start Date End Date Olivier Diaz MD PCP - General 01/11/17 David White MD [address] [place] [address] Medical Oncologist/Bead Worker Sewing Medical Oncology 01/10/21 Aury Bach MD [address] [place] [address] Referring Physician Critical Care Med 03/23/22 Jessica Tobias MD [address] [place], [place] [address] Consulting Physician Surgery 04/22/23 Dayne Stoddard MD [address] [facility] [phone] [place] [address] Surgeon Colon and Rectal Surgery 06/15/23 documented as of this encounter
--- OUTSIDE RECORDS SUMMARY | 2025-10-10 18:37 | XMS_ITS | Encounter Summary ---
Author Organization [facility] Address [address] [place] [address] Phone Care Team Providers Care Manager Business Name Role Phone Olivier Diaz MD Primary Care Provider [phone] David White MD Unavailable [phone] Aury Bach MD Unavailable [phone] Jessica Tobias MD Unavailable [phone] Dayne Stoddard MD Unavailable [phone] Encounter Details Date Type Department Care Team [...] on file Legal Sex Female 12:42 AM AGITATOR OPERATOR Gender Identity Not on file Sexual [...] on filedocumented in this encounter Care Teams Manager Business Relationship Specialty Start Date End Date Olivier Diaz MD PCP - General 01/11/17 David White MD [address] [place] [address] Medical Oncologist/Cashiers Bussers Food Runners Medical Oncology 01/10/21 Aury Bach MD [address] [place] [address] Referring Physician Critical Care Med 03/23/22 Jessica Tobias MD [address] [place], [place] [address] Consulting Physician Surgery 04/22/23 Dayne Stoddard MD [address] [facility] [phone] [place] [address] Surgeon Colon and Rectal Surgery 06/15/23 documented as of this encounter
--- OUTSIDE RECORDS SUMMARY | 2025-10-10 18:37 | XMS_ITS | Encounter Summary ---
Author Organization [facility] Healthcare Address [address] [place] [address] Care Team Providers Care Manager Dairy Name Role Phone Olivier Diaz MD Primary Care Provider [phone] David White MD Unavailable [phone] Aury Bach MD Unavailable [phone] Jessica Tobias MD Unavailable [phone] Dayne Stoddard MD Unavailable [phone] Encounter Details Date Type Department Care Team (Late st Contact Info) Description 01/15/2021 Telephone [facility] - Interventional Radiology [address] [place] [address] Ines Rose, EMANUEL Social History Tobacco Use Types Packs/Day Years Used Date Smoking Tobacco: Former Cigarettes Smokeless Tobacco: Never Alcohol Use Standard Drinks/Week Comments No 0 (1 standard drink = 0.6 oz pur e alcohol) Comments No Sex and Gender Information Value Date Recorded Sex Assigned at Not on file Legal Sex Female 12:42 AM 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 Gender Identity Not on file Sexual Orientation Not on file documented as of this encounter Functional Status * Question Answer Date of Assessment Author MAP (mmHg) 76 01/15/2021 12:35 PM DATABASE 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 Danielle Mckeon RN * [place] Fall Risk Question Answer Date of Assessment Author History of Falling 0 01/15/2021 10:58 AM CS T Ines Rose RN Secondary Diagnosis 0 01/15/2021 10:[address] Ines Rose RN Ambulatory Aids 0 01/15/2021 10:58 AM Ines Ellis RN Intravenous Therapy/Heparin/Saline Lock 0 01/15/2021 10:58 AM Ines Judge RN Gait/Transferring 0 01/15/2021 10:58 AM Ines Judge RN Mental Status 0 01/15/2021 10:58 AM Ines Terry RN Morse Fall Risk Score (Score >= 45 places fall precaution order) 0 01/15/2021 10:58 AM Ines Judge RN documented as of this encounter Plan of Treatment Not on file documented as of this encounter Visit Diagnoses Not on filedocumented in this encounter Care Teams Manager Dairy Relationship Specialty Start Date End Date Olivier Diaz MD PCP - General 01/11/17 David White MD [address] [place] [address] Medical Oncologist/Director Institution Medical Oncology 01/10/21 Aury Bach MD [address] [place], [place] [address] Referring Physician Critical Care Med 03/23/22 Jessica Tobias MD [address] [place] [address] Consulting Physician Surgery 04/22/23 Dayne Stoddard MD [address] [facility] [phone] [place] [address] Surgeon Colon and Rectal Surgery 06/15/23 documented as of this encounter
--- OUTSIDE RECORDS SUMMARY | 2025-10-10 18:37 | XMS_ITS | Encounter Summary ---
Author Organization [facility] Healthcare Address [address] [place] [address] Care Team Providers Care Business Systems Consultant Name Role Phone Olivier Diaz MD Primary Care Provider [phone] David White MD Unavailable [phone] Aury Bach MD Unavailable [phone] Jessica Tobias MD Unavailable [phone] Dayne Stoddard MD Unavailable [phone] Encounter Details Date Type Department Care Team (Late st Contact Info) Description 09/13/2019 Telephone [facility] - Interventional Radiology [address] [place] [address] Danielle Ferguson RN Social History Tobacco Use Types Packs/Day Years Used Date Smoking Tobacco: Former Cigarettes Smokeless Tobacco: Never Alcohol Use Standard Drinks/Week Comments No 0 (1 standard drink = 0.6 oz pur e alcohol) Comments Unknown Sex and Gender Information Value Date Recorded Sex Assigned at Not on file Legal Sex Female 12: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 Gender Identity Not on file Sexual Orientation Not on file documented as of this encounter Functional Status * Question Answer Date of Assessment Author MAP (mmHg) 85 09/14/2019 3:10 PM CDT Yolanda Servin RN * Zapata Fall Risk Question Answer Date of Assessment Author History of Falling 0 09/14/2019 11:17 AM BETTY T Daneille Espinosa RN Secondary Diagnosis 0 09/14/2019 11:17 AM C Danielle Gastelum RN Ambulatory Aids 0 09/14/2019 11:17 AM Danielle Cintron RN Intravenous Therapy/Heparin/Saline Lock 0 09/14/2019 11:17 AM Danielle Monique RN Gait/Transferring 0 09/14/2019 11:17 AM Danielle Monique RN documented as of this encounter Plan of Treatment Not on file documented as of this encounter Visit Diagnoses Not on filedocumented in this encounter Care Teams Business Systems Consultant Relationship Specialty Start Date End Date Olivier Diaz MD PCP - General 01/11/17 David White MD [address] [place] [address] Medical Oncologist/University Internship Medical Oncology 01/10/21 Aury Bach MD [address] [place] [address] Referring Physician Critical Care Med 03/23/22 Jessica Tobias MD [address] [place] [address] Consulting Physician Surgery 04/22/23 Dayne Stoddard MD [address] [facility] [id number] [place] [address] Surgeon Colon and Rectal Surgery 06/15/23 documented as of this encounter
--- OUTSIDE RECORDS SUMMARY | 2025-10-10 18:37 | XMS_ITS ---
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
--- OUTSIDE RECORDS SUMMARY | 2025-10-10 18:37 | XMS_ITS | Encounter Summary ---
Author Organization [facility] Address [address] [place] [address] Phone Care Team Providers Care Captain Airline Pilot Name Role Phone Olivier Diaz MD Primary Care Provider [phone] David White MD Unavailable [phone] Aury Bach MD Unavailable [phone] Jessica Tobias MD Unavailable [phone] Dayne Stoddard MD Unavailable [phone] Encounter Details Date Type Department Care [...] on file Legal Sex Female 12:42 AM GENERAL PRODUCTION MANAGER Gender Identity Not on file Sexual [...] on filedocumented in this encounter Care Teams Captain Airline Pilot Relationship Specialty Start Date End Date Olivier Diaz MD PCP - General 01/11/17 David White MD [address] [place] [address] Medical Oncologist/Automobile Repair Service Estimator Medical Oncology 01/10/21 Aury Bach MD [address] [place] [address] Referring Physician Critical Care Med 03/23/22 Jessica Tobias MD [address] [place], [place] [address] Consulting Physician Surgery 04/22/23 Dayne Stoddard MD [address] [facility] [id number] [place] [address] Surgeon Colon and Rectal Surgery 06/15/23 documented as of this encounter
--- OUTSIDE RECORDS SUMMARY | 2025-10-10 18:37 | XMS_ITS | Clinical Summary ---
Author Organization [facility] Address [address] [place] [address] Care Team Providers Care Last Repairer Name Role Phone Olivier Diaz MD Primary Care Provider [phone] David White MD Unavailable [phone] Aury Bach MD Unavailable [phone] Jessica Tobias MD Unavailable [phone] Dayne Stoddard MD Unavailable [phone] Allergies Active Allergy Reactions Criticality Noted Date Comments Penicillins Hives,Itching Medium 03/30/2016 Medications levothyroxine (SYNTHROID, LEVOTHROID) 88 mcg tablet Take 1 tablet (88 mcg total) by mouth j2ee engineer before breakfast Active ondansetron ODT (ZOFRAN-ODT) 4 [...] (11/30/2019): Added automatically from request for surgery [id number] Age-related osteoporosis wit hout current pathological fracture [...] on file Legal Sex Female 12:42 AM SLUNK SKINNER Gender Identity Not on file Sexual Orientation [...] Advance Directives For more information, please contact: [phone] * Full Code (Latest Code Status on File) Date Activated Date Inactivated Comments 06/24/2023 10:54 AM 06/24/2023 7:17 PM * Full Code Date Activated Date Inactivated Comments 01/18/2020 8:08 AM 01/18/2020 1:18 PM * Full Code Date Activated Date Inactivated Comments 12/22/2019 8:28 AM 12/22/2019 2:51 PM * Full Code Date Activated Date Inactivated Comments 02/08/2018 11:19 PM 02/09/2018 2:40 PM Care Teams Last Repairer Relationship Specialty Start Date End Date Olivier Diaz MD PCP - General 01/11/17 David White MD [address] [place] [address] Medical Oncologist/Journal Entry Audit Clerk Medical Oncology 01/10/21 Aury Bach MD [address] [place] [address] Referring Physician Critical Care Med 03/23/22 Jessica Tobias MD [address] [place] [address] Consulting Physician Surgery 04/22/23 Dayne Stoddard MD [address] [facility] [place] [id number] [place] [address] Surgeon Colon and Rectal Surgery 06/15/23
--- OUTSIDE RECORDS SUMMARY | 2025-10-10 18:37 | XMS_ITS | Encounter Summary ---
Author Organization [facility] Address [address] [place] [address] Phone Care Team Providers Care Food Equipment Service Technician Name Role Phone Olivier Diaz MD Primary Care Provider [phone] David White MD Unavailable [phone] Aury Bach MD Unavailable [phone] Jessica Tobias MD Unavailable [phone] Dayne Stoddard MD Unavailable [phone] Encounter Details Date Type Department Care Team (Late st Contact Info) Description 02/20/2025 Telephone [facility] Oncology [address] [place] [address] Libia Osuna Social History Tobacco Use Types [...] on file Legal Sex Female 12:42 AM OUTPATIENT PHLEBOTOMIST Gender Identity Not on file Sexual Orientation Not on file documented as of this encounter Plan of Treatment Not on file documented as of this encounter Visit Diagnoses Not on filedocumented in this encounter Care Teams Food Equipment Service Technician Relationship Specialty Start Date End Date Olivier Diaz MD PCP - General 01/11/17 David White MD [address] [place] [address] Medical Oncologist/Mobile Electronics Installer Medical Oncology 01/10/21 Aury Bach MD [address] [place], [place] [address] Referring Physician Critical Care Med 03/23/22 Jessica Tobias MD [address] [place], [place] [address] Consulting Physician Surgery 04/22/23 Dayne Stoddard MD [address] [facility] [phone] [place] [address] Surgeon Colon and Rectal Surgery 06/15/23 documented as of this encounter
== END 2025-10-10 12:52 | disposition home or self-care (01) ==
PROVIDERS: PCP Internal Medicine; Visit Provider Nurse Practitioner Family
DX: R91.1 Solitary pulmonary nodule (principal)
CPT/HCPCS: 71250

== ENCOUNTER 2025-11-01 15:09 | Outpatient (CLI) | payer MEDICARE, OTHER, SELFPAY ==
--- NOTE | ~2025-11-01 | XR_ITS ---
EXAMINATION: XR shoulder RT min 2V, 11/01/2025 15:20 AT RISK SPECIALIST HISTORY: R Shoulder Pain COMPARISON: No comparisons available. Findings: No acute fracture or malalignment. No significant degenerative changes. Soft tissues unremarkable. Impression: No acute fracture or malalignment. Reviewed, dictated and finalized at location P. RISK SPECIALIST Impression: No acute fracture or malalignment.
--- NOTE | ~2025-11-01 | XR_ITS ---
EXAMINATION: XR clavicle RT, 11/01/2025 15:20 EMB[employer] SYSTEM[employer] SOFTWARE DEVELOPER HISTORY: R Shoulder Pain, R Shoulder deformity COMPARISON: No comparisons available. Findings: No acute fracture or malalignment. No significant degenerative changes. Soft tissues unremarkable. Impression: No acute fracture or malalignment. Reviewed, dictated and finalized at location P. DDED SYSTEMS SOFTWARE DEVELOPER Impression: No acute fracture or malalignment.
--- OUTSIDE RECORDS SUMMARY | 2025-11-01 18:11 | XMS_ITS | Encounter Summary ---
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 Gender Identity Not on file Sexual [...] on filedocumented in this encounter Care Teams Combatant Swimmer Relationship Specialty Start Date End Date Olivier Diaz MD PCP - General 01/11/17 David White MD [address] [place] [address] Medical Oncologist/Title Assistant Medical Oncology 01/10/21 Aury Bach MD [address] [place] [address] Referring Physician Critical Care Med 03/23/22 Jessica Tobias MD [address] [place], [place] [address] Consulting Physician Surgery 04/22/23 Dayne Stoddard MD [address] [facility] [phone] [place] [address] Surgeon Colon and Rectal Surgery 06/15/23 documented as of this encounter
--- OUTSIDE RECORDS SUMMARY | 2025-11-01 18:11 | XMS_ITS ---
Author Organization 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
--- OUTSIDE RECORDS SUMMARY | 2025-11-01 18:11 | XMS_ITS | Encounter Summary ---
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 [phone] [place] [address] Surgeon Colon and Rectal Surgery 06/15/23 documented as of this encounter
--- OUTSIDE RECORDS SUMMARY | 2025-11-01 18:11 | XMS_ITS | Encounter Summary ---
Author Organization [facility] Healthcare Address [address] [place] [address] Care Team Providers Care Variety Performer Name Role Phone Olivier Diaz MD Primary Care Provider [phone] David White MD Unavailable [phone] Aury Bach MD Unavailable [phone] Jessica Tobias MD Unavailable [phone] Dayne Stoddard MD Unavailable [phone] Encounter Details Date Type Department Care Team (Late st Contact Info) Description 09/13/2019 Telephone [facility] - Interventional Radiology [address] [place] [address] Danielle Ferguson RN Social History Tobacco Use Types Packs/Day Years Used Date Smoking Tobacco: Former Cigarettes Smokeless Tobacco: Never Alcohol Use Standard Drinks/Week Comments No 0 (1 standard drink = 0.6 oz pur e alcohol) Comments Unknown Sex and Gender Information Value Date Recorded Sex Assigned at Not on file Legal Sex Female 12:42 AM VOCATIONAL TRAINER Gender Identity Not on file Sexual Orientation Not on file documented as of this encounter Functional Status * Question Answer Date of Assessment Author MAP (mmHg) 85 09/14/2019 3:10 PM CDT Yolanda Servin RN * Zapata Fall Risk Question Answer Date of Assessment Author History of Falling 0 09/14/2019 11:17 AM BETTY T Danielle Espinosa RN Secondary Diagnosis 0 09/14/2019 11:17 [...] on filedocumented in this encounter Care Teams Variety Performer Relationship Specialty Start Date End Date Olivier Diaz MD PCP - General 01/11/17 David White MD [address] [place] [address] Medical Oncologist/Food Quality Tester Medical Oncology 01/10/21 Aury Bach MD [address] [place] [address] Referring Physician Critical Care Med 03/23/22 Jessica Tobias MD [address] [place] [address] Consulting Physician Surgery 04/22/23 Dayne Stoddard MD [address] [facility] [phone] [place] [address] Surgeon Colon and Rectal Surgery 06/15/23 documented as of this encounter
--- OUTSIDE RECORDS SUMMARY | 2025-11-01 18:11 | XMS_ITS | Clinical Summary ---
Author Organization [facility] Address [address] [place] [address] Care Team Providers Care Auto Design Checker Name Role Phone Olivier Diaz MD Primary Care Provider [phone] David White MD Unavailable [phone] Aury Bach MD Unavailable [phone] Jessica Tobias MD Unavailable [phone] Dayne Stoddard MD Unavailable [phone] Allergies Active Allergy Reactions Criticality Noted Date Comments Penicillins Hives,Itching Medium 03/30/2016 Medications levothyroxine (SYNTHROID, LEVOTHROID) 88 mcg tablet Take 1 tablet (88 mcg total) by mouth tandem mill roller before breakfast Active ondansetron ODT (ZOFRAN-ODT) 4 [...] (11/30/2019): Added automatically from request for surgery [id number] Age-related osteoporosis wit hout current pathological fracture [...] on file Legal Sex Female 12: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 CUTTER Gender Identity Not on file Sexual Orientation [...] Advance Directives For more information, please contact: [phone] * Full Code (Latest Code Status on File) Date Activated Date Inactivated Comments 06/24/2023 10:54 AM 06/24/2023 7:17 PM * Full Code Date Activated Date Inactivated Comments 01/18/2020 8:08 AM 01/18/2020 1:18 PM * Full Code Date Activated Date Inactivated Comments 12/22/2019 8:28 AM 12/22/2019 2:51 PM * Full Code Date Activated Date Inactivated Comments 02/08/2018 11:19 PM 02/09/2018 2:40 PM Care Teams Auto Design Checker Relationship Specialty Start Date End Date Olivier Diaz MD PCP - General 01/11/17 David White MD [address] [place] [address] Medical Oncologist/Aerial Gunner Superintendent Medical Oncology 01/10/21 Aury Bach MD [address] [place] [address] Referring Physician Critical Care Med 03/23/22 Jessica Tobias MD [address] [place] [address] Consulting Physician Surgery 04/22/23 Dayne Stoddard MD [address] [facility] [phone] [place] [address] Surgeon Colon and Rectal Surgery 06/15/23
--- OUTSIDE RECORDS SUMMARY | 2025-11-01 18:11 | XMS_ITS | Encounter Summary ---
Author Organization [facility] Address [address] [place] [address] Phone Care Team Providers Care Senior Loan Processor Name Role Phone Olivier Diaz MD Primary Care Provider [phone] David White MD Unavailable [phone] Aury Bach MD Unavailable [phone] Jessica Tobias MD Unavailable [phone] Dayne Stoddard MD Unavailable [phone] Encounter Details Date Type Department Care [...] on file Legal Sex Female 12:42 AM CLAIMS ADJUSTER CROP Gender Identity Not on file Sexual Orientation [...] filedocumented in this encounter Care Teams Senior Loan Processor Relationship Specialty Start Date End Date Olivier Diaz MD PCP - General 01/11/17 David White MD [address] [place] [address] Medical Oncologist/Guidance Counselor Medical Oncology 01/10/21 Aury Bach MD [address] [place] [address] Referring Physician Critical Care Med 03/23/22 Jessica Tobias MD [address] [place], [place] [address] Consulting Physician Surgery 04/22/23 Dayne Stoddard MD [address] [facility] [phone] [place] [address] Surgeon Colon and Rectal Surgery 06/15/23 documented as of this encounter
--- OUTSIDE RECORDS SUMMARY | 2025-11-01 18:11 | XMS_ITS | Clinical Summary ---
Author Organization [facility] Address [address] [place] [address] Care Team Providers Care Manager Managed Care Name Role Phone Olivier Diaz MD Primary Care Provider [phone] Allergies Active Allergy Reactions Criticality Noted Date [...] - 08/10/2025 11:59 PM CDT Hospital Encounter [facility] [address] [id number] Olga Vu, PLANT CARE WORKER-BC Stacia Townsend, COUNTY DIRECTOR Discharge Disposition: Home or Self Care (Routine [...] RSV Immunization or 60+ Years Completed 10/13/2024 Hepatitis A Vaccines Aged Out No long er eligible based on patient's age to complete this topic Meningococcal B Vaccine Aged Out No l onger eligible based on patient's age to complete this topic Meningococcal Vaccine Aged Out No judith dorita eligible based on patient's age to complete this topic RSV Immunizations Under 20 Months Aged Out No longer eligible based on patient's age to complete this topic Procedures Procedure Name Priority Date/Time Associated Diagnosis Comments XR SPEECH SWALLOW [facility] Routine 08/10/2025 9:47 AM CDT Other [...] 11:56 AM Narrative 08/10/2025 12:01 PM CDT [facility] [address] [place] [address] IMAGING STUDIES: XR SPEECH SWALLOW [facility] DATE: 08/10/2025 9:02 AM CLINICAL HISTORY: [...] Procedure Note Adair Mirza MD - 08/10/2025 [facility] [address] [place] [address] IMAGING STUDIES: XR SPEECH SWALLOW [facility] DATE: 08/10/2025 9:02 AM CLINICAL HISTORY: [...] Rodger Mirza, 08/10/2025 11:56 AM Olga Vu PLANT CARE WORKER-BC FLUOROSCOPY Final R esult from Last 3 Months Insurance [employer] Care Teams Manager Managed Care Relationship Specialty Start Date End Date Olivier Diaz MD [address] [place] [address] PCP - General INTERNAL MEDICINE 05/11/19
--- OUTSIDE RECORDS SUMMARY | 2025-11-01 18:11 | XMS_ITS | Encounter Summary ---
Author Organization [facility] Address [address] [place] [address] Phone Care Team Providers Care Industrial Chemistry Teacher Name Role Phone Olivier Diaz MD Primary Care Provider [phone] David White MD Unavailable [phone] Aury Bach MD Unavailable [phone] Jessica Tobias MD Unavailable [phone] Dayne Stoddard MD Unavailable [phone] Encounter Details Date Type Department Care Team (Late st Contact Info) Description 02/20/2025 Telephone [facility] On[facility] [address] [place] [address] Libia Osuna Social History Tobacco Use Types [...] on file Legal Sex Female 12:42 AM BEND SORTER Gender Identity Not on file Sexual Orientation Not on file documented as of this encounter Plan of Treatment Not on file documented as of this encounter Visit Diagnoses Not on filedocumented in this encounter Care Teams Industrial Chemistry Teacher Relationship Specialty Start Date End Date Olivier Diaz MD PCP - General 01/11/17 David White MD [address] [place] [address] Medical Oncologist/Peel Oven Tender Medical Oncology 01/10/21 Aury Bach MD [address] [place], [place] [address] Referring Physician Critical Care Med 03/23/22 Jessica Tobias MD [address] [place], [place] [address] Consulting Physician Surgery 04/22/23 Dayne Stoddard MD [address] [facility] [phone] [place] [address] Surgeon Colon and Rectal Surgery 06/15/23 documented as of this encounter
--- OUTSIDE RECORDS SUMMARY | 2025-11-01 18:11 | XMS_ITS | Encounter Summary ---
Author Organization [facility] Healthcare Address [address] [place] [address] Care Team Providers Care Linux Support Engineer Name Role Phone Olivier Diaz MD Primary Care Provider [phone] David White MD Unavailable [phone] Aury Bach MD Unavailable [phone] Jessica Tobias MD Unavailable [phone] Dayne Stoddard MD Unavailable [phone] Encounter Details Date Type Department Care Team (Late st Contact Info) Description 01/15/2021 Telephone [facility] - Interventional Radiology [address] [place] [address] Ines Rose, EMANUEL Social History Tobacco Use Types Packs/Day Years Used Date Smoking Tobacco: Former Cigarettes Smokeless Tobacco: Never Alcohol Use Standard Drinks/Week Comments No 0 (1 standard drink = 0.6 oz pur e alcohol) Comments No Sex and Gender Information Value Date Recorded Sex Assigned at Not on file Legal Sex Female 12:42 AM HOSPITAL SECURITY OFFICER Gender Identity Not on file Sexual Orientation Not on file documented as of this encounter Functional Status * Question Answer Date of Assessment Author MAP (mmHg) 76 01/15/2021 12:35 PM HOSPITAL SECURITY OFFICER Danielle Mckeon RN * [place] Fall Risk [...] on filedocumented in this encounter Care Teams Linux Support Engineer Relationship Specialty Start Date End Date Olivier Diaz MD PCP - General 01/11/17 David White MD [address] [place] [address] Medical Oncologist/Pharmacy Account Director Medical Oncology 01/10/21 Aury Bach MD [address] [place], [place] [id number] Referring Physician Critical Care Med 03/23/22 Jessica Tobias MD [address] [place] [address] Consulting Physician Surgery 04/22/23 Dayne Stoddard MD [address] [facility] [phone] [place] [address] Surgeon Colon and Rectal Surgery 06/15/23 documented as of this encounter
== END 2025-11-01 15:10 | disposition home or self-care (01) ==
PROVIDERS: PCP Nurse Practitioner Family; Visit Provider Internal Medicine
DX: M25.511 Pain in right shoulder (principal)
CPT/HCPCS: 73000; 73030